=== PATIENT | male | born 1970 | race African-American/Black ===

== ENCOUNTER 2022-10-14 23:34 | Emergency (ER) | payer OTHER, SELFPAY ==
--- NOTE | 2022-10-14 23:40 | ECG_ITS ---
Test Reason : palpations Blood Pressure : / mmHG Vent. Rate : 090 BPM Atrial Rate : 090 BPM P-R Int : 144 ms QRS Dur : 080 ms QT Int : 370 ms P-R-T Axes : 032 -06 057 degrees QTc Int : 452 ms Normal sinus rhythm Nonspecific T wave abnormality Inferior infarct , age undetermined Abnormal ECG No previous ECGs available Referred By: Generic ED Physician Electronically Signed By:SHANDRA PARKINSON
[2022-10-15 00:02] VITALS: BP 120/82; PULSE 88; RESP 18; TEMP 36.9; O2SAT 99
[2022-10-15 00:22] LABS: MANUAL DIFF FLAG NO
[2022-10-15 00:33] LABS: Basophils Absolute Auto 0.1 X10*3/uL (0.0-0.2); Basophils Percent Auto 0.8 % (0-2); Eosinophils Absolute Auto 0.2 X10*3/uL (0.0-0.4); Eosinophils Percent Auto 3.4 % (0-4); Hematocrit 39.8 % (42.0-52.0); Hemoglobin 13.5 g/dl (14.0-18.0); Imm Gran Abs Auto 0.01 X10*3/uL (0.00-0.03); Imm Gran Pct Auto 0.2 % (0.0-0.4); Lymphocytes Absolute Auto 2.3 X10*3/uL (1.2-4.9); Lymphocytes Percent Auto 36.6 % (20-40); Mean Corpuscular HGB Conc 33.9 g/dl (31.0-36.0); Mean Corpuscular Hemoglobin 29.3 pg (27.0-33.0); Mean Corpuscular Volume 86.3 fL (80.0-98.0); Mean Platelet Volume 9.4 fL (9.4-12.4); Monocytes Absolute Auto 0.5 X10*3/uL (0.1-1.2); Monocytes Percent Auto 7.4 % (2-11); Neutrophils Absolute Auto 3.2 x10*3/uL (2.0-8.3); Neutrophils Percent Auto 51.6 % (45-73); Platelet Count 202 X10*3/uL (160-400); Red Blood Count 4.61 X10*6/uL (4.60-5.80); Red Cell Distribution Width 12.8 % (11.0-16.0); White Blood Count 6.2 X10*3/uL (4.8-10.8)
[2022-10-15 00:37] VITALS: BP 133/81; PULSE 85; RESP 19; TEMP 36.9; O2SAT 98
--- NOTE | 2022-10-15 00:46 | ED_ITS ---
HPI - Arrhythmia/Palpitations General Chief Complaint: Arrhythmia/Palpitations Stated Complaint: Heart palpitations, headache Time Seen by Provider: 10/15/22 00:43 Source: patient Mode of arrival: ambulatory Limitations: no limitations Related Data Allergies Allergy/AdvReac Type Severity Reaction Status Date / Time Penicillins Allergy Unknown Verified 10/15/22 00:01 [facility] Social History Social History Advance Directives: No Advance Directives Information Provided: No Physical Exam 2 Vital Signs: Vital Signs: Last Vital Signs Temp 97.8 F 10/15/22 01:56 Pulse 64 10/15/22 01:56 Resp 18 10/15/22 01:56 BP 123/72 10/15/22 01:56 Pulse Ox 96 10/15/22 01:56 O2 Del Method Room Air 10/15/22 01:56 BMI result Body Mass Index 30.0 Medical Decision Making Lab Data 10/15/22 00:18 10/15/22 00:18 Labs: Lab Results 10/15/22 Range/Units 00:18 WBC 6.2 (4.8-10.8) X10*3/uL RBC 4.61 (4.60-5.80) X10*6/uL Hgb 13.5 L (14.0-18.0) g/dl Hct 39.8 L (42.0-52.0) % MCV 86.3 (80.0-98.0) fL MCH 29.3 (27.0-33.0) pg MCHC 33.9 (31.0-36.0) g/dl RDW 12.8 (11.0-16.0) % Plt Count 202 (160-400) X10*3/uL MPV 9.4 (9.4-12.4) fL Immature Gran % (Auto) 0.2 (0.0-0.4) % Neut % (Auto) 51.6 (45-73) % Lymph % (Auto) 36.6 (20-40) % Rosebud % (Auto) 7.4 (2-11) % Eos % (Auto) 3.4 (0-4) % Baso % (Auto) 0.8 (0-2) % Lymph # (Auto) 2.3 (1.2-4.9) X10*3/uL [place] # (Auto) 0.5 (0.1-1.2) X10*3/uL Eos # (Auto) 0.2 (0.0-0.4) X10*3/uL Baso # (Auto) 0.1 (0.0-0.2) X10*3/uL Abs Immat Gran (auto) 0.01 (0.00-0.03) X10*3/uL Absolute Neuts (auto) 3.2 (2.0-8.3) x10*3/uL Absolute Nucleated RBC 0.000 (0.0-0.012) X10*3/uL Nucleated RBC % (auto) 0.0 (0.0-0.2) /100WBC Sodium 139 (135-145) mmol/L Potassium 3.6 (3.3-5.1) mmol/L Chloride 104 (96-108) mmol/L Carbon Dioxide 25 (22-29) mmol/L Anion Gap 14 (12-20) BUN 10 (9-16) mg/dL Creatinine 0.99 (0.5-1.4) mg/dL Estim Creat Clear Calc 103.1 Estimated GFR > 60 Random Glucose 196 H (60-115) mg/dL Calcium 9.8 (8.4-10.2) mg/dL Total Bilirubin 0.3 (0.0-1.0) mg/dL AST 18 (5-37) U/L ALT 15 (0-40) U/L Alkaline Phosphatase 77 (39-117) U/L Troponin I High Sens < 2.7 (<3.5-35.0) ng/L Total Protein 7.1 (6.5-8.0) g/dL Albumin 4.0 (3.5-5.0) g/dL Discharge Plan Discharge Clinical Impression: Palpitations Patient Disposition: Home, Self-Care Instructions: Heart Palpitations (ED) Additional Instructions: Continue medications and blood thinner and follow with Cardiology for further management including Holter monitoring Report to the ER if recurrence of the episodes of palpitations/passing out episode
--- OUTSIDE RECORDS SUMMARY | 2022-10-15 00:48 | XMS_ITS | Continuity of Care Document ---
Author Name Unknown Organization [facility] Address [address] [place] [address]- Care Team Providers Care Head Wood Grinder Name Role Phone Raza BALDERAS, Harlan Primary Care Physician [phone] Encounter [facility] Date(s): 12/23/21 - 01/22/[address] [address]- Allergies, Adverse Reactions, Alerts Substance Reaction Severity Status penicillin Hives Active Immunizations Given and Recorded Vaccine Date Status Refusal Reason FluLaval (oldterm) 1 12/23/10 Given pneumococcal 23-valent vaccine 2 03/24/10 Given influenza virus vaccine, inactivated 3 01/27/10 Gi caroline tetanus-diphtheria toxoids (Td) 4 01/27/10 Given Not Given Vaccine Date Status Refusal Reason SARS-CoV-2 mRNA ([id number]) vax 09/28/21 Not Given Patient Refuses tetanus/diphtheria/pertussis, acel(Tdap) 09/28/21 Not Given Patient Refuses 1Admin Note: vis given 2Admin Note: vis 05/23/2008 3Admin Note: vis 09/16/09 4Admin Note: vis Medications acetaminophen-oxyCODONE 325 mg-5 mg oral tablet 1, tablet, By Mouth, Every 6 hours, # 112 tablet, Refills 0, Tot. Refills 0, Maintenance, 12/29/21 10:47:00 EST, Route to Pharmacy Electronically, [facility] - [place], [place] - [phone], please fill on 01/02, 176, cm, 12/11/21 9:33:00 EDT, Height Start Date: 12/29/21 Stop Date: 01/26/22 Status: Ordered Aspirin Low Dose 81 mg oral delayed release tablet 1 tablet, By Mouth, Daily, # 30 tablet, 3 Refills, Maintenance, 01/19/22 14:38:00 EST, [facility], 176, cm, 01/11/22 9:46:00 EST, Height Start Date: 01/19/22 Status: Ordered atorvastatin 80 mg oral tablet See Instructions, TAKE 1 TABLET BY MOUTH ONCE DAILY, # 30 tablet, 5 Refills, Maintenance, 11/11/21 11:38:00 EDT, [facility], 176, cm, 10/27/21 11:36:00 EDT, Height Start Date: 11/11/21 Status: Ordered Blood Pressure Monitor See Instructions, # 1 each, Refills 0, Tot. Refills 0, Maintenance, patient persistent elevated BP ICD: I10 please send to [facility] thank you, Harlan Person DNP, [facility]-, 10/09/21 9:52:00 EDT, Supply Start Date: 10/09/21 Status: Ordered Cane See Instructions, # 1 each, Maintenance, patient with chronic left hip pain, and Left knee OA needscane please ICD10 M17. 9, M25. 552 Thank you, Harlan Person DNP, [facility], 01/11/22 10:01:00 EST, Supply Start Date: 01/11/22 Status: Ordered clonazePAM 1 mg oral tablet 1 tablet = 1 mg, By Mouth, 3 times a day, Please bubble pack and deliver, # 90 tablet, 0 Refills, Maintenance, 12/29/21 10:43:00 EST, Tablet, [facility] [phone], Partial fill upon patient request if the prescription is for... Start Date: 12/29/21 Stop Date: 01/28/22 Status: Ordered Eliquis 5 mg oral tablet 1 tablet = 5 mg, By Mouth, 2 times a day, Please bubble pack and deliver, # 60 tablet, 5 Refills, Maintenance, 08/27/21 13:36:00 EDT, Tablet, [facility] [phone], Partial fill upon patient request if the prescription is for... Start Date: 08/27/21 Status: Ordered FreeStyle Merlin 2 Monitor See Instructions, # 1 each, Refills 0, Tot. Refills 0, Maintenance, use to test blood sugar at least q8h as directed, 10/07/21 12:29:00 EDT, Supply, 176, cm, 09/28/21 14:00:00 EDT, Height Start Date: 10/07/21 Status: Ordered FreeStyle Merlin 2 Sensors See Instructions, # 2 each, Refills 11, Tot. Refills 11, Maintenance, use to test blood sugar at least q8h. change sensor every 14 days., 10/07/21 12:29:00 EDT, Supply, 176, cm, 09/28/21 14:00:00 EDT, Height Start Date: 10/07/21 Status: Ordered Freestyle Lite Lancets See Instructions, # 100 each, Refills 11, Tot. Refills 11, Maintenance, Use to check blood sugar three times a day before meals for Type 2 DM on insulin, 08/27/21 13:43:00 EDT, Supply, 176, cm, 08/27/21 13:15:00 EDT, Height Start Date: 08/27/21 Status: Ordered Freestyle Lite Monitor See Instructions, # 1 each, Refills 0, Tot. Refills 0, Maintenance, Use to check blood sugar three times a day before meals for Type 2 DM on insulin, 08/27/21 13:42:00 EDT, Supply, 176, cm, 08/27/21 13:15:00 EDT, Height Start Date: 08/27/21 Status: Ordered Freestyle Lite Test Strips See Instructions, # 100 each, Refills 11, Tot. Refills 11, Maintenance, Use to check blood sugar three times a day before meals for Type 2 DM on insulin, 08/27/21 13:43:00 EDT, Supply, 176, cm, 08/27/21 13:15:00 EDT, Height Start Date: 08/27/21 Status: Ordered gabapentin 300 mg oral capsule 300 mg, 1, capsule, By Mouth, 2 times a day, Refills 0, Maintenance, 10/09/21 9:49:00 EDT, Partial fill upon patient request if the prescription is for a schedule II opioid drug. Start Date: 10/09/21 Status: Ordered Gold Bonilla Ultimate Softening topical lotion 1 application, Topically, 2 times a day, PRN for dry skin, to affected area, # 420 mL, 3 Refills, Maintenance, 10/27/21 12:11:00 EDT, Lotion, [facility], [facility] [phone], 1 application Topically 2 times a day,PRN:for dry skin,Instr:... Start Date: 10/27/21 Status: Ordered hydrochlorothiazide-losartan 12.5 mg-50 mg oral tablet See Instructions, TAKE 1 TABLET BY MOUTH ONCE DAILY, # 90 tablet, 1 Refills, Maintenance, 11/11/21 11:38:00 EDT, [facility], 90, TAKE 1 TABLET BY MOUTH ONCE DAILY, 176, cm, 10/27/21 11:36:00 EDT, Height Start Date: 11/11/21 Status: Ordered Lantus Solostar Pen 100 units/mL subcutaneous solution = 40 units, Subcutaneous Infusion, Daily, Please dispense 6 pens, # 15 mL, 2 Refills, Maintenance, 12/30/21 11:12:00 EST, [facility] [phone], Partial fill upon patient request if the prescription is for a schedule II opioid... Start Date: 12/30/21 Stop Date: 03/30/22 Status: Ordered Metoprolol Tartrate 25 mg oral tablet See Instructions, TAKE 1 TABLET BY MOUTH two (2) times a day, # 60 tablet, 2 Refills, Maintenance, 12/18/21 12:59:00 EST, [facility], [place] - [phone], 176, cm, 12/11/21 9:33:00 EDT, Height Start Date: 12/18/21 Status: Ordered nalOXONE 4 mg/0.1 mL nasal spray = 4 mg, Nares, Both, Once, # 2 each, 0 Refills, Soft Stop, 11/17/21 12:37:00 EDT, [facility] [phone], Partial fill upon patient request if the prescription is for a schedule II opioid drug., 102.5, cm, 11/16/21 16:08:00 EDT... Start Date: 11/17/21 Status: Ordered Pen [place], 31 G x 5 mm BD Ultra Fine III See Instructions, # 120 each, Refills 11, Tot. Refills 11, Maintenance, Use to inject insulin 4 times a day for type 2 diabetes., 08/27/21 16:07:00 EDT, Supply, 176, cm, 08/27/21 13:15:00 EDT, Height Start Date: 08/27/21 Status: Ordered sertraline 100 mg oral tablet 1 tablet, By Mouth, Daily, # 30 tablet, 2 Refills, Maintenance, 11/17/21 16:07:00 EDT, [facility], 102.5, cm, 11/16/21 16:08:00 EDT, Height Start Date: 11/17/21 Status: Ordered Problem List Condition Confirmation Course Effective Dates Status H ealth Status Informant CVA (cerebrovascular accident) 1 Confirmed Active Coronary artery disease Confirmed Active Deep venous thrombosis Confirmed Active Diabetes Mellitus 2 Confirmed 1989 Active Controlled substance agreement signed 09/28/2021 Confirmed Active Essential Hypertension Confirmed 1989 Active Goal-lose weight Confirmed Active Hx of deep venous thrombosis Confirmed Active Hyperlipidemia Confirmed Active Myocardial infarct 3 Confirmed Active Neuropathy Confirmed Active Obese class I Confirmed Active Osteoarthritis of left knee Confirmed Active DVT prophylaxis Confirmed Active Tobacco use Confirmed Active 10883 2type unknown 3X3, last in 2016 Social History Social History Type Response Smoking Status 10 or more cigarette s (1/2 pack or more)/day in last 30 days entered on: 09/28/21 Sex Patient Care team information Care Team Personnel Name: Harlan Person NP Position: S Associate Professional Member Role: PCP Address: Address: [address] [place] [address]- Care Team Related Persons Name: ELADIA CORRIGAN Address: home [address] [place] [address]
--- OUTSIDE RECORDS SUMMARY | 2022-10-15 00:48 | XMS_ITS | Continuity of Care Document ---
Author Name Unknown Organization [facility] Address [address] [place] [id number]- Care Team Providers Care Director Of Sustainable Design Name Role Phone Harlan Person NP Primary Care Physician [place] [facility] [place] 06/17/22 [facility] [address] [place] [id number] Encounter Diagnosis CVA (cerebrovascular accident)(Discharge Diagnosis) - 06/10/22 Carotid artery dissection(Discharge Diagnosis) - 06/10/22 Coronary artery disease(Discharge Diagnosis) - 06/10/22 Attending Physician: Felice Cardona MD Referring Physician: Harlan Person NP Allergies, Adverse Reactions, Alerts Substance Reaction Severity Status penicillin Hives Active Immunizations Given and Recorded Vaccine Date Status Refusal Reason FluLaval (oldterm) 1 12/23/10 Given pneumococcal 23-valent vaccine 2 03/24/10 Given influenza virus vaccine, inactivated 3 01/27/10 Gi caroline tetanus-diphtheria toxoids (Td) 4 01/27/10 Given Not Given Vaccine Date Status Refusal Reason SARS-CoV-2 mRNA ([id number]) vax 09/28/21 Not Given Patient Refuses tetanus/diphtheria/pertussis, acel(Tdap) 09/28/21 Not Given Patient Refuses 1Admin Note: vis given 2Admin Note: vis 05/23/2008 3Admin Note: vis 09/16/09 4Admin Note: vis Medications acetaminophen-oxyCODONE 325 mg-5 mg oral tablet 1, tablet, By Mouth, Every 6 hours, # 112 tablet, Refills 0, Tot. Refills 0, Maintenance, 05/31/22 9:58:00 EDT, Route to Pharmacy Electronically, [facility] - [place], [place] - [phone], please fill on 06/01; [employer] checked; on contract, 178,... Start Date: 05/31/22 Stop Date: 06/28/22 Status: Ordered amLODIPine 5 mg oral tablet 2 tablet = 10 mg, By Mouth, Daily, # 180 tablet, 1 Refills, Maintenance, 05/31/22 10:01:00 EDT, [place], [place] - [phone], 178, cm, 05/04/22 11:41:00 EDT, Height, 104.6, kg, 02/15/22 14:37:00 EST, Dry Weight Start Date: 05/31/22 Stop Date: 11/27/22 Status: Ordered Aspirin Low Dose 81 mg oral delayed release tablet 1 tablet, By Mouth, Daily, # 30 tablet, 3 Refills, Maintenance, 05/21/22 15:29:00 EDT, [facility], 178, cm, 05/04/22 11:41:00 EDT, Height, 104.6, kg, 02/15/22 14:37:00 EST, Dry Weight Start Date: 05/21/22 Status: Ordered atorvastatin 80 mg oral tablet 1 tablet, By Mouth, Daily, # 30 tablet, 5 Refills, Maintenance, 05/21/22 14:00:00 EDT, [facility], 178, cm, 05/04/22 11:41:00 EDT, Height, 104.6, kg, 02/15/22 14:37:00 EST, Dry Weight Start Date: 05/21/22 Status: Ordered Blood Pressure Monitor See Instructions, # 1 each, Refills 0, Tot. Refills 0, Maintenance, patient persistent elevated BP ICD: I10 please send to [facility] thank you, JANE Rousseau DNP, 10/09/21 9:52:00 EDT, Supply Start Date: 10/09/21 Status: Ordered Cane See Instructions, # 1 each, Maintenance, patient with chronic left hip pain, and Left knee OA needscane please ICD10 M17. 9, M25. 552 Thank you, JANE Rousseau DNP, 01/11/22 10:01:00 EST, Supply Start Date: 01/11/22 Status: Ordered clonazePAM 1 mg oral tablet 1 tablet = 1 mg, By Mouth, 3 times a day, Please bubble pack and deliver, # 90 tablet, 0 Refills, Maintenance, 06/16/22 9:33:00 EDT, Tablet, [place], [place] - [phone], Partial fill upon patient request if the prescription is for a... Start Date: 06/16/22 Stop Date: 07/16/22 Status: Ordered clopidogrel 75 mg oral tablet TAKE 1 TABLET BY MOUTH ONCE DAILY Start Date: 04/16/22 Status: Ordered docusate sodium 100 mg oral capsule 1 capsule, By Mouth, 2 times a day, PRN NEEDED FOR CONSTIPATION, # 30 each, 2 Refills, Maintenance, 05/21/22 11:07:00 EDT, [facility], 178, cm, 05/04/22 11:41:00 EDT, Height, 104.6, kg, 02/15/22 14:37:00 EST, Dry Weight Start Date: 05/21/22 Status: Ordered Eliquis 5 mg oral tablet 1 tablet = 5 mg, By Mouth, 2 times a day, Please bubble pack and deliver, # 60 tablet, 5 Refills, Maintenance, 02/02/22 12:28:00 EST, Tablet, [place], [place] - [phone], Partial fill upon patient request if the prescription is for... Start Date: 02/02/22 Status: Ordered FreeStyle Merlin 2 Monitor See [...] least q8h. change sensor every 14 days., 03/04/22 10:56:00 EST, Supply, 178, cm, 02/15/22 14:37:00 EST, Height, 104.6, kg, 02/15/22 14:37:00 EST, Dry Weight Start Date: 03/04/22 Status: Ordered Freestyle Merlin Sensor See Instructions, # 1 each, Maintenance, use as directed for Type 2 Diabetes Mellitus, 02/24/22 18:34:00 EST, Supply, 178, cm, 02/15/22 14:37:00 EST, Height, 104.6, kg, 02/15/22 14:37:00 EST, Dry Weight Start Date: 02/24/22 Stop Date: 03/26/22 Status: Ordered Freestyle Lite Lancets See Instructions, [...] Strips See Instructions, # 100 each, Refills 0, Tot. Refills 0, Maintenance, Use to check blood sugar three times a day before meals for Type 2 DM on insulin, 03/31/22 13:06:00 EST, Supply, 178, cm, 03/30/22 9:50:00 EST, Height, 104.6, kg, 02/15/22 14:37:00... Start Date: 03/31/22 Status: Ordered gabapentin 300 mg oral capsule 1, capsule, By Mouth, 2 times a day, # 28 capsule, Refills 0, Maintenance, 06/10/22 10:53:00 EDT, Route to Pharmacy Electronically, [facility], 178, cm, 06/10/22 9:30:00 EDT, Height, 104.6, kg, 02/15/22 14:37:00 EST, Dry Weight Start Date: 06/10/22 Stop Date: 06/24/22 Status: Ordered Gold Bonilla Ultimate Softening topical lotion 1 application, Topically, 2 times a day, PRN for dry skin, to affected area, # 420 mL, 3 Refills, Maintenance, 10/27/21 12:11:00 EDT, Lotion, [facility] [phone], 1 application Topically 2 times a day,PRN:for dry skin,Instr:... Start Date: 10/27/21 Status: Ordered hydrochlorothiazide-losartan 12.5 mg-50 mg oral tablet See Instructions, TAKE 1 TABLET BY MOUTH ONCE DAILY, # 90 tablet, 1 Refills, Maintenance, 02/02/22 12:29:00 EST, [facility] [id number], 90, TAKE 1 TABLET BY MOUTH ONCE DAILY,176, cm, 02/02/22 11:51:00 EST, Height Start Date: 02/02/22 Status: Ordered Jardiance 10 mg oral tablet 1 tablet = 10 mg, By Mouth, Daily in AM, # 90 tablet, 0 Refills, Maintenance, 05/31/22 9:51:00 EDT,Tablet, [facility] [phone], Partial fill upon patient request if the prescription is for a schedule II opioid drug., 178, c... Start Date: 05/31/22 Stop Date: 08/29/22 Status: Ordered Lantus Solostar Pen 100 units/mL subcutaneous solution See Instructions, INJECT 38 UNITS SUBCUTANEOUSLY ONCE DAILY, # 15 mL, 2 Refills, Maintenance, 05/14/22 13:20:00 EDT, [facility], 178, cm, 05/04/22 11:41:00 EDT, Height, 104.6, kg, 02/15/22 14:37:00 EST, Dry Weight Start Date: 05/14/22 Status: Ordered MetFORMIN (Eqv-Glucophage XR) 500 mg oral tablet, extended release 2 tablet, By Mouth, 2 times a day, # 120 tablet, 1 Refills, Maintenance, 05/15/22 10:21:00 EDT, [facility], 178, cm, 05/04/22 11:41:00 EDT, Height, 104.6, kg, 02/15/22 14:37:00 EST, Dry Weight Start Date: 05/15/22 Status: Ordered Metoprolol Tartrate 25 mg oral tablet See Instructions, TAKE 1 TABLET BY MOUTH two (2) times a day, # 60 tablet, 2 Refills, Maintenance, 03/30/22 10:13:00 EST, [facility] [id number], 178, cm, 03/30/22 9:50:00 EST, Height, 104.6, kg, 02/15/22 14:37:00 EST, Dry Weight Start Date: 03/30/22 Status: Ordered nalOXONE 4 mg/0.1 mL nasal spray = 4 mg, Nares, Both, Once, # 2 each, 0 Refills, Soft Stop, 11/17/21 12:37:00 EDT, [facility] [phone], Partial fill upon patient request if the prescription is for a schedule II opioid drug., 102.5, cm, 11/16/21 16:08:00 EDT... Start Date: 11/17/21 Status: Ordered NuLYTELY with Flavor Packs oral powder for reconstitution See Instructions, Drink 240mL every 15-20 minutes until first half is gone. Repeat 6 hours prior toprocedure., # 4,000 mL, 0 Refills, Maintenance, 04/27/22 11:40:00 EDT, [facility] [phone], Partial fill upon patient reque... Start Date: 04/27/22 Status: Ordered Pen [place], 31 G x 5 mm BD Ultra Fine III See Instructions, # 120 each, Refills 11, Tot. Refills 11, Maintenance, Use to inject insulin 4 times a day for type 2 diabetes., 08/27/21 16:07:00 EDT, Supply, 176, cm, 08/27/21 13:15:00 EDT, Height Start Date: 08/27/21 Status: Ordered sertraline 100 mg oral tablet 1 tablet, By Mouth, Daily, # 30 tablet, 2 Refills, Maintenance, 02/25/22 21:52:00 EST, [facility], 178, cm, 02/15/22 14:37:00 EST, Height, 104.6, kg, 02/15/22 14:37:00 EST, Dry Weight Start Date: 02/25/22 Status: Ordered Problem List Condition Confirmation Course Effective Dates Status H ealth Status Informant CVA (cerebrovascular accident) 1 Confirmed Active Coronary artery disease Confirmed Active Deep venous thrombosis Confirmed Active Diabetes Mellitus 2 Confirmed 1990 Active Carotid artery dissection Confirmed Active Controlled substance agreement signed 09/28/2021 Confirmed Active Essential Hypertension Confirmed 1989 Active Goal-lose weight Confirmed Active Hx of pulmonary embolus Confirmed Active Vitreous hemorrhage of left eye Confirmed Active Hx of deep venous thrombosis Confirmed Active Hyperlipidemia Confirmed Active Moderate major depression Confirmed Active Myocardial infarct 3 Confirmed Active Neuropathy Confirmed Active Obese class I Confirmed Active Osteoarthritis of left knee Confirmed Active DVT prophylaxis Confirmed Active Tobacco use Confirmed Active Vitreous hemorrhage Confirmed Active 53336 2type unknown 3X3, last in 2016 Diagnosis Diagnosis Type Effective Dates Health Status Clinical Service Informant CVA (cerebrovascular accident) Discharge Diagnosis 06/10/22 Carotid artery dissection Discharge Diagnosis 06/10/22 Coronary artery disease Discharge Diagnosis 06/10/22 Vital Signs Most recent to oldest [Reference Range]: 1 Height 178 cm (06/10/22 9:30 AM) Weight 99.8 kg (06/10/22 9:30 AM) Oxygen Saturation [94-100 %] 100 % (06/10/22 9:30 AM) Pulse Rate [55-90 bpm] 102 bpm *H* (06/10/22 9:30 AM) Body Mass Index [18.5-24.99 kg/m2] 31.5 kg/m2 *>HHI* (06/10/22 9:30 AM) Blood Pressure [90-138/55-84 mm Hg] 132/ 87mm Hg (06/10/22 9:30 AM) Blood pressure sites Arm, left (06/10/22 9:30 AM) Social History Social History Type Response Tobacco Use: 4 or less cigar ettes(less than 1/4 pack)/day in last 30 days. Other: smoking for 40 yrs.. Sex Cardiology Outpatient Note * Dulce MCGARRY, Felice Winters: PERFORM Event Display: Cardiology Note Office Authored Date: [id number] Patient: ??SHANDRA MCKEON ? Age:??52 Years?Sex:??Male?:??1970?? Patient Hx Cardiology Shared Clinical Summary INTERPRETATION Predominant rhythm is normal sinus rhythm. The average heart rate is 94 beats per minute with normal heart rate variability. The minimum heart rate is 61bpm. The maximum heart rate is 139bpm. There were rare PACs and no sustained supraventricular arrhythmias. THere were frequent PVCs (4%) and no sustained ventricular arrhythmias. There were no significnat pauses or high degree AVB. Numerous patient symptom markers correlated with SR with PVCs.Confirmed by CESIA ESCOBAR ([id number]) on12/22/2021 10:28:29 AM Indication for Consult Ret- CAD, HTN, HLD- 6 month follow up History of Present Illness/Interval History It was a pleasure seeing??Shandra??in follow-up. ??He states that he was seen in the emergency department??at [facility] with visual changes,??left eye?? seeing veins and floaters. ??He underwent bilateral??eye surgery in April at [facility].?? He states that??he does not have much vision in the left eye, but the right??worked. ?? Also noted that he had a tear in the carotid artery on CT scan done there.?? He denies any chest pain or shortness of breath. ??He smokes 4 cigarettes/day, down from prior. Review of Systems 10+ system ROS performed, pertinent positives and negatives in HPI and below. ??See scanned patientquestionnaire. Physical Exam Vitals & Measurements HI:??102?? BP:??132/87?? SpO2:??100%?? HT:??178??cm?? WT:??99.8??kg?? BMI:??31.5?? Weight lb/oz: 220 lb 0 oz Gen: pleasant, in no distress on room air Resp: lungs clear to auscultation bilaterally CV: normal rate, regular rhythm, no murmurs rubs or gallops. Ext: ??No JVD. ??No lower extremity edema. No carotid bruits.?? Assessment/Plan 52-year-old man with history of poorly controlled diabetes, stroke,??carotid artery dissection, coronary disease with PCI in the past??presents for follow- up.?Appears to be doing better than his comorbidities would suggest.?? He is currently on??triple therapy with aspirin??(longstanding since PCI), Plavix (since??carotid dissection),??and Eliquis (since DVT following left-sided orthopedic surgery).?? This puts him at increased bleeding risk.?? We will stop the aspirin component, continue clopidogrel and??Eliquis??for the foreseeable future. ??She should be referred to??vascular??for his carotid disease. ??Mildly reduced LVEF without evidence of congestive heart failure. 1.??CVA (cerebrovascular accident) Blood pressure control, antiplatelet as above 2.??Carotid artery dissection See above 3.??Coronary artery disease Blood pressure control is acceptable.?? Last 2 checks at [facility] have been lower than today's. ??No changes in his antihypertensive regimen. 6-month follow-up (AP) Allergies penicillin??(Hives) Home Medications acetaminophen-oxyCODONE 325 mg-5 mg oral tablet, 1 tablet, By Mouth, Every 6 hours amLODIPine 5 mg oral tablet, 10 mg= 2 tablet, By Mouth, Daily, 1 refills Aspirin Low Dose 81 mg oral delayed release tablet, 1 tablet, By Mouth, Daily atorvastatin 80 mg oral tablet, 1 tablet, By Mouth, Daily Blood Pressure Monitor, See Instructions, patient persistent elevated BP ICD: I10 please send to [facility] thank you, Harlan Person DNP, CERTIFIED RESPIRATORY THERAPIST-C Cane, See Instructions, patient with chronic left hip pain, and Left knee OA needs cane please ICD10 M17. 9, M25. 552 Thank you, Harlan Person DNP, CERTIFIED RESPIRATORY THERAPIST-C clonazePAM 1 mg oral tablet, 1 mg= 1 tablet, By Mouth, 3 times a day, Please bubble pack and deliver clopidogrel 75 mg oral tablet, TAKE 1 TABLET BY MOUTH ONCE DAILY docusate sodium 100 mg oral capsule, 1 capsule, By Mouth, 2 times a day, PRN Eliquis 5 mg oral tablet, 5 mg= 1 tablet, By Mouth, 2 times a day, 5 refills, Please bubble pack and deliver FreeStyle Merlin 2 Monitor, See Instructions, use to test blood sugar at least q8h as directed FreeStyle Merlin 2 Sensors, See Instructions, 11 refills, use to test blood sugar at least q8h. change sensor every 14 days. Freestyle Merlin Sensor, See Instructions, use as directed for Type 2 Diabetes Mellitus Freestyle Lite Lancets, See Instructions, 11 refills, Use to check blood sugar three times a day before meals for Type 2 DM on insulin Freestyle Lite Monitor, See Instructions, Use to check blood sugar three times a day before meals for Type 2 DM on insulin Freestyle Lite Test Strips, See Instructions, Use to check blood sugar three times a day before meals for Type 2 DM on insulin gabapentin 300 mg oral capsule, 1 capsule, By Mouth, 2 times a day Gold Bonilla Ultimate Softening topical lotion, 1 application, Topically, 2 times a day, PRN, 3 refills, to affected area hydrochlorothiazide-losartan 12.5 mg-50 mg oral tablet, See Instructions, 1 refills, TAKE 1 TABLET BY MOUTH ONCE DAILY Jardiance 10 mg oral tablet, 10 mg= 1 tablet, By Mouth, Daily in AM Lantus Solostar Pen 100 units/mL subcutaneous solution, See Instructions, INJECT 38 UNITS SUBCUTANEOUSLY ONCE DAILY MetFORMIN (Eqv-Glucophage XR) 500 mg oral tablet, extended release, 2 tablet, By Mouth, 2 times a day Metoprolol Tartrate 25 mg oral tablet, See Instructions, 2 refills, TAKE 1 TABLET BY MOUTH two (2) times a day nalOXONE 4 mg/0.1 mL nasal spray, 4 mg, Nares, Both, Once NuLYTELY with Flavor Packs oral powder for reconstitution, See Instructions, Drink 240mL every 15-20 minutes until first half is gone. Repeat 6 hours prior to procedure. Pen [place], 31 G x 5 mm BD Ultra Fine III, See Instructions, 11 refills, Use to inject insulin 4 times a day for type 2 diabetes. sertraline 100 mg oral tablet, 1 tablet, By Mouth, Daily Lab Results Cardiology Labs WBC: 6.3 k/mm3 (10/06/21) RBC: 4.87 m/mm3 (10/06/21) Hgb: 13.9 Gm/dL (10/06/21) Hct: 42.4 % (10/06/21) MCV: 87.1 femtoliters (10/06/21) MCH: 28.5 pg (10/06/21) MCHC:??32.8 g/dL??Low (10/06/21) Platelet Count: 225 k/mm3 (10/06/21) RDW-SD: 41.1 femtoliters (10/06/21) Nucleated RBC (Automated): 0 #/100 WBC'S (10/06/21) Abs. Neut: 3.2 k/mm3 (10/06/21) Abs. Lymph: 2.2 k/mm3 (10/06/21) Abs. Whitley: 0.5 k/mm3 (10/06/21) Abs. Eo: 0.3 k/mm3 (10/06/21) Abs. Baso: 0.1 k/mm3 (10/06/21) Neut %: 51.5 % (10/06/21) Whitley %: 7.5 % (10/06/21) Eos %: 4.2 % (10/06/21) Baso %: 0.8 % (10/06/21) Imm Gran: 0.2 % (10/06/21) Abs. Imm Gran: 0 k/mm3 (10/06/21) INR: 1 (02/15/22) Protime (PT): 10.3 seconds (02/15/22) APTT: 26.8 seconds (02/15/22) Sodium: 140 mmol/L (10/06/21) Potassium: 4.1 mmol/L (10/06/21) Chloride: 102 mmol/L (10/06/21) Bicarbonate Level: 27 mmol/L (10/06/21) Glucose Level:??131 mg/dL??High (10/06/21) Hemoglobin A1C (Monitoring):??9 %??High (02/15/22) BUN: 14 mg/dL (10/06/21) Creatinine-Blood: 0.9 mg/dL (10/06/21) Calcium: 9.8 mg/dL (10/06/21) Protein, Total: 7 Gm/dL (10/06/21) Albumin: 4.4 Gm/dL (10/06/21) Alkaline Phosphatase:??137 units/L??High (10/06/21) AST (SGOT): 21 units/L (10/06/21) ALT (SGPT): 13 units/L (10/06/21) Bilirubin, Total: 0.4 mg/dL (10/06/21) Troponin T Quant: <0.01 (08/26/21) Nt-Probnp: 71 pg/mL (08/25/21) Cholesterol:??238 mg/dL??High (10/06/21) Triglycerides:??158 mg/dL??High (10/06/21) HDL Cholesterol:??33 mg/dL??Low (10/06/21) LDL Cholesterol:??173 mg/dL??High (10/06/21) Non HDL Cholesterol:??205 mg/dL??High (10/06/21) Diagnostic Impression ECG ECG 12-Lead ?? 07:22:09 Please click on pdf link to open report ?? Signed By: Wai Carmona MD ?? ECG 12-Lead ?? 07:22:09 Ventricular Rate: 89 BPM Atrial Rate: 89 BPM P-R Interval: 126 ms QRS Duration: 78 ms Q-T Interval: 388 ms QTC Calculation(Bazett): 472 ms P Monte[place]: 34 degrees R [place]: -5 degrees T Monterey: 65 degrees Sinus rhythm with occasional Premature ventricular complexes Cannot rule out Inferior infarct , age undetermined Abnormal ECG When compared with ECG of 16-SEP-2010 11:30, Premature ventricular complexes are now Present Vent. rate has increased BY 30 BPM Confirmed by WAI CARMONA ([id number]) on 12/15/2021 4:24:36 PM ?? Lenora: WAI CARMONA ?? Signed By: Wai Carmona MD Echo Echocardiogram - Complete ?? 15:33:22 Summary The left ventricle is normal in size. Systolic function is mildly reduced. The ejection fraction is 45-50% overall. The basal inferior wall appears hypokinetic. Grade I diastolic dysfunction. ?? The left atrium is normal in size. ?? The right ventricle is normal in size. Function is preserved. ?? The right atrium is normal in size. ?? Comparison No prior study available for comparison. ?? Signature ?? Signed By: Paul MCGARRY, Gregoria Light Problem List/Past Medical History Ongoing Carotid artery dissection Controlled substance agreement signed 09/28/2021 Coronary artery disease CVA (cerebrovascular accident) Deep venous thrombosis Diabetes Mellitus DVT prophylaxis Essential Hypertension Goal-lose weight Hx of deep venous thrombosis Hx of pulmonary embolus Hyperlipidemia Myocardial infarct Neuropathy Obese class I Obese class I Osteoarthritis of left knee Tobacco use Vitreous hemorrhage Vitreous hemorrhage of left eye Historical Severe obesity Procedure/Surgical History PCI-2016; Lumbar spine surgery 2018' Left hip replacement ??; Arthropathy of left hip joint Social History Alcohol Use: Past. Other: Used to drink gallon + a day. Last time he had alcohol was a year ago.., 02/15/2022 Electronic Cigarette/Vaping Electronic Cigarette Use: Never., 09/28/2021 Employment/School Status: Unemployed., 09/28/2021 Exercise Self assessment: Good condition., 09/28/2021 Home/Environment Living situation: Home/Independent. Lives with: Children, Significant other, Nephew., 09/28/2021 Nutrition/Health Diet: Regular., 09/28/2021 Sexual Sexually involved in last 6 months: No., 09/28/2021 Substance Abuse Use: Never., 09/28/2021 Tobacco Use: 4 or less cigarettes(less than 1/4 pack)/day in last 30 days. Other: smoking for 40 yrs.., 02/15/2022 Use: 10 or more cigarettes (1/2 pack or more)/day in last 30 days., 09/28/2021 1 drink on??New Year's Radha??2022, otherwise none??since??May??2021 Family History Mother: Diabetes mellitus Father: Alcohol user; Dementia Mat. Grandmother: Diabetes mellitus; Diabetes mellitus type II Patient Care team information Care Team Personnel Name: Harlan Person NP Position: S Associate Professional Member Role: PCP Address: Address: [address] [place] [address]- Care Team Related Persons Name: ELADIA CORRIGAN Address: home [address] [place] [id number]
--- OUTSIDE RECORDS SUMMARY | 2022-10-15 00:48 | XMS_ITS | Continuity of Care Document ---
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 Role Phone Raza BALDERAS, Harlan Primary Care Physician [phone] [facility]counter [facility] Date(s): 05/04/22 - 06/03/[address] [address] Allergies, Adverse Reactions, Alerts Substance Reaction Severity Status penicillin Hives Active Immunizations Given and Recorded Vaccine Date Status Refusal Reason FluLaval (oldterm) 1 12/23/10 Given pneumococcal 23-valent vaccine 2 03/24/10 Given influenza virus vaccine, inactivated 3 01/27/10 Gi caroline tetanus-diphtheria toxoids (Td) 4 01/27/10 Given Not Given Vaccine Date Status Refusal Reason SARS-CoV-2 mRNA (bpxyjho-[id number]) vax 09/28/21 Not Given Patient Refuses tetanus/diphtheria/pertussis, acel(Tdap) 09/28/21 Not Given Patient Refuses 1Admin Note: vis given 2Admin Note: vis 05/23/2008 3Admin Note: vis 09/16/09 4Admin Note: vis Medications acetaminophen-oxyCODONE 325 mg-5 mg oral tablet 1, tablet, By Mouth, Every 6 hours, # 112 tablet, Refills 0, Tot. Refills 0, Maintenance, 05/31/22 9:58:00 EDT, Route to Pharmacy Electronically, [facility] [place], [place] - [id number], please fill on 06/01; [employer] checked; on contract, 178,... Start Date: 05/31/22 Stop Date: 06/28/22 Status: Ordered amLODIPine 5 mg oral tablet 2 tablet = 10 mg, By Mouth, Daily, # 180 tablet, 1 Refills, Maintenance, 05/31/22 10:01:00 EDT, [place], [place] - [id number], 178, cm, 05/04/22 11:41:00 EDT, Height, 104.6, kg, 02/15/22 14:37:00 EST, Dry Weight Start Date: 05/31/22 Stop Date: 11/27/22 Status: Ordered Aspirin Low Dose 81 mg oral delayed release tablet 1 tablet, By Mouth, Daily, # 30 tablet, 3 Refills, Maintenance, 05/21/22 15:29:00 EDT, [facility], 178, cm, 05/04/22 11:41:00 EDT, Height, 104.6, kg, 02/15/22 14:37:00 EST, Dry Weight Start Date: 05/21/22 Status: Ordered atorvastatin 80 mg oral tablet 1 tablet, By Mouth, Daily, # 30 tablet, 5 Refills, Maintenance, 05/21/22 14:00:00 EDT, [facility], 178, cm, 05/04/22 11:41:00 EDT, Height, [...] deliver, # 90 tablet, 0 Refills, Maintenance, 03/22/22 13:07:00 EST, Tablet, [place], [place] - [id number], Partial fill upon patient request if the prescription is for... Start Date: 03/22/22 Stop Date: 04/21/22 Status: Ordered clopidogrel 75 mg oral tablet TAKE 1 TABLET BY MOUTH ONCE DAILY Start Date: 04/16/22 Status: Ordered docusate sodium 100 mg oral capsule 1 capsule, By Mouth, 2 times a day, PRN NEEDED FOR CONSTIPATION, # 30 each, 2 Refills, Maintenance, 05/21/22 11:07:00 EDT, [facility], 178, cm, 05/04/22 11:41:00 EDT, Height, 104.6, kg, 02/15/22 14:37:00 EST, Dry Weight Start Date: 05/21/22 Status: Ordered Eliquis 5 mg oral tablet 1 tablet = 5 mg, By Mouth, 2 times a day, Please bubble pack and deliver, # 60 tablet, 5 Refills, Maintenance, 02/02/22 12:28:00 EST, Tablet, [place], [place] - [id number], Partial fill upon patient request if the [...] day, # 28 capsule, Refills 0, Maintenance, 05/26/22 12:17:00 EDT, Route to Pharmacy Electronically, [facility], 178, cm, 05/04/22 11:41:00 EDT, Height, 104.6, kg,02/15/22 14:37:00 EST, Dry Weight Start Date: 05/26/22 Stop Date: 06/09/22 Status: Ordered Gold Bonilla Ultimate Softening topical lotion 1 application, Topically, 2 times a day, PRN for dry skin, to affected area, # 420 mL, 3 Refills, Maintenance, 10/27/21 12:11:00 EDT, Lotion, [facility], [place] - [id number], 1 application Topically 2 times a day,PRN:for dry skin,Instr:... Start Date: 10/27/21 Status: Ordered hydrochlorothiazide-losartan 12.5 mg-50 mg oral tablet See Instructions, TAKE 1 TABLET BY MOUTH ONCE DAILY, # 90 tablet, 1 Refills, Maintenance, 02/02/22 12:29:00 EST, [facility], [facility] [id number], 90, TAKE 1 TABLET BY MOUTH ONCE DAILY,176, cm, 02/02/22 11:51:00 EST, Height Start Date: 02/02/22 Status: Ordered Jardiance 10 mg oral tablet 1 tablet = 10 mg, By Mouth, Daily in AM, # 90 tablet, 0 Refills, Maintenance, 05/31/22 9:51:00 EDT,Tablet, [facility], [facility] [id number], Partial fill upon patient request if the prescription is for a schedule II opioid drug., 178, c... Start Date: 05/31/22 Stop Date: 08/29/22 Status: Ordered Lantus Solostar Pen 100 units/mL subcutaneous solution See Instructions, INJECT 38 UNITS SUBCUTANEOUSLY ONCE DAILY, # 15 mL, 2 Refills, Maintenance, 05/14/22 13:20:00 EDT, [facility], 178, cm, 05/04/22 11:41:00 EDT, Height, 104.6, kg, 02/15/22 14:37:00 EST, Dry Weight Start Date: 05/14/22 Status: Ordered MetFORMIN (Eqv-Glucophage XR) 500 mg oral tablet, extended release 2 tablet, By Mouth, 2 times a day, # 120 tablet, 1 Refills, Maintenance, 05/15/22 10:21:00 EDT, [facility], 178, cm, 05/04/22 11:41:00 EDT, Height, 104.6, kg, 02/15/22 14:37:00 EST, Dry Weight Start Date: 05/15/22 Status: Ordered Metoprolol Tartrate 25 mg oral tablet See Instructions, TAKE 1 TABLET BY MOUTH two (2) times a day, # 60 tablet, 2 Refills, Maintenance, 03/30/22 10:13:00 EST, [facility] [phone], 178, cm, 03/30/22 9:50:00 EST, Height, 104.6, kg, 02/15/22 14:37:00 EST, Dry Weight Start Date: 03/30/22 Status: Ordered nalOXONE 4 mg/0.1 mL nasal spray = 4 mg, Nares, Both, Once, # 2 each, 0 Refills, Soft Stop, 11/17/21 12:37:00 EDT, [facility] [id number], Partial fill upon patient request if the prescription is for a schedule II opioid drug., 102.5, cm, 11/16/21 16:08:00 EDT... Start Date: 11/17/21 Status: Ordered NuLYTELY with Flavor Packs oral powder for reconstitution See Instructions, Drink 240mL every 15-20 minutes until first half is gone. Repeat 6 hours prior toprocedure., # 4,000 mL, 0 Refills, Maintenance, 04/27/22 11:40:00 EDT, [facility] [id number], Partial fill upon patient reque... Start Date: 04/27/22 Status: Ordered Pen [place], 31 G x 5 mm BD Ultra [...] tablet, 2 Refills, Maintenance, 02/25/22 21:52:00 EST, [facility], 178, cm, 02/15/22 14:37:00 EST, Height, 104.6, kg, 02/15/22 14:37:00 EST, Dry Weight Start Date: 02/25/22 Status: Ordered Problem List Condition Confirmation Course Effective Dates Status H ealth Status Informant CVA (cerebrovascular accident) 1 Confirmed Active Coronary artery disease Confirmed Active Deep venous thrombosis Confirmed Active Diabetes Mellitus 2 Confirmed 1989 Active Carotid artery dissection Confirmed Active Controlled [...] use Confirmed Active Vitreous hemorrhage Confirmed Active 55006 2type unknown 3X3, last in 2016 Social History Social History Type Response Tobacco Use: 4 or less cigar ettes(less than 1/4 pack)/day in last 30 days. Other: smoking for 40 yrs.. Sex Patient Care team information Care Team Personnel Name: Harlan Person NP Position: [facility] Associate Professional Member Role: PCP Address: Address: [address] [place] [address]- Care Team Related Persons Name: ELADIA CORRIGAN Address: [address] [place] [address]
--- OUTSIDE RECORDS SUMMARY | 2022-10-15 00:48 | XMS_ITS | Continuity of Care Document ---
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 Role Phone Raza BALDERAS, Harlan Primary Care Physician [phone] [facility]counter [facility] Date[facility]s): 08/31/21 - 09/30/[address] [address]- Allergies, Adverse Reactions, Alerts Substance Reaction Severity Status penicillin Hives Active Immunizations Given and Recorded Vaccine Date Status Refusal Reason FluLaval (oldterm) 1 12/23/10 Given pneumococcal 23-valent vaccine 2 03/24/10 Given influenza virus vaccine, inactivated 3 01/27/10 Gi caroline tetanus-diphtheria toxoids (Td) 4 01/27/10 Given Not Given Vaccine Date Status Refusal Reason SARS-CoV-2 mRNA ([id number]) vax 09/28/21 Not Given Patient Refuses tetanus/diphtheria/pertussis, acel(Tdap) 09/28/21 Not Given Patient Refuses 1Admin Note: vis given 2Admin Note: vis 05/23/2008 3Admin Note: vis 09/16/09 4Admin Note: vis Medications acetaminophen-oxyCODONE 325 mg-5 mg oral tablet 1, tablet, By Mouth, Every 6 hours, for 7 days, # 28 tablet, Refills 0, Tot. Refills 0, Acute, 10/07/21 19:14:00 EDT, 09/30/21 19:14:00 EDT, Route to Pharmacy Electronically, [facility] - [place], [place] - [id number] Tablet, Partial fill upon pat... Start Date: 09/30/21 Stop Date: 10/07/21 Status: Ordered atorvastatin 80 mg oral tablet 1 tablet = 80 mg, By Mouth, Daily, # 30 tablet, 1 Refills, Maintenance, 09/28/21 15:06:00 EDT, Tablet, [facility] [id number], Partial fill upon patient request if the prescription is for a schedule II opioid drug., 176, cm, 08... Start Date: 09/28/21 Status: Ordered clonazePAM 1 mg oral tablet 1 tablet = 1 mg, By Mouth, 3 times a day, Please bubble pack and deliver, # 90 tablet, 0 Refills, Maintenance, 09/29/21 17:54:00 EDT, Tablet, [facility] [id number], Partial fill upon patient request if the prescription is for... Start Date: 09/29/21 Status: Ordered Eliquis 5 mg oral tablet 1 tablet = 5 mg, By Mouth, 2 times a day, Please bubble pack and deliver, # 60 tablet, 5 Refills, Maintenance, 08/27/21 13:36:00 EDT, Tablet, [facility] [id number], Partial fill upon patient request if the prescription is for... Start Date: 08/27/21 Status: Ordered Freestyle Lite Lancets See Instructions, [...] EDT, Height Start Date: 08/27/21 Status: Ordered Humalog Kwik Pen 100 units/mL subcutaneous injection = 10 units, Subcutaneous Infusion, 3 times a day before meals, Please dispense 3 pens, # 15 mL, 2 Refills, Maintenance, 08/27/21 13:37:00 EDT, [facility] [id number], Partial fill upon patient request if the prescription is for... Start Date: 08/27/21 Status: Ordered hydrochlorothiazide-losartan 12.5 mg-50 mg oral tablet 1 tablet, By Mouth, Daily, # 90 tablet, 0 Refills, Maintenance, 09/28/21 15:10:00 EDT, Tablet, [facility] [id number], Partial fill upon patient request if the prescription isfor a schedule II opioid drug., 1 tablet By Mouth D... Start Date: 09/28/21 Stop Date: 12/27/21 Status: Ordered Lantus Solostar Pen 100 units/mL subcutaneous solution = 55 units, Subcutaneous Infusion, Daily, Please dispense 6 pens, # 15 mL, 2 Refills, Maintenance, 08/27/21 13:36:00 EDT, [facility] [id number], Partial fill upon patient request if the prescription is for a schedule II opioid... Start Date: 08/27/21 Stop Date: 11/25/21 Status: Ordered Nicorette 4 mg oral transmucosal gum 1 each = 4 mg, Chew, Every 2 hours, PRN as needed for smoking cessation, for 8 week(s), # 160 each,0 Refills, Acute 11/23/21 15:06:00 EDT, 09/28/21 15:06:00 EDT, Gum, [facility] [id number], Cinnamon flavor please, 176, cm, 08... Start Date: 09/28/21 Stop Date: 11/23/21 Status: Ordered Pen [place], 31 G x 5 mm BD Ultra Fine III See Instructions, # 120 each, Refills 11, Tot. Refills 11, Maintenance, Use to inject insulin 4 times a day for type 2 diabetes., 08/27/21 16:07:00 EDT, Supply, 176, cm, 08/27/21 13:15:00 EDT, Height Start Date: 08/27/21 Status: Ordered sertraline 100 mg oral tablet 1 tablet = 100 mg, By Mouth, Daily, Please bubble pack and deliver, # 30 tablet, 2 Refills, Maintenance, 08/27/21 15:37:00 EDT, Tablet, [facility] - [place], [place] - [id number], Partial fill upon patient request if the prescription is for a sche... Start Date: 08/27/21 Status: Ordered Problem List Condition Effective Dates Status Health Status Inform ant CVA (cerebrovascular accident)(Confirmed) 1 Active Diabetes Mellitus(Confirmed) 2 1989 Active Controlled substance agreeme nt signed 09/28/2021(Confirmed) Active Essential Hypertension(Confirmed) 1989 Active Goal-lose weight(Confirmed) Active Hyperlipidemia(Confirmed) Active Myocardial infarct(Confirmed) 3 Active Neuropathy(Confirmed) Active Obese class I(Confirmed) Active Tobacco use(Confirmed) Active 44048 2type unknown 3X3, last in 2015 Social History Social History Type Response Smoking Status 10 or more cigarette s (1/2 pack or more)/day in last 30 days entered on: 09/28/21 Sex
--- OUTSIDE RECORDS SUMMARY | 2022-10-15 00:48 | XMS_ITS | Continuity of Care Document ---
Author Name Unknown Organization 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 Name Role Phone Raza BALDERAS, Harlan Primary Care Physician [phone] [facility]counter [facility] Date[facility]s): 09/30/21 - 10/30/[address] [address]- Allergies, Adverse Reactions, Alerts Substance Reaction Severity Status penicillin Hives Active Immunizations Given and Recorded Vaccine Date Status Refusal Reason FluLaval (oldterm) 1 12/23/10 Given pneumococcal 23-valent vaccine 2 03/24/10 Given influenza virus vaccine, inactivated 3 01/27/10 Gi caroline tetanus-diphtheria toxoids (Td) 4 01/27/10 Given Not Given Vaccine Date Status Refusal Reason SARS-CoV-2 mRNA ([id number]) vax 09/28/21 Not Given Patient Refuses tetanus/diphtheria/pertussis, acel(Tdap) 09/28/21 Not Given Patient Refuses 1Admin Note: vis given 2Admin Note: vis 05/23/2008 3Admin Note: vis 09/16/09 4Admin Note: vis Medications acetaminophen-oxyCODONE 325 mg-5 mg oral tablet 1, tablet, By Mouth, Every 6 hours, # 28 tablet, Refills 0, Tot. Refills 0, Maintenance, 10/22/21 19:47:00 EDT, Route to Pharmacy Electronically, [place], [place] - [id number], Partial fill upon patient request if the prescription is... Start Date: 10/22/21 Stop Date: 10/29/21 Status: Ordered aspirin 81 mg oral delayed release tablet 81 mg, 1, tablet, By Mouth, Daily, # 30 tablet, Refills 3, Tot. Refills 3, Maintenance, 10/09/21 9:23:00 EDT, Route to Pharmacy Electronically, [facility] [id number], Partialfill upon patient request if the prescription is fo... Start Date: 10/09/21 Stop Date: 02/06/22 Status: Ordered atorvastatin 80 mg oral tablet 1 tablet = 80 mg, By Mouth, Daily, # 30 tablet, 1 Refills, Maintenance, 09/28/21 15:06:00 EDT, Tablet, [facility] [id number], Partial fill upon patient request if the prescription is for a schedule II opioid drug., 176, cm, 08... Start Date: 09/28/21 Status: Ordered Blood Pressure Monitor See Instructions, # 1 each, Refills 0, Tot. Refills 0, Maintenance, patient persistent elevated BP ICD: I10 please send to [facility] thank you, Harlan Person [facility], MANAGER OF [facility]POR[facility], 10/09/21 9:52:00 EDT, Supply Start Date: 10/09/21 Status: Ordered clonazePAM 1 mg oral tablet 1 tablet = 1 mg, By Mouth, 3 times a day, Please bubble pack and deliver, # 90 tablet, 0 Refills, Maintenance, 09/29/21 17:54:00 EDT, Tablet, [facility] [id number], Partial fill upon patient request if the prescription is for... Start Date: 09/29/21 Status: Ordered Eliquis 5 mg oral tablet 1 tablet = 5 mg, By Mouth, 2 times a day, Please bubble pack and deliver, # 60 tablet, 5 Refills, Maintenance, 08/27/21 13:36:00 EDT, Tablet, [facility] [id number], Partial fill upon patient request if the [...] 3 Refills, Maintenance, 10/27/21 12:11:00 EDT, Lotion, [place], [place] - [id number], 1 application Topically 2 times a day,PRN:for dry skin,Instr:... Start Date: 10/27/21 Status: Ordered hydrochlorothiazide-losartan 12.5 mg-50 mg oral tablet 1 tablet, By Mouth, Daily, # 90 tablet, 0 Refills, Maintenance, 09/28/21 15:10:00 EDT, Tablet, [facility] [id number], Partial fill upon patient request if the prescription isfor a schedule II opioid drug., 1 tablet By Mouth D... Start Date: 09/28/21 Stop Date: 12/27/21 Status: Ordered Lantus Solostar Pen 100 units/mL subcutaneous solution = 40 units, Subcutaneous Infusion, Daily, Please dispense 6 pens, # 15 mL, 2 Refills, Maintenance, 08/27/21 13:36:00 EDT, [facility] [id number], Partial fill upon patient request if the prescription is for a schedule II opioid... Start Date: 08/27/21 Stop Date: 11/25/21 Status: Ordered metoprolol 25 mg oral tablet 25 mg, 1, tablet, By Mouth, 2 times a day, # 60 tablet, Refills 2, Tot. Refills 2, Maintenance, 10/07/21 8:55:00 EDT, Route to Pharmacy Electronically, [facility] [id number],Partial fill upon patient request if the prescripti... Start Date: 10/07/21 Stop Date: 01/05/22 Status: Ordered Nicorette 4 mg oral transmucosal gum 1 each = 4 mg, Chew, Every 2 hours, PRN as needed for smoking cessation, for 8 week(s), # 160 each,0 Refills, Acute 11/23/21 15:06:00 EDT, 09/28/21 15:06:00 EDT, Gum, [facility] [id number], Cinnamon flavor please, 176, cm, 08... Start Date: 09/28/21 Stop Date: 11/23/21 Status: Ordered Pen [place], 31 G x 5 mm BD Ultra [...] 2 Refills, Maintenance, 08/27/21 15:37:00 EDT, Tablet, [facility] - [place], [place] - [id number], Partial fill upon patient request if the prescription is for a sche... Start Date: 08/27/21 Status: Ordered Problem List Condition Effective Dates Status Health Status Inform ant CVA (cerebrovascular accident)(Confirmed) 1 Active Diabetes Mellitus(Confirmed) 2 1989 Active Controlled substance agreeme nt signed 09/28/2021(Confirmed) Active Essential Hypertension(Confirmed) 1989 Active Goal-lose weight(Confirmed) Active Hx of deep venous thrombosis(Confirmed) Active Hyperlipidemia(Confirmed) Active Myocardial infarct(Confirmed) 3 Active Neuropathy(Confirmed) Active Obese class I(Confirmed) Active Tobacco use(Confirmed) Active 53135 2type unknown 3X3, last in 2015 Social History Social History Type Response Smoking Status 10 or more cigarette s (1/2 pack or more)/day in last 30 days entered on: 09/28/21 Sex Care Team Personnel Name: Harlan Person NP Address: [address] [place] [address]
--- OUTSIDE RECORDS SUMMARY | 2022-10-15 00:48 | XMS_ITS | Continuity of Care Document ---
Author Name Unknown Organization [facility] Address [address] [place] [address]- Care Team Providers Care Rubber Thread Spooler Name Role Phone Raza BALDERAS, Harlan Primary Care Physician [place] [facility] [place] - 10/09/[address] [address]- Allergies, Adverse Reactions, Alerts Substance Reaction Severity Status penicillin Hives Active Immunizations Given and Recorded Vaccine Date Status Refusal Reason FluLaval (oldterm) 1 12/23/10 Given pneumococcal 23-valent vaccine 2 03/24/10 Given influenza virus vaccine, inactivated 3 01/27/10 Gi caroline tetanus-diphtheria toxoids (Td) 4 01/27/10 Given 1Admin Note: vis given 2Admin Note: vis 05/23/2008 3Admin Note: vis 09/16/09 4Admin Note: vis Medications acetaminophen-oxyCODONE 325 mg-5 mg oral tablet 1, tablet, By Mouth, Every 6 hours, # 112 tablet, Refills 0, Tot. Refills 0, Maintenance, 10/07/22 16:55:00 EDT, Route to Pharmacy Electronically, [facility]/pharmacy #[id number], please fill on 06/01; MassPAT checked; on contractTyra cm, 09/30/22 9:04:00 EDT, H... Start Date: 10/07/22 Stop Date: 11/04/22 Status: Ordered amLODIPine 5 mg oral tablet 2 tablet = 10 mg, By Mouth, Daily, # 180 tablet, 1 Refills, Maintenance, 05/31/22 10:01:00 EDT, [facility] - [place], [place] - [id number], 178, cm, 05/04/22 11:41:00 EDT, Height, 104.6, kg, 02/15/22 14:37:00 EST, Dry Weight Start Date: 05/31/22 Stop Date: 11/27/22 Status: Ordered atorvastatin 80 mg oral tablet 1 tablet, By Mouth, Daily, # 30 tablet, 5 Refills, Maintenance, 10/05/22 9:12:00 EDT, [facility], [place] - [id number], 178, cm, 09/30/22 9:04:00 EDT, Height, 104.6, kg, 02/15/22 14:37:00 EST, Dry Weight Start Date: 10/05/22 Status: Ordered Blood Pressure Monitor See Instructions, # 1 each, Refills 0, Tot. Refills 0, Maintenance, patient persistent elevated BP ICD: I10 please send to L&C thank you, Harlan Person DNP, [facility], 10/09/21 9:52:00 EDT, Supply Start Date: 10/09/21 Status: Ordered Cane See Instructions, # 1 each, Maintenance, patient with chronic left hip pain, and Left knee OA needscane please ICD10 M17. 9, M25. 552 Thank you, Harlan Person DNP, MEDICAL INSTRUMENT TECHNICIAN-C, 01/11/22 10:01:00 EST, Supply Start Date: 01/11/22 Status: Ordered clonazePAM 1 mg oral tablet 1 tablet = 1 mg, By Mouth, 3 times a day, Please bubble pack and deliver, # 90 tablet, 0 Refills, Maintenance, 10/07/22 17:05:00 EDT, Tablet, [facility], [place] - [id number], Partial fill upon patient request if the prescription is for... Start Date: 10/07/22 Stop Date: 11/06/22 Status: Ordered clopidogrel 75 mg oral tablet 1, tablet, By Mouth, Daily, # 90 tablet, Refills 1, Tot. Refills 1, Maintenance, 09/03/22 12:49:00 EDT, Route to Pharmacy Electronically, [facility], [place] - [id number], 178, cm, 09/03/22 10:25:00 EDT, Height, 104.6, kg, 02/15/22 14:37... Start Date: 09/03/22 Stop Date: 03/02/23 Status: Ordered docusate sodium 100 mg oral capsule 1 capsule, By Mouth, 2 times a day, PRN NEEDED FOR CONSTIPATION, # 30 each, 2 Refills, Maintenance, 07/29/22 11:46:00 EDT, [facility], 178, cm, 07/15/22 13:22:00 EDT, Height, 104.6, kg, 02/15/22 14:37:00 EST, Dry Weight Start Date: 07/29/22 Status: Ordered doxycycline hyclate 100 mg oral capsule 1 capsule = 100 mg, By Mouth, 2 times a day, for 10 days, # 20 capsule, 0 Refills, Acute 10/10/22 9:39:00 EDT, 09/30/22 9:39:00 EDT, Capsule, [place], [place] - [id number], Partial fill upon patient request if the prescription is for... Start Date: 09/30/22 Stop Date: 10/10/22 Status: Ordered Eliquis 5 mg oral tablet 1 tablet = 5 mg, By Mouth, 2 times a day, Please bubble pack and deliver, # 60 tablet, 5 Refills, Maintenance, 09/03/22 12:46:00 EDT, Tablet, [place], [place] - [id number], Partial fill upon patient request if the prescription is for... Start Date: 09/03/22 Stop Date: 03/02/23 Status: Ordered FreeStyle Merlin 2 Monitor See Instructions, # 1 each, Refills 0, Tot. Refills 0, Maintenance, use to test blood sugar at least q8h as directed, 08/16/22 9:55:00 EDT, Supply, 178, cm, 07/15/22 13:22:00 EDT, Height, 104.6, kg, 02/15/22 14:37:00 EST, Dry Weight Start Date: 08/16/22 Status: Ordered FreeStyle Merlin 2 Sensors See [...] EDT, Height Start Date: 08/27/21 Status: Ordered FreeStyle Lite Strips FreeStyle Lite Strips, See Instructions, # 100 Unknown, 11 Refills, Maintenance, USE TO TEST FINGERSTICK BLOOD SUGAR 3 (THREE) TIMES A DAY BEFORE MEALS, 09/15/22 14:51:00 EDT, 178, cm, 09/03/22 10:25:00 EDT, Height, 104.6, kg, 02/15/22 14:37:00 EST,... Start Date: 09/15/22 Status: Ordered FreeStyle Lite Strips FreeStyle Lite Strips, See Instructions, # 100 Unknown, 2 Refills, Maintenance, USE TO TEST FINGER STICK BLOOD SUGAR 3 (THREE) TIMES A DAY BEFORE MEALS, 06/21/22 10:35:00 EDT, 178, cm, 06/10/22 9:30:00 EDT, Height, 104.6, kg, 02/15/22 14:37:00 EST, DrAlcira.. Start Date: 06/21/22 Status: Ordered Freestyle Lite Test Strips See [...] Mouth, 2 times a day, # 60 capsule, Refills 0, Maintenance, 09/01/22 10:44:00 EDT, Route to Pharmacy Electronically, [facility], 178, cm, 07/15/22 13:22:00 EDT, Height, 104.6, kg,02/15/22 14:37:00 EST, Dry Weight Start Date: 09/01/22 Status: Ordered Gold Bonilla Ultimate Softening topical lotion 1 application, Topically, 2 times a day, PRN for dry skin, to affected area, # 420 mL, 3 Refills, Maintenance, 10/27/21 12:11:00 EDT, Lotion, [place], [place] - [id number], 1 application Topically 2 times a day,PRN:for dry skin,Instr:... Start Date: 10/27/21 Status: Ordered hydrochlorothiazide-losartan 12.5 mg-50 mg oral tablet See Instructions, TAKE 1 TABLET BY MOUTH ONCE DAILY, # 90 tablet, 1 Refills, Maintenance, 07/16/22 10:37:00 EDT, [place], [place] - [id number], 90, TAKE 1 TABLET BY MOUTH ONCE DAILY,178, cm, 07/15/22 13:22:00 EDT, Height, 104.6, kg,... Start Date: 07/16/22 Status: Ordered Inject Ease Lancets 28 gauge Inject Ease Lancets 28 gauge, See Instructions, # 100 Unknown, 11 Refills, Maintenance, Use to check blood sugar three times a day before meals for Type 2 DM on insulin, 09/15/22 14:51:00 EDT, 178, cm, 09/03/22 10:25:00 EDT, Height, 104.6, kg, ... Start Date: 09/15/22 Status: Ordered Jardiance 10 mg oral tablet 1 tablet, By Mouth, Daily in AM, # 90 tablet, 1 Refills, Maintenance, 09/11/22 8:58:00 EDT, [facility], 178, cm, 09/03/22 10:25:00 EDT, Height, 104.6, kg, 02/15/22 14:37:00 EST, Dry Weight Start Date: 09/11/22 Status: Ordered Lantus Solostar Pen 100 units/mL subcutaneous solution See Instructions, INJECT 40 UNITS SUBCUTANEOUSLY ONCE DAILY, # 15 mL, 2 Refills, Maintenance, 10/07/22 18:17:00 EDT, [facility], 178, cm, 09/30/22 9:04:00 EDT, Height, 104.6, kg, 02/15/22 14:37:00 EST, Dry Weight Start Date: 10/07/22 Status: Ordered Metoprolol Tartrate 25 mg oral tablet See Instructions, TAKE 1 TABLET BY MOUTH two (2) times a day, # 60 tablet, 5 Refills, Maintenance, 10/05/22 9:12:00 EDT, [facility] [id number], 178, cm, 09/30/22 9:04:00 EDT,Height, 104.6, kg, 02/15/22 14:37:00 EST, Dry Weight Start Date: 10/05/22 Status: Ordered mirtazapine 7.5 mg oral tablet 1 tablet, By Mouth, Daily at bedtime, # 30 tablet, 2 Refills, Maintenance, 09/11/22 8:58:00 EDT, [facility], 178, cm, 09/03/22 10:25:00 EDT, Height, 104.6, kg, 02/15/22 14:37:00 EST, Dry Weight Start Date: 09/11/22 Status: Ordered nalOXONE 4 mg/0.1 mL nasal spray = 4 mg, Nares, Both, Once, # 2 each, 0 Refills, Soft Stop, 11/17/21 12:37:00 EDT, [facility] [id number], Partial fill upon patient request if the prescription is for a schedule II opioid drug., 102.5, cm, 11/16/21 16:08:00 EDT... Start Date: 11/17/21 Status: Ordered nitroglycerin 0.4 mg sublingual tablet 1 tablet = 0.4 mg, Sublingual, Every 5 minutes, PRN as needed for chest pain, Take 1 dose at first sign of chest pain. If chest pain continues after 5 minutes, take a second dose and call 911., # 25 tablet, 0 Refills, Maintenance, 09/03/22 10:13:00 ED... Start Date: 09/03/22 Status: Ordered NuLYTELY with Flavor Packs oral powder for reconstitution See Instructions, Drink 240mL every 15-20 minutes until first half is gone. Repeat 6 hours prior toprocedure., # 4,000 mL, 0 Refills, Maintenance, 04/27/22 11:40:00 EDT, [facility] [id number], Partial fill upon patient reque... Start Date: 04/27/22 Status: Ordered omeprazole 20 mg oral enteric coated capsule 1 capsule = 20 mg, By Mouth, Daily, 30 min before a meal, # 30 capsule, 0 Refills, Maintenance, 09/01/22 8:49:00 EDT, [facility] [id number], Needs to be QD, 178, cm, 07/15/2312:22:00 EDT, Height, 104.6, kg, 02/15/22 14:37:00... Start Date: 09/01/22 Stop Date: 10/01/22 Status: Ordered Pen [place], 31 G x 5 mm BD Ultra Fine III See Instructions, # 120 each, Refills 11, Tot. Refills 11, Maintenance, Use to inject insulin 4 times a day for type 2 diabetes., 08/27/21 16:07:00 EDT, Supply, 176, cm, 08/27/21 13:15:00 EDT, Height Start Date: 08/27/21 Status: Ordered sertraline 100 mg oral tablet 1 tablet, By Mouth, Daily, # 30 tablet, 2 Refills, Maintenance, 09/01/22 10:44:00 EDT, [facility], 178, cm, 07/15/22 13:22:00 EDT, Height, 104.6, kg, 02/15/22 14:37:00 EST, Dry Weight Start Date: 09/01/22 Status: Ordered Problem List Condition Confirmation Course Effective Dates Status H ealth Status Informant CVA (cerebrovascular accident) 1 Confirmed Active Coronary artery disease Confirmed Active Deep venous thrombosis Confirmed Active Diabetes Mellitus 2 Confirmed 1989 Active Carotid artery dissection Confirmed Active Controlled substance agreement signed 10/07/2022 Confirmed Active Essential Hypertension Confirmed 1989 Active Goal-lose weight Confirmed Active Hx of pulmonary embolus Confirmed Active Vitreous hemorrhage of left eye Confirmed Active Hidradenitis Confirmed Active Hx of deep venous thrombosis Confirmed Active Hyperlipidemia Confirmed Active Moderate major depression Confirmed Active Myocardial infarct 3 Confirmed Active Neuropathy Confirmed Active Osteoarthritis of left knee Confirmed Active DVT prophylaxis Confirmed Active Tobacco use Confirmed Active Vitreous hemorrhage Confirmed Active Weight loss Confirmed Active 33349 2type unknown 3X3, last in 2016 Social History Social History Type Response Tobacco Use: 4 or less cigar ettes(less than 1/4 pack)/day in last 30 days. Other: smoking for 40 yrs.. Sex Patient Care team information Care Team Personnel Name: Harlan Person NP Position: [facility] Associate Professional Member Role: PCP Address: Address: [address] [place] [address]- Care Team Related Persons Name: ELADIA CORRIGAN Address: [address] [place] [address]
--- OUTSIDE RECORDS SUMMARY | 2022-10-15 00:48 | XMS_ITS | Continuity of Care Document ---
Author Name Unknown Organization [facility] Address [address] [place] [address]- Care Team Providers Care Health It Specialist Name Role Phone Raza BALDERAS, Harlan Primary Care Physician [phone] Encounter [facility] [place] Date(s): 08/17/22 - 09/16/[address] [id number] Allergies, Adverse Reactions, Alerts Substance Reaction Severity Status penicillin Hives Active Immunizations Given and Recorded Vaccine Date Status Refusal Reason FluLaval (oldterm) 1 12/23/10 Given pneumococcal 23-valent vaccine 2 03/24/10 Given influenza virus vaccine, inactivated 3 01/27/10 Gi caroline tetanus-diphtheria toxoids (Td) 4 01/27/10 Given Not Given Vaccine Date Status Refusal Reason SARS-CoV-2 mRNA (borykly-voae-yydlu) vax 09/28/21 Not Given Patient Refuses tetanus/diphtheria/pertussis, acel(Tdap) 09/28/21 Not Given Patient Refuses 1Admin Note: vis given 2Admin Note: vis 05/23/2008 3Admin Note: vis 09/16/09 4Admin Note: vis Medications acetaminophen-oxyCODONE 325 mg-5 mg oral tablet 1, tablet, By Mouth, Every 6 hours, # 112 tablet, Refills 0, Tot. Refills 0, Maintenance, 09/01/22 11:16:00 EDT, Route to Pharmacy Electronically, [facility]/pharmacy #[id number], please fill on 06/01; MassPAT checked; on contractTyra , 07/15/22 13:22:00 EDT,... Start Date: 09/01/22 Stop Date: 09/29/22 Status: Ordered amLODIPine 5 mg oral tablet 2 tablet = 10 mg, By Mouth, Daily, # 180 tablet, 1 Refills, Maintenance, 05/31/22 10:01:00 EDT, [place] - [id number], 178, cm, 05/04/22 11:41:00 EDT, Height, 104.6, kg, 02/15/22 14:37:00 EST, Dry Weight Start Date: 05/31/22 Stop Date: 11/27/22 Status: Ordered atorvastatin 80 mg oral tablet 1 tablet, By Mouth, Daily, # 30 tablet, 5 Refills, Maintenance, 05/21/22 14:00:00 EDT, [facility], 178, cm, 05/04/22 11:41:00 EDT, Height, 104.6, kg, 02/15/22 14:37:00 EST, Dry Weight Start Date: 05/21/22 Status: Ordered Blood Pressure Monitor See Instructions, # 1 each, Refills 0, Tot. Refills 0, Maintenance, patient persistent elevated BP ICD: I10 please send to L&C thank you, Harlan Person DNP, FOOD PRODUCTION SUPERVISOR-C, 10/09/21 9:52:00 EDT, Supply Start Date: 10/09/21 Status: Ordered Cane See Instructions, # 1 each, Maintenance, patient with chronic left hip pain, and Left knee OA needscane please ICD10 M17. 9, M25. 552 Thank you, Harlan Person DNP, FOOD PRODUCTION SUPERVISOR-C, 01/11/22 10:01:00 EST, Supply Start Date: 01/11/22 Status: Ordered clonazePAM 1 mg oral tablet 1 tablet = 1 mg, By Mouth, 3 times a day, Please bubble pack and deliver, # 90 tablet, 0 Refills, Maintenance, 09/01/22 9:27:00 EDT, Tablet, [facility]/pharmacy #[id number], Partial fill upon patient request if the prescription is for a schedule II opioid drug., 1... Start Date: 09/01/22 Stop Date: 10/01/22 Status: Ordered clopidogrel 75 mg oral tablet 1, tablet, By Mouth, Daily, # 90 tablet, Refills 1, Tot. Refills 1, Maintenance, 09/03/22 12:49:00 EDT, Route to Pharmacy Electronically, [place], [place] - [id number], 178, cm, 09/03/22 10:25:00 EDT, Height, 104.6, kg, 02/15/22 14:37... Start Date: 09/03/22 Stop Date: 03/02/23 Status: Ordered docusate sodium 100 mg oral capsule 1 capsule, By Mouth, 2 times a day, PRN NEEDED FOR CONSTIPATION, # 30 each, 2 Refills, Maintenance, 07/29/22 11:46:00 EDT, [facility], 178, cm, 07/15/22 13:22:00 EDT, Height, 104.6, kg, 02/15/22 14:37:00 EST, Dry Weight Start Date: 07/29/22 Status: Ordered Eliquis 5 mg oral tablet 1 tablet = 5 mg, By Mouth, 2 times a day, Please bubble pack and deliver, # 60 tablet, 5 Refills, Maintenance, 09/03/22 12:46:00 EDT, Tablet, [place], [place] - [id number], Partial fill upon patient request if the [...] 09/01/22 10:44:00 EDT, Route to Pharmacy Electronically, [facility], 178, cm, 07/15/22 13:22:00 EDT, Height, 104.6, kg,02/15/22 14:37:00 EST, Dry Weight Start Date: 09/01/22 Status: Ordered Gold Bonilla Ultimate Softening topical lotion 1 application, Topically, 2 times a day, PRN for dry skin, to affected area, # 420 mL, 3 Refills, Maintenance, 10/27/21 12:11:00 EDT, Lotion, [place], [place] - [id number], 1 application Topically 2 times a day,PRN:for dry skin,Instr:... Start Date: 10/27/21 Status: Ordered hydrochlorothiazide-losartan 12.5 mg-50 mg oral tablet See Instructions, TAKE 1 TABLET BY MOUTH ONCE DAILY, # 90 tablet, 1 Refills, Maintenance, 07/16/22 10:37:00 EDT, [place], [place] - [id number], 90, TAKE 1 TABLET BY MOUTH ONCE [...] tablet, 1 Refills, Maintenance, 09/11/22 8:58:00 EDT, [facility], 178, cm, 09/03/22 10:25:00 EDT, Height, 104.6, kg, 02/15/22 14:37:00 EST, Dry Weight Start Date: 09/11/22 Status: Ordered Lantus Solostar Pen 100 units/mL subcutaneous solution See Instructions, INJECT 42 UNITS SUBCUTANEOUSLY ONCE DAILY, # 15 mL, 2 Refills, Maintenance, 05/14/22 13:20:00 EDT, [facility], 178, cm, 05/04/22 11:41:00 EDT, Height, 104.6, kg, 02/15/22 14:37:00 EST, Dry Weight Start Date: 05/14/22 Status: Ordered Metoprolol Tartrate 25 mg oral tablet See Instructions, TAKE 1 TABLET BY MOUTH two (2) times a day, # 60 tablet, 2 Refills, Maintenance, 06/19/22 14:55:00 EDT, [facility] [id number], 178, cm, 06/10/22 9:30:00 EDT, Height, 104.6, kg, 02/15/22 14:37:00 EST, Dry Weight Start Date: 06/19/22 Status: Ordered mirtazapine 7.5 mg oral tablet 1 tablet, By Mouth, Daily at bedtime, # 30 tablet, 2 Refills, Maintenance, 09/11/22 8:58:00 EDT, [facility], 178, cm, 09/03/22 10:25:00 EDT, Height, 104.6, kg, 02/15/22 14:37:00 EST, Dry Weight Start Date: 09/11/22 Status: Ordered nalOXONE 4 mg/0.1 mL nasal spray = 4 mg, Nares, Both, Once, # 2 each, 0 Refills, Soft Stop, 11/17/21 12:37:00 EDT, [facility] [id number], Partial fill upon patient request if the [...] mL, 0 Refills, Maintenance, 04/27/22 11:40:00 EDT, [facility] [id number], Partial fill upon patient reque... Start Date: 04/27/22 Status: Ordered omeprazole 20 mg oral enteric coated capsule 1 capsule = 20 mg, By Mouth, Daily, 30 min before a meal, # 30 capsule, 0 Refills, Maintenance, 09/01/22 8:49:00 EDT, [facility] [id number], Needs to be QD, 178, cm, 07/15/2312:22:00 EDT, Height, 104.6, kg, 02/15/22 14:37:00... Start Date: 09/01/22 Stop Date: 10/01/22 Status: Ordered Pen [place], 31 G x 5 mm BD Ultra [...] tablet, 2 Refills, Maintenance, 09/01/22 10:44:00 EDT, [facility], 178, cm, 07/15/22 13:22:00 EDT, Height, [...] use Confirmed Active Vitreous hemorrhage Confirmed Active 26654 2type unknown 3X3, last in 2016 Social History Social History Type Response Tobacco Use: 4 or less cigar ettes(less than 1/4 pack)/day in last 30 days. Other: smoking for 40 yrs.. Sex Patient Care team information Care Team Personnel Name: Harlan Person NP Position: S Associate Professional Member Role: PCP Address: Address: [address] [place] [address]- Care Team Related Persons Name: ELADIA CORRIGAN Address: home [address] [place] [address]
--- OUTSIDE RECORDS SUMMARY | 2022-10-15 00:48 | XMS_ITS | Continuity of Care Document ---
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 Name Role Phone Harlan Person NP Primary Care Physician [phone] [place] [facility] [place] - 08/11/[address] [address]- Attending Physician: Not on Staff, Attending MD Referring Physician: Harlan Person NP Allergies, Adverse Reactions, Alerts Substance Reaction Severity Status penicillin Hives Active Immunizations Given and Recorded Vaccine Date Status Refusal Reason FluLaval (oldterm) 1 12/23/10 Given pneumococcal 23-valent vaccine 2 03/24/10 Given influenza virus vaccine, inactivated 3 01/27/10 Gi caroline tetanus-diphtheria toxoids (Td) 4 01/27/10 Given Not Given Vaccine Date Status Refusal Reason SARS-CoV-2 mRNA ([id number]) vax 09/28/21 Not Given Patient Refuses tetanus/diphtheria/pertussis, acel(Tdap) 09/28/21 Not Given Patient Refuses 1Admin Note: vis given 2Admin Note: vis 05/23/2008 3Admin Note: vis 09/16/09 4Admin Note: vis Medications acetaminophen-oxyCODONE 325 mg-5 mg oral tablet 1, tablet, By Mouth, Every 6 hours, # 112 tablet, Refills 0, Tot. Refills 0, Maintenance, 08/02/22 16:43:00 EDT, Route to Pharmacy Electronically, [facility] - [place], [place] - [id number], please fill on 06/01; MassPAT checked; on contract, 178,... Start Date: 08/02/22 Stop Date: 08/30/22 Status: Ordered amLODIPine 5 mg oral tablet 2 tablet = 10 mg, By Mouth, Daily, # 180 tablet, 1 Refills, Maintenance, 05/31/22 10:01:00 EDT, [place], [place] - [id number], 178, cm, 05/04/22 11:41:00 EDT, Height, 104.6, kg, 02/15/22 14:37:00 EST, Dry Weight Start Date: 05/31/22 Stop Date: 11/27/22 Status: Ordered Aspirin Low Dose 81 mg oral delayed release tablet 1 tablet, By Mouth, Daily, # 30 tablet, 3 Refills, Maintenance, 05/21/22 15:29:00 EDT, [facility], 178, cm, 05/04/22 11:41:00 EDT, Height, 104.6, kg, 02/15/22 14:37:00 EST, Dry Weight Start Date: 05/21/22 Status: Ordered atorvastatin 80 mg oral tablet 1 tablet, By Mouth, Daily, # 30 tablet, 5 Refills, Maintenance, 05/21/22 14:00:00 EDT, [facility], 178, cm, 05/04/22 11:41:00 EDT, [...] deliver, # 90 tablet, 0 Refills, Maintenance, 07/21/22 16:02:00 EDT, Tablet, [place], [place] - [id number], Partial fill upon patient request if the prescription is for... Start Date: 07/21/22 Stop Date: 08/20/22 Status: Ordered clopidogrel 75 mg oral tablet 1, tablet, By Mouth, Daily, # 30 tablet, Refills 0, Maintenance, 07/21/22 16:02:00 EDT, Route to Pharmacy Electronically, [facility], 178, cm, 07/15/22 13:22:00 EDT, Height, 104.6, kg, 02/15/22 14:37:00 EST, Dry Weight Start Date: 07/21/22 Status: Ordered docusate sodium 100 mg oral capsule 1 capsule, By Mouth, 2 times a day, PRN NEEDED FOR CONSTIPATION, # 30 each, 2 Refills, Maintenance, 07/29/22 11:46:00 EDT, [facility], 178, cm, 07/15/22 13:22:00 EDT, Height, 104.6, kg, 02/15/22 14:37:00 EST, Dry Weight Start Date: 07/29/22 Status: Ordered Eliquis 5 mg oral tablet 1 tablet = 5 mg, By Mouth, 2 times a day, Please bubble pack and deliver, # 60 tablet, 5 Refills, Maintenance, 02/02/22 12:28:00 EST, Tablet, [place], [place] - [id number], Partial fill upon patient request if the [...] EDT, Height, 104.6, kg, 02/15/22 14:37:00 EST, Dr... Start Date: 06/21/22 Status: Ordered Freestyle Lite [...] a day, # 60 capsule, Refills 0, Tot. Refills 0, Maintenance, 07/22/2315:01:00 EDT, Route to Pharmacy Electronically, [facility], [place] - [id number], 178, cm, 07/15/22 13:22:00 EDT, Height, 104.6, kg, 01/0... Start Date: 07/21/22 Stop Date: 08/20/22 Status: Ordered Gold Bonilla Ultimate Softening topical lotion 1 application, Topically, 2 times a day, PRN for dry skin, to affected area, # 420 mL, 3 Refills, Maintenance, 10/27/21 12:11:00 EDT, Lotion, [facility], [place] - [id number], 1 application Topically 2 times a day,PRN:for dry skin,Instr:... Start Date: 10/27/21 Status: Ordered hydrochlorothiazide-losartan 12.5 mg-50 mg oral tablet See Instructions, TAKE 1 TABLET BY MOUTH ONCE DAILY, # 90 tablet, 1 Refills, Maintenance, 07/16/22 10:37:00 EDT, [facility], [place] - [id number], 90, TAKE 1 TABLET BY MOUTH ONCE DAILY,178, cm, 07/15/22 13:22:00 EDT, Height, 104.6, kg,... Start Date: 07/16/22 Status: Ordered Jardiance 10 mg oral tablet 1 tablet = 10 mg, By Mouth, Daily in AM, # 90 tablet, 0 Refills, Maintenance, 05/31/22 9:51:00 EDT,Tablet, [facility], [place] - [id number], Partial fill upon patient request if the prescription is for a schedule II opioid drug., 178, c... Start Date: 05/31/22 Stop Date: 08/29/22 Status: Ordered Lantus Solostar Pen 100 units/mL subcutaneous solution See Instructions, INJECT 42 UNITS SUBCUTANEOUSLY ONCE DAILY, # 15 mL, 2 Refills, Maintenance, 05/14/22 13:20:00 EDT, [facility], 178, cm, 05/04/22 11:41:00 EDT, Height, 104.6, kg, 02/15/22 14:37:00 EST, Dry Weight Start Date: 05/14/22 Status: Ordered Metoprolol Tartrate 25 mg oral tablet See Instructions, TAKE 1 TABLET BY MOUTH two (2) times a day, # 60 tablet, 2 Refills, Maintenance, 06/19/22 14:55:00 EDT, [facility] [id number], 178, cm, 06/10/22 9:30:00 EDT, Height, 104.6, kg, 02/15/22 14:37:00 EST, Dry Weight Start Date: 06/19/22 Status: Ordered mirtazapine 7.5 mg oral tablet 1 tablet = 7.5 mg, By Mouth, Daily at bedtime, # 30 tablet, 0 Refills, Maintenance, 08/03/22 11:55:00 EDT, [facility] [id number], Partial fill upon patient request if the prescription is for a schedule II opioid drug., 178, cm... Start Date: 08/03/22 Stop Date: 09/02/22 Status: Ordered nalOXONE 4 mg/0.1 mL nasal spray = 4 mg, Nares, Both, Once, # 2 each, 0 Refills, Soft Stop, 11/17/21 12:37:00 EDT, [facility] [id number], Partial fill upon patient request if the prescription is for a schedule II opioid drug., 102.5, cm, 11/16/21 16:08:00 EDT... Start Date: 11/17/21 Status: Ordered NuLYTELY with Flavor Packs oral powder for reconstitution See Instructions, Drink 240mL every 15-20 minutes until first half is gone. Repeat 6 hours prior toprocedure., # 4,000 mL, 0 Refills, Maintenance, 04/27/22 11:40:00 EDT, [facility] [id number], Partial fill upon patient reque... Start Date: 04/27/22 Status: Ordered Pen Colrain, 31 G x 5 mm BD Ultra Fine III See Instructions, # 120 each, Refills 11, Tot. Refills 11, Maintenance, Use to inject insulin 4 times a day for type 2 diabetes., 08/27/21 16:07:00 EDT, Supply, 176, cm, 08/27/21 13:15:00 EDT, Height Start Date: 08/27/21 Status: Ordered sertraline 100 mg oral tablet 1 capsule, By Mouth, Daily, # 30 tablet, 2 Refills, Maintenance, 06/21/22 10:35:00 EDT, [facility], 178, cm, 06/10/22 9:30:00 EDT, Height, 104.6, kg, 02/15/22 14:37:00 EST, Dry Weight Start Date: 06/21/22 Status: Ordered Problem List Condition Confirmation Course [...] use Confirmed Active Vitreous hemorrhage Confirmed Active 73302 2type unknown 3X3, last in 2016 Social History Social History Type Response Tobacco Use: 4 or less cigar ettes(less than 1/4 pack)/day in last 30 days. Other: smoking for 40 yrs.. Sex Patient Care team information Care Team Personnel Name: Harlan Person NP Position: S Associate Professional Member Role: PCP Address: Address: [address] [place] [address]- Care Team Related Persons Name: ELADIA CORRIGAN Address: home [address] [place] [address]
--- OUTSIDE RECORDS SUMMARY | 2022-10-15 00:48 | XMS_ITS | Continuity of Care Document ---
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 Olive Pitter Name Role Phone Raza BALDERAS, Harlan Primary Care Physician [place] [facility] [place](s): 07/16/22 - 08/26/[address] [address]- Attending Physician: Not on Staff, Attending MD Allergies, Adverse Reactions, Alerts Substance Reaction Severity Status penicillin Hives Active Immunizations Given and Recorded Vaccine Date Status Refusal Reason FluLaval (oldterm) 1 12/23/10 Given pneumococcal 23-valent vaccine 2 03/24/10 Given influenza virus vaccine, inactivated 3 01/27/10 Gi caroline tetanus-diphtheria toxoids (Td) 4 01/27/10 Given Not Given Vaccine Date Status Refusal Reason SARS-CoV-2 mRNA ([id number]-tvjyf) vax 09/28/21 Not Given Patient Refuses tetanus/diphtheria/pertussis, acel(Tdap) 09/28/21 Not Given Patient Refuses 1Admin Note: vis given 2Admin Note: vis 05/23/2008 3Admin Note: vis 09/16/09 4Admin Note: vis Medications acetaminophen-oxyCODONE 325 mg-5 mg oral tablet 1, tablet, By Mouth, Every 6 hours, # 112 tablet, Refills 0, Tot. Refills 0, Maintenance, 08/02/22 16:43:00 EDT, Route to Pharmacy Electronically, [facility] - [place], [place] - [id number], please fill on 06/01; MassPAT checked; on contract, 178,... Start Date: 08/02/22 Stop Date: 08/30/22 Status: Ordered amLODIPine 5 mg oral tablet 2 tablet = 10 mg, By Mouth, Daily, # 180 tablet, 1 Refills, Maintenance, 05/31/22 10:01:00 EDT, [place], [place] - [id number], 178, cm, 05/04/22 11:41:00 EDT, Height, 104.6, kg, 02/15/22 14:37:00 EST, Dry Weight Start Date: 05/31/22 Stop Date: 11/27/22 Status: Ordered Aspirin Low Dose 81 mg oral delayed release tablet 1 tablet, By Mouth, Daily, # 30 tablet, 3 Refills, Maintenance, 05/21/22 15:29:00 EDT, [facility], 178, cm, 05/04/22 11:41:00 EDT, Height, 104.6, kg, 02/15/22 14:37:00 EST, Dry Weight Start Date: 05/21/22 Status: Ordered atorvastatin 80 mg oral tablet 1 tablet, By Mouth, Daily, # 30 tablet, 5 Refills, Maintenance, 05/21/22 14:00:00 EDT, [facility], 178, cm, 05/04/22 11:41:00 EDT, Height, 104.6, [...] 0 Refills, Maintenance, 07/21/22 16:02:00 EDT, Tablet, [place], [place] - [id number], Partial fill upon patient request if the prescription is for... Start Date: 07/21/22 Stop Date: 08/20/22 Status: Ordered clopidogrel 75 mg oral tablet 1, tablet, By Mouth, Daily, # 30 tablet, Refills 0, Maintenance, 07/21/22 16:02:00 EDT, Route to Pharmacy Electronically, [facility], 178, cm, 07/15/22 13:22:00 EDT, Height, 104.6, kg, 02/15/22 14:37:00 EST, Dry Weight Start Date: 07/21/22 Status: Ordered docusate sodium 100 mg oral capsule 1 capsule, By Mouth, 2 times a day, PRN NEEDED FOR CONSTIPATION, # 30 each, 2 Refills, Maintenance, 07/29/22 11:46:00 EDT, [facility], 178, cm, 07/15/22 13:22:00 EDT, Height, 104.6, kg, 02/15/22 14:37:00 EST, Dry Weight Start Date: 07/29/22 Status: Ordered Eliquis 5 mg oral tablet 1 tablet = 5 mg, By Mouth, 2 times a day, Please bubble pack and deliver, # 60 tablet, 5 Refills, Maintenance, 02/02/22 12:28:00 EST, Tablet, [place], [place] - [id number], Partial fill upon patient request if the [...] 9:30:00 EDT, Height, 104.6, kg, 02/15/22 14:37:00 ESTDr... Start Date: 06/21/22 Status: Ordered Freestyle Lite [...] Maintenance, 07/22/2315:01:00 EDT, Route to Pharmacy Electronically, [facility] [id number], 178, cm, 07/15/22 13:22:00 EDT, Height, 104.6, kg, 010... Start Date: 07/21/22 Stop Date: 08/20/22 Status: Ordered Gold Bonilla Ultimate Softening topical lotion 1 application, Topically, 2 times a day, PRN for dry skin, to affected area, # 420 mL, 3 Refills, Maintenance, 10/27/21 12:11:00 EDT, Lotion, [place], [place] - [id number], 1 application Topically 2 times a day,PRN:for dry skin,Instr:... Start Date: 10/27/21 Status: Ordered hydrochlorothiazide-losartan 12.5 mg-50 mg oral tablet See Instructions, TAKE 1 TABLET BY MOUTH ONCE DAILY, # 90 tablet, 1 Refills, Maintenance, 07/16/22 10:37:00 EDT, [facility], [place] - [id number], 90, TAKE 1 TABLET BY MOUTH ONCE DAILY,178, cm, 07/15/22 13:22:00 EDT, Height, 104.6, kg,... Start Date: 07/16/22 Status: Ordered ibuprofen 600 mg oral tablet 600 mg, 1, tablet, By Mouth, 4 times a day, for 14 days, # 56 tablet, Refills 0, Tot. Refills 0, Acute 08/31/22 12:31:00 EDT, 08/17/22 12:31:00 EDT, Route to Pharmacy Electronically, [facility]/pharmacy #[id number], Partial fill upon patient request if the prescri... Start Date: 08/17/22 Stop Date: 08/31/22 Status: Ordered Jardiance 10 mg oral tablet 1 tablet = 10 mg, By Mouth, Daily in AM, # 90 tablet, 0 Refills, Maintenance, 05/31/22 9:51:00 EDT,Tablet, [facility] [id number], Partial fill upon patient request if the prescription is for a schedule II opioid drug., 178, c... Start Date: 05/31/22 Stop Date: 08/29/22 Status: Ordered Lantus Solostar Pen 100 units/mL subcutaneous solution See Instructions, INJECT 42 UNITS SUBCUTANEOUSLY ONCE DAILY, # 15 mL, 2 Refills, Maintenance, 05/14/22 13:20:00 EDT, [facility], 178, cm, 05/04/22 11:41:00 EDT, Height, 104.6, kg, 02/15/22 14:37:00 EST, Dry Weight Start Date: 05/14/22 Status: Ordered Metoprolol Tartrate 25 mg oral tablet See Instructions, TAKE 1 TABLET BY MOUTH two (2) times a day, # 60 tablet, 2 Refills, Maintenance, 06/19/22 14:55:00 EDT, [facility] [id number], 178, cm, 06/10/22 9:30:00 EDT, Height, 104.6, kg, 02/15/22 14:37:00 EST, Dry Weight Start Date: 06/19/22 Status: Ordered mirtazapine 7.5 mg oral tablet 1 tablet = 7.5 mg, By Mouth, Daily at bedtime, # 30 tablet, 0 Refills, Maintenance, 08/03/22 11:55:00 EDT, [facility] [id number], Partial fill upon patient request if the prescription is for a schedule II opioid drug., 178, cm... Start Date: 08/03/22 Stop Date: 09/02/22 Status: Ordered nalOXONE 4 mg/0.1 mL nasal spray = 4 mg, Nares, Both, Once, # 2 each, 0 Refills, Soft Stop, 11/17/21 12:37:00 EDT, [facility] [id number], Partial fill upon patient request if the prescription is for a schedule II opioid drug., 102.5, cm, 11/16/21 16:08:00 EDT... Start Date: 11/17/21 Status: Ordered NuLYTELY with Flavor Packs oral powder for reconstitution See Instructions, Drink 240mL every 15-20 minutes until first half is gone. Repeat 6 hours prior toprocedure., # 4,000 mL, 0 Refills, Maintenance, 04/27/22 11:40:00 EDT, [facility] [place], [place] - [id number], Partial fill upon patient reque... Start Date: 04/27/22 Status: Ordered omeprazole 20 mg oral enteric coated capsule 1 capsule = 20 mg, By Mouth, Daily, 30 min before a meal, # 30 capsule, 0 Refills, Maintenance, 08/20/22 11:30:00 EDT, [facility]/pharmacy #[id number], Needs to be QD, 178, cm, 07/15/22 13:22:00 EDT, Height, 104.6, kg, 02/15/22 14:37:00 EST, Dry Weight Start Date: 08/20/22 Stop Date: 09/19/22 Status: Ordered Pen Kenna, 31 G x 5 mm BD Ultra [...] tablet, 2 Refills, Maintenance, 06/21/22 10:35:00 EDT, [facility], 178, cm, 06/10/22 9:30:00 EDT, Height, 104.6, kg, 02/15/22 14:37:00 EST, Dry Weight Start Date: 06/21/22 Status: Ordered simethicone 180 mg oral capsule 1 capsule = 180 mg, By Mouth, 4 times a day, PRN Gas, for 7 days, # 20 capsule, 0 Refills, Acute 08/27/22 11:19:00 EDT, 08/20/22 11:19:00 EDT, Capsule, [facility]/pharmacy #[id number], Partial fill upon patient request if the prescription is for a schedule II opio... Start Date: 08/20/22 Stop Date: 08/27/22 Status: Ordered Problem List Condition Confirmation Course [...] use Confirmed Active Vitreous hemorrhage Confirmed Active 06560 2type unknown 3X3, last in 2016 Social History Social History Type Response Tobacco Use: 4 or less cigar ettes(less than 1/4 pack)/day in last 30 days. Other: smoking for 40 yrs.. Sex Patient Care team information Care Team Personnel Name: Harlan Person NP Position: S Associate Professional Member Role: PCP Address: Address: [address] [place] [address]- Care Team Related Persons Name: ELADIA CORRIGAN Address: home [address] [place] [address]
--- OUTSIDE RECORDS SUMMARY | 2022-10-15 00:48 | XMS_ITS | Continuity of Care Document ---
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 Digital Media Designer Name Role Phone Raza BALDERAS, Harlan Primary Care Physician [phone] Encounter [facility] Date(s): 03/15/22 - 04/14/[address] [address]- Allergies, Adverse Reactions, Alerts Substance Reaction Severity Status penicillin Hives Active Immunizations Given and Recorded Vaccine Date Status Refusal Reason FluLaval (oldterm) 1 12/23/10 Given pneumococcal 23-valent vaccine 2 03/24/10 Given influenza virus vaccine, inactivated 3 01/27/10 Gi caroline tetanus-diphtheria toxoids (Td) 4 01/27/10 Given Not Given Vaccine Date Status Refusal Reason SARS-CoV-2 mRNA ([id number]-sxygt) vax 09/28/21 Not Given Patient Refuses tetanus/diphtheria/pertussis, acel(Tdap) 09/28/21 Not Given Patient Refuses 1Admin Note: vis given 2Admin Note: vis 05/23/2008 3Admin Note: vis 09/16/09 4Admin Note: vis Medications acetaminophen-oxyCODONE 325 mg-5 mg oral tablet 1, tablet, By Mouth, Every 6 hours, # 112 tablet, Refills 0, Tot. Refills 0, Maintenance, 04/03/22 7:57:00 EST, Route to Pharmacy Electronically, [facility] - [place], [place] - [id number], please fill on 04/04; MassPAT checked; on contract, 178,... Start Date: 04/03/22 Stop Date: 05/01/22 Status: Ordered Aspirin Low Dose 81 mg oral delayed release tablet 1 tablet, By Mouth, Daily, # 30 tablet, 3 Refills, Maintenance, 01/19/22 14:38:00 EST, [facility], 176, cm, 01/11/22 9:46:00 EST, Height Start Date: 01/19/22 Status: Ordered atorvastatin 80 mg oral tablet See Instructions, TAKE 1 TABLET BY MOUTH ONCE DAILY, # 30 tablet, 5 Refills, Maintenance, 11/11/21 11:38:00 EDT, [facility], 176, cm, 10/27/21 11:36:00 EDT, Height Start Date: 11/11/21 Status: Ordered Blood Pressure Monitor See Instructions, # 1 each, Refills 0, Tot. Refills 0, Maintenance, patient persistent elevated BP ICD: I10 please send to [facility] thank you, Harlan Person DNP, [facility]-, 10/09/21 9:52:00 EDT, Supply Start Date: 10/09/21 Status: Ordered Cane See Instructions, # 1 each, Maintenance, patient with chronic left hip pain, and Left knee OA needscane please ICD10 M17. 9, M25. 552 Thank you, Harlan Person DNP, [facility], 01/11/22 10:01:00 EST, Supply Start Date: 01/11/22 Status: Ordered clonazePAM 1 mg oral tablet 1 tablet = 1 mg, By Mouth, 3 times a day, Please bubble pack and deliver, # 90 tablet, 0 Refills, Maintenance, 03/22/22 13:07:00 EST, Tablet, [place], [place] - [id number], Partial fill upon patient request if the prescription is for... Start Date: 03/22/22 Stop Date: 04/21/22 Status: Ordered Doculase 100 mg oral capsule 1 capsule = 100 mg, By Mouth, 2 times a day, PRN for constipation, # 30 capsule, 2 Refills, Maintenance, 03/17/22 13:53:00 EST, Capsule, [place], [place] - [id number], Partial fill upon patient request if the prescription is for a dejah... Start Date: 03/17/22 Stop Date: 06/15/22 Status: Ordered Eliquis 5 mg oral tablet 1 tablet = 5 mg, By Mouth, 2 times a day, Please bubble pack and deliver, # 60 tablet, 5 Refills, Maintenance, 02/02/22 12:28:00 EST, Tablet, [facility] [place], [place] - [id number], Partial fill upon patient request if the [...] a day, # 28 capsule, Refills 0, Tot. Refills 0, Maintenance, 03/31/22 13:13:00 EST, Route to Pharmacy Electronically, [facility] [id number], 178, cm, 03/30/22 9:50:00 EST, Height, 104.6, k... Start Date: 03/31/22 Stop Date: 04/14/22 Status: Ordered Gold Bonilla Ultimate Softening topical lotion 1 application, Topically, 2 times a day, PRN for dry skin, to affected area, # 420 mL, 3 Refills, Maintenance, 10/27/21 12:11:00 EDT, Lotion, [place], [place] - [id number], 1 application Topically 2 times a day,PRN:for dry skin,Instr:... Start Date: 10/27/21 Status: Ordered hydrochlorothiazide-losartan 12.5 mg-50 mg oral tablet See Instructions, TAKE 1 TABLET BY MOUTH ONCE DAILY, # 90 tablet, 1 Refills, Maintenance, 02/02/22 12:29:00 EST, [facility] [id number], 90, TAKE 1 TABLET BY MOUTH ONCE DAILY,176, cm, 02/02/22 11:51:00 EST, Height Start Date: 02/02/22 Status: Ordered Insulin Lispro KwikPen 100 units/mL injectable solution See Instructions, INJECT 10 UNITS UNDER THE SKIN 3 (THREE) TIMES A DAY BEFORE MEALS, # 15 mL, 0 Refills, Maintenance, 04/13/22 9:28:00 EST, Injection, [facility] [id number], Partial fill upon patient request if the prescriptio... Start Date: 04/13/22 Status: Ordered Lantus Solostar Pen 100 units/mL subcutaneous solution See Instructions, INJECT 40 UNITS SUBCUTANEOUSLY ONCE DAILY, # 15 mL, 2 Refills, Maintenance, 03/17/22 13:54:00 EST, [facility], 178, cm, 03/15/22 15:13:00 EST, Height, 104.6, kg, 02/15/22 14:37:00 EST, Dry Weight Start Date: 03/17/22 Status: Ordered Metoprolol Tartrate 25 mg oral tablet See Instructions, TAKE 1 TABLET BY MOUTH two (2) times a day, # 60 tablet, 2 Refills, Maintenance, 03/30/22 10:13:00 EST, [facility] [id number], 178, cm, 03/30/22 9:50:00 EST, Height, 104.6, kg, 02/15/22 14:37:00 EST, Dry Weight Start Date: 03/30/22 Status: Ordered nalOXONE 4 mg/0.1 mL nasal spray = 4 mg, Nares, Both, Once, # 2 each, 0 Refills, Soft Stop, 11/17/21 12:37:00 EDT, [facility] [id number], Partial fill upon patient request if the prescription is for a schedule II opioid drug., 102.5, cm, 11/16/21 16:08:00 EDT... Start Date: 11/17/21 Status: Ordered Nicotine 2 mg gum 1 each = 2 mg, Chew, Every 2 hours, PRN as needed for smoking cessation, for 8 week(s), # 100 each,1 Refills, Acute 05/25/22 12:28:00 EDT, 02/02/22 12:28:00 EST, Gum, [facility] [id number], Partial fill upon patient request i... Start Date: 02/02/22 Stop Date: 05/25/22 Status: Ordered Pen Morris, 31 G x 5 mm BD Ultra [...] tablet, 2 Refills, Maintenance, 02/25/22 21:52:00 EST, [facility], 178, cm, 02/15/22 14:37:00 EST, Height, 104.6, [...] prophylaxis Confirmed Active Tobacco use Confirmed Active 70653 2type unknown 3X3, last in 2016 Social History Social History Type Response Tobacco Use: 4 or less cigar ettes(less than 1/4 pack)/day in last 30 days. Other: smoking for 40 yrs.. Sex Patient Care team information Care Team Personnel Name: Harlan Person NP Position: S Associate Professional Member Role: PCP Address: Address: [address] [place] [address]- Care Team Related Persons Name: ELADIA CORRIGAN Address: [address] [place] [address]
--- OUTSIDE RECORDS SUMMARY | 2022-10-15 00:48 | XMS_ITS | Continuity of Care Document ---
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 Name Role Phone Raza BALDERAS, Harlan Primary Care Physician Encounter [facility] Date(s): 02/24/22 - 03/26/[address] [address]- Allergies, Adverse Reactions, Alerts Substance Reaction Severity Status penicillin Hives Active Immunizations Given and Recorded Vaccine Date Status Refusal Reason FluLaval (oldterm) 1 12/23/10 Given pneumococcal 23-valent vaccine 2 03/24/10 Given influenza virus vaccine, inactivated 3 01/27/10 Gi caroline tetanus-diphtheria toxoids (Td) 4 01/27/10 Given Not Given Vaccine Date Status Refusal Reason SARS-CoV-2 mRNA ([id number]-kvjx-sgmic) vax 09/28/21 Not Given Patient Refuses tetanus/diphtheria/pertussis, acel(Tdap) 09/28/21 Not Given Patient Refuses 1Admin Note: vis given 2Admin Note: vis 05/23/2008 3Admin Note: vis 09/16/09 4Admin Note: vis Medications acetaminophen-oxyCODONE 325 mg-5 mg oral tablet 1, tablet, By Mouth, Every 6 hours, # 112 tablet, Refills 0, Tot. Refills 0, Maintenance, 03/06/22 9:53:00 EST, Route to Pharmacy Electronically, [facility] - [place], [place] - [id number], please fill on 01/02, 178, cm, 02/15/22 14:37:00 EST, Hei... Start Date: 03/06/22 Stop Date: 04/03/22 Status: Ordered Aspirin Low Dose 81 mg oral delayed release tablet 1 tablet, By Mouth, Daily, # 30 tablet, 3 Refills, Maintenance, 01/19/22 14:38:00 EST, [facility], 176, cm, 01/11/22 9:46:00 EST, Height Start Date: 01/19/22 Status: Ordered atorvastatin 80 mg oral tablet See Instructions, TAKE 1 TABLET BY MOUTH ONCE DAILY, # 30 tablet, 5 Refills, Maintenance, 11/11/21 11:38:00 EDT, [facility], 176, cm, 10/27/21 11:36:00 EDT, Height Start Date: 11/11/21 Status: Ordered Blood Pressure Monitor See Instructions, # 1 each, Refills 0, Tot. Refills 0, Maintenance, patient persistent elevated BP ICD: I10 please send to L&C thank you, Harlan Person DNP, [facility]-, 10/09/21 9:52:00 EDT, Supply Start Date: 10/09/21 Status: Ordered Cane See Instructions, # 1 each, Maintenance, patient with chronic left hip pain, and Left knee OA needscane please ICD10 M17. 9, M25. 552 Thank you, Harlan Person DNP, [facility], 01/11/22 10:01:00 EST, Supply Start Date: 01/11/22 Status: Ordered clonazePAM 1 mg oral tablet 1 tablet = 1 mg, By Mouth, 3 times a day, Please bubble pack and deliver, # 90 tablet, 0 Refills, Maintenance, 03/22/22 13:07:00 EST, Tablet, [place], [place] - [id number], Partial fill upon patient request if the prescription is for... Start Date: 03/22/22 Stop Date: 04/21/22 Status: Ordered Doculase 100 mg oral capsule 1 capsule = 100 mg, By Mouth, 2 times a day, PRN for constipation, # 30 capsule, 2 Refills, Maintenance, 03/17/22 13:53:00 EST, Capsule, [place], [place] - [id number], Partial fill upon patient request if the prescription is for a dejah... Start Date: 03/17/22 Stop Date: 06/15/22 Status: Ordered Eliquis 5 mg oral tablet 1 tablet = 5 mg, By Mouth, 2 times a day, Please bubble pack and deliver, # 60 tablet, 5 Refills, Maintenance, 02/02/22 12:28:00 EST, Tablet, [facility] - [place], [place] - [id number], Partial fill upon patient request if the [...] 3 Refills, Maintenance, 10/27/21 12:11:00 EDT, Lotion, [place], [place] - [id number], 1 application Topically 2 times a day,PRN:for dry skin,Instr:... Start Date: 10/27/21 Status: Ordered hydrochlorothiazide-losartan 12.5 mg-50 mg oral tablet See Instructions, TAKE 1 TABLET BY MOUTH ONCE DAILY, # 90 tablet, 1 Refills, Maintenance, 02/02/22 12:29:00 EST, [place], [place] - [id number], 90, TAKE 1 TABLET BY MOUTH ONCE DAILY,176, cm, 02/02/22 11:51:00 EST, Height Start Date: 02/02/22 Status: Ordered Insulin Lispro KwikPen 100 units/mL injectable solution INJECT 10 UNITS UNDER THE SKIN 3 (THREE) TIMES A DAY BEFORE MEALS Start Date: 02/15/22 Status: Ordered Lantus Solostar Pen 100 units/mL subcutaneous solution See Instructions, INJECT 40 UNITS SUBCUTANEOUSLY ONCE DAILY, # 15 mL, 2 Refills, Maintenance, 03/17/22 13:54:00 EST, [facility], 178, cm, 03/15/22 15:13:00 EST, Height, 104.6, kg, 02/15/22 14:37:00 EST, Dry Weight Start Date: 03/17/22 Status: Ordered Metoprolol Tartrate 25 mg oral tablet See Instructions, TAKE 1 TABLET BY MOUTH two (2) times a day, # 60 tablet, 2 Refills, Maintenance, 12/18/21 12:59:00 EST, [facility] [id number], 176, cm, 12/11/21 9:33:00 EDT, Height Start Date: 12/18/21 Status: Ordered nalOXONE 4 mg/0.1 mL nasal spray = 4 mg, Nares, Both, Once, # 2 each, 0 Refills, Soft Stop, 11/17/21 12:37:00 EDT, [facility] [id number], Partial fill upon patient request if the prescription is for a schedule II opioid drug., 102.5, cm, 11/16/21 16:08:00 EDT... Start Date: 11/17/21 Status: Ordered Nicotine 2 mg gum 1 each = 2 mg, Chew, Every 2 hours, PRN as needed for smoking cessation, for 8 week(s), # 100 each,1 Refills, Acute 05/25/22 12:28:00 EDT, 02/02/22 12:28:00 EST, Gum, [facility] [id number], Partial fill upon patient request i... Start Date: 02/02/22 Stop Date: 05/25/22 Status: Ordered Pen [place], 31 G x 5 mm BD Ultra [...] tablet, 2 Refills, Maintenance, 02/25/22 21:52:00 EST, [facility], 178, cm, 02/15/22 14:37:00 EST, Height, [...] prophylaxis Confirmed Active Tobacco use Confirmed Active 98234 2type unknown 3X3, last in 2016 Social History Social History Type Response Tobacco Use: 4 or less cigar ettes(less than 1/4 pack)/day in last 30 days. Other: smoking for 40 yrs.. Sex Patient Care team information Care Team Personnel Name: Harlan Person NP Position: S Associate Professional Member Role: PCP Address: Address: [address] [place] [address]- Care Team Related Persons Name: ELADIA CORRIGAN Address: home [address] [place] [address]
--- OUTSIDE RECORDS SUMMARY | 2022-10-15 00:48 | XMS_ITS | Continuity of Care Document ---
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 Role Phone Raza BALDERAS, Harlan Primary Care Physician Encounter [facility] Date(s): 12/07/21 - 01/06/[address] [address]- Allergies, Adverse Reactions, Alerts Substance Reaction Severity Status penicillin Hives Active Immunizations Given and Recorded Vaccine Date Status Refusal Reason FluLaval (oldterm) 1 12/23/10 Given pneumococcal 23-valent vaccine 2 03/24/10 Given influenza virus vaccine, inactivated 3 01/27/10 Gi caroline tetanus-diphtheria toxoids (Td) 4 01/27/10 Given Not Given Vaccine Date Status Refusal Reason SARS-CoV-2 mRNA ([id number]-cpnf-xjgtd) vax 09/28/21 Not Given Patient Refuses tetanus/diphtheria/pertussis, acel(Tdap) 09/28/21 Not Given Patient Refuses 1Admin Note: vis given 2Admin Note: vis 05/23/2008 3Admin Note: vis 09/16/09 4Admin Note: vis Medications acetaminophen-oxyCODONE 325 mg-5 mg oral tablet 1, tablet, By Mouth, Every 6 hours, # 112 tablet, Refills 0, Tot. Refills 0, Maintenance, 12/29/21 10:47:00 EST, Route to Pharmacy Electronically, [facility] - [place], [place] - [id number], please fill on 01/02, 176, cm, 12/11/21 9:33:00 EDT, Height Start Date: 12/29/21 Stop Date: 01/26/22 Status: Ordered aspirin 81 mg oral delayed release tablet 81 mg, 1, tablet, By Mouth, Daily, # 30 tablet, Refills 3, Tot. Refills 3, Maintenance, 10/09/21 9:23:00 EDT, Route to Pharmacy Electronically, [facility] [id number], Partialfill upon patient request if the prescription is fo... Start Date: 10/09/21 Stop Date: 02/06/22 Status: Ordered atorvastatin 80 mg oral tablet See Instructions, TAKE 1 TABLET BY MOUTH ONCE DAILY, # 30 tablet, 5 Refills, Maintenance, 11/11/21 11:38:00 EDT, [facility], 176, cm, 10/27/21 11:36:00 EDT, Height Start Date: 11/11/21 Status: Ordered Blood Pressure Monitor See Instructions, # 1 each, Refills 0, Tot. Refills 0, Maintenance, patient persistent elevated BP ICD: I10 please send to L&C thank you, Harlan Person DNP, [facility], 10/09/21 9:52:00 EDT, Supply Start Date: 10/09/21 Status: Ordered clonazePAM 1 mg oral tablet 1 tablet = 1 mg, By Mouth, 3 times a day, Please bubble pack and deliver, # 90 tablet, 0 Refills, Maintenance, 12/29/21 10:43:00 EST, Tablet, [facility] [id number], Partial fill upon patient request if the prescription is for... Start Date: 12/29/21 Stop Date: 01/28/22 Status: Ordered Eliquis 5 mg oral tablet 1 tablet = 5 mg, By Mouth, 2 times a day, Please bubble pack and deliver, # 60 tablet, 5 Refills, Maintenance, 08/27/21 13:36:00 EDT, Tablet, [facility] [id number], Partial fill upon patient request if the [...] 3 Refills, Maintenance, 10/27/21 12:11:00 EDT, Lotion, [place], [place] - [id number], 1 application Topically 2 times a day,PRN:for dry skin,Instr:... Start Date: 10/27/21 Status: Ordered hydrochlorothiazide-losartan 12.5 mg-50 mg oral tablet See Instructions, TAKE 1 TABLET BY MOUTH ONCE DAILY, # 90 tablet, 1 Refills, Maintenance, 11/11/21 11:38:00 EDT, [facility], 90, TAKE 1 TABLET BY MOUTH ONCE DAILY, 176, cm, 10/27/21 11:36:00 EDT, Height Start Date: 11/11/21 Status: Ordered Lantus Solostar Pen 100 units/mL subcutaneous solution = 40 units, Subcutaneous Infusion, Daily, Please dispense 6 pens, # 15 mL, 2 Refills, Maintenance, 12/30/21 11:12:00 EST, [facility] [id number], Partial fill upon patient request if the prescription is for a schedule II opioid... Start Date: 12/30/21 Stop Date: 03/30/22 Status: Ordered Metoprolol Tartrate 25 mg oral tablet See Instructions, TAKE 1 TABLET BY MOUTH two (2) times a day, # 60 tablet, 2 Refills, Maintenance, 12/18/21 12:59:00 EST, [facility] [id number], 176, cm, 12/11/21 9:33:00 EDT, Height Start Date: 12/18/21 Status: Ordered nalOXONE 4 mg/0.1 mL nasal spray = 4 mg, Nares, Both, Once, # 2 each, 0 Refills, Soft Stop, 11/17/21 12:37:00 EDT, [facility] [id number], Partial fill upon patient request if the prescription is for a schedule II opioid drug., 102.5, cm, 11/16/21 16:08:00 EDT... Start Date: 11/17/21 Status: Ordered Pen [place], 31 G x 5 mm BD Ultra [...] Confirmed Active Obese class I Confirmed Active DVT prophylaxis Confirmed Active Tobacco use Confirmed Active 33823 2type unknown 3X3, last in 2016 Social History Social History Type Response Smoking Status 10 or more cigarette s (1/2 pack or more)/day in last 30 days entered on: 09/28/21 Sex Patient Care team information Care Team Personnel Name: Harlan Person NP Position: [facility] Associate Professional Member Role: PCP Address: Address: [address] [place] [address]- Care Team Related Persons Name: ELADIA CORRIGAN Address: home [address] [place] [address]
--- OUTSIDE RECORDS SUMMARY | 2022-10-15 00:49 | XMS_ITS | Continuity of Care Document ---
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 Phone Raza BALDERAS, Harlan Primary Care Physician Encounter [facility] Date(s): 06/10/22 - 07/10/22 [facility] [address] [place] [address]- Attending Physician: Navya Penaloza Admitting Physician: Navya Penaloza Referring Physician: AdmNavya lee Allergies, Adverse Reactions, Alerts Substance Reaction Severity Status penicillin Hives Active Immunizations Given and Recorded Vaccine Date Status Refusal Reason FluLaval (oldterm) 1 12/23/10 Given pneumococcal 23-valent vaccine 2 03/24/10 Given influenza virus vaccine, inactivated 3 01/27/10 Gi caroline tetanus-diphtheria toxoids (Td) 4 01/27/10 Given Not Given Vaccine Date Status Refusal Reason SARS-CoV-2 mRNA ([id number]) vax 09/28/21 Not Given Patient Refuses tetanus/diphtheria/pertussis, acel(Tdap) 09/28/21 Not Given Patient Refuses 1Admin Note: vis given 2Admin Note: vis 05/23/2008 3Admin Note: vis 09/16/09 4Admin Note: vis Medications acetaminophen-oxyCODONE 325 mg-5 mg oral tablet 1, tablet, By Mouth, Every 6 hours, # 112 tablet, Refills 0, Tot. Refills 0, Maintenance, 06/30/22 9:33:00 EDT, Route to Pharmacy Electronically, [facility] - [place], [place] - [id number], please fill on 06/01; [facility] checked; on contract, 178,... Start Date: 06/30/22 Stop Date: 07/28/22 Status: Ordered amLODIPine 5 mg oral tablet 2 tablet = 10 mg, By Mouth, Daily, # 180 tablet, 1 Refills, Maintenance, 05/31/22 10:01:00 EDT, [place], [place] - [id number], 178, cm, 05/04/22 11:41:00 EDT, Height, 104.6, kg, 02/15/22 14:37:00 EST, Dry Weight Start Date: 05/31/22 Stop Date: 11/27/22 Status: Ordered Aspirin Low Dose 81 mg oral delayed release tablet 1 tablet, By Mouth, Daily, # 30 tablet, 3 Refills, Maintenance, 05/21/22 15:29:00 EDT, [facility], 178, cm, 05/04/22 11:41:00 EDT, Height, 104.6, kg, 02/15/22 14:37:00 EST, Dry Weight Start Date: 05/21/22 Status: Ordered atorvastatin 80 mg oral tablet 1 tablet, By Mouth, Daily, # 30 tablet, 5 Refills, Maintenance, 05/21/22 14:00:00 EDT, [facility], 178, cm, 05/04/22 11:41:00 EDT, Height, [...] 0 Refills, Maintenance, 06/16/22 9:33:00 EDT, Tablet, [place], [place] - [id number], Partial fill upon patient request if the prescription is for a... Start Date: 06/16/22 Stop Date: 07/16/22 Status: Ordered clopidogrel 75 mg oral tablet 1, tablet, By Mouth, Daily, # 30 tablet, Refills 0, Maintenance, 06/18/22 16:41:00 EDT, Route to Pharmacy Electronically, [facility], 178, cm, 06/10/22 9:30:00 EDT, Height, 104.6, kg, 02/15/22 14:37:00 EST, Dry Weight Start Date: 06/18/22 Status: Ordered docusate sodium 100 mg oral capsule 1 capsule, By Mouth, 2 times a day, PRN NEEDED FOR CONSTIPATION, # 30 each, 2 Refills, Maintenance, 05/21/22 11:07:00 EDT, [facility], 178, cm, 05/04/22 11:41:00 EDT, Height, 104.6, kg, 02/15/22 14:37:00 EST, Dry Weight Start Date: 05/21/22 Status: Ordered Eliquis 5 mg oral tablet 1 tablet = 5 mg, By Mouth, 2 times a day, Please bubble pack and deliver, # 60 tablet, 5 Refills, Maintenance, 02/02/22 12:28:00 EST, Tablet, [facility] - [place], [place] - [id number], Partial fill upon patient request if the [...] day, # 28 capsule, Refills 0, Maintenance, 06/29/22 16:42:00 EDT, Route to Pharmacy Electronically, [facility], 178, cm, 06/10/22 9:30:00 EDT, Height, 104.6, kg, 02/15/22 14:37:00 EST, Dry Weight Start Date: 06/29/22 Stop Date: 07/13/22 Status: Ordered Gold [place]illa Ultimate Softening topical lotion 1 application, Topically, 2 times a day, PRN for dry skin, to affected area, # 420 mL, 3 Refills, Maintenance, 10/27/21 12:11:00 EDT, Lotion, [facility] [id number], 1 application Topically 2 times a day,PRN:for dry skin,Instr:... Start Date: 10/27/21 Status: Ordered hydrochlorothiazide-losartan 12.5 mg-50 mg oral tablet See Instructions, TAKE 1 TABLET BY MOUTH ONCE DAILY, # 90 tablet, 1 Refills, Maintenance, 02/02/22 12:29:00 EST, [facility] [id number], 90, TAKE 1 TABLET BY MOUTH ONCE DAILY,176, cm, 02/02/22 11:51:00 EST, Height Start Date: 02/02/22 Status: Ordered Jardiance 10 mg oral tablet 1 tablet = 10 mg, By Mouth, Daily in AM, # 90 tablet, 0 Refills, Maintenance, 05/31/22 9:51:00 EDT,Tablet, [facility] [id number], Partial fill upon patient request if the prescription is for a schedule II opioid drug., 178, c... Start Date: 05/31/22 Stop Date: 08/29/22 Status: Ordered Lantus Solostar Pen 100 units/mL subcutaneous solution See Instructions, INJECT 38 UNITS SUBCUTANEOUSLY ONCE DAILY, # 15 mL, 2 Refills, Maintenance, 05/14/22 13:20:00 EDT, [facility], 178, cm, 05/04/22 11:41:00 EDT, Height, 104.6, kg, 02/15/22 14:37:00 EST, Dry Weight Start Date: 05/14/22 Status: Ordered MetFORMIN (Eqv-Glucophage XR) 500 mg oral tablet, extended release 2 tablet, By Mouth, 2 times a day, # 120 tablet, 1 Refills, Maintenance, 05/15/22 10:21:00 EDT, [facility], 178, cm, 05/04/22 11:41:00 EDT, Height, 104.6, kg, 02/15/22 14:37:00 EST, Dry Weight Start Date: 05/15/22 Status: Ordered Metoprolol Tartrate 25 mg oral tablet See Instructions, TAKE 1 TABLET BY MOUTH two (2) times a day, # 60 tablet, 2 Refills, Maintenance, 06/19/22 14:55:00 EDT, [facility] [id number], 178, cm, 06/10/22 9:30:00 EDT, Height, 104.6, kg, 02/15/22 14:37:00 EST, Dry Weight Start Date: 06/19/22 Status: Ordered nalOXONE 4 mg/0.1 mL nasal spray = 4 mg, Nares, Both, Once, # 2 each, 0 Refills, Soft Stop, 11/17/21 12:37:00 EDT, [facility] [id number], Partial fill upon patient request if the prescription is for a schedule II opioid drug., 102.5, cm, 11/16/21 16:08:00 EDT... Start Date: 11/17/21 Status: Ordered NuLYTELY with Flavor Packs oral powder for reconstitution See Instructions, Drink 240mL every 15-20 minutes until first half is gone. Repeat 6 hours prior toprocedure., # 4,000 mL, 0 Refills, Maintenance, 04/27/22 11:40:00 EDT, [facility] [id number], Partial fill upon patient reque... Start Date: 04/27/22 Status: Ordered [place], 31 G x 5 mm BD Ultra [...] use Confirmed Active Vitreous hemorrhage Confirmed Active 82500 2type unknown 3X3, last in 2016 Social History Social History Type Response Tobacco Use: 4 or less cigar ettes(less than 1/4 pack)/day in last 30 days. Other: smoking for 40 yrs.. Sex Patient Care team information Care Team Personnel Name: Harlan Person NP Position: S Associate Professional Member Role: PCP Address: Address: [address] [place] [address]- Care Team Related Persons Name: ELADIA CORRIGAN Address: home [address] [place] [address]
--- OUTSIDE RECORDS SUMMARY | 2022-10-15 00:49 | XMS_ITS | Continuity of Care Document ---
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 Role Phone Harlan Person NP Primary Care Physician Encounter [facility] Date(s): 02/16/22 - 03/19/[address] [address] Attending Physician: Harlan Person NP Admitting Physician: Harlan Person NP Allergies, Adverse Reactions, Alerts Substance Reaction Severity Status penicillin Hives Active Immunizations Given and Recorded Vaccine Date Status Refusal Reason FluLaval (oldterm) 1 12/23/10 Given pneumococcal 23-valent vaccine 2 03/24/10 Given influenza virus vaccine, inactivated 3 01/27/10 Gi caroline tetanus-diphtheria toxoids (Td) 4 01/27/10 Given Not Given Vaccine Date Status Refusal Reason SARS-CoV-2 mRNA ([id number]-ujfcg) vax 09/28/21 Not Given Patient Refuses tetanus/diphtheria/pertussis, acel(Tdap) 09/28/21 Not Given Patient Refuses 1Admin Note: vis given 2Admin Note: vis 05/23/2008 3Admin Note: vis 09/16/09 4Admin Note: vis Medications acetaminophen-oxyCODONE 325 mg-5 mg oral tablet 1, tablet, By Mouth, Every 6 hours, # 112 tablet, Refills 0, Tot. Refills 0, Maintenance, 03/06/22 9:53:00 EST, Route to Pharmacy Electronically, [facility] - [place], [place] - [id number], please fill on 01/02, Tyra cm, 02/15/22 14:37:00 EST, Hei... Start Date: 03/06/22 Stop Date: 04/03/22 Status: Ordered Aspirin Low Dose 81 mg oral delayed release tablet 1 tablet, By Mouth, Daily, # 30 tablet, 3 Refills, Maintenance, 01/19/22 14:38:00 EST, [facility], 176, cm, 01/11/22 9:46:00 EST, Height Start Date: 01/19/22 Status: Ordered atorvastatin 80 mg oral tablet See Instructions, TAKE 1 TABLET BY MOUTH ONCE DAILY, # 30 tablet, 5 Refills, Maintenance, 11/11/21 11:38:00 EDT, [facility], 176, cm, 10/27/21 11:36:00 EDT, Height Start Date: 11/11/21 Status: Ordered Blood Pressure Monitor See Instructions, # 1 each, Refills 0, Tot. Refills 0, Maintenance, patient persistent elevated BP ICD: I10 please send to L&C thank you, Harlan Person DNP, [facility]-, 10/09/21 9:52:00 EDT, Supply Start Date: 10/09/21 Status: Ordered Cane See Instructions, # 1 each, Maintenance, patient with chronic left hip pain, and Left knee OA needscane please ICD10 M17. 9, M25. 552 Thank you, Harlan Person DNP, [employer], 01/11/22 10:01:00 EST, Supply Start Date: 01/11/22 Status: Ordered clonazePAM 1 mg oral tablet 1 tablet = 1 mg, By Mouth, 3 times a day, Please bubble pack and deliver, # 90 tablet, 0 Refills, Maintenance, 12/29/21 10:43:00 EST, Tablet, [place], [place] - [id number], Partial fill upon patient request if the prescription is for... Start Date: 12/29/21 Stop Date: 01/28/22 Status: Ordered Doculase 100 mg oral capsule 1 capsule = 100 mg, By Mouth, 2 times a day, PRN for constipation, # 30 capsule, 2 Refills, Maintenance, 03/17/22 13:53:00 EST, Capsule, [place], [place] - [id number], Partial fill upon patient request if the prescription is for a dejah... Start Date: 03/17/22 Stop Date: 06/15/22 Status: Ordered doxycycline hyclate 100 mg oral tablet 1 tablet = 100 mg, By Mouth, 2 times a day, for 7 days, # 14 tablet, 0 Refills, Acute 03/22/22 15:42:00 EST, 03/15/22 15:42:00 EST, Tablet, [facility] [id number], Partial fill upon patient request if the prescription is for a... Start Date: 03/15/22 Stop Date: 03/22/22 Status: Ordered Eliquis 5 mg oral tablet 1 tablet = 5 mg, By Mouth, 2 times a day, Please bubble pack and deliver, # 60 tablet, 5 Refills, Maintenance, 02/02/22 12:28:00 EST, Tablet, [facility] [id number], Partial fill upon patient request if the [...] 3 Refills, Maintenance, 10/27/21 12:11:00 EDT, Lotion, [place], [place] - [id number], 1 application Topically 2 times a day,PRN:for dry skin,Instr:... Start Date: 10/27/21 Status: Ordered hydrochlorothiazide-losartan 12.5 mg-50 mg oral tablet See Instructions, TAKE 1 TABLET BY MOUTH ONCE DAILY, # 90 tablet, 1 Refills, Maintenance, 02/02/22 12:29:00 EST, [place], [place] - [id number], 90, TAKE 1 TABLET BY MOUTH ONCE [...] mL, 2 Refills, Maintenance, 03/17/22 13:54:00 EST, [facility], 178, cm, 03/15/22 15:13:00 EST, Height, 104.6, kg, 02/15/22 14:37:00 EST, Dry Weight Start Date: 03/17/22 Status: Ordered Metoprolol Tartrate 25 mg oral tablet See Instructions, TAKE 1 TABLET BY MOUTH two (2) times a day, # 60 tablet, 2 Refills, Maintenance, 12/18/21 12:59:00 EST, [facility] [id number], 176, cm, 12/11/21 9:33:00 EDT, Height Start Date: 12/18/21 Status: Ordered nalOXONE 4 mg/0.1 mL nasal spray = 4 mg, Nares, Both, Once, # 2 each, 0 Refills, Soft Stop, 11/17/21 12:37:00 EDT, [facility], [facility] [id number], Partial fill upon patient request if the prescription is for a schedule II opioid drug., 102.5, cm, 11/16/21 16:08:00 EDT... Start Date: 11/17/21 Status: Ordered Nicotine 2 mg gum 1 each = 2 mg, Chew, Every 2 hours, PRN as needed for smoking cessation, for 8 week(s), # 100 each,1 Refills, Acute 05/25/22 12:28:00 EDT, 02/02/22 12:28:00 EST, Gum, [facility] [id number], Partial fill upon patient request i... Start Date: 02/02/22 Stop Date: 05/25/22 Status: Ordered Pen [place], 31 G x 5 mm BD Ultra [...] prophylaxis Confirmed Active Tobacco use Confirmed Active 98708 2type unknown 3X3, last in 2016 Social History Social History Type Response Tobacco Use: 4 or less cigar ettes(less than 1/4 pack)/day in last 30 days. Other: smoking for 40 yrs.. Sex Patient Care team information Care Team Personnel Name: Harlan Person NP Position: S Associate Professional Member Role: PCP Address: Address: [address] [place] [address]- Care Team Related Persons Name: ELADIA CORRIGAN Address: home [address] [place] [address]
--- OUTSIDE RECORDS SUMMARY | 2022-10-15 00:49 | XMS_ITS | Continuity of Care Document ---
Author Name Unknown Organization [facility] Address [address] [place] [address]- Care Team Providers Care Barrel Rifler Name Role Phone Raza BALDERAS, Harlan Primary Care Physician [facility]counter [facility] Date(s): 04/02/22 - 05/02/22 [facility] [address], [place] [address] Attending Physician: Navya Penaloza Admitting Physician: AdmNavya lee Referring Physician: AdmtrNavya Allergies, Adverse Reactions, Alerts Substance Reaction Severity Status penicillin Hives Active Immunizations Given and Recorded Vaccine Date Status Refusal Reason FluLaval (oldterm) 1 12/23/10 Given pneumococcal 23-valent vaccine 2 03/24/10 Given influenza virus vaccine, inactivated 3 01/27/10 Gi caroline tetanus-diphtheria toxoids (Td) 4 01/27/10 Given Not Given Vaccine Date Status Refusal Reason SARS-CoV-2 mRNA (uqsgroi-[id number]-opojt) vax 09/28/21 Not Given Patient Refuses tetanus/diphtheria/pertussis, acel(Tdap) 09/28/21 Not Given Patient Refuses 1Admin Note: vis given 2Admin Note: vis 05/23/2008 3Admin Note: vis 09/16/09 4Admin Note: vis Medications acetaminophen-oxyCODONE 325 mg-5 mg oral tablet 1, tablet, By Mouth, Every 6 hours, # 112 tablet, Refills 0, Tot. Refills 0, Maintenance, 04/28/22 14:42:00 EDT, Route to Pharmacy Electronically, [facility] - [place], [place] - [phone], please fill on 05/03; MassPAT checked; on contract, 178,... Start Date: 04/28/22 Stop Date: 05/26/22 Status: Ordered amLODIPine 5 mg oral tablet 5 mg, 1, tablet, By Mouth, Daily, # 30 tablet, Refills 1, Tot. Refills 1, Maintenance, 04/16/22 11:16:00 EST, Route to Pharmacy Electronically, [place], [place] - [id number], Partialfill upon patient request if the prescription is fo... Start Date: 04/16/22 Stop Date: 06/15/22 Status: Ordered Aspirin Low Dose 81 mg oral delayed release tablet 1 tablet, By Mouth, Daily, # 30 tablet, 3 Refills, Maintenance, 01/19/22 14:38:00 EST, [facility], 176, cm, 01/11/22 9:46:00 EST, Height Start Date: 01/19/22 Status: Ordered atorvastatin 80 mg oral tablet See Instructions, TAKE 1 TABLET BY MOUTH ONCE DAILY, # 30 tablet, 5 Refills, Maintenance, 11/11/21 11:38:00 EDT, [facility], 176, cm, 10/27/21 11:36:00 EDT, [...] 0 Refills, Maintenance, 03/22/22 13:07:00 EST, Tablet, [place], [place] - [id number], Partial fill upon patient request if the prescription is for... Start Date: 03/22/22 Stop Date: 04/21/22 Status: Ordered clopidogrel 75 mg oral tablet TAKE 1 TABLET BY MOUTH ONCE DAILY Start Date: 04/16/22 Status: Ordered Doculase 100 mg oral capsule 1 capsule = 100 mg, By Mouth, 2 times a day, PRN for constipation, # 30 capsule, 2 Refills, Maintenance, 03/17/22 13:53:00 EST, Capsule, [place], [place] - [phone], Partial fill upon patient request if the prescription is for a dejah... Start Date: 03/17/22 Stop Date: 06/15/22 Status: Ordered Eliquis 5 mg oral tablet 1 tablet = 5 mg, By Mouth, 2 times a day, Please bubble pack and deliver, # 60 tablet, 5 Refills, Maintenance, 02/02/22 12:28:00 EST, Tablet, [place], [place] - [phone], Partial fill upon patient request if the [...] 03/31/22 13:13:00 EST, Route to Pharmacy Electronically, [place], [place] - [phone], 178, cm, 03/30/22 9:50:00 EST, Height, 104.6, k... Start Date: 03/31/22 Stop Date: 04/14/22 Status: Ordered Gold Bonilla Ultimate Softening topical lotion 1 application, Topically, 2 times a day, PRN for dry skin, to affected area, # 420 mL, 3 Refills, Maintenance, 10/27/21 12:11:00 EDT, Lotion, [place], [place] - [phone], 1 application Topically 2 times a day,PRN:for dry skin,Instr:... Start Date: 10/27/21 Status: Ordered hydrochlorothiazide-losartan 12.5 mg-50 mg oral tablet See Instructions, TAKE 1 TABLET BY MOUTH ONCE DAILY, # 90 tablet, 1 Refills, Maintenance, 02/02/22 12:29:00 EST, [facility], [place] - [id number], 90, TAKE 1 TABLET BY MOUTH ONCE DAILY,176, cm, 02/02/22 11:51:00 EST, Height Start Date: 02/02/22 Status: Ordered Lantus Solostar Pen 100 units/mL subcutaneous solution See Instructions, INJECT 40 UNITS SUBCUTANEOUSLY ONCE DAILY, # 15 mL, 2 Refills, Maintenance, 03/17/22 13:54:00 EST, [facility], 178, cm, 03/15/22 15:13:00 EST, Height, 104.6, kg, 02/15/22 14:37:00 EST, Dry Weight Start Date: 03/17/22 Status: Ordered metFORMIN 1000 mg oral tablet, extended release 1 tablet = 1,000 mg, By Mouth, 2 times a day, # 60 tablet, 1 Refills, Maintenance, 04/16/22 11:08:00 EST, ER Tablet, [facility], [place] - [id number], Partial fill upon patient request if the prescription is for a schedule II opioid drug... Start Date: 04/16/22 Stop Date: 06/15/22 Status: Ordered Metoprolol Tartrate 25 mg oral tablet See Instructions, TAKE 1 TABLET BY MOUTH two (2) times a day, # 60 tablet, 2 Refills, Maintenance, 03/30/22 10:13:00 EST, [facility], [place] - [id number], 178, cm, 03/30/22 9:50:00 EST, Height, 104.6, kg, 02/15/22 14:37:00 EST, Dry Weight Start Date: 03/30/22 Status: Ordered nalOXONE 4 mg/0.1 mL nasal spray = 4 mg, Nares, Both, Once, # 2 each, 0 Refills, Soft Stop, 11/17/21 12:37:00 EDT, [facility], [place] - [phone], Partial fill upon patient request if the prescription is for a schedule II opioid drug., 102.5, cm, 11/16/21 16:08:00 EDT... Start Date: 11/17/21 Status: Ordered Nicotine 2 mg gum 1 each = 2 mg, Chew, Every 2 hours, PRN as needed for smoking cessation, for 8 week(s), # 100 each,1 Refills, Acute 05/25/22 12:28:00 EDT, 02/02/22 12:28:00 EST, Gum, [place], [place] - [phone], Partial fill upon patient request i... Start Date: 02/02/22 Stop Date: 05/25/22 Status: Ordered NuLYTELY with Flavor Packs oral powder for reconstitution See Instructions, Drink 240mL every 15-20 minutes until first half is gone. Repeat 6 hours prior toprocedure., # 4,000 mL, 0 Refills, Maintenance, 04/27/22 11:40:00 EDT, [place], [place] - [phone], Partial fill upon patient reque... Start Date: 04/27/22 Status: Ordered Pen [place], 31 G x 5 mm BD Ultra [...] tablet, 2 Refills, Maintenance, 02/25/22 21:52:00 EST, [facility], 178, cm, 02/15/22 14:37:00 EST, Height, 104.6, [...] use Confirmed Active Vitreous hemorrhage Confirmed Active 28635 2type unknown 3X3, last in 2016 Social History Social History Type Response Tobacco Use: 4 or less cigar ettes(less than 1/4 pack)/day in last 30 days. Other: smoking for 40 yrs.. Sex Patient Care team information Care Team Personnel Name: Harlan Person NP Position: S Associate Professional Member Role: PCP Address: Address: [address] [place] [address]- Care Team Related Persons Name: ELADIA CORRIGAN Address: home [address] [place] [address]
--- OUTSIDE RECORDS SUMMARY | 2022-10-15 00:49 | XMS_ITS | Continuity of Care Document ---
Author Name Unknown Organization [facility] Address [address] [place] [address]- Care Team Providers Care J2Ee Programmer Name Role Phone Magdy MCGARRY, Sera Cormier Primary Care Physician Encounter [facility] Date(s): 08/25/21 - 09/24/[address] [address]- Allergies, Adverse Reactions, Alerts Substance Reaction Severity Status penicillin Hives Active Immunizations Given and Recorded Vaccine Date Status Refusal Reason FluLaval (oldterm) 1 12/23/10 Given pneumococcal 23-valent vaccine 2 03/24/10 Given influenza virus vaccine, inactivated 3 01/27/10 Gi caroline tetanus-diphtheria toxoids (Td) 4 01/27/10 Given 1Admin Note: vis given 2Admin Note: vis 05/23/2008 3Admin Note: vis 09/16/09 4Admin Note: vis Medications clonazePAM 1 mg oral tablet 1 tablet = 1 mg, By Mouth, 3 times a day, Please bubble pack and deliver, # 90 tablet, 0 Refills, Maintenance, 08/27/21 13:36:00 EDT, Tablet, [place], [place] - [id number], Partial fill upon patient request if the prescription is for... Start Date: 08/27/21 Status: Ordered Eliquis 5 mg oral tablet 1 tablet = 5 mg, By Mouth, 2 times a day, Please bubble pack and deliver, # 60 tablet, 5 Refills, Maintenance, 08/27/21 13:36:00 EDT, Tablet, [place], [place] - [id number], Partial fill upon patient request if the [...] mL, 2 Refills, Maintenance, 08/27/21 13:37:00 EDT, [facility] [id number], Partial fill upon patient request if the prescription is for... Start Date: 08/27/21 Status: Ordered Lantus Solostar Pen 100 units/mL subcutaneous solution = 55 units, Subcutaneous Infusion, Daily, Please dispense 6 pens, # 15 mL, 2 Refills, Maintenance, 08/27/21 13:36:00 EDT, [facility] [id number], Partial fill upon patient request if the prescription is for a schedule II opioid... Start Date: 08/27/21 Stop Date: 11/25/21 Status: Ordered Pen [place], 31 G x 5 mm BD Ultra [...] 2 Refills, Maintenance, 08/27/21 15:37:00 EDT, Tablet, [facility] [place], [place] - [id number], Partial fill upon patient request if the prescription is for a sche... Start Date: 08/27/21 Status: Ordered Problem List Condition Effective Dates Status Health Status Inform ant Diabetes Mellitus(Confirmed) 1989 Active Essential Hypertension(Confirmed) 1989 Active Goal-lose weight(Confirmed) Active Neuropathy(Confirmed) Active Obese class I(Confirmed) Active 1type unknown Social History Social History Type Response Smoking Status 5-9 cigarettes (betw een 1/4 to 1/2 pack)/day in last 30 days;10 or more cigarettes (1/2 pack or more)/day in last 30 days entered on: 08/25/21 Sex
--- OUTSIDE RECORDS SUMMARY | 2022-10-15 00:49 | XMS_ITS | Continuity of Care Document ---
Author Name Unknown Organization [facility] Address [address] [place] [address]- Care Team Providers Care Precision Millwright Name Role Phone Raza BALDERAS, Harlan Primary Care Physician Encounter [facility] Date(s): 04/13/22 - 05/13/[address] [address] Allergies, Adverse Reactions, Alerts Substance Reaction Severity Status penicillin Hives Active Immunizations Given and Recorded Vaccine Date Status Refusal Reason FluLaval (oldterm) 1 12/23/10 Given pneumococcal 23-valent vaccine 2 03/24/10 Given influenza virus vaccine, inactivated 3 01/27/10 Gi caroline tetanus-diphtheria toxoids (Td) 4 01/27/10 Given Not Given Vaccine Date Status Refusal Reason SARS-CoV-2 mRNA (ohslijy-mqlg-pkhlo) vax 09/28/21 Not Given Patient Refuses tetanus/diphtheria/pertussis, acel(Tdap) 09/28/21 Not Given Patient Refuses 1Admin Note: vis given 2Admin Note: vis 05/23/2008 3Admin Note: vis 09/16/09 4Admin Note: vis Medications acetaminophen-oxyCODONE 325 mg-5 mg oral tablet 1, tablet, By Mouth, Every 6 hours, # 112 tablet, Refills 0, Tot. Refills 0, Maintenance, 04/28/22 14:42:00 EDT, Route to Pharmacy Electronically, [facility] - [place], [place] - [id number], please fill on 05/03; MassPAT checked; on contract, 178,... Start Date: 04/28/22 Stop Date: 05/26/22 Status: Ordered amLODIPine 5 mg oral tablet 5 mg, 1, tablet, By Mouth, Daily, # 30 tablet, Refills 1, Tot. Refills 1, Maintenance, 04/16/22 11:16:00 EST, Route to Pharmacy Electronically, [place], [place] - [id number], Partialfill upon patient request if the prescription is fo... Start Date: 04/16/22 Stop Date: 06/15/22 Status: Ordered Aspirin Low Dose 81 mg oral delayed release tablet 1 tablet, By Mouth, Daily, # 30 tablet, 3 Refills, Maintenance, 01/19/22 14:38:00 EST, [facility], 176, cm, 01/11/22 9:46:00 EST, Height Start Date: 01/19/22 Status: Ordered atorvastatin 80 mg oral tablet See Instructions, TAKE 1 TABLET BY MOUTH ONCE DAILY, # 30 tablet, 5 Refills, Maintenance, 11/11/21 11:38:00 EDT, [facility], 176, cm, 10/27/21 11:36:00 EDT, Height Start Date: 11/11/21 Status: Ordered Blood Pressure Monitor See Instructions, # 1 each, Refills 0, Tot. Refills 0, Maintenance, patient persistent elevated BP ICD: I10 please send to [facility] thank you, HILDA Rousseau DNP-Latanya, 10/09/21 9:52:00 EDT, Supply Start Date: 10/09/21 [...] 0 Refills, Maintenance, 03/22/22 13:07:00 EST, Tablet, [place], [place] - [id number], Partial fill upon patient request if the [...] 2 Refills, Maintenance, 03/17/22 13:53:00 EST, Capsule, [place], [place] - [id number], Partial fill upon patient request if the prescription is for a dejah... Start Date: 03/17/22 Stop Date: 06/15/22 Status: Ordered Eliquis 5 mg oral tablet 1 tablet = 5 mg, By Mouth, 2 times a day, Please bubble pack and deliver, # 60 tablet, 5 Refills, Maintenance, 02/02/22 12:28:00 EST, Tablet, [place], [place] - [phone], Partial fill upon patient request if the [...] 03/31/22 13:13:00 EST, Route to Pharmacy Electronically, [place], [place] - [id number], 178, cm, 03/30/22 9:50:00 EST, Height, 104.6, k... Start Date: 03/31/22 Stop Date: 04/14/22 Status: Ordered Gold Bonilla Ultimate Softening topical lotion 1 application, Topically, 2 times a day, PRN for dry skin, to affected area, # 420 mL, 3 Refills, Maintenance, 10/27/21 12:11:00 EDT, Lotion, [place], [place] - [phone], 1 application Topically 2 times a day,PRN:for dry skin,Instr:... Start Date: 10/27/21 Status: Ordered hydrochlorothiazide-losartan 12.5 mg-50 mg oral tablet See Instructions, TAKE 1 TABLET BY MOUTH ONCE DAILY, # 90 tablet, 1 Refills, Maintenance, 02/02/22 12:29:00 EST, [facility] [id number], 90, TAKE 1 TABLET BY MOUTH ONCE DAILY,176, cm, 02/02/22 11:51:00 EST, Height Start Date: 02/02/22 Status: Ordered Lantus Solostar Pen 100 units/mL subcutaneous solution See Instructions, INJECT 40 UNITS SUBCUTANEOUSLY ONCE DAILY, # 15 mL, 2 Refills, Maintenance, 03/17/22 13:54:00 EST, [facility], 178, cm, 03/15/22 15:13:00 EST, Height, 104.6, kg, 02/15/22 14:37:00 EST, Dry Weight Start Date: 03/17/22 Status: Ordered metFORMIN 1000 mg oral tablet, extended release 1 tablet = 1,000 mg, By Mouth, 2 times a day, # 60 tablet, 1 Refills, Maintenance, 04/16/22 11:08:00 EST, ER Tablet, [facility] [id number], Partial fill upon patient request if the prescription is for a schedule II opioid drug... Start Date: 04/16/22 Stop Date: 06/15/22 Status: Ordered Metoprolol Tartrate 25 mg oral tablet See Instructions, TAKE 1 TABLET BY MOUTH two (2) times a day, # 60 tablet, 2 Refills, Maintenance, 03/30/22 10:13:00 EST, [facility] [id number], 178, cm, 03/30/22 9:50:00 EST, Height, 104.6, kg, 02/15/22 14:37:00 EST, Dry Weight Start Date: 03/30/22 Status: Ordered nalOXONE 4 mg/0.1 mL nasal spray = 4 mg, Nares, Both, Once, # 2 each, 0 Refills, Soft Stop, 11/17/21 12:37:00 EDT, [facility] [phone], Partial fill upon patient request if the prescription is for a schedule II opioid drug., 102.5, cm, 11/16/21 16:08:00 EDT... Start Date: 11/17/21 Status: Ordered Nicotine 2 mg gum 1 each = 2 mg, Chew, Every 2 hours, PRN as needed for smoking cessation, for 8 week(s), # 100 each,1 Refills, Acute 05/25/22 12:28:00 EDT, 02/02/22 12:28:00 EST, Gum, [place], [place] - [id number], Partial fill upon patient request i... Start Date: 02/02/22 Stop Date: 05/25/22 Status: Ordered NuLYTELY with Flavor Packs oral powder for reconstitution See Instructions, Drink 240mL every 15-20 minutes until first half is gone. Repeat 6 hours prior toprocedure., # 4,000 mL, 0 Refills, Maintenance, 04/27/22 11:40:00 EDT, [place], [place] - [id number], Partial fill upon patient reque... Start Date: 04/27/22 Status: Ordered Pen [place], 31 G x 5 mm BD Ultra [...] tablet, 2 Refills, Maintenance, 02/25/22 21:52:00 EST, [facility], 178, cm, 02/15/22 14:37:00 EST, Height, [...] use Confirmed Active Vitreous hemorrhage Confirmed Active 74530 2type unknown 3X3, last in 2016 Social History Social History Type Response Tobacco Use: 4 or less cigar ettes(less than 1/4 pack)/day in last 30 days. Other: smoking for 40 yrs.. Sex Patient Care team information Care Team Personnel Name: Harlan Person NP Position: [facility] Associate Professional Member Role: PCP Address: Address: [address] [place] [address]- Care Team Related Persons Name: SAMANMIASHARONBRADLEY ELADIA Address: home [address] [place] [address]
--- OUTSIDE RECORDS SUMMARY | 2022-10-15 00:49 | XMS_ITS | Continuity of Care Document ---
Author Name Unknown Organization [facility] Address [address] [place] [address]- Care Team Providers Care Glass Handler Name Role Phone Raza BALDERAS, Harlan Primary Care Physician [facility]counter [facility] Date(s): 05/25/22 - 06/24/[address] [address]- Allergies, Adverse Reactions, Alerts Substance Reaction Severity Status penicillin Hives Active Immunizations Given and Recorded Vaccine Date Status Refusal Reason FluLaval (oldterm) 1 12/23/10 Given pneumococcal 23-valent vaccine 2 03/24/10 Given influenza virus vaccine, inactivated 3 01/27/10 Gi caroline tetanus-diphtheria toxoids (Td) 4 01/27/10 Given Not Given Vaccine Date Status Refusal Reason SARS-CoV-2 mRNA (efhgxqe-vwwt-hqusy) vax 09/28/21 Not Given Patient Refuses tetanus/diphtheria/pertussis, acel(Tdap) 09/28/21 Not Given Patient Refuses 1Admin Note: vis given 2Admin Note: vis 05/23/2008 3Admin Note: vis 09/16/09 4Admin Note: vis Medications acetaminophen-oxyCODONE 325 mg-5 mg oral tablet 1, tablet, By Mouth, Every 6 hours, # 112 tablet, Refills 0, Tot. Refills 0, Maintenance, 05/31/22 9:58:00 EDT, Route to Pharmacy Electronically, [facility] - [place], [place] - [id number], please fill on 06/01; MassPAT checked; on contract, 178,... Start Date: 05/31/22 Stop Date: 06/28/22 Status: Ordered amLODIPine 5 mg oral tablet 2 tablet = 10 mg, By Mouth, Daily, # 180 tablet, 1 Refills, Maintenance, 05/31/22 10:01:00 EDT, [place], [place] - [id number], 178, cm, 05/04/22 11:41:00 EDT, Height, 104.6, kg, 02/15/22 14:37:00 EST, Dry Weight Start Date: 05/31/22 Stop Date: 11/27/22 Status: Ordered Aspirin Low Dose 81 mg oral delayed release tablet 1 tablet, By Mouth, Daily, # 30 tablet, 3 Refills, Maintenance, 05/21/22 15:29:00 EDT, [facility], 178, cm, 05/04/22 11:41:00 EDT, Height, 104.6, kg, 02/15/22 14:37:00 EST, Dry Weight Start Date: 05/21/22 Status: Ordered atorvastatin 80 mg oral tablet 1 tablet, By Mouth, Daily, # 30 tablet, 5 Refills, Maintenance, 05/21/22 14:00:00 EDT, [facility], 178, cm, 05/04/22 11:41:00 EDT, Height, [...] 0 Refills, Maintenance, 06/16/22 9:33:00 EDT, Tablet, [place], [place] - [id number], Partial fill upon patient request if the prescription is for a... Start Date: 06/16/22 Stop Date: 07/16/22 Status: Ordered clopidogrel 75 mg oral tablet 1, tablet, By Mouth, Daily, # 30 tablet, Refills 0, Maintenance, 06/18/22 16:41:00 EDT, Route to Pharmacy Electronically, [facility], 178, cm, 06/10/22 9:30:00 EDT, Height, 104.6, kg, 02/15/22 14:37:00 EST, Dry Weight Start Date: 06/18/22 Status: Ordered docusate sodium 100 mg oral capsule 1 capsule, By Mouth, 2 times a day, PRN NEEDED FOR CONSTIPATION, # 30 each, 2 Refills, Maintenance, 05/21/22 11:07:00 EDT, [facility], 178, cm, 05/04/22 11:41:00 EDT, Height, 104.6, kg, 02/15/22 14:37:00 EST, Dry Weight Start Date: 05/21/22 Status: Ordered Eliquis 5 mg oral tablet 1 tablet = 5 mg, By Mouth, 2 times a day, Please bubble pack and deliver, # 60 tablet, 5 Refills, Maintenance, 02/02/22 12:28:00 EST, Tablet, [facility] - [place], [place] - [phone], Partial fill upon patient request if the [...] 06/10/22 10:53:00 EDT, Route to Pharmacy Electronically, [facility], 178, cm, 06/10/22 9:30:00 EDT, Height, 104.6, kg, 02/15/22 14:37:00 EST, Dry Weight Start Date: 06/10/22 Stop Date: 06/24/22 Status: Ordered Gold Bonilla Ultimate Softening topical lotion 1 application, Topically, 2 times a day, PRN for dry skin, to affected area, # 420 mL, 3 Refills, Maintenance, 10/27/21 12:11:00 EDT, Lotion, [facility] [id number], 1 application Topically 2 times a day,PRN:for dry skin,Instr:... Start Date: 10/27/21 Status: Ordered hydrochlorothiazide-losartan 12.5 mg-50 mg oral tablet See Instructions, TAKE 1 TABLET BY MOUTH ONCE DAILY, # 90 tablet, 1 Refills, Maintenance, 02/02/22 12:29:00 EST, [place], [place] - [id number], 90, TAKE 1 TABLET BY MOUTH ONCE DAILY,176, cm, 02/02/22 11:51:00 EST, Height Start Date: 02/02/22 Status: Ordered Jardiance 10 mg oral tablet 1 tablet = 10 mg, By Mouth, Daily in AM, # 90 tablet, 0 Refills, Maintenance, 05/31/22 9:51:00 EDT,Tablet, [facility] [id number], Partial fill upon patient request if the prescription is for a schedule II opioid drug., 178, c... Start Date: 05/31/22 Stop Date: 08/29/22 Status: Ordered Lantus Solostar Pen 100 units/mL subcutaneous solution See Instructions, INJECT 38 UNITS SUBCUTANEOUSLY ONCE DAILY, # 15 mL, 2 Refills, Maintenance, 05/14/22 13:20:00 EDT, [facility], 178, cm, 05/04/22 11:41:00 EDT, Height, 104.6, kg, 02/15/22 14:37:00 EST, Dry Weight Start Date: 05/14/22 Status: Ordered MetFORMIN (Eqv-Glucophage XR) 500 mg oral tablet, extended release 2 tablet, By Mouth, 2 times a day, # 120 tablet, 1 Refills, Maintenance, 05/15/22 10:21:00 EDT, [facility], 178, cm, 05/04/22 11:41:00 EDT, Height, 104.6, kg, 02/15/22 14:37:00 EST, Dry Weight Start Date: 05/15/22 Status: Ordered Metoprolol Tartrate 25 mg oral tablet See Instructions, TAKE 1 TABLET BY MOUTH two (2) times a day, # 60 tablet, 2 Refills, Maintenance, 06/19/22 14:55:00 EDT, [facility] [id number], 178, cm, 06/10/22 9:30:00 EDT, Height, 104.6, kg, 02/15/22 14:37:00 EST, Dry Weight Start Date: 06/19/22 Status: Ordered nalOXONE 4 mg/0.1 mL nasal spray = 4 mg, Nares, Both, Once, # 2 each, 0 Refills, Soft Stop, 11/17/21 12:37:00 EDT, [facility] [id number], Partial fill upon patient request if the prescription is for a schedule II opioid drug., 102.5, cm, 11/16/21 16:08:00 EDT... Start Date: 11/17/21 Status: Ordered NuLYTELY with Flavor Packs oral powder for reconstitution See Instructions, Drink 240mL every 15-20 minutes until first half is gone. Repeat 6 hours prior toprocedure., # 4,000 mL, 0 Refills, Maintenance, 04/27/22 11:40:00 EDT, [facility] [id number], Partial fill upon patient reque... Start Date: 04/27/22 Status: Ordered Pen [place], 31 G x 5 mm BD Ultra [...] use Confirmed Active Vitreous hemorrhage Confirmed Active 39326 2type unknown 3X3, last in 2016 Social History Social History Type Response Tobacco Use: 4 or less cigar ettes(less than 1/4 pack)/day in last 30 days. Other: smoking for 40 yrs.. Sex Patient Care team information Care Team Personnel Name: Harlan Person NP Position: S Associate Professional Member Role: PCP Address: Address: [address] [place] [address]- Care Team Related Persons Name: ELADIA CORRIGAN Address: home [address] [place] [address]
--- OUTSIDE RECORDS SUMMARY | 2022-10-15 00:49 | XMS_ITS | Continuity of Care Document ---
Author Name Unknown Organization [facility] Address [address] [place] [address]- Care Team Providers Care Water Pumper Name Role Phone Raza MANAGEMENT ASSISTANT, Harlan Primary Care Physician Encounter [facility] Date(s): 02/15/22 - 03/17/[address] [address] Allergies, Adverse Reactions, Alerts Substance Reaction Severity Status penicillin Hives Active Immunizations Given and Recorded Vaccine Date Status Refusal Reason FluLaval (oldterm) 1 12/23/10 Given pneumococcal 23-valent vaccine 2 03/24/10 Given influenza virus vaccine, inactivated 3 01/27/10 Gi caroline tetanus-diphtheria toxoids (Td) 4 01/27/10 Given Not Given Vaccine Date Status Refusal Reason SARS-CoV-2 mRNA ([id number]) vax 09/28/21 Not Given Patient Refuses tetanus/diphtheria/pertussis, acel(Tdap) 09/28/21 Not Given Patient Refuses 1Admin Note: vis given 2Admin Note: vis 05/23/2008 3Admin Note: vis 09/16/09 4Admin Note: vis Medications acetaminophen-oxyCODONE 325 mg-5 mg oral tablet 1, tablet, By Mouth, Every 6 hours, # 112 tablet, Refills 0, Tot. Refills 0, Maintenance, 03/06/22 9:53:00 EST, Route to Pharmacy Electronically, [facility] - [place], [place] - [id number], please fill on 01/02, 178, cm, 02/15/22 14:37:00 EST, Hei... Start Date: 03/06/22 Stop Date: 04/03/22 Status: Ordered Aspirin Low Dose 81 mg oral delayed release tablet 1 tablet, By Mouth, Daily, # 30 tablet, 3 Refills, Maintenance, 01/19/22 14:38:00 EST, [facility], 176, cm, 01/11/22 9:46:00 EST, Height Start Date: 01/19/22 Status: Ordered atorvastatin 80 mg oral tablet See Instructions, TAKE 1 TABLET BY MOUTH ONCE DAILY, # 30 tablet, 5 Refills, Maintenance, 11/11/21 11:38:00 EDT, [facility], 176, cm, 10/27/21 11:36:00 EDT, Height Start Date: 11/11/21 Status: Ordered Blood Pressure Monitor See Instructions, # 1 each, Refills 0, Tot. Refills 0, Maintenance, patient persistent elevated BP ICD: I10 please send to L&C thank you, Harlan Person DNP [facility]-, 10/09/21 9:52:00 EDT, Supply Start Date: 10/09/21 Status: Ordered Cane See Instructions, # 1 each, Maintenance, patient with chronic left hip pain, and Left knee OA needscane please ICD10 M17. 9, M25. 552 Thank you, Harlan Person DNP, [employer]VERTISING [employer]-C, 01/11/22 10:01:00 EST, Supply Start Date: 01/11/22 Status: Ordered clonazePAM 1 mg oral tablet 1 tablet = 1 mg, By Mouth, 3 times a day, Please bubble pack and deliver, # 90 tablet, 0 Refills, Maintenance, 12/29/21 10:43:00 EST, Tablet, [facility] [id number], Partial fill upon patient request if the prescription is for... Start Date: 12/29/21 Stop Date: 01/28/22 Status: Ordered Doculase 100 mg oral capsule 1 capsule = 100 mg, By Mouth, 2 times a day, PRN for constipation, # 30 capsule, 2 Refills, Maintenance, 03/17/22 13:53:00 EST, Capsule, [place], [place] - [id number], Partial fill upon patient request if the prescription is for a dejah... Start Date: 03/17/22 Stop Date: 06/15/22 Status: Ordered doxycycline hyclate 100 mg oral tablet 1 tablet = 100 mg, By Mouth, 2 times a day, for 7 days, # 14 tablet, 0 Refills, Acute 03/22/22 15:42:00 EST, 03/15/22 15:42:00 EST, Tablet, [place], [place] - [id number], Partial fill upon patient request if the prescription is for a... Start Date: 03/15/22 Stop Date: 03/22/22 Status: Ordered Eliquis 5 mg oral tablet 1 tablet = 5 mg, By Mouth, 2 times a day, Please bubble pack and deliver, # 60 tablet, 5 Refills, Maintenance, 02/02/22 12:28:00 EST, Tablet, [place], [place] - [id number], Partial fill upon patient request if the [...] 3 Refills, Maintenance, 10/27/21 12:11:00 EDT, Lotion, [place], [place] - [id number], 1 application Topically 2 times a day,PRN:for dry skin,Instr:... Start Date: 10/27/21 Status: Ordered hydrochlorothiazide-losartan 12.5 mg-50 mg oral tablet See Instructions, TAKE 1 TABLET BY MOUTH ONCE DAILY, # 90 tablet, 1 Refills, Maintenance, 02/02/22 12:29:00 EST, [place], [place] - [id number], 90, TAKE 1 TABLET BY MOUTH ONCE [...] mL, 2 Refills, Maintenance, 03/17/22 13:54:00 EST, [facility], 178, cm, 03/15/22 15:13:00 EST, Height, 104.6, kg, 02/15/22 14:37:00 EST, Dry Weight Start Date: 03/17/22 Status: Ordered Metoprolol Tartrate 25 mg oral tablet See Instructions, TAKE 1 TABLET BY MOUTH two (2) times a day, # 60 tablet, 2 Refills, Maintenance, 12/18/21 12:59:00 EST, [facility] [id number], 176, cm, 12/11/21 9:33:00 EDT, Height Start Date: 12/18/21 Status: Ordered nalOXONE 4 mg/0.1 mL nasal spray = 4 mg, Nares, Both, Once, # 2 each, 0 Refills, Soft Stop, 11/17/21 12:37:00 EDT, [facility] [id number], Partial fill upon patient request if the prescription is for a schedule II opioid drug., 102.5, cm, 11/16/21 16:08:00 EDT... Start Date: 11/17/21 Status: Ordered Nicotine 2 mg gum 1 each = 2 mg, Chew, Every 2 hours, PRN as needed for smoking cessation, for 8 week(s), # 100 each,1 Refills, Acute 05/25/22 12:28:00 EDT, 02/02/22 12:28:00 EST, Gum, [facility] [id number], Partial fill upon patient request i... Start Date: 02/02/22 Stop Date: 05/25/22 Status: Ordered Pen [place], 31 G x 5 mm BD Ultra [...] prophylaxis Confirmed Active Tobacco use Confirmed Active 23216 2type unknown 3X3, last in 2016 Social History Social History Type Response Tobacco Use: 4 or less cigar ettes(less than 1/4 pack)/day in last 30 days. Other: smoking for 40 yrs.. Sex Patient Care team information Care Team Personnel Name: Harlan Person NP Position: S Associate Professional Member Role: PCP Address: Address: [address] [place] [address]- Care Team Related Persons Name: ELADIA CORRIGAN Address: [address] [place] [address]
--- OUTSIDE RECORDS SUMMARY | 2022-10-15 00:49 | XMS_ITS | Continuity of Care Document ---
Author Name Unknown Organization [facility] Address [address] [place] [address]- Care Team Providers Care Radar Engineer Name Role Phone Raza BALDERAS, Harlan Primary Care Physician Encounter [facility] Date(s): 09/01/22 - 10/01/[address] [address]- Allergies, Adverse Reactions, Alerts Substance Reaction Severity [...] 09/01/22 11:16:00 EDT, Route to Pharmacy Electronically, [facility]/pharmacy #[id number], please fill on 06/01; [facility] checked; on contractTyra cm, 07/15/22 13:22:00 EDT,... Start Date: 09/01/22 Stop Date: 09/29/22 Status: Ordered amLODIPine 5 mg oral tablet 2 tablet = 10 mg, By Mouth, Daily, # 180 tablet, 1 Refills, Maintenance, 05/31/22 10:01:00 EDT, [facility] - [place], [place] - [id number], 178, cm, 05/04/22 11:41:00 EDT, Height, 104.6, kg, 02/15/22 14:37:00 EST, Dry Weight Start Date: 05/31/22 Stop Date: 11/27/22 Status: Ordered atorvastatin 80 mg oral tablet 1 tablet, By Mouth, Daily, # 30 tablet, 5 Refills, Maintenance, 05/21/22 14:00:00 EDT, [facility], 178, cm, 05/04/22 11:41:00 EDT, Height, 104.6, kg, 02/15/22 14:37:00 EST, Dry Weight Start Date: 05/21/22 Status: Ordered Blood Pressure Monitor See Instructions, # 1 each, Refills 0, Tot. Refills 0, Maintenance, patient persistent elevated BP ICD: I10 please send to L&C thank you, Harlan Person DNP, VICE PRESIDENT AND PORTFOLIO MANAGER-C, 10/09/21 9:52:00 EDT, Supply Start Date: 10/09/21 Status: Ordered Cane See Instructions, # 1 each, Maintenance, patient with chronic left hip pain, and Left knee OA needscane please ICD10 M17. 9, M25. 552 Thank you, Harlan Person DNP, VICE PRESIDENT AND PORTFOLIO MANAGER-C, 01/11/22 10:01:00 EST, Supply Start Date: 01/11/22 Status: Ordered clonazePAM 1 mg oral tablet 1 tablet = 1 mg, By Mouth, 3 times a day, Please bubble pack and deliver, # 90 tablet, 0 Refills, Maintenance, 09/01/22 9:27:00 EDT, Tablet, [facility]/pharmacy #[id number], Partial fill upon patient request if the prescription is for a schedule II opioid drug., 1... Start Date: 09/01/22 Stop Date: 10/01/22 Status: Ordered clonazePAM 1 mg oral tablet 1 tablet = 1 mg, By Mouth, Once, 30-60 minutes prior to stress, # 1 tablet, 0 Refills, Soft Stop, 09/21/22 16:10:00 EDT, Tablet, [place], [place] - [id number], Partial fill upon patient request if the prescription is for a schedule II... Start Date: 09/21/22 Status: Ordered clopidogrel 75 mg oral tablet 1, tablet, By Mouth, Daily, # 90 tablet, Refills 1, Tot. Refills 1, Maintenance, 09/03/22 12:49:00 EDT, Route to Pharmacy Electronically, [facility], [place] - [id number], 178, cm, 09/03/22 10:25:00 EDT, Height, 104.6, kg, 02/15/22 14:37... Start Date: 09/03/22 Stop Date: 03/02/23 Status: Ordered docusate sodium 100 mg oral capsule 1 capsule, By Mouth, 2 times a day, PRN NEEDED FOR CONSTIPATION, # 30 each, 2 Refills, Maintenance, 07/29/22 11:46:00 EDT, [facility], 178, cm, 07/15/22 13:22:00 EDT, Height, 104.6, kg, 02/15/22 14:37:00 EST, Dry Weight Start Date: 07/29/22 Status: Ordered doxycycline hyclate 100 mg oral capsule 1 capsule = 100 mg, By Mouth, 2 times a day, for 10 days, # 20 capsule, 0 Refills, Acute 10/10/22 9:39:00 EDT, 09/30/22 9:39:00 EDT, Capsule, [facility], [place] - [id number], Partial fill upon patient request if the prescription is for... Start Date: 09/30/22 Stop Date: 10/10/22 Status: Ordered Eliquis 5 mg oral tablet 1 tablet = 5 mg, By Mouth, 2 times a day, Please bubble pack and deliver, # 60 tablet, 5 Refills, Maintenance, 09/03/22 12:46:00 EDT, Tablet, [facility], [place] - [id number], Partial fill upon patient request if the [...] 09/01/22 10:44:00 EDT, Route to Pharmacy Electronically, [facility], 178, cm, 07/15/22 13:22:00 EDT, Height, 104.6, kg,02/15/22 14:37:00 EST, Dry Weight Start Date: 09/01/22 Status: Ordered Gold [place]illa Ultimate Softening topical lotion 1 application, Topically, 2 times a day, PRN for dry skin, to affected area, # 420 mL, 3 Refills, Maintenance, 10/27/21 12:11:00 EDT, Lotion, [place], [place] - [id number], 1 application Topically 2 times a day,PRN:for dry skin,Instr:... Start Date: 10/27/21 Status: Ordered hydrochlorothiazide-losartan 12.5 mg-50 mg oral tablet See Instructions, TAKE 1 TABLET BY MOUTH ONCE DAILY, # 90 tablet, 1 Refills, Maintenance, 07/16/22 10:37:00 EDT, [place], [place] - [id number], 90, TAKE 1 TABLET BY MOUTH ONCE [...] tablet, 1 Refills, Maintenance, 09/11/22 8:58:00 EDT, [facility], 178, cm, 09/03/22 10:25:00 EDT, Height, 104.6, kg, 02/15/22 14:37:00 EST, Dry Weight Start Date: 09/11/22 Status: Ordered Lantus Solostar Pen 100 units/mL subcutaneous solution See Instructions, INJECT 42 UNITS SUBCUTANEOUSLY ONCE DAILY, # 15 mL, 2 Refills, Maintenance, 05/14/22 13:20:00 EDT, [facility], 178, cm, 05/04/22 11:41:00 EDT, Height, 104.6, kg, 02/15/22 14:37:00 EST, Dry Weight Start Date: 05/14/22 Status: Ordered Metoprolol Tartrate 25 mg oral tablet See Instructions, TAKE 1 TABLET BY MOUTH two (2) times a day, # 60 tablet, 2 Refills, Maintenance, 06/19/22 14:55:00 EDT, [facility] [place], [place] - [id number], 178, cm, 06/10/22 9:30:00 EDT, Height, 104.6, kg, 02/15/22 14:37:00 EST, Dry Weight Start Date: 06/19/22 Status: Ordered mirtazapine 7.5 mg oral tablet 1 tablet, By Mouth, Daily at bedtime, # 30 tablet, 2 Refills, Maintenance, 09/11/22 8:58:00 EDT, [facility], 178, cm, 09/03/22 10:25:00 EDT, Height, 104.6, kg, 02/15/22 14:37:00 EST, Dry Weight Start Date: 09/11/22 Status: Ordered nalOXONE 4 mg/0.1 mL nasal spray = 4 mg, Nares, Both, Once, # 2 each, 0 Refills, Soft Stop, 11/17/21 12:37:00 EDT, [facility] [id number], Partial fill upon patient request if the [...] mL, 0 Refills, Maintenance, 04/27/22 11:40:00 EDT, [facility] [id number], Partial fill upon patient reque... Start Date: 04/27/22 Status: Ordered omeprazole 20 mg oral enteric coated capsule 1 capsule = 20 mg, By Mouth, Daily, 30 min before a meal, # 30 capsule, 0 Refills, Maintenance, 09/01/22 8:49:00 EDT, [facility] [id number], Needs to be QD, 178, cm, 07/15/2312:22:00 EDT, Height, 104.6, kg, 02/15/22 14:37:00... Start Date: 09/01/22 Stop Date: 10/01/22 Status: Ordered Pen [place], 31 G x 5 mm BD Ultra [...] hemorrhage Confirmed Active Weight loss Confirmed Active 99870 2type unknown 3X3, last in 2016 Social History Social History Type Response Tobacco Use: 4 or less cigar ettes(less than 1/4 pack)/day in last 30 days. Other: smoking for 40 yrs.. Sex Patient Care team information Care Team Personnel Name: Harlan Person NP Position: S Associate Professional Member Role: PCP Address: Address: [address] [place] [address]- Care Team Related Persons Name: ELADIA CORRIGAN Address: home [address] [place] [address]
--- OUTSIDE RECORDS SUMMARY | 2022-10-15 00:49 | XMS_ITS | Continuity of Care Document ---
Author Name Unknown Organization [facility] Address [address] [place] [address]- Care Team Providers Care Sausage Maker Name Role Phone Raza BALDERAS, Harlan Primary Care Physician [phone] Encounter [facility] Date(s): 08/25/21 - 11/04/[address] [address]- Attending Physician: Virgilio Pruitt MD Allergies, Adverse Reactions, Alerts Substance Reaction Severity Status penicillin Hives Active Immunizations Given and Recorded Vaccine Date Status Refusal Reason FluLaval (oldterm) 1 12/23/10 Given pneumococcal 23-valent vaccine 2 03/24/10 Given influenza virus vaccine, inactivated 3 01/27/10 Gi caroline tetanus-diphtheria toxoids (Td) 4 01/27/10 Given Not Given Vaccine Date Status Refusal Reason SARS-CoV-2 mRNA ([id number]) vax 09/28/21 Not Given Patient Refuses tetanus/diphtheria/pertussis, acel(Tdap) 09/28/21 Not Given Patient Refuses 1Admin Note: vis given 2Admin Note: vis 05/23/2008 3Admin Note: vis 09/16/09 4Admin Note: vis Medications acetaminophen-oxyCODONE 325 mg-5 mg oral tablet 1, tablet, By Mouth, Every 6 hours, # 28 tablet, Refills 0, Tot. Refills 0, Maintenance, 10/22/21 19:47:00 EDT, Route to Pharmacy Electronically, [facility] - [place], [place] - [id number], Partial fill upon patient request if the prescription is... Start Date: 10/22/21 Stop Date: 10/29/21 Status: Ordered aspirin 81 mg oral delayed release tablet 81 mg, 1, tablet, By Mouth, Daily, # 30 tablet, Refills 3, Tot. Refills 3, Maintenance, 10/09/21 9:23:00 EDT, Route to Pharmacy Electronically, [facility] [id number], Partialfill upon patient request if the prescription is fo... Start Date: 10/09/21 Stop Date: 02/06/22 Status: Ordered atorvastatin 80 mg oral tablet 1 tablet = 80 mg, By Mouth, Daily, # 30 tablet, 1 Refills, Maintenance, 09/28/21 15:06:00 EDT, Tablet, [facility] [id number], Partial fill upon patient request if the prescription is for a schedule II opioid drug., 176, cm, 08... Start Date: 09/28/21 Status: Ordered Blood Pressure Monitor See Instructions, # 1 each, Refills 0, Tot. Refills 0, Maintenance, patient persistent elevated BP ICD: I10 please send to L&C thank you, Harlan Person DNP, INSTITUTIONAL RESEARCH DIRECTOR-C, 10/09/21 9:52:00 EDT, Supply Start Date: 10/09/21 Status: Ordered clonazePAM 1 mg oral tablet 1 tablet = 1 mg, By Mouth, 3 times a day, Please bubble pack and deliver, # 90 tablet, 0 Refills, Maintenance, 09/29/21 17:54:00 EDT, Tablet, [facility] [id number], Partial fill upon patient request if the prescription is for... Start Date: 09/29/21 Status: Ordered Eliquis 5 mg oral tablet 1 tablet = 5 mg, By Mouth, 2 times a day, Please bubble pack and deliver, # 60 tablet, 5 Refills, Maintenance, 08/27/21 13:36:00 EDT, Tablet, [facility] [id number], Partial fill upon patient request if the [...] 3 Refills, Maintenance, 10/27/21 12:11:00 EDT, Lotion, [place], [place] - [id number], 1 application Topically 2 times a day,PRN:for dry skin,Instr:... Start Date: 10/27/21 Status: Ordered hydrochlorothiazide-losartan 12.5 mg-50 mg oral tablet 1 tablet, By Mouth, Daily, # 90 tablet, 0 Refills, Maintenance, 09/28/21 15:10:00 EDT, Tablet, [facility] [id number], Partial fill upon patient request if the prescription isfor a schedule II opioid drug., 1 tablet By Mouth D... Start Date: 09/28/21 Stop Date: 12/27/21 Status: Ordered Lantus Solostar Pen 100 units/mL subcutaneous solution = 40 units, Subcutaneous Infusion, Daily, Please dispense 6 pens, # 15 mL, 2 Refills, Maintenance, 08/27/21 13:36:00 EDT, [facility] [id number], Partial fill upon patient request if the prescription is for a schedule II opioid... Start Date: 08/27/21 Stop Date: 11/25/21 Status: Ordered metoprolol 25 mg oral tablet 25 mg, 1, tablet, By Mouth, 2 times a day, # 60 tablet, Refills 2, Tot. Refills 2, Maintenance, 10/07/21 8:55:00 EDT, Route to Pharmacy Electronically, [facility] [id number],Partial fill upon patient request if the prescripti... Start Date: 10/07/21 Stop Date: 01/05/22 Status: Ordered [place]te 4 mg oral transmucosal gum 1 each = 4 mg, Chew, Every 2 hours, PRN as needed for smoking cessation, for 8 week(s), # 160 each,0 Refills, Acute 11/23/21 15:06:00 EDT, 09/28/21 15:06:00 EDT, Gum, [facility] [id number], Cinnamon flavor please, 176, cm, 08... Start Date: 09/28/21 Stop Date: 11/23/21 Status: Ordered Pen [place], 31 G x 5 mm BD Ultra [...] 2 Refills, Maintenance, 08/27/21 15:37:00 EDT, Tablet, [facility] - [place], [place] - [id number], Partial fill upon patient request if the prescription is for a sche... Start Date: 08/27/21 Status: Ordered Problem List Condition Confirmation Course Effective Dates Status H ealth Status Informant CVA (cerebrovascular accident) 1 Confirmed Active Diabetes Mellitus 2 Confirmed 1989 Active Controlled substance agreement signed 09/28/2021 Confirmed Active Essential Hypertension Confirmed 1989 Active Goal-lose weight Confirmed Active Hx of deep venous thrombosis Confirmed Active Hyperlipidemia Confirmed Active Myocardial infarct 3 Confirmed Active Neuropathy Confirmed Active Obese class I Confirmed Active Tobacco use Confirmed Active 84337 2type unknown 3X3, last in 2015 Social History Social History Type Response Smoking Status 10 or more cigarette s (1/2 pack or more)/day in last 30 days entered on: 09/28/21 Sex Patient Care team information Personnel Name: Harlan Person NP Address: Address: [address] [place] [id number]
--- OUTSIDE RECORDS SUMMARY | 2022-10-15 00:49 | XMS_ITS | Continuity of Care Document ---
Author Name Unknown Organization [facility] Address [address] [place] [address]- Care Team Providers Care Sap Director Name Role Phone Raza BALDERAS, Harlan Primary Care Physician [place] [facility] [id number] Date(s): 02/02/22 - 03/04/[address] [address]- Encounter Diagnosis Osteoarthritis of left knee(Discharge Diagnosis) - 12/30/21 Attending Physician: Navya Penaloza Admitting Physician: Navya Penaloza Referring Physician: Navya Penaloza Allergies, Adverse Reactions, Alerts Substance Reaction Severity Status penicillin Hives Active Immunizations Given and Recorded Vaccine Date Status Refusal Reason FluLaval (oldterm) 1 12/23/10 Given pneumococcal 23-valent vaccine 2 03/24/10 Given influenza virus vaccine, inactivated 3 01/27/10 Gi caroline tetanus-diphtheria toxoids (Td) 4 01/27/10 Given Not Given Vaccine Date Status Refusal Reason SARS-CoV-2 mRNA (bhtunqz-dosx-eeivu) vax 09/28/21 Not Given Patient Refuses tetanus/diphtheria/pertussis, acel(Tdap) 09/28/21 Not Given Patient Refuses 1Admin Note: vis given 2Admin Note: vis 05/23/2008 3Admin Note: vis 09/16/09 4Admin Note: vis Medications acetaminophen-oxyCODONE 325 mg-5 mg oral tablet 1, tablet, By Mouth, Every 6 hours, # 112 tablet, Refills 0, Tot. Refills 0, Maintenance, 02/02/22 13:15:00 EST, Route to Pharmacy Electronically, [facility] - [place], [place] - [id number], please fill on 01/02, 176, cm, 02/02/22 11:51:00 EST, He... Start Date: 02/02/22 Stop Date: 03/02/22 Status: Ordered Aspirin Low Dose 81 mg oral delayed release tablet 1 tablet, By Mouth, Daily, # 30 tablet, 3 Refills, Maintenance, 01/19/22 14:38:00 EST, [facility], 176, cm, 01/11/22 9:46:00 EST, Height Start Date: 01/19/22 Status: Ordered atorvastatin 80 mg oral tablet See Instructions, TAKE 1 TABLET BY MOUTH ONCE DAILY, # 30 tablet, 5 Refills, Maintenance, 11/11/21 11:38:00 EDT, [facility], 176, cm, 10/27/21 11:36:00 EDT, Height Start Date: 11/11/21 Status: Ordered Blood Pressure Monitor See Instructions, # 1 each, Refills 0, Tot. Refills 0, Maintenance, patient persistent elevated BP ICD: I10 please send to L&C thank you, Harlan Person DNP, [facility], 10/09/21 9:52:00 EDT, Supply Start Date: 10/09/21 Status: Ordered Cane See Instructions, # 1 each, Maintenance, patient with chronic left hip pain, and Left knee OA needscane please ICD10 M17. 9, M25. 552 Thank you, Harlan Person DNP, [employer]-[facility], 01/11/22 10:01:00 EST, Supply Start Date: 01/11/22 Status: Ordered clonazePAM 1 mg oral tablet 1 tablet = 1 mg, By Mouth, 3 times a day, Please bubble pack and deliver, # 90 tablet, 0 Refills, Maintenance, 12/29/21 10:43:00 EST, Tablet, [place], [place] - [id number], Partial fill upon patient request if the prescription is for... Start Date: 12/29/21 Stop Date: 01/28/22 Status: Ordered Eliquis 5 mg oral tablet 1 tablet = 5 mg, By Mouth, 2 times a day, Please bubble pack and deliver, # 60 tablet, 5 Refills, Maintenance, 02/02/22 12:28:00 EST, Tablet, [facility] [id number], Partial fill upon patient request if the [...] 3 Refills, Maintenance, 10/27/21 12:11:00 EDT, Lotion, [facility] [id number], 1 application Topically 2 times a day,PRN:for dry skin,Instr:... Start Date: 10/27/21 Status: Ordered hydrochlorothiazide-losartan 12.5 mg-50 mg oral tablet See Instructions, TAKE 1 TABLET BY MOUTH ONCE DAILY, # 90 tablet, 1 Refills, Maintenance, 02/02/22 12:29:00 EST, [facility] [id number], 90, TAKE 1 TABLET BY MOUTH ONCE DAILY,176, cm, 02/02/22 11:51:00 EST, Height Start Date: 02/02/22 Status: Ordered Insulin Lispro KwikPen 100 units/mL injectable solution INJECT 10 UNITS UNDER THE SKIN 3 (THREE) TIMES A DAY BEFORE MEALS Start Date: 02/15/22 Status: Ordered Lantus Solostar Pen 100 units/mL subcutaneous solution = 44 units, Subcutaneous Infusion, Daily, Please dispense 6 pens, # 15 mL, 2 Refills, Maintenance, 12/30/21 11:12:00 EST, [facility] [id number], Partial fill upon patient request if the prescription is for a schedule II opioid... Start Date: 12/30/21 Stop Date: 03/30/22 Status: Ordered Metoprolol Tartrate 25 mg oral tablet See Instructions, TAKE 1 TABLET BY MOUTH two (2) times a day, # 60 tablet, 2 Refills, Maintenance, 12/18/21 12:59:00 EST, [facility] [id number], 176, cm, 12/11/21 9:33:00 EDT, Height Start Date: 12/18/21 Status: Ordered nalOXONE 4 mg/0.1 mL nasal spray = 4 mg, Nares, Both, Once, # 2 each, 0 Refills, Soft Stop, 11/17/21 12:37:00 EDT, [facility], [facility] [id number], Partial fill upon patient request if the prescription is for a schedule II opioid drug., 102.5, cm, 11/16/21 16:08:00 EDT... Start Date: 11/17/21 Status: Ordered Nicotine 2 mg gum 1 each = 2 mg, Chew, Every 2 hours, PRN as needed for smoking cessation, for 8 week(s), # 100 each,1 Refills, Acute 05/25/22 12:28:00 EDT, 02/02/22 12:28:00 EST, Gum, [facility], [facility] [id number], Partial fill upon patient request i... Start Date: 02/02/22 Stop Date: 05/25/22 Status: Ordered Pen [place], 31 G x 5 mm BD Ultra [...] 2 Refills, Maintenance, 02/25/22 21:52:00 EST, [facility], 178, cm, 02/15/22 14:37:00 EST, Height, 104.6, kg, 02/15/22 14:37:00 EST, Dry Weight Start Date: 02/25/22 Status: Ordered Problem List Condition Confirmation Course Effective Dates Status H ealth Status Informant CVA (cerebrovascular accident) 1 Confirmed Active Coronary artery disease Confirmed Active Deep venous thrombosis Confirmed Active Diabetes Mellitus 2 Confirmed 1990 Active Controlled substance agreement signed 09/28/2021 Confirmed Active Essential Hypertension Confirmed 1989 Active Goal-lose weight Confirmed Active Hx of deep venous thrombosis Confirmed Active Hyperlipidemia Confirmed Active Myocardial infarct 3 Confirmed Active Neuropathy Confirmed Active Obese class I Confirmed Active Osteoarthritis of left knee Confirmed Active DVT prophylaxis Confirmed Active Tobacco use Confirmed Active 06403 2type unknown 3X3, last in 2016 Diagnosis Diagnosis Type Effective Dates Health Status Clinical Service Informant Osteoarthritis of left knee 1 Discharge Diagnosis 12/30/21 01:27 pm - Harlan Person NP followed by TERRENCE, pending replacement according to notes 12/2021 Social History Social History Type Response Tobacco Use: 4 or less cigar ettes(less than 1/4 pack)/day in last 30 days. Other: smoking for 40 yrs.. Sex Note * Dalia Leigh: PERFORM Event Display: Radiology Results Scanned Authored Date: [id number] * Dalia Leigh: PERFORM Event Display: Radiology Results Scanned Authored Date: [id number] Patient Care team information Care Team Personnel Name: Harlan Person NP Position: [facility] Associate Professional Member Role: PCP Address: Address: [address] [place] [address]- Care Team Related Persons Name: SAMANMIAELADIA RODRIGUEZ Address: home [address] [place] [address]
--- OUTSIDE RECORDS SUMMARY | 2022-10-15 00:49 | XMS_ITS | Continuity of Care Document ---
Author Name Unknown Organization [facility] Address [address] [place] [address]- Care Team Providers Care Special Events Fundraiser Name Role Phone Raza BALDERAS, Harlan Primary Care Physician Encounter [facility] Date(s): 09/02/21 - 10/02/[address] [address]- Allergies, Adverse Reactions, Alerts Substance Reaction Severity Status penicillin Hives Active Immunizations Given and Recorded Vaccine Date Status Refusal Reason FluLaval (oldterm) 1 12/23/10 Given pneumococcal 23-valent vaccine 2 03/24/10 Given influenza virus vaccine, inactivated 3 01/27/10 Gi caroline tetanus-diphtheria toxoids (Td) 4 01/27/10 Given Not Given Vaccine Date Status Refusal Reason SARS-CoV-2 mRNA (hifoafr-ixoa-ygzmh) vax 09/28/21 Not Given Patient Refuses tetanus/diphtheria/pertussis, [...] 09/30/21 19:14:00 EDT, Route to Pharmacy Electronically, [facility] - [place], [place] - [id number] Tablet, Partial fill upon pat... Start Date: 09/30/21 Stop Date: 10/07/21 Status: Ordered atorvastatin 80 mg oral tablet 1 tablet = 80 mg, By Mouth, Daily, # 30 tablet, 1 Refills, Maintenance, 09/28/21 15:06:00 EDT, Tablet, [facility] [id number], Partial fill upon patient request if the prescription is for a schedule II opioid drug., 176, cm, 08... Start Date: 09/28/21 Status: Ordered clonazePAM 1 mg oral tablet 1 tablet = 1 mg, By Mouth, 3 times a day, Please bubble pack and deliver, # 90 tablet, 0 Refills, Maintenance, 09/29/21 17:54:00 EDT, Tablet, [facility] [id number], Partial fill upon patient request if the prescription is for... Start Date: 09/29/21 Status: Ordered Eliquis 5 mg oral tablet 1 tablet = 5 mg, By Mouth, 2 times a day, Please bubble pack and deliver, # 60 tablet, 5 Refills, Maintenance, 08/27/21 13:36:00 EDT, Tablet, [facility] [id number], Partial fill upon patient request if the [...] mL, 2 Refills, Maintenance, 08/27/21 13:37:00 EDT, [facility] [id number], Partial fill upon patient request if the prescription is for... Start Date: 08/27/21 Status: Ordered hydrochlorothiazide-losartan 12.5 mg-50 mg oral tablet 1 tablet, By Mouth, Daily, # 90 tablet, 0 Refills, Maintenance, 09/28/21 15:10:00 EDT, Tablet, [facility] [id number], Partial fill upon patient request if the prescription isfor a schedule II opioid drug., 1 tablet By Mouth D... Start Date: 09/28/21 Stop Date: 12/27/21 Status: Ordered Lantus Solostar Pen 100 units/mL subcutaneous solution = 55 units, Subcutaneous Infusion, Daily, Please dispense 6 pens, # 15 mL, 2 Refills, Maintenance, 08/27/21 13:36:00 EDT, [facility] [id number], Partial fill upon patient request if the prescription is for a schedule II opioid... Start Date: 08/27/21 Stop Date: 11/25/21 Status: Ordered Nicorette 4 mg oral transmucosal gum 1 each = 4 mg, Chew, Every 2 hours, PRN as needed for smoking cessation, for 8 week(s), # 160 each,0 Refills, Acute 11/23/21 15:06:00 EDT, 09/28/21 15:06:00 EDT, Gum, [facility] [id number], Cinnamon flavor please, 176, cm, 08... Start Date: 09/28/21 Stop Date: 11/23/21 Status: Ordered Pen [place], 31 G x 5 mm BD Ultra [...] 2 Refills, Maintenance, 08/27/21 15:37:00 EDT, Tablet, [facility] - [place], [place] - [id number], Partial fill upon patient request if the [...] Obese class I(Confirmed) Active Tobacco use(Confirmed) Active 12672 2type unknown 3X3, last in 2015 Social History Social History Type Response Smoking Status 10 or more cigarette s (1/2 pack or more)/day in last 30 days entered on: 09/28/21 Sex Care Team Personnel Name: Harlan Person NP Address: [address] [place] [address]
--- OUTSIDE RECORDS SUMMARY | 2022-10-15 00:49 | XMS_ITS | Continuity of Care Document ---
Author Name Unknown Organization [facility] Address [address] [place] [address]- Care Team Providers Care Office Machine Embossograph Operator Name Role Phone Raza BALDERAS, Harlan Primary Care Physician [phone] Encounter [facility] Date(s): 09/15/21 - 10/15/[address] [address]- Allergies, Adverse Reactions, Alerts Substance Reaction Severity Status penicillin Hives Active Immunizations Given and Recorded Vaccine Date Status Refusal Reason FluLaval (oldterm) 1 12/23/10 Given pneumococcal 23-valent vaccine 2 03/24/10 Given influenza virus vaccine, inactivated 3 01/27/10 Gi caroline tetanus-diphtheria toxoids (Td) 4 01/27/10 Given Not Given Vaccine Date Status Refusal Reason SARS-CoV-2 mRNA (gcdqirh-uced-wjsrz) vax 09/28/21 Not Given Patient Refuses tetanus/diphtheria/pertussis, acel(Tdap) 09/28/21 Not Given Patient Refuses 1Admin Note: vis given 2Admin Note: vis 05/23/2008 3Admin Note: vis 09/16/09 4Admin Note: vis Medications acetaminophen-oxyCODONE 325 mg-5 mg oral tablet 1, tablet, By Mouth, Every 6 hours, for 7 days, # 28 tablet, Refills 0, Tot. Refills 0, Acute, 10/16/21 14:32:00 EDT, 10/09/21 14:32:00 EDT, Route to Pharmacy Electronically, [facility] - [place], [place] - [id number] Tablet, Partial fill upon pat... Start Date: 10/09/21 Stop Date: 10/16/21 Status: Ordered aspirin 81 mg oral delayed release tablet 81 mg, 1, tablet, By Mouth, Daily, # 30 tablet, Refills 3, Tot. Refills 3, Maintenance, 10/09/21 9:23:00 EDT, Route to Pharmacy Electronically, [facility] [id number], Partialfill upon patient request if the prescription is fo... Start Date: 10/09/21 Stop Date: 02/06/22 Status: Ordered atorvastatin 80 mg oral tablet 1 tablet = 80 mg, By Mouth, Daily, # 30 tablet, 1 Refills, Maintenance, 09/28/21 15:06:00 EDT, Tablet, [facility] [id number], Partial fill upon patient request if the prescription is for a schedule II opioid drug., 176, cm, 08... Start Date: 09/28/21 Status: Ordered Blood Pressure Monitor See Instructions, # 1 each, Refills 0, Tot. Refills 0, Maintenance, patient persistent elevated BP ICD: I10 please send to L&C thank you, Harlan Person DNP, [employer] MANAGER-C, 10/09/21 9:52:00 EDT, Supply Start Date: 10/09/21 Status: Ordered clonazePAM 1 mg oral tablet 1 tablet = 1 mg, By Mouth, 3 times a day, Please bubble pack and deliver, # 90 tablet, 0 Refills, Maintenance, 09/29/21 17:54:00 EDT, Tablet, [facility] [id number], Partial fill upon patient request if the prescription is for... Start Date: 09/29/21 Status: Ordered Eliquis 5 mg oral tablet 1 tablet = 5 mg, By Mouth, 2 times a day, Please bubble pack and deliver, # 60 tablet, 5 Refills, Maintenance, 08/27/21 13:36:00 EDT, Tablet, [facility] [id number], Partial fill upon patient request if the [...] opioid drug. Start Date: 10/09/21 Status: Ordered Humalog Kwik Pen 100 units/mL subcutaneous injection = 10 units, Subcutaneous Infusion, 3 times a day before meals, Please dispense 3 pens, # 15 mL, 2 Refills, Maintenance, 08/27/21 13:37:00 EDT, [place], [place] - [id number], Partial fill upon patient request if the prescription is for... Start Date: 08/27/21 Status: Ordered hydrochlorothiazide-losartan 12.5 mg-50 mg oral tablet 1 tablet, By Mouth, Daily, # 90 tablet, 0 Refills, Maintenance, 09/28/21 15:10:00 EDT, Tablet, [facility] [id number], Partial fill upon patient request if the prescription isfor a schedule II opioid drug., 1 tablet By Mouth D... Start Date: 09/28/21 Stop Date: 12/27/21 Status: Ordered Lantus Solostar Pen 100 units/mL subcutaneous solution = 55 units, Subcutaneous Infusion, Daily, Please dispense 6 pens, # 15 mL, 2 Refills, Maintenance, 08/27/21 13:36:00 EDT, [facility] [id number], Partial fill upon patient request if the prescription is for a schedule II opioid... Start Date: 08/27/21 Stop Date: 11/25/21 Status: Ordered metoprolol 25 mg oral tablet 25 mg, 1, tablet, By Mouth, 2 times a day, # 60 tablet, Refills 2, Tot. Refills 2, Maintenance, 10/07/21 8:55:00 EDT, Route to Pharmacy Electronically, [facility] [id number],Partial fill upon patient request if the prescripti... Start Date: 10/07/21 Stop Date: 01/05/22 Status: Ordered Nicorette 4 mg oral transmucosal gum 1 each = 4 mg, Chew, Every 2 hours, PRN as needed for smoking cessation, for 8 week(s), # 160 each,0 Refills, Acute 11/23/21 15:06:00 EDT, 09/28/21 15:06:00 EDT, Gum, [facility] [id number], Cinnamon flavor please, 176, cm, 08... Start Date: 09/28/21 Stop Date: 11/23/21 Status: Ordered Pen [place], 31 G x 5 mm BD Ultra [...] 2 Refills, Maintenance, 08/27/21 15:37:00 EDT, Tablet, [facility] - [place], [place] - [id number], Partial fill upon patient request if the [...] Obese class I(Confirmed) Active Tobacco use(Confirmed) Active 24097 2type unknown 3X3, last in 2016 Social History Social History Type Response Smoking Status 10 or more cigarette s (1/2 pack or more)/day in last 30 days entered on: 09/28/21 Sex Care Team Personnel Name: Harlan Person NP Address: [address] [place] [address]
--- OUTSIDE RECORDS SUMMARY | 2022-10-15 00:49 | XMS_ITS | Continuity of Care Document ---
Author Name Unknown Organization [facility] Address [address] [place] [address]- Care Team Providers Care Cota Name Role Phone Raza BALDERAS, Harlan Primary Care Physician En[place] [facility] Date(s): 08/11/22 - 09/10/[address] [address] Allergies, Adverse Reactions, Alerts Substance Reaction Severity Status penicillin Hives Active Immunizations Given and Recorded Vaccine Date Status Refusal Reason FluLaval (oldterm) 1 12/23/10 Given pneumococcal 23-valent vaccine 2 03/24/10 Given influenza virus vaccine, inactivated 3 01/27/10 Gi caroline tetanus-diphtheria toxoids (Td) 4 01/27/10 Given Not Given Vaccine Date Status Refusal Reason SARS-CoV-2 mRNA (piqmuca-ruom-kvoqk) vax 09/28/21 Not Given Patient Refuses tetanus/diphtheria/pertussis, acel(Tdap) 09/28/21 Not Given Patient Refuses 1Admin Note: vis given 2Admin Note: vis 05/23/2008 3Admin Note: vis 09/16/09 4Admin Note: vis Medications acetaminophen-oxyCODONE 325 mg-5 mg oral tablet 1, tablet, By Mouth, Every 6 hours, # 112 tablet, Refills 0, Tot. Refills 0, Maintenance, 09/01/22 11:16:00 EDT, Route to Pharmacy Electronically, [facility]/pharmacy #[id number], please fill on 06/01; [facility] checked; on [employer]ra , 07/15/22 13:22:00 EDT,... Start Date: 09/01/22 Stop Date: 09/29/22 Status: Ordered amLODIPine 5 mg oral tablet 2 tablet = 10 mg, By Mouth, Daily, # 180 tablet, 1 Refills, Maintenance, 05/31/22 10:01:00 EDT, [place], [place] - [id number], 178, cm, 05/04/22 11:41:00 EDT, Height, 104.6, kg, 02/15/22 14:37:00 EST, Dry Weight Start Date: 05/31/22 Stop Date: 11/27/22 Status: Ordered atorvastatin 80 mg oral tablet 1 tablet, By Mouth, Daily, # 30 tablet, 5 Refills, Maintenance, 05/21/22 14:00:00 EDT, [facility], 178, cm, 05/04/22 11:41:00 EDT, Height, 104.6, kg, 02/15/22 14:37:00 EST, Dry Weight Start Date: 05/21/22 Status: Ordered Blood Pressure Monitor See Instructions, # 1 each, Refills 0, Tot. Refills 0, Maintenance, patient persistent elevated BP ICD: I10 please send to L&C thank you, Harlan Person DNP, WIRELESS DEVELOPMENT MANAGER-C, 10/09/21 9:52:00 EDT, Supply Start Date: 10/09/21 Status: Ordered Cane See Instructions, # 1 each, Maintenance, patient with chronic left hip pain, and Left knee OA needscane please ICD10 M17. 9, M25. 552 Thank you, Harlan Person DNP, WIRELESS DEVELOPMENT MANAGER-C, 01/11/22 10:01:00 EST, Supply Start Date: 01/11/22 Status: Ordered clonazePAM 1 mg oral tablet 1 tablet = 1 mg, By Mouth, 3 times a day, Please bubble pack and deliver, # 90 tablet, 0 Refills, Maintenance, 09/01/22 9:27:00 EDT, Tablet, [facility]/pharmacy #[id number], Partial fill upon patient request if the prescription is for a schedule II opioid drug., 1... Start Date: 09/01/22 Stop Date: 10/01/22 Status: Ordered clopidogrel 75 mg oral tablet 1, tablet, By Mouth, Daily, # 90 tablet, Refills 1, Tot. Refills 1, Maintenance, 09/03/22 12:49:00 EDT, Route to Pharmacy Electronically, [place], [place] - [id number], 178, cm, 09/03/22 10:25:00 EDT, Height, 104.6, kg, 02/15/22 14:37... Start Date: 09/03/22 Stop Date: 03/02/23 Status: Ordered docusate sodium 100 mg oral capsule 1 capsule, By Mouth, 2 times a day, PRN NEEDED FOR CONSTIPATION, # 30 each, 2 Refills, Maintenance, 07/29/22 11:46:00 EDT, [facility], 178, cm, 07/15/22 13:22:00 EDT, Height, 104.6, kg, 02/15/22 14:37:00 EST, Dry Weight Start Date: 07/29/22 Status: Ordered Eliquis 5 mg oral tablet 1 tablet = 5 mg, By Mouth, 2 times a day, Please bubble pack and deliver, # 60 tablet, 5 Refills, Maintenance, 09/03/22 12:46:00 EDT, Tablet, [place], [place] - [id number], Partial fill upon patient request if the [...] 9:30:00 EDT, Height, 104.6, kg, 02/15/22 14:37:[address]Alcira[address] Start Date: 06/21/22 Status: Ordered Freestyle [...] 09/01/22 10:44:00 EDT, Route to Pharmacy Electronically, [facility], 178, cm, 07/15/22 13:22:00 EDT, Height, 104.6, kg,02/15/22 14:37:00 EST, Dry Weight Start Date: 09/01/22 Status: Ordered Gold Bonilla Ultimate Softening topical lotion 1 application, Topically, 2 times a day, PRN for dry skin, to affected area, # 420 mL, 3 Refills, Maintenance, 10/27/21 12:11:00 EDT, Lotion, [facility], [place] - [id number], 1 application Topically 2 times a day,PRN:for dry skin,Instr:... Start Date: 10/27/21 Status: Ordered hydrochlorothiazide-losartan 12.5 mg-50 mg oral tablet See Instructions, TAKE 1 TABLET BY MOUTH ONCE DAILY, # 90 tablet, 1 Refills, Maintenance, 07/16/22 10:37:00 EDT, [facility], [facility] [id number], 90, TAKE 1 TABLET BY MOUTH ONCE DAILY,178, cm, 07/15/22 13:22:00 EDT, Height, 104.6, kg,... Start Date: 07/16/22 Status: Ordered Jardiance 10 mg oral tablet 1 tablet = 10 mg, By Mouth, Daily in AM, # 90 tablet, 0 Refills, Maintenance, 05/31/22 9:51:00 EDT,Tablet, [facility], [place] - [id number], Partial fill upon patient request if the prescription is for a schedule II opioid drug., 178, c... Start Date: 05/31/22 Stop Date: 08/29/22 Status: Ordered Lantus Solostar Pen 100 units/mL subcutaneous solution See Instructions, INJECT 42 UNITS SUBCUTANEOUSLY ONCE DAILY, # 15 mL, 2 Refills, Maintenance, 05/14/22 13:20:00 EDT, [facility], 178, cm, 05/04/22 11:41:00 EDT, Height, 104.6, kg, 02/15/22 14:37:00 EST, Dry Weight Start Date: 05/14/22 Status: Ordered Metoprolol Tartrate 25 mg oral tablet See Instructions, TAKE 1 TABLET BY MOUTH two (2) times a day, # 60 tablet, 2 Refills, Maintenance, 06/19/22 14:55:00 EDT, [facility], [place] - [id number], 178, cm, 06/10/22 9:30:00 EDT, Height, 104.6, kg, 02/15/22 14:37:00 EST, Dry Weight Start Date: 06/19/22 Status: Ordered mirtazapine 7.5 mg oral tablet 1 tablet = 7.5 mg, By Mouth, Daily at bedtime, # 30 tablet, 0 Refills, Maintenance, 08/03/22 11:55:00 EDT, [facility], [place] - [id number], Partial fill upon patient request if the prescription is for a schedule II opioid drug., 178, cm... Start Date: 08/03/22 Stop Date: 09/02/22 Status: Ordered nalOXONE 4 mg/0.1 mL nasal spray = 4 mg, Nares, Both, Once, # 2 each, 0 Refills, Soft Stop, 11/17/21 12:37:00 EDT, [facility] [id number], Partial fill upon patient request if the [...] mL, 0 Refills, Maintenance, 04/27/22 11:40:00 EDT, [facility], [facility] [id number], Partial fill upon patient reque... Start Date: 04/27/22 Status: Ordered omeprazole 20 mg oral enteric coated capsule 1 capsule = 20 mg, By Mouth, Daily, 30 min before a meal, # 30 capsule, 0 Refills, Maintenance, 09/01/22 8:49:00 EDT, [facility] - [place], [place] - [id number], Needs to be QD, 178, cm, 07/15/2312:22:00 EDT, Height, 104.6, kg, 02/15/22 14:37:00... Start Date: 09/01/22 Stop Date: 10/01/22 Status: Ordered Pen [place], 31 G x 5 mm BD Ultra [...] use Confirmed Active Vitreous hemorrhage Confirmed Active 77800 2type unknown 3X3, last in 2016 Social History Social History Type Response Tobacco Use: 4 or less cigar ettes(less than 1/4 pack)/day in last 30 days. Other: smoking for 40 yrs.. Sex Patient Care team information Care Team Personnel Name: Harlan Person NP Position: S Associate Professional Member Role: PCP Address: Address: [address] [place] [address]- Care Team Related Persons Name: ELADIA CORRIGAN Address: home [address] [place] [address]
--- OUTSIDE RECORDS SUMMARY | 2022-10-15 00:49 | XMS_ITS | Continuity of Care Document ---
Author Name Unknown Organization [facility] Address [address] [place] [address]- Care Team Providers Care Trapeze Artist Name Role Phone Raza BALDERAS, Harlan Primary Care Physician Encounter [facility] Date(s): 04/26/22 - 05/26/[address] [address] Allergies, Adverse Reactions, Alerts Substance Reaction Severity Status penicillin Hives Active Immunizations Given and Recorded Vaccine Date Status Refusal Reason FluLaval (oldterm) 1 12/23/10 Given pneumococcal 23-valent vaccine 2 03/24/10 Given influenza virus vaccine, inactivated 3 01/27/10 Gi caroline tetanus-diphtheria toxoids (Td) 4 01/27/10 Given Not Given Vaccine Date Status Refusal Reason SARS-CoV-2 mRNA ([id number]) vax 09/28/21 Not Given Patient Refuses tetanus/diphtheria/pertussis, acel(Tdap) 09/28/21 Not Given Patient Refuses 1Admin Note: vis given 2Admin Note: vis 05/23/2008 3Admin Note: vis 09/16/09 4Admin Note: vis Medications acetaminophen-oxyCODONE 325 mg-5 mg oral tablet 1, tablet, By Mouth, Every 6 hours, # 112 tablet, Refills 0, Tot. Refills 0, Maintenance, 04/28/22 14:42:00 EDT, Route to Pharmacy Electronically, [facility] - [place], [place] - [id number], please fill on 05/03; MassPAT checked; on contract, 178,... Start Date: 04/28/22 Stop Date: 05/26/22 Status: Ordered amLODIPine 5 mg oral tablet 1 tablet, By Mouth, Daily, # 90 tablet, 1 Refills, Maintenance, 05/15/22 10:20:00 EDT, [place], [place] - [id number], 178, cm, 05/04/22 11:41:00 EDT, Height, 104.6, kg, 02/15/22 14:37:00 EST, Dry Weight Start Date: 05/15/22 Stop Date: 11/11/22 Status: Ordered Aspirin Low Dose 81 mg oral delayed release tablet 1 tablet, By Mouth, Daily, # 30 tablet, 3 Refills, Maintenance, 05/21/22 15:29:00 EDT, [facility], 178, cm, 05/04/22 11:41:00 EDT, Height, 104.6, kg, 02/15/22 14:37:00 EST, Dry Weight Start Date: 05/21/22 Status: Ordered atorvastatin 80 mg oral tablet 1 tablet, By Mouth, Daily, # 30 tablet, 5 Refills, Maintenance, 05/21/22 14:00:00 EDT, [facility], 178, cm, 05/04/22 11:41:00 EDT, [...] 0 Refills, Maintenance, 03/22/22 13:07:00 EST, Tablet, [place], [place] - [id number], Partial fill upon patient request if the prescription is for... Start Date: 03/22/22 Stop Date: 04/21/22 Status: Ordered clopidogrel 75 mg oral tablet TAKE 1 TABLET BY MOUTH ONCE DAILY Start Date: 04/16/22 Status: Ordered docusate sodium 100 mg oral capsule 1 capsule, By Mouth, 2 times a day, PRN NEEDED FOR CONSTIPATION, # 30 each, 2 Refills, Maintenance, 05/21/22 11:07:00 EDT, [facility], 178, cm, 05/04/22 11:41:00 EDT, Height, 104.6, kg, 02/15/22 14:37:00 EST, Dry Weight Start Date: 05/21/22 Status: Ordered Eliquis 5 mg oral tablet 1 tablet = 5 mg, By Mouth, 2 times a day, Please bubble pack and deliver, # 60 tablet, 5 Refills, Maintenance, 02/02/22 12:28:00 EST, Tablet, [place], [place] - [id number], Partial fill upon patient request if the [...] 05/26/22 12:17:00 EDT, Route to Pharmacy Electronically, [facility], 178, cm, 05/04/22 11:41:00 EDT, Height, 104.6, kg,02/15/22 14:37:00 EST, Dry Weight Start Date: 05/26/22 Stop Date: 06/09/22 Status: Ordered Gold Bonilla Ultimate Softening topical lotion 1 application, Topically, 2 times a day, PRN for dry skin, to affected area, # 420 mL, 3 Refills, Maintenance, 10/27/21 12:11:00 EDT, Lotion, [facility] [id number], 1 application Topically 2 times a day,PRN:for dry skin,Instr:... Start Date: 10/27/21 Status: Ordered hydrochlorothiazide-losartan 12.5 mg-50 mg oral tablet See Instructions, TAKE 1 TABLET BY MOUTH ONCE DAILY, # 90 tablet, 1 Refills, Maintenance, 02/02/22 12:29:00 EST, [facility] [id number], 90, TAKE 1 TABLET BY MOUTH ONCE DAILY,176, cm, 02/02/22 11:51:00 EST, Height Start Date: 02/02/22 Status: Ordered Lantus Solostar Pen 100 units/mL subcutaneous solution See Instructions, INJECT 40 UNITS SUBCUTANEOUSLY ONCE DAILY, # 15 mL, 2 Refills, Maintenance, 05/14/22 13:20:00 EDT, [facility], 178, cm, 05/04/22 11:41:00 EDT, Height, 104.6, kg, 02/15/22 14:37:00 EST, Dry Weight Start Date: 05/14/22 Status: Ordered MetFORMIN (Eqv-Glucophage XR) 500 mg oral tablet, extended release 2 tablet, By Mouth, 2 times a day, # 120 tablet, 1 Refills, Maintenance, 05/15/22 10:21:00 EDT, [facility], 178, cm, 05/04/22 11:41:00 EDT, Height, 104.6, kg, 02/15/22 14:37:00 EST, Dry Weight Start Date: 05/15/22 Status: Ordered Metoprolol Tartrate 25 mg oral tablet See Instructions, TAKE 1 TABLET BY MOUTH two (2) times a day, # 60 tablet, 2 Refills, Maintenance, 03/30/22 10:13:00 EST, [facility] [id number], 178, cm, 03/30/22 9:50:00 EST, Height, 104.6, kg, 02/15/22 14:37:00 EST, Dry Weight Start Date: 03/30/22 Status: Ordered nalOXONE 4 mg/0.1 mL nasal spray = 4 mg, Nares, Both, Once, # 2 each, 0 Refills, Soft Stop, 11/17/21 12:37:00 EDT, [place], [place] - [id number], Partial fill upon patient request if the prescription is for a schedule II opioid drug., 102.5, cm, 11/16/21 16:08:00 EDT... Start Date: 11/17/21 Status: Ordered NuLYTELY with Flavor Packs oral powder for reconstitution See Instructions, Drink 240mL every 15-20 minutes until first half is gone. Repeat 6 hours prior toprocedure., # 4,000 mL, 0 Refills, Maintenance, 04/27/22 11:40:00 EDT, [place], [place] - [id number], Partial fill upon patient reque... Start Date: 04/27/22 Status: Ordered Pen [place], 31 G x 5 mm BD Ultra [...] tablet, 2 Refills, Maintenance, 02/25/22 21:52:00 EST, [facility], 178, cm, 02/15/22 14:37:00 EST, Height, [...] use Confirmed Active Vitreous hemorrhage Confirmed Active 44319 2type unknown 3X3, last in 2016 Social History Social History Type Response Tobacco Use: 4 or less cigar ettes(less than 1/4 pack)/day in last 30 days. Other: smoking for 40 yrs.. Sex Patient Care team information Care Team Personnel Name: Harlan Person NP Position: S Associate Professional Member Role: PCP Address: Address: [address] [place] [address]- Care Team Related Persons Name: SAMANMIARAVI RODRIGUEZSSICA Address: home [address] [place] [address]
--- OUTSIDE RECORDS SUMMARY | 2022-10-15 00:49 | XMS_ITS | Continuity of Care Document ---
Author Name Unknown Organization [facility] Address [address] [place] [id number]- Care Team Providers Care Property Damage Claims Adjustor Name Role Phone Raza BALDERAS, Harlan Primary Care Physician [phone] [place] [facility] [place] 11/16/21 - 12/19/[address] [address]- Attending Physician: Radha Ferrera MD, I Admitting Physician: Radha Ferrera MD, I Allergies, Adverse Reactions, Alerts Substance Reaction Severity Status penicillin Hives Active Immunizations Given and Recorded Vaccine Date Status Refusal Reason FluLaval (oldterm) 1 12/23/10 Given pneumococcal 23-valent vaccine 2 03/24/10 Given influenza virus vaccine, inactivated 3 01/27/10 Gi caroline tetanus-diphtheria toxoids (Td) 4 01/27/10 Given Not Given Vaccine Date Status Refusal Reason SARS-CoV-2 mRNA ([id number]) vax 09/28/21 Not Given Patient Refuses tetanus/diphtheria/pertussis, acel(Tdap) 09/28/21 Not Given Patient Refuses 1Admin Note: vis given 2Admin Note: vis 05/23/2008 3Admin Note: vis 09/16/09 4Admin Note: vis Medications acetaminophen-oxyCODONE 325 mg-5 mg oral tablet 1, tablet, By Mouth, Every 6 hours, # 112 tablet, Refills 0, Tot. Refills 0, Maintenance, 12/04/21 7:33:00 EDT, Route to Pharmacy Electronically, [facility] - [place], [place] - [id number], Partial fill upon patient request if the prescription is... Start Date: 12/04/21 Stop Date: 01/01/22 Status: Ordered aspirin 81 mg oral delayed release tablet 81 mg, 1, tablet, By Mouth, Daily, # 30 tablet, Refills 3, Tot. Refills 3, Maintenance, 10/09/21 9:23:00 EDT, Route to Pharmacy Electronically, [facility] [id number], Partialfill upon patient request if the prescription is fo... Start Date: 10/09/21 Stop Date: 02/06/22 Status: Ordered atorvastatin 80 mg oral tablet See Instructions, TAKE 1 TABLET BY MOUTH ONCE DAILY, # 30 tablet, 5 Refills, Maintenance, 11/11/21 11:38:00 EDT, [facility], 176, cm, 10/27/21 11:36:00 EDT, Height Start Date: 11/11/21 Status: Ordered Blood Pressure Monitor See Instructions, # 1 each, Refills 0, Tot. Refills 0, Maintenance, patient persistent elevated BP ICD: I10 please send to [facility] thank you, Harlan Person DNP, [facility], 10/09/21 9:52:00 EDT, Supply Start Date: 10/09/21 Status: Ordered clonazePAM 1 mg oral tablet 1 tablet = 1 mg, By Mouth, 3 times a day, Please bubble pack and deliver, # 90 tablet, 0 Refills, Maintenance, 11/16/21 15:46:00 EDT, Tablet, [facility] [id number], Partial fill upon patient request if the prescription is for... Start Date: 11/16/21 Stop Date: 12/16/21 Status: Ordered Eliquis 5 mg oral tablet 1 tablet = 5 mg, By Mouth, 2 times a day, Please bubble pack and deliver, # 60 tablet, 5 Refills, Maintenance, 08/27/21 13:36:00 EDT, Tablet, [facility] [id number], Partial fill upon patient request if the [...] Maintenance, 10/27/21 12:11:00 EDT, Lotion, [facility] [id number], 1 application Topically 2 times a day,PRN:for dry skin,Instr:... Start Date: 10/27/21 Status: Ordered hydrochlorothiazide-losartan 12.5 mg-50 mg oral tablet See Instructions, TAKE 1 TABLET BY MOUTH ONCE DAILY, # 90 tablet, 1 Refills, Maintenance, 11/11/21 11:38:00 EDT, [facility], 90, TAKE 1 TABLET BY MOUTH ONCE DAILY, 176, cm, 10/27/21 11:36:00 EDT, Height Start Date: 11/11/21 Status: Ordered Lantus Solostar Pen 100 units/mL subcutaneous solution = 40 units, Subcutaneous Infusion, Daily, Please dispense 6 pens, # 15 mL, 2 Refills, Maintenance, 08/27/21 13:36:00 EDT, [facility] [id number], Partial fill upon patient request if the prescription is for a schedule II opioid... Start Date: 08/27/21 Stop Date: 11/25/21 Status: Ordered Metoprolol Tartrate 25 mg oral tablet See Instructions, TAKE 1 TABLET BY MOUTH two (2) times a day, # 60 tablet, 2 Refills, Maintenance, 12/18/21 12:59:00 EST, [facility] [id number], 176, cm, 12/11/21 9:33:00 EDT, Height Start Date: 12/18/21 Status: Ordered nalOXONE 4 mg/0.1 mL nasal spray = 4 mg, Nares, Both, Once, # 2 each, 0 Refills, Soft Stop, 11/17/21 12:37:00 EDT, [facility] [id number], Partial fill upon patient request if the prescription is for a schedule II opioid drug., 102.5, cm, 11/16/21 16:08:00 EDT... Start Date: 11/17/21 Status: Ordered Pen [place], 31 G x 5 mm BD Ultra [...] prophylaxis Confirmed Active Tobacco use Confirmed Active 35166 2type unknown 3X3, last in 2015 Social History Social History Type Response Smoking Status 10 or more cigarette s (1/2 pack or more)/day in last 30 days entered on: 09/28/21 Sex Patient Care team information Care Team Personnel Name: Harlan Person NP Position: [facility] Associate Professional Member Role: PCP Address: Address: [address] [place] [address]- Care Team Related Persons Name: ELADIA CORRIGAN Address: home [address] [place] [address]
--- OUTSIDE RECORDS SUMMARY | 2022-10-15 00:49 | XMS_ITS | Continuity of Care Document ---
Author Name Unknown Organization [facility] Address [address] [place] [address]- Care Team Providers Care University Extension Specialist Name Role Phone Raza BALDERAS, Harlan Primary Care Physician Encounter [facility] Date(s): 07/14/22 - 08/13/[address] [address] Allergies, Adverse Reactions, Alerts Substance Reaction Severity Status penicillin Hives Active Immunizations Given and Recorded Vaccine Date Status Refusal Reason FluLaval (oldterm) 1 12/23/10 Given pneumococcal 23-valent vaccine 2 03/24/10 Given influenza virus vaccine, inactivated 3 01/27/10 Gi caroline tetanus-diphtheria toxoids (Td) 4 01/27/10 Given Not Given Vaccine Date Status Refusal Reason SARS-CoV-2 mRNA (hygvwgj-felx-kjafn) vax 09/28/21 Not Given Patient Refuses tetanus/diphtheria/pertussis, acel(Tdap) 09/28/21 Not Given Patient Refuses 1Admin Note: vis given 2Admin Note: vis 05/23/2008 3Admin Note: vis 09/16/09 4Admin Note: vis Medications acetaminophen-oxyCODONE 325 mg-5 mg oral tablet 1, tablet, By Mouth, Every 6 hours, # 112 tablet, Refills 0, Tot. Refills 0, Maintenance, 08/02/22 16:43:00 EDT, Route to Pharmacy Electronically, [facility] - [place], [place] - [id number], please fill on 06/01; MassPAT checked; on contract, 178,... Start Date: 08/02/22 Stop Date: 08/30/22 Status: Ordered amLODIPine 5 mg oral tablet 2 tablet = 10 mg, By Mouth, Daily, # 180 tablet, 1 Refills, Maintenance, 05/31/22 10:01:00 EDT, [place], [place] - [id number], 178, cm, 05/04/22 11:41:00 EDT, Height, 104.6, kg, 02/15/22 14:37:00 EST, Dry Weight Start Date: 05/31/22 Stop Date: 11/27/22 Status: Ordered Aspirin Low Dose 81 mg oral delayed release tablet 1 tablet, By Mouth, Daily, # 30 tablet, 3 Refills, Maintenance, 05/21/22 15:29:00 EDT, [facility], 178, cm, 05/04/22 11:41:00 EDT, Height, 104.6, kg, 02/15/22 14:37:00 EST, Dry Weight Start Date: 05/21/22 Status: Ordered atorvastatin 80 mg oral tablet 1 tablet, By Mouth, Daily, # 30 tablet, 5 Refills, Maintenance, 05/21/22 14:00:00 EDT, [facility], 178, cm, 05/04/22 11:41:00 EDT, Height, [...] 0 Refills, Maintenance, 07/21/22 16:02:00 EDT, Tablet, [place], [place] - [id number], Partial fill upon patient request if the prescription is for... Start Date: 07/21/22 Stop Date: 08/20/22 Status: Ordered clopidogrel 75 mg oral tablet 1, tablet, By Mouth, Daily, # 30 tablet, Refills 0, Maintenance, 07/21/22 16:02:00 EDT, Route to Pharmacy Electronically, [facility], 178, cm, 07/15/22 13:22:00 EDT, Height, 104.6, kg, 02/15/22 14:37:00 EST, Dry Weight Start Date: 07/21/22 Status: Ordered docusate sodium 100 mg oral capsule 1 capsule, By Mouth, 2 times a day, PRN NEEDED FOR CONSTIPATION, # 30 each, 2 Refills, Maintenance, 07/29/22 11:46:00 EDT, [facility], 178, cm, 07/15/22 13:22:00 EDT, Height, 104.6, kg, 02/15/22 14:37:00 EST, Dry Weight Start Date: 07/29/22 Status: Ordered Eliquis 5 mg oral tablet 1 tablet = 5 mg, By Mouth, 2 times a day, Please bubble pack and deliver, # 60 tablet, 5 Refills, Maintenance, 02/02/22 12:28:00 EST, Tablet, [facility] - [place], [place] - [id number], Partial fill upon patient request if the [...] Maintenance, 07/22/2315:01:00 EDT, Route to Pharmacy Electronically, [facility] [id number], 178, cm, 07/15/22 13:22:00 EDT, Height, 104.6, kg, 01/0... Start Date: 07/21/22 Stop Date: 08/20/22 Status: Ordered Gold Bonilla Ultimate Softening topical lotion 1 application, Topically, 2 times a day, PRN for dry skin, to affected area, # 420 mL, 3 Refills, Maintenance, 10/27/21 12:11:00 EDT, Lotion, [facility] [id number], 1 application Topically 2 times a day,PRN:for dry skin,Instr:... Start Date: 10/27/21 Status: Ordered hydrochlorothiazide-losartan 12.5 mg-50 mg oral tablet See Instructions, TAKE 1 TABLET BY MOUTH ONCE DAILY, # 90 tablet, 1 Refills, Maintenance, 07/16/22 10:37:00 EDT, [facility] [id number], 90, TAKE 1 TABLET BY MOUTH ONCE DAILY,178, cm, 07/15/22 13:22:00 EDT, Height, 104.6, kg,... Start Date: 07/16/22 Status: Ordered Jardiance 10 mg oral tablet 1 tablet = 10 mg, By Mouth, Daily in AM, # 90 tablet, 0 Refills, Maintenance, 05/31/22 9:51:00 EDT,Tablet, [facility] [id number], Partial fill upon patient request if the prescription is for a schedule II opioid drug., 178, c... Start Date: 05/31/22 Stop Date: 08/29/22 Status: Ordered Lantus Solostar Pen 100 units/mL subcutaneous solution See Instructions, INJECT 42 UNITS SUBCUTANEOUSLY ONCE DAILY, # 15 mL, 2 Refills, Maintenance, 05/14/22 13:20:00 EDT, [facility], 178, cm, 05/04/22 11:41:00 EDT, Height, 104.6, kg, 02/15/22 14:37:00 EST, Dry Weight Start Date: 05/14/22 Status: Ordered Metoprolol Tartrate 25 mg oral tablet See Instructions, TAKE 1 TABLET BY MOUTH two (2) times a day, # 60 tablet, 2 Refills, Maintenance, 06/19/22 14:55:00 EDT, [facility] [id number], 178, cm, 06/10/22 9:30:00 EDT, Height, 104.6, kg, 02/15/22 14:37:00 EST, Dry Weight Start Date: 06/19/22 Status: Ordered mirtazapine 7.5 mg oral tablet 1 tablet = 7.5 mg, By Mouth, Daily at bedtime, # 30 tablet, 0 Refills, Maintenance, 08/03/22 11:55:00 EDT, [facility] [id number], Partial fill upon patient request if the prescription is for a schedule II opioid drug., 178, cm... Start Date: 08/03/22 Stop Date: 09/02/22 Status: Ordered nalOXONE 4 mg/0.1 mL nasal spray = 4 mg, Nares, Both, Once, # 2 each, 0 Refills, Soft Stop, 11/17/21 12:37:00 EDT, [facility] [id number], Partial fill upon patient request if the prescription is for a schedule II opioid drug., 102.5, cm, 11/16/21 16:08:00 EDT... Start Date: 11/17/21 Status: Ordered NuLYTELY with Flavor Packs oral powder for reconstitution See Instructions, Drink 240mL every 15-20 minutes until first half is gone. Repeat 6 hours prior toprocedure., # 4,000 mL, 0 Refills, Maintenance, 04/27/22 11:40:00 EDT, [facility] [id number], Partial fill upon patient reque... Start Date: 04/27/22 Status: Ordered Pen [place], 31 G x 5 mm BD Ultra [...] use Confirmed Active Vitreous hemorrhage Confirmed Active 47959 2type unknown 3X3, last in 2016 Social History Social History Type Response Tobacco Use: 4 or less cigar ettes(less than 1/4 pack)/day in last 30 days. Other: smoking for 40 yrs.. Sex Patient Care team information Care Team Personnel Name: Harlan Person NP Position: S Associate Professional Member Role: PCP Address: Address: [address] [place] [address]- Care Team Related Persons Name: ELADIA CORRIGAN Address: home [address] [place] [address]
--- OUTSIDE RECORDS SUMMARY | 2022-10-15 00:49 | XMS_ITS | Continuity of Care Document ---
Author Name Unknown Organization [facility] ter Address [address] [place] [id number]- Care Team Providers Care Desktop Publishing Specialist Name Role Phone Raza BALDERAS, Harlan Primary Care Physician Encounter [facility] Date(s): 01/20/22 - 03/21/[address] [address]- Attending Physician: Kal Roberson MD Admitting Physician: aKl Roberson MD Referring Physician: Kal Roberson MD Allergies, Adverse Reactions, Alerts Substance Reaction Severity Status penicillin Hives Active Immunizations Given and Recorded Vaccine Date Status Refusal Reason FluLaval (oldterm) 1 12/23/10 Given pneumococcal 23-valent vaccine 2 03/24/10 Given influenza virus vaccine, inactivated 3 01/27/10 Gi caroline tetanus-diphtheria toxoids (Td) 4 01/27/10 Given Not Given Vaccine Date Status Refusal Reason SARS-CoV-2 mRNA (jqtlauo-psjj-mjypv) vax 09/28/21 Not Given Patient Refuses tetanus/diphtheria/pertussis, acel(Tdap) 09/28/21 Not Given Patient Refuses 1Admin Note: vis given 2Admin Note: vis 05/23/2008 3Admin Note: vis 09/16/09 4Admin Note: vis Medications acetaminophen-oxyCODONE 325 mg-5 mg oral tablet 1, tablet, By Mouth, Every 6 hours, # 112 tablet, Refills 0, Tot. Refills 0, Maintenance, 03/06/22 9:53:00 EST, Route to Pharmacy Electronically, [facility] - [place], [place] - [id number], please fill on 01/02, 178, cm, 02/15/22 14:37:00 EST, Hei... Start Date: 03/06/22 Stop Date: 04/03/22 Status: Ordered Aspirin Low Dose 81 mg oral delayed release tablet 1 tablet, By Mouth, Daily, # 30 tablet, 3 Refills, Maintenance, 01/19/22 14:38:00 EST, [facility], 176, cm, 01/11/22 9:46:00 EST, Height Start Date: 01/19/22 Status: Ordered atorvastatin 80 mg oral tablet See Instructions, TAKE 1 TABLET BY MOUTH ONCE DAILY, # 30 tablet, 5 Refills, Maintenance, 11/11/21 11:38:00 EDT, [facility], 176, cm, 10/27/21 11:36:00 EDT, Height Start Date: 11/11/21 Status: Ordered Blood Pressure Monitor See Instructions, # 1 each, Refills 0, Tot. Refills 0, Maintenance, patient persistent elevated BP ICD: I10 please send to L&C thank you, Harlan Person DNP, [facility]-, 10/09/21 9:52:00 EDT, Supply Start Date: 10/09/21 Status: Ordered Cane See Instructions, # 1 each, Maintenance, patient with chronic left hip pain, and Left knee OA needscane please ICD10 M17. 9, M25. 552 Thank you, Harlan Person DNP, [facility], 01/11/22 10:01:00 EST, Supply Start Date: 01/11/22 Status: Ordered clonazePAM 1 mg oral tablet 1 tablet = 1 mg, By Mouth, 3 times a day, Please bubble pack and deliver, # 90 tablet, 0 Refills, Maintenance, 12/29/21 10:43:00 EST, Tablet, [place], [place] - [id number], Partial fill upon patient request if the prescription is for... Start Date: 12/29/21 Stop Date: 01/28/22 Status: Ordered Doculase 100 mg oral capsule 1 capsule = 100 mg, By Mouth, 2 times a day, PRN for constipation, # 30 capsule, 2 Refills, Maintenance, 03/17/22 13:53:00 EST, Capsule, [place], [place] - [id number], Partial fill upon patient request if the prescription is for a dejah... Start Date: 03/17/22 Stop Date: 06/15/22 Status: Ordered doxycycline hyclate 100 mg oral tablet 1 tablet = 100 mg, By Mouth, 2 times a day, for 7 days, # 14 tablet, 0 Refills, Acute 03/22/22 15:42:00 EST, 03/15/22 15:42:00 EST, Tablet, [place], [place] - [id number], Partial fill upon patient request if the prescription is for a... Start Date: 03/15/22 Stop Date: 03/22/22 Status: Ordered Eliquis 5 mg oral tablet 1 tablet = 5 mg, By Mouth, 2 times a day, Please bubble pack and deliver, # 60 tablet, 5 Refills, Maintenance, 02/02/22 12:28:00 EST, Tablet, [place], [place] - [id number], Partial fill upon patient request if the [...] 3 Refills, Maintenance, 10/27/21 12:11:00 EDT, Lotion, [facility] [id number], 1 application Topically 2 times a day,PRN:for dry skin,Instr:... Start Date: 10/27/21 Status: Ordered hydrochlorothiazide-losartan 12.5 mg-50 mg oral tablet See Instructions, TAKE 1 TABLET BY MOUTH ONCE DAILY, # 90 tablet, 1 Refills, Maintenance, 02/02/22 12:29:00 EST, [place], [place] - [id number], 90, TAKE 1 TABLET BY MOUTH ONCE [...] mL, 2 Refills, Maintenance, 03/17/22 13:54:00 EST, [facility], 178, cm, 03/15/22 15:13:00 EST, Height, 104.6, kg, 02/15/22 14:37:00 EST, Dry Weight Start Date: 03/17/22 Status: Ordered Metoprolol Tartrate 25 mg oral tablet See Instructions, TAKE 1 TABLET BY MOUTH two (2) times a day, # 60 tablet, 2 Refills, Maintenance, 12/18/21 12:59:00 EST, [facility] [id number], 176, cm, 12/11/21 9:33:00 EDT, Height Start Date: 12/18/21 Status: Ordered nalOXONE 4 mg/0.1 mL nasal spray = 4 mg, Nares, Both, Once, # 2 each, 0 Refills, Soft Stop, 11/17/21 12:37:00 EDT, [facility] [id number], Partial fill upon patient request if the prescription is for a schedule II opioid drug., 102.5, cm, 11/16/21 16:08:00 EDT... Start Date: 11/17/21 Status: Ordered Nicotine 2 mg gum 1 each = 2 mg, Chew, Every 2 hours, PRN as needed for smoking cessation, for 8 week(s), # 100 each,1 Refills, Acute 05/25/22 12:28:00 EDT, 02/02/22 12:28:00 EST, Gum, [facility] [id number], Partial fill upon patient request i... Start Date: 02/02/22 Stop Date: 05/25/22 Status: Ordered Pen [place], 31 G x 5 mm BD Ultra [...] prophylaxis Confirmed Active Tobacco use Confirmed Active 90244 2type unknown 3X3, last in 2015 Social History Social History Type Response Tobacco Use: 4 or less cigar ettes(less than 1/4 pack)/day in last 30 days. Other: smoking for 40 yrs.. Sex Patient Care team information Care Team Personnel Name: Harlan Person NP Position: [facility] Associate Professional Member Role: PCP Address: Address: [address] [place] [address]- Care Team Related Persons Name: SAMANMIAELADIA RODRIGUEZ Address: home [address] [place] [address]
--- OUTSIDE RECORDS SUMMARY | 2022-10-15 00:49 | XMS_ITS | Continuity of Care Document ---
Author Name Unknown Organization [facility] Address [address] [place] [address]- Care Team Providers Care Track Watchman Name Role Phone Raza BALDERAS, Harlan Primary Care Physician Encounter [facility] Date(s): 12/15/21 - 01/14/[address] [address] Attending Physician: Navya Penaloza Admitting Physician: Navya Penaloza Referring Physician: AdmtrNavya Allergies, Adverse Reactions, Alerts Substance Reaction Severity Status penicillin Hives Active Immunizations Given and Recorded Vaccine Date Status Refusal Reason FluLaval (oldterm) 1 12/23/10 Given pneumococcal 23-valent vaccine 2 03/24/10 Given influenza virus vaccine, inactivated 3 01/27/10 Gi caroline tetanus-diphtheria toxoids (Td) 4 01/27/10 Given Not Given Vaccine Date Status Refusal Reason SARS-CoV-2 mRNA (sosdgfr-crzh-xvvxn) vax 09/28/21 Not Given Patient Refuses tetanus/diphtheria/pertussis, acel(Tdap) 09/28/21 Not Given Patient Refuses 1Admin Note: vis given 2Admin Note: vis 05/23/2008 3Admin Note: vis 09/16/09 4Admin Note: vis Medications acetaminophen-oxyCODONE 325 mg-5 mg oral tablet 1, tablet, By Mouth, Every 6 hours, # 112 tablet, Refills 0, Tot. Refills 0, Maintenance, 12/29/21 10:47:00 EST, Route to Pharmacy Electronically, [facility] - [place], [place] - [id number], please fill on 01/02, 176, cm, 12/11/21 9:33:00 EDT, Height Start Date: 12/29/21 Stop Date: 01/26/22 Status: Ordered aspirin 81 mg oral delayed release tablet 81 mg, 1, tablet, By Mouth, Daily, # 30 tablet, Refills 3, Tot. Refills 3, Maintenance, 10/09/21 9:23:00 EDT, Route to Pharmacy Electronically, [place], [place] - [id number], Partialfill upon patient request if the prescription is fo... Start Date: 10/09/21 Stop Date: 02/06/22 Status: Ordered atorvastatin 80 mg oral tablet See Instructions, TAKE 1 TABLET BY MOUTH ONCE DAILY, # 30 tablet, 5 Refills, Maintenance, 11/11/21 11:38:00 EDT, [facility], 176, cm, 10/27/21 11:36:00 EDT, Height Start Date: 11/11/21 Status: Ordered Blood Pressure Monitor See Instructions, # 1 each, Refills 0, Tot. Refills 0, Maintenance, patient persistent elevated BP ICD: I10 please send to L&C thank you, Harlan Person DNP, [facility], 10/09/21 9:52:00 EDT, Supply Start Date: 10/09/21 Status: Ordered Cane See Instructions, # 1 each, Maintenance, patient with chronic left hip pain, and Left knee OA needscane please ICD10 M17. 9, M25. 552 Thank you, Harlan Person DNP, [facility], 01/11/22 10:01:00 EST, Supply Start Date: 01/11/22 Status: Ordered clonazePAM 1 mg oral tablet 1 tablet = 1 mg, By Mouth, 3 times a day, Please bubble pack and deliver, # 90 tablet, 0 Refills, Maintenance, 12/29/21 10:43:00 EST, Tablet, [place], [place] - [id number], Partial fill upon patient request if the prescription is for... Start Date: 12/29/21 Stop Date: 01/28/22 Status: Ordered doxycycline monohydrate 100 mg oral capsule 1 capsule = 100 mg, By Mouth, 2 times a day, for 10 days, # 20 capsule, 0 Refills, Acute 01/17/22 11:11:00 EST, 01/07/22 11:11:00 EST, Capsule, [place], [place] - [id number], Partialfill upon patient request if the prescription is fo... Start Date: 01/07/22 Stop Date: 01/17/22 Status: Ordered Eliquis 5 mg oral tablet 1 tablet = 5 mg, By Mouth, 2 times a day, Please bubble pack and deliver, # 60 tablet, 5 Refills, Maintenance, 08/27/21 13:36:00 EDT, Tablet, [place], [place] - [id number], Partial fill upon patient request if the [...] 3 Refills, Maintenance, 10/27/21 12:11:00 EDT, Lotion, [facility] [id number], 1 application Topically 2 times a day,PRN:for dry skin,Instr:... Start Date: 10/27/21 Status: Ordered hydrochlorothiazide-losartan 12.5 mg-50 mg oral tablet See Instructions, TAKE 1 TABLET BY MOUTH ONCE DAILY, # 90 tablet, 1 Refills, Maintenance, 11/11/21 11:38:00 EDT, [facility], , TAKE 1 TABLET BY MOUTH ONCE DAILY, 176, cm, 10/27/21 11:36:00 EDT, Height Start Date: 11/11/21 Status: Ordered Lantus Solostar Pen 100 units/mL subcutaneous solution = 40 units, Subcutaneous Infusion, Daily, Please dispense 6 pens, # 15 mL, 2 Refills, Maintenance, 12/30/21 11:12:00 EST, [facility] [id number], Partial fill upon patient request if the prescription is for a schedule II opioid... Start Date: 12/30/21 Stop Date: 03/30/22 Status: Ordered Metoprolol Tartrate 25 mg oral tablet See Instructions, TAKE 1 TABLET BY MOUTH two (2) times a day, # 60 tablet, 2 Refills, Maintenance, 12/18/21 12:59:00 EST, [facility] [id number], 176, cm, 12/11/21 9:33:00 EDT, Height Start Date: 12/18/21 Status: Ordered nalOXONE 4 mg/0.1 mL nasal spray = 4 mg, Nares, Both, Once, # 2 each, 0 Refills, Soft Stop, 11/17/21 12:37:00 EDT, [facility] [place], [place] - [id number], Partial fill upon patient request if the prescription is for a schedule II opioid drug., 102.5, cm, 11/16/21 16:08:00 EDT... Start Date: 11/17/21 Status: Ordered Pen [place], 31 G x 5 mm BD Ultra [...] tablet, 2 Refills, Maintenance, 11/17/21 16:07:00 EDT, [facility], 102.5, cm, 11/16/21 16:08:00 EDT, Height [...] prophylaxis Confirmed Active Tobacco use Confirmed Active 11117 2type unknown 3X3, last in 2016 Social History Social History Type Response Smoking Status 10 or more cigarette s (1/2 pack or more)/day in last 30 days entered on: 09/28/21 Sex Patient Care team information Care Team Personnel Name: Harlan Person NP Position: S Associate Professional Member Role: PCP Address: Address: [address] [place] [address]- Care Team Related Persons Name: ELADIA CORRIGAN Address: home [address] [place] [id number]
[2022-10-15 00:50] LABS: Alanine Aminotransferase 15 U/L (0-40); Alkaline Phosphatase 77 U/L (39-117); Aspartate Amino Transferase 18 U/L (5-37); Bilirubin Total 0.3 mg/dL (0.0-1.0); Blood Urea Nitrogen 10 mg/dL (9-16); Calcium 9.8 mg/dL (8.4-10.2); Glucose Random 196 mg/dL (60-115); Total Protein 7.1 g/dL (6.5-8.0)
--- OUTSIDE RECORDS SUMMARY | 2022-10-15 00:50 | XMS_ITS | Continuity of Care Document ---
Author Name Unknown Organization [facility] Address [address] [place] [address]- Care Team Providers Care Drupal Php Developer Name Role Phone Harlan Person NP Primary Care Physician Encounter [facility] Date(s): 06/02/22 - 07/02/22 [facility] [address] [place] [address]- Attending Physician: Navya Penaloza Admitting Physician: AdmNavya [...] Vaccine Date Status Refusal Reason SARS-CoV-2 mRNA ([id number]-ibqt-tcedi) vax 09/28/21 Not Given Patient Refuses tetanus/diphtheria/pertussis, acel(Tdap) 09/28/21 Not Given Patient Refuses 1Admin Note: vis given 2Admin Note: vis 05/23/2008 3Admin Note: vis 09/16/09 4Admin Note: vis Medications acetaminophen-oxyCODONE 325 mg-5 mg oral tablet 1, tablet, By Mouth, Every 6 hours, # 112 tablet, Refills 0, Tot. Refills 0, Maintenance, 06/30/22 9:33:00 EDT, Route to Pharmacy Electronically, [facility] - [place], [place] - [id number], please fill on 06/01; [facility] checked; on contract, 178,... Start Date: 06/30/22 Stop Date: 07/28/22 Status: Ordered amLODIPine 5 mg oral tablet 2 tablet = 10 mg, By Mouth, Daily, # 180 tablet, 1 Refills, Maintenance, 05/31/22 10:01:00 EDT, [place], [place] - [id number], 178, cm, 05/04/22 11:41:00 EDT, Height, 104.6, kg, 02/15/22 14:37:00 EST, Dry Weight Start Date: 05/31/22 Stop Date: 11/27/22 Status: Ordered Aspirin Low Dose 81 mg oral delayed release tablet 1 tablet, By Mouth, Daily, # 30 tablet, 3 Refills, Maintenance, 05/21/22 15:29:00 EDT, [facility], 178, cm, 05/04/22 11:41:00 EDT, Height, 104.6, kg, 02/15/22 14:37:00 EST, Dry Weight Start Date: 05/21/22 Status: Ordered atorvastatin 80 mg oral tablet 1 tablet, By Mouth, Daily, # 30 tablet, 5 Refills, Maintenance, 05/21/22 14:00:00 EDT, [facility], 178, cm, 05/04/22 11:41:00 EDT, [...] 0 Refills, Maintenance, 06/16/22 9:33:00 EDT, Tablet, [place], [place] - [id number], Partial fill upon patient request if the prescription is for a... Start Date: 06/16/22 Stop Date: 07/16/22 Status: Ordered clopidogrel 75 mg oral tablet 1, tablet, By Mouth, Daily, # 30 tablet, Refills 0, Maintenance, 06/18/22 16:41:00 EDT, Route to Pharmacy Electronically, [facility], 178, cm, 06/10/22 9:30:00 EDT, Height, 104.6, kg, 02/15/22 14:37:00 EST, Dry Weight Start Date: 06/18/22 Status: Ordered docusate sodium 100 mg oral capsule 1 capsule, By Mouth, 2 times a day, PRN NEEDED FOR CONSTIPATION, # 30 each, 2 Refills, Maintenance, 05/21/22 11:07:00 EDT, [facility], 178, cm, 05/04/22 11:41:00 EDT, Height, 104.6, kg, 02/15/22 14:37:00 EST, Dry Weight Start Date: 05/21/22 Status: Ordered Eliquis 5 mg oral tablet 1 tablet = 5 mg, By Mouth, 2 times a day, Please bubble pack and deliver, # 60 tablet, 5 Refills, Maintenance, 02/02/22 12:28:00 EST, Tablet, [place], [place] - [id number], Partial fill upon patient request if the [...] 06/29/22 16:42:00 EDT, Route to Pharmacy Electronically, [facility], 178, cm, 06/10/22 9:30:00 EDT, Height, 104.6, kg, 02/15/22 14:37:00 EST, Dry Weight Start Date: 06/29/22 Stop Date: 07/13/22 Status: Ordered Gold Bonilla Ultimate Softening topical lotion 1 application, Topically, 2 times a day, PRN for dry skin, to affected area, # 420 mL, 3 Refills, Maintenance, 10/27/21 12:11:00 EDT, Lotion, [facility], [place] - [id number], 1 application Topically 2 times a day,PRN:for dry skin,Instr:... Start Date: 10/27/21 Status: Ordered hydrochlorothiazide-losartan 12.5 mg-50 mg oral tablet See Instructions, TAKE 1 TABLET BY MOUTH ONCE DAILY, # 90 tablet, 1 Refills, Maintenance, 02/02/22 12:29:00 EST, [facility], [place] - [id number], 90, TAKE 1 TABLET BY MOUTH ONCE DAILY,176, cm, 02/02/22 11:51:00 EST, Height Start Date: 02/02/22 Status: Ordered Jardiance 10 mg oral tablet 1 tablet = 10 mg, By Mouth, Daily in AM, # 90 tablet, 0 Refills, Maintenance, 05/31/22 9:51:00 EDT,Tablet, [facility], [place] - [id number], Partial fill upon patient request if the prescription is for a schedule II opioid drug., 178, c... Start Date: 05/31/22 Stop Date: 08/29/22 Status: Ordered Lantus Solostar Pen 100 units/mL subcutaneous solution See Instructions, INJECT 38 UNITS SUBCUTANEOUSLY ONCE DAILY, # 15 mL, 2 Refills, Maintenance, 05/14/22 13:20:00 EDT, [facility], 178, cm, 05/04/22 11:41:00 EDT, Height, 104.6, kg, 02/15/22 14:37:00 EST, Dry Weight Start Date: 05/14/22 Status: Ordered MetFORMIN (Eqv-Glucophage XR) 500 mg oral tablet, extended release 2 tablet, By Mouth, 2 times a day, # 120 tablet, 1 Refills, Maintenance, 05/15/22 10:21:00 EDT, [facility], 178, cm, 05/04/22 11:41:00 EDT, Height, 104.6, kg, 02/15/22 14:37:00 EST, Dry Weight Start Date: 05/15/22 Status: Ordered Metoprolol Tartrate 25 mg oral tablet See Instructions, TAKE 1 TABLET BY MOUTH two (2) times a day, # 60 tablet, 2 Refills, Maintenance, 06/19/22 14:55:00 EDT, [facility] [id number], 178, cm, 06/10/22 9:30:00 EDT, Height, 104.6, kg, 02/15/22 14:37:00 EST, Dry Weight Start Date: 06/19/22 Status: Ordered nalOXONE 4 mg/0.1 mL nasal spray = 4 mg, Nares, Both, Once, # 2 each, 0 Refills, Soft Stop, 11/17/21 12:37:00 EDT, [facility] [id number], Partial fill upon patient request if the prescription is for a schedule II opioid drug., 102.5, cm, 11/16/21 16:08:00 EDT... Start Date: 11/17/21 Status: Ordered NuLYTELY with Flavor Packs oral powder for reconstitution See Instructions, Drink 240mL every 15-20 minutes until first half is gone. Repeat 6 hours prior toprocedure., # 4,000 mL, 0 Refills, Maintenance, 04/27/22 11:40:00 EDT, [facility] [id number], Partial fill upon patient reque... Start Date: 04/27/22 Status: Ordered Pen [place], 31 G x 5 mm BD Ultra [...] use Confirmed Active Vitreous hemorrhage Confirmed Active 59838 2type unknown 3X3, last in 2016 Social History Social History Type Response Tobacco Use: 4 or less cigar ettes(less than 1/4 pack)/day in last 30 days. Other: smoking for 40 yrs.. Sex Patient Care team information Care Team Personnel Name: Harlan Person NP Position: S Associate Professional Member Role: PCP Address: Address: [address] [place] [address]- Care Team Related Persons Name: ELADIA CORRIGAN Address: home [address] [place] [address]
--- OUTSIDE RECORDS SUMMARY | 2022-10-15 00:50 | XMS_ITS | Continuity of Care Document ---
Author Name Unknown Organization [facility] Address [address] [place] [address]- Care Team Providers Care Radiology Aide Name Role Phone Raza BALDERAS, Harlan Primary Care Physician Encounter [facility] Date(s): 10/22/21 - 11/21/[address] [address]- Allergies, Adverse Reactions, Alerts Substance Reaction Severity Status penicillin Hives Active Immunizations Given and Recorded Vaccine Date Status Refusal Reason FluLaval (oldterm) 1 12/23/10 Given pneumococcal 23-valent vaccine 2 03/24/10 Given influenza virus vaccine, inactivated 3 01/27/10 Gi caroline tetanus-diphtheria toxoids (Td) 4 01/27/10 Given Not Given Vaccine Date Status Refusal Reason SARS-CoV-2 mRNA (ankabrb-zswk-hjral) vax 09/28/21 Not Given Patient Refuses tetanus/diphtheria/pertussis, acel(Tdap) 09/28/21 Not Given Patient Refuses 1Admin Note: vis given 2Admin Note: vis 05/23/2008 3Admin Note: vis 09/16/09 4Admin Note: vis Medications acetaminophen-oxyCODONE 325 mg-5 mg oral tablet 1, tablet, By Mouth, Every 6 hours, # 56 tablet, Refills 0, Tot. Refills 0, Maintenance, 11/18/21 17:30:00 EDT, Route to Pharmacy Electronically, [place], [place] - [id number], Partial fill upon patient request if the prescription is... Start Date: 11/18/21 Stop Date: 12/02/21 Status: Ordered aspirin 81 mg oral delayed release tablet 81 mg, 1, tablet, By Mouth, Daily, # 30 tablet, Refills 3, Tot. Refills 3, Maintenance, 10/09/21 9:23:00 EDT, Route to Pharmacy Electronically, [facility] [id number], Partialfill upon patient request if the prescription is fo... Start Date: 10/09/21 Stop Date: 02/06/22 Status: Ordered atorvastatin 80 mg oral tablet See Instructions, TAKE 1 TABLET BY MOUTH ONCE DAILY, # 30 tablet, 5 Refills, Maintenance, 11/11/21 11:38:00 EDT, [facility], 176, cm, 10/27/21 11:36:00 EDT, Height Start Date: 11/11/21 Status: Ordered Blood Pressure Monitor See Instructions, # 1 each, Refills 0, Tot. 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 Start Date: 11/16/21 Stop Date: 12/16/21 Status: Ordered Eliquis 5 mg oral tablet 1 tablet = 5 mg, By Mouth, 2 times a day, Please bubble pack and deliver, # 60 tablet, 5 Refills, Maintenance, 08/27/21 13:36:00 EDT, Tablet, [place], [place] - [id number], Partial fill upon patient request if the [...] 3 Refills, Maintenance, 10/27/21 12:11:00 EDT, Lotion, [place], [place] - [id number], 1 application Topically 2 times a day,PRN:for dry skin,Instr:... Start Date: 10/27/21 Status: Ordered hydrochlorothiazide-losartan 12.5 mg-50 mg oral tablet See Instructions, TAKE 1 TABLET BY MOUTH ONCE DAILY, # 90 tablet, 1 Refills, Maintenance, 11/11/21 11:38:00 EDT, [facility], 90, TAKE 1 TABLET BY MOUTH ONCE DAILY, 176, cm, 10/27/21 11:36:00 EDT, Height Start Date: 11/11/21 Status: Ordered Lantus Solostar Pen 100 units/mL subcutaneous solution = 40 units, Subcutaneous Infusion, Daily, Please dispense 6 pens, # 15 mL, 2 Refills, Maintenance, 08/27/21 13:36:00 EDT, [facility] [id number], Partial fill upon patient request if the prescription is for a schedule II opioid... Start Date: 08/27/21 Stop Date: 11/25/21 Status: Ordered metoprolol 25 mg oral tablet 25 mg, 1, tablet, By Mouth, 2 times a day, # 60 tablet, Refills 2, Tot. Refills 2, Maintenance, 10/07/21 8:55:00 EDT, Route to Pharmacy Electronically, [facility] [id number],Partial fill upon patient request if the prescripti... Start Date: 10/07/21 Stop Date: 01/05/22 Status: Ordered nalOXONE 4 mg/0.1 mL nasal spray = 4 mg, Nares, Both, Once, # 2 each, 0 Refills, Soft Stop, 11/17/21 12:37:00 EDT, [facility] [id number], Partial fill upon patient request if the prescription is for a schedule II opioid drug., 102.5, cm, 11/16/21 16:08:00 EDT... Start Date: 11/17/21 Status: Ordered Nicorette 4 mg oral transmucosal gum 1 each = 4 mg, Chew, Every 2 hours, PRN as needed for smoking cessation, for 8 week(s), # 160 each,0 Refills, Acute 11/23/21 15:06:00 EDT, 09/28/21 15:06:00 EDT, Gum, [facility] [id number], Cinnamon flavor please, 176, cm, 08... Start Date: 09/28/21 Stop Date: 11/23/21 Status: Ordered Pen [place], 31 G x 5 mm BD Ultra [...] I Confirmed Active Tobacco use Confirmed Active 89966 2type unknown 3X3, last in 2016 Social History Social History Type Response Smoking Status 10 or more cigarette s (1/2 pack or more)/day in last 30 days entered on: 09/28/21 Sex Patient Care team information Personnel Name: Harlan Person NP Address: Address: [address] [place] [address]
--- OUTSIDE RECORDS SUMMARY | 2022-10-15 00:50 | XMS_ITS | Continuity of Care Document ---
Author Name Unknown Organization [facility] [place] Address [address] [place] [id number]- Care Team Providers Care Supervisor Opening And Picking Name Role Phone Raza BALDERAS, Harlan Primary Care Physician Encounter [facility] Date(s): 04/06/22 - 05/06/[address] [address]- Allergies, Adverse Reactions, Alerts Substance Reaction Severity Status penicillin Hives Active Immunizations Given and Recorded Vaccine Date Status Refusal Reason FluLaval (oldterm) 1 12/23/10 Given pneumococcal 23-valent vaccine 2 03/24/10 Given influenza virus vaccine, inactivated 3 01/27/10 Gi caroline tetanus-diphtheria toxoids (Td) 4 01/27/10 Given Not Given Vaccine Date Status Refusal Reason SARS-CoV-2 mRNA ([id number]) vax 09/28/21 Not Given Patient Refuses tetanus/diphtheria/pertussis, acel(Tdap) 09/28/21 Not Given Patient Refuses 1Admin Note: vis given 2Admin Note: vis 05/23/2008 3Admin Note: vis 09/16/09 4Admin Note: vis Medications acetaminophen-oxyCODONE 325 mg-5 mg oral tablet 1, tablet, By Mouth, Every 6 hours, # 112 tablet, Refills 0, Tot. Refills 0, Maintenance, 04/28/22 14:42:00 EDT, Route to Pharmacy Electronically, [facility] - [place], [place] - [id number], please fill on 05/03; MassPAT checked; on contract, 178,... Start Date: 04/28/22 Stop Date: 05/26/22 Status: Ordered amLODIPine 5 mg oral tablet 5 mg, 1, tablet, By Mouth, Daily, # 30 tablet, Refills 1, Tot. Refills 1, Maintenance, 04/16/22 11:16:00 EST, Route to Pharmacy Electronically, [place], [place] - [id number], Partialfill upon patient request if the prescription is fo... Start Date: 04/16/22 Stop Date: 06/15/22 Status: Ordered Aspirin Low Dose 81 mg oral delayed release tablet 1 tablet, By Mouth, Daily, # 30 tablet, 3 Refills, Maintenance, 01/19/22 14:38:00 EST, [facility], 176, cm, 01/11/22 9:46:00 EST, Height Start Date: 01/19/22 Status: Ordered atorvastatin 80 mg oral tablet See Instructions, TAKE 1 TABLET BY MOUTH ONCE DAILY, # 30 tablet, 5 Refills, Maintenance, 11/11/21 11:38:00 EDT, [facility], 176, cm, 10/27/21 11:36:00 EDT, Height [...] 0 Refills, Maintenance, 03/22/22 13:07:00 EST, Tablet, [facility], [place] - [id number], Partial fill upon patient request if the [...] 2 Refills, Maintenance, 03/17/22 13:53:00 EST, Capsule, [place], [place] - [id number], Partial fill upon patient request if the prescription is for a dejah... Start Date: 03/17/22 Stop Date: 06/15/22 Status: Ordered Eliquis 5 mg oral tablet 1 tablet = 5 mg, By Mouth, 2 times a day, Please bubble pack and deliver, # 60 tablet, 5 Refills, Maintenance, 02/02/22 12:28:00 EST, Tablet, [place], [place] - [id number], Partial fill upon patient request if the [...] 03/31/22 13:13:00 EST, Route to Pharmacy Electronically, [place], [place] - [id number], 178, cm, 03/30/22 9:50:00 EST, Height, 104.6, k... Start Date: 03/31/22 Stop Date: 04/14/22 Status: Ordered Gold Bonilla Ultimate Softening topical lotion 1 application, Topically, 2 times a day, PRN for dry skin, to affected area, # 420 mL, 3 Refills, Maintenance, 10/27/21 12:11:00 EDT, Lotion, [place], [place] - [id number], 1 application Topically 2 times a day,PRN:for dry skin,Instr:... Start Date: 10/27/21 Status: Ordered hydrochlorothiazide-losartan 12.5 mg-50 mg oral tablet See Instructions, TAKE 1 TABLET BY MOUTH ONCE DAILY, # 90 tablet, 1 Refills, Maintenance, 02/02/22 12:29:00 EST, [facility] [id number], 90, TAKE 1 TABLET BY MOUTH ONCE DAILY,176, cm, 02/02/22 11:51:00 EST, Height Start Date: 02/02/22 Status: Ordered Lantus Solostar Pen 100 units/mL subcutaneous solution See Instructions, INJECT 40 UNITS SUBCUTANEOUSLY ONCE DAILY, # 15 mL, 2 Refills, Maintenance, 03/17/22 13:54:00 EST, [facility], 178, cm, 03/15/22 15:13:00 EST, Height, 104.6, kg, 02/15/22 14:37:00 EST, Dry Weight Start Date: 03/17/22 Status: Ordered metFORMIN 1000 mg oral tablet, extended release 1 tablet = 1,000 mg, By Mouth, 2 times a day, # 60 tablet, 1 Refills, Maintenance, 04/16/22 11:08:00 EST, ER Tablet, [facility] [id number], Partial fill upon patient request if the prescription is for a schedule II opioid drug... Start Date: 04/16/22 Stop Date: 06/15/22 Status: Ordered Metoprolol Tartrate 25 mg oral tablet See Instructions, TAKE 1 TABLET BY MOUTH two (2) times a day, # 60 tablet, 2 Refills, Maintenance, 03/30/22 10:13:00 EST, [facility], [place] - [id number], 178, cm, 03/30/22 9:50:00 EST, Height, 104.6, kg, 02/15/22 14:37:00 EST, Dry Weight Start Date: 03/30/22 Status: Ordered nalOXONE 4 mg/0.1 mL nasal spray = 4 mg, Nares, Both, Once, # 2 each, 0 Refills, Soft Stop, 11/17/21 12:37:00 EDT, [facility] [id number], Partial fill upon patient request if the prescription is for a schedule II opioid drug., 102.5, cm, 11/16/21 16:08:00 EDT... Start Date: 11/17/21 Status: Ordered Nicotine 2 mg gum 1 each = 2 mg, Chew, Every 2 hours, PRN as needed for smoking cessation, for 8 week(s), # 100 each,1 Refills, Acute 05/25/22 12:28:00 EDT, 02/02/22 12:28:00 EST, Gum, [place], [place] - [id number], Partial fill upon patient request i... Start Date: 02/02/22 Stop Date: 05/25/22 Status: Ordered NuLYTELY with Flavor Packs oral powder for reconstitution See Instructions, Drink 240mL every 15-20 minutes until first half is gone. Repeat 6 hours prior toprocedure., # 4,000 mL, 0 Refills, Maintenance, 04/27/22 11:40:00 EDT, [place], [place] - [id number], Partial fill upon patient reque... Start Date: 04/27/22 Status: Ordered Pen [place], 31 G x 5 mm BD Ultra [...] tablet, 2 Refills, Maintenance, 02/25/22 21:52:00 EST, [facility], 178, cm, 02/15/22 14:37:00 EST, [...] use Confirmed Active Vitreous hemorrhage Confirmed Active 33655 2type unknown 3X3, last in 2016 Social History Social History Type Response Tobacco Use: 4 or less cigar ettes(less than 1/4 pack)/day in last 30 days. Other: smoking for 40 yrs.. Sex Patient Care team information Care Team Personnel Name: Harlan Person NP Position: [facility] Associate Professional Member Role: PCP Address: Address: [address] [place] [address]- Care Team Related Persons Name: ELADIA CORRIGAN Address: home [address] [place] [address]
--- OUTSIDE RECORDS SUMMARY | 2022-10-15 00:50 | XMS_ITS | Continuity of Care Document ---
Author Name Unknown Organization [facility] Address [address] [place] [address]- Care Team Providers Care Health Club Manager Name Role Phone Raza BALDERAS, Harlan Primary Care Physician [phone] Encounter [facility] Date(s): 10/23/21 - 11/22/[address] [address]- Allergies, Adverse Reactions, Alerts Substance Reaction Severity Status penicillin Hives Active Immunizations Given and Recorded Vaccine Date Status Refusal Reason FluLaval (oldterm) 1 12/23/10 Given pneumococcal 23-valent vaccine 2 03/24/10 Given influenza virus vaccine, inactivated 3 01/27/10 Gi caroline tetanus-diphtheria toxoids (Td) 4 01/27/10 Given Not Given Vaccine Date Status Refusal Reason SARS-CoV-2 mRNA ([id number]-mbowo) vax 09/28/21 Not Given Patient Refuses tetanus/diphtheria/pertussis, acel(Tdap) 09/28/21 Not Given Patient Refuses 1Admin Note: vis given 2Admin Note: vis 05/23/2008 3Admin Note: vis 09/16/09 4Admin Note: vis Medications acetaminophen-oxyCODONE 325 mg-5 mg oral tablet 1, tablet, By Mouth, Every 6 hours, # 56 tablet, Refills 0, Tot. Refills 0, Maintenance, 11/18/21 17:30:00 EDT, Route to Pharmacy Electronically, [place], [place] - [id number], Partial fill upon patient request if the prescription is... Start Date: 11/18/21 Stop Date: 12/02/21 Status: Ordered aspirin 81 mg oral delayed release tablet 81 mg, 1, tablet, By Mouth, Daily, # 30 tablet, Refills 3, Tot. 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 Start Date: 11/16/21 Stop Date: 12/16/21 Status: Ordered Eliquis 5 mg oral tablet 1 tablet = 5 mg, By Mouth, 2 times a day, Please bubble pack and deliver, # 60 tablet, 5 Refills, Maintenance, 08/27/21 13:36:00 EDT, Tablet, [place], [place] - [id number], Partial fill upon patient request if the [...] 3 Refills, Maintenance, 10/27/21 12:11:00 EDT, Lotion, [place], [place] - [id number], 1 application Topically 2 times a day,PRN:for dry skin,Instr:... Start Date: 10/27/21 Status: Ordered hydrochlorothiazide-losartan 12.5 mg-50 mg oral tablet See Instructions, TAKE 1 TABLET BY MOUTH ONCE DAILY, # 90 tablet, 1 Refills, Maintenance, 11/11/21 11:38:00 EDT, [facility], 90, TAKE 1 TABLET BY MOUTH ONCE DAILY, 176, cm, 10/27/21 11:36:00 EDT, Height Start Date: 11/11/21 Status: Ordered Lantus Solostar Pen 100 units/mL subcutaneous solution = 40 units, Subcutaneous Infusion, Daily, Please dispense 6 pens, # 15 mL, 2 Refills, Maintenance, 08/27/21 13:36:00 EDT, [facility] [id number], Partial fill upon patient request if the prescription is for a schedule II opioid... Start Date: 08/27/21 Stop Date: 11/25/21 Status: Ordered metoprolol 25 mg oral tablet 25 mg, 1, tablet, By Mouth, 2 times a day, # 60 tablet, Refills 2, Tot. Refills 2, Maintenance, 10/07/21 8:55:00 EDT, Route to Pharmacy Electronically, [facility] [id number],Partial fill upon patient request if the prescripti... Start Date: 10/07/21 Stop Date: 01/05/22 Status: Ordered nalOXONE 4 mg/0.1 mL nasal spray = 4 mg, Nares, Both, Once, # 2 each, 0 Refills, Soft Stop, 11/17/21 12:37:00 EDT, [facility] [id number], Partial fill upon patient request if the prescription is for a schedule II opioid drug., 102.5, cm, 11/16/21 16:08:00 EDT... Start Date: 11/17/21 Status: Ordered Nicorette 4 mg oral transmucosal gum 1 each = 4 mg, Chew, Every 2 hours, PRN as needed for smoking cessation, for 8 week(s), # 160 each,0 Refills, Acute 11/23/21 15:06:00 EDT, 09/28/21 15:06:00 EDT, Gum, [facility] [id number], Cinnamon flavor please, 176, cm, 08... Start Date: 09/28/21 Stop Date: 11/23/21 Status: Ordered Pen [place], 31 G x 5 mm BD Ultra [...] I Confirmed Active Tobacco use Confirmed Active 31929 2type unknown 3X3, last in 2016 Social History Social History Type Response Smoking Status 10 or more cigarette s (1/2 pack or more)/day in last 30 days entered on: 09/28/21 Sex Patient Care team information Personnel Name: Harlan Person NP Address: Address: [address] [place] [address]
--- OUTSIDE RECORDS SUMMARY | 2022-10-15 00:50 | XMS_ITS | Continuity of Care Document ---
Author Name Unknown Organization [facility] Address [address] [place] [address]- Care Team Providers Care Tax Advisor Name Role Phone Raza MANAGER INFRASTRUCTURE, Harlan Primary Care Physician Encounter [facility] Date(s): 12/25/21 - 01/24/[address] [address] Allergies, Adverse Reactions, Alerts Substance Reaction Severity Status penicillin Hives Active Immunizations Given and Recorded Vaccine Date Status Refusal Reason FluLaval (oldterm) 1 12/23/10 Given pneumococcal 23-valent vaccine 2 03/24/10 Given influenza virus vaccine, inactivated 3 01/27/10 Gi caroline tetanus-diphtheria toxoids (Td) 4 01/27/10 Given Not Given Vaccine Date Status Refusal Reason SARS-CoV-2 mRNA ([id number]) vax 09/28/21 Not Given Patient Refuses tetanus/diphtheria/pertussis, acel(Tdap) 09/28/21 Not Given Patient Refuses 1Admin Note: vis given 2Admin Note: vis 05/23/2008 3Admin Note: vis 09/16/09 4Admin Note: vis Medications acetaminophen-oxyCODONE 325 mg-5 mg oral tablet 1, tablet, By Mouth, Every 6 hours, # 112 tablet, Refills 0, Tot. Refills 0, Maintenance, 12/29/21 10:47:00 EST, Route to Pharmacy Electronically, [facility] - [place], [place] - [id number], please fill on 01/02, 176, cm, 12/11/21 9:33:00 EDT, Height Start Date: 12/29/21 Stop Date: 01/26/22 Status: Ordered Aspirin Low Dose 81 mg oral delayed release tablet 1 tablet, By Mouth, Daily, # 30 tablet, 3 Refills, Maintenance, 01/19/22 14:38:00 EST, [facility], 176, cm, 01/11/22 9:46:00 EST, Height Start Date: 01/19/22 Status: Ordered atorvastatin 80 mg oral tablet See Instructions, TAKE 1 TABLET BY MOUTH ONCE DAILY, # 30 tablet, 5 Refills, Maintenance, 11/11/21 11:38:00 EDT, [facility], 176, cm, 10/27/21 11:36:00 EDT, Height Start Date: 11/11/21 Status: Ordered Blood Pressure Monitor See Instructions, # 1 each, Refills 0, Tot. Refills 0, Maintenance, patient persistent elevated BP ICD: I10 please send to [facility]&C thank you, Harlan Person DNP, [facility]-, 10/09/21 9:52:00 EDT, Supply Start Date: 10/09/21 Status: Ordered Cane See Instructions, # 1 each, Maintenance, patient with chronic left hip pain, and Left knee OA needscane please ICD10 M17. 9, M25. 552 Thank you, Harlan Person DNP, [employer]ICING CLERK-C, 01/11/22 10:01:00 EST, Supply Start Date: 01/11/22 Status: Ordered clonazePAM 1 mg oral tablet 1 tablet = 1 mg, By Mouth, 3 times a day, Please bubble pack and deliver, # 90 tablet, 0 Refills, Maintenance, 12/29/21 10:43:00 EST, Tablet, [facility] [id number], Partial fill upon patient request if the prescription is for... Start Date: 12/29/21 Stop Date: 01/28/22 Status: Ordered Eliquis 5 mg oral tablet 1 tablet = 5 mg, By Mouth, 2 times a day, Please bubble pack and deliver, # 60 tablet, 5 Refills, Maintenance, 08/27/21 13:36:00 EDT, Tablet, [facility] [id number], Partial fill upon patient request if the [...] 3 Refills, Maintenance, 10/27/21 12:11:00 EDT, Lotion, [facility] [id number], 1 application Topically 2 times a day,PRN:for dry skin,Instr:... Start Date: 10/27/21 Status: Ordered hydrochlorothiazide-losartan 12.5 mg-50 mg oral tablet See Instructions, TAKE 1 TABLET BY MOUTH ONCE DAILY, # 90 tablet, 1 Refills, Maintenance, 11/11/21 11:38:00 EDT, [facility], 90, TAKE 1 TABLET BY MOUTH ONCE DAILY, 176, cm, 10/27/21 11:36:00 EDT, Height Start Date: 11/11/21 Status: Ordered Lantus Solostar Pen 100 units/mL subcutaneous solution = 40 units, Subcutaneous Infusion, Daily, Please dispense 6 pens, # 15 mL, 2 Refills, Maintenance, 12/30/21 11:12:00 EST, [facility] [id number], Partial fill upon patient request if the prescription is for a schedule II opioid... Start Date: 12/30/21 Stop Date: 03/30/22 Status: Ordered Metoprolol Tartrate 25 mg oral tablet See Instructions, TAKE 1 TABLET BY MOUTH two (2) times a day, # 60 tablet, 2 Refills, Maintenance, 12/18/21 12:59:00 EST, [facility] [id number], 176, cm, 12/11/21 9:33:00 EDT, Height Start Date: 12/18/21 Status: Ordered nalOXONE 4 mg/0.1 mL nasal spray = 4 mg, Nares, Both, Once, # 2 each, 0 Refills, Soft Stop, 11/17/21 12:37:00 EDT, [facility] [id number], Partial fill upon patient request if the prescription is for a schedule II opioid drug., 102.5, cm, 11/16/21 16:08:00 EDT... Start Date: 11/17/21 Status: Ordered Pen [place], 31 G x 5 mm BD Ultra [...] prophylaxis Confirmed Active Tobacco use Confirmed Active 46988 2type unknown 3X3, last in 2016 Social History Social History Type Response Smoking Status 10 or more cigarette s (1/2 pack or more)/day in last 30 days entered on: 09/28/21 Sex Patient Care team information Care Team Personnel Name: Harlan Person NP Position: S Associate Professional Member Role: PCP Address: Address: [address] [place] [address]- Care Team Related Persons Name: ELADIA CORRIGAN Address: home [address] [place] [address]
--- OUTSIDE RECORDS SUMMARY | 2022-10-15 00:50 | XMS_ITS | Continuity of Care Document ---
Author Name Unknown Organization [facility] Address [address] [place] [address]- Care Team Providers Care Horse And Wagon Driver Name Role Phone Raza BALDERAS, Harlan Primary Care Physician Encounter [facility] Date(s): 04/27/22 - 05/27/22 [facility] [address] [place] [id number]- Attending Physician: Navya Penaloza Admitting Physician: AdmNavya [...] Vaccine Date Status Refusal Reason SARS-CoV-2 mRNA ([id number]) vax 09/28/21 Not Given Patient Refuses tetanus/diphtheria/pertussis, acel(Tdap) 09/28/21 Not Given Patient Refuses 1Admin Note: vis given 2Admin Note: vis 05/23/2008 3Admin Note: vis 09/16/09 4Admin Note: vis Medications acetaminophen-oxyCODONE 325 mg-5 mg oral tablet 1, tablet, By Mouth, Every 6 hours, # 112 tablet, Refills 0, Tot. Refills 0, Maintenance, 04/28/22 14:42:00 EDT, Route to Pharmacy Electronically, [facility] - [place], [place] - [id number], please fill on 05/03; MassPAT checked; on contract, 178,... Start Date: 04/28/22 Stop Date: 05/26/22 Status: Ordered amLODIPine 5 mg oral tablet 1 tablet, By Mouth, Daily, # 90 tablet, 1 Refills, Maintenance, 05/15/22 10:20:00 EDT, [place], [place] - [id number], 178, cm, 05/04/22 11:41:00 EDT, Height, 104.6, kg, 02/15/22 14:37:00 EST, Dry Weight Start Date: 05/15/22 Stop Date: 11/11/22 Status: Ordered Aspirin Low Dose 81 mg oral delayed release tablet 1 tablet, By Mouth, Daily, # 30 tablet, 3 Refills, Maintenance, 05/21/22 15:29:00 EDT, [facility], 178, cm, 05/04/22 11:41:00 EDT, Height, 104.6, kg, 02/15/22 14:37:00 EST, Dry Weight Start Date: 05/21/22 Status: Ordered atorvastatin 80 mg oral tablet 1 tablet, By Mouth, Daily, # 30 tablet, 5 Refills, Maintenance, 05/21/22 14:00:00 EDT, [facility], 178, cm, 05/04/22 11:41:00 EDT, [...] 0 Refills, Maintenance, 03/22/22 13:07:00 EST, Tablet, [place], [place] - [id number], Partial fill upon patient request if the prescription is for... Start Date: 03/22/22 Stop Date: 04/21/22 Status: Ordered clopidogrel 75 mg oral tablet TAKE 1 TABLET BY MOUTH ONCE DAILY Start Date: 04/16/22 Status: Ordered docusate sodium 100 mg oral capsule 1 capsule, By Mouth, 2 times a day, PRN NEEDED FOR CONSTIPATION, # 30 each, 2 Refills, Maintenance, 05/21/22 11:07:00 EDT, [facility], 178, cm, 05/04/22 11:41:00 EDT, Height, 104.6, kg, 02/15/22 14:37:00 EST, Dry Weight Start Date: 05/21/22 Status: Ordered Eliquis 5 mg oral tablet 1 tablet = 5 mg, By Mouth, 2 times a day, Please bubble pack and deliver, # 60 tablet, 5 Refills, Maintenance, 02/02/22 12:28:00 EST, Tablet, [place], [place] - [id number], Partial fill upon patient request if the [...] 05/26/22 12:17:00 EDT, Route to Pharmacy Electronically, [facility], 178, cm, 05/04/22 11:41:00 EDT, Height, 104.6, kg,02/15/22 14:37:00 EST, Dry Weight Start Date: 05/26/22 Stop Date: 06/09/22 Status: Ordered Gold Bonilla Ultimate Softening topical lotion 1 application, Topically, 2 times a day, PRN for dry skin, to affected area, # 420 mL, 3 Refills, Maintenance, 10/27/21 12:11:00 EDT, Lotion, [facility] [id number], 1 application Topically 2 times a day,PRN:for dry skin,Instr:... Start Date: 10/27/21 Status: Ordered hydrochlorothiazide-losartan 12.5 mg-50 mg oral tablet See Instructions, TAKE 1 TABLET BY MOUTH ONCE DAILY, # 90 tablet, 1 Refills, Maintenance, 02/02/22 12:29:00 EST, [facility] [id number], 90, TAKE 1 TABLET BY MOUTH ONCE DAILY,176, cm, 02/02/22 11:51:00 EST, Height Start Date: 02/02/22 Status: Ordered Lantus Solostar Pen 100 units/mL subcutaneous solution See Instructions, INJECT 40 UNITS SUBCUTANEOUSLY ONCE DAILY, # 15 mL, 2 Refills, Maintenance, 05/14/22 13:20:00 EDT, [facility], 178, cm, 05/04/22 11:41:00 EDT, Height, 104.6, kg, 02/15/22 14:37:00 EST, Dry Weight Start Date: 05/14/22 Status: Ordered MetFORMIN (Eqv-Glucophage XR) 500 mg oral tablet, extended release 2 tablet, By Mouth, 2 times a day, # 120 tablet, 1 Refills, Maintenance, 05/15/22 10:21:00 EDT, [facility], 178, cm, 05/04/22 11:41:00 EDT, Height, 104.6, kg, 02/15/22 14:37:00 EST, Dry Weight Start Date: 05/15/22 Status: Ordered Metoprolol Tartrate 25 mg oral tablet See Instructions, TAKE 1 TABLET BY MOUTH two (2) times a day, # 60 tablet, 2 Refills, Maintenance, 03/30/22 10:13:00 EST, [facility] [id number], 178, cm, 03/30/22 9:50:00 EST, Height, 104.6, kg, 02/15/22 14:37:00 EST, Dry Weight Start Date: 03/30/22 Status: Ordered nalOXONE 4 mg/0.1 mL nasal spray = 4 mg, Nares, Both, Once, # 2 each, 0 Refills, Soft Stop, 11/17/21 12:37:00 EDT, [place], [place] - [id number], Partial fill upon patient request if the prescription is for a schedule II opioid drug., 102.5, cm, 11/16/21 16:08:00 EDT... Start Date: 11/17/21 Status: Ordered NuLYTELY with Flavor Packs oral powder for reconstitution See Instructions, Drink 240mL every 15-20 minutes until first half is gone. Repeat 6 hours prior toprocedure., # 4,000 mL, 0 Refills, Maintenance, 04/27/22 11:40:00 EDT, [place], [place] - [id number], Partial fill upon patient reque... Start Date: 04/27/22 Status: Ordered Pen [place], 31 G x 5 mm BD Ultra [...] tablet, 2 Refills, Maintenance, 02/25/22 21:52:00 EST, [facility], 178, cm, 02/15/22 14:37:00 EST, [...] use Confirmed Active Vitreous hemorrhage Confirmed Active 31587 2type unknown 3X3, last in 2016 Social History Social History Type Response Tobacco Use: 4 or less cigar ettes(less than 1/4 pack)/day in last 30 days. Other: smoking for 40 yrs.. Sex Patient Care team information Care Team Personnel Name: Harlan Person NP Position: S Associate Professional Member Role: PCP Address: Address: [address] [place] [address]- Care Team Related Persons Name: SAMANMIARAVI RODRIGUEZSSICA Address: home [address] [place] [address]
--- OUTSIDE RECORDS SUMMARY | 2022-10-15 00:50 | XMS_ITS | Continuity of Care Document ---
Author Name Unknown Organization [facility] Address [address] [place] [address]- Care Team Providers Care Liquor Commissioner Name Role Phone Raza BALDERAS, Harlan Primary Care Physician [place] [facility] [place] Date(s): 03/05/22 - 04/04/[address] [address]- Allergies, Adverse Reactions, Alerts Substance Reaction Severity Status penicillin Hives Active Immunizations Given and Recorded Vaccine Date Status Refusal Reason FluLaval (oldterm) 1 12/23/10 Given pneumococcal 23-valent vaccine 2 03/24/10 Given influenza virus vaccine, inactivated 3 01/27/10 Gi caroline tetanus-diphtheria toxoids (Td) 4 01/27/10 Given Not Given Vaccine Date Status Refusal Reason SARS-CoV-2 mRNA ([id number]-[id number]-joscu) vax 09/28/21 Not Given Patient Refuses tetanus/diphtheria/pertussis, acel(Tdap) 09/28/21 Not Given Patient Refuses 1Admin Note: vis given 2Admin Note: vis 05/23/2008 3Admin Note: vis 09/16/09 4Admin Note: vis Medications acetaminophen-oxyCODONE 325 mg-5 mg oral tablet 1, tablet, By Mouth, Every 6 hours, # 112 tablet, Refills 0, Tot. Refills 0, Maintenance, 04/03/22 7:57:00 EST, Route to Pharmacy Electronically, [facility] - [place], [place] - [id number], please fill on 04/04; MassPAT checked; on contract, 178,... Start Date: 04/03/22 Stop Date: 05/01/22 Status: Ordered Aspirin Low Dose 81 mg oral delayed release tablet 1 tablet, By Mouth, Daily, # 30 tablet, 3 Refills, Maintenance, 01/19/22 14:38:00 EST, [facility], 176, cm, 01/11/22 9:46:00 EST, Height Start Date: 01/19/22 Status: Ordered atorvastatin 80 mg oral tablet See Instructions, TAKE 1 TABLET BY MOUTH ONCE DAILY, # 30 tablet, 5 Refills, Maintenance, 11/11/21 11:38:00 EDT, [facility], 176, cm, 10/27/21 11:36:00 EDT, Height Start Date: 11/11/21 Status: Ordered Blood Pressure Monitor See Instructions, # 1 each, Refills 0, Tot. Refills 0, Maintenance, patient persistent elevated BP ICD: I10 please send to L&C thank you, Harlan Person DNP, [facility]-, 10/09/21 9:52:00 EDT, Supply Start Date: 10/09/21 Status: Ordered Cane See Instructions, # 1 each, Maintenance, patient with chronic left hip pain, and Left knee OA needscane please ICD10 M17. 9, M25. 552 Thank you, Harlan Person DNP, [facility], 01/11/22 10:01:00 EST, Supply Start Date: 01/11/22 Status: Ordered clonazePAM 1 mg oral tablet 1 tablet = 1 mg, By Mouth, 3 times a day, Please bubble pack and deliver, # 90 tablet, 0 Refills, Maintenance, 03/22/22 13:07:00 EST, Tablet, [place], [place] - [id number], Partial fill upon patient request if the prescription is for... Start Date: 03/22/22 Stop Date: 04/21/22 Status: Ordered Doculase 100 mg oral capsule 1 capsule = 100 mg, By Mouth, 2 times a day, PRN for constipation, # 30 capsule, 2 Refills, Maintenance, 03/17/22 13:53:00 EST, Capsule, [place], [place] - [id number], Partial fill upon patient request if the prescription is for a dejah... Start Date: 03/17/22 Stop Date: 06/15/22 Status: Ordered Eliquis 5 mg oral tablet 1 tablet = 5 mg, By Mouth, 2 times a day, Please bubble pack and deliver, # 60 tablet, 5 Refills, Maintenance, 02/02/22 12:28:00 EST, Tablet, [facility] - [place], [place] - [id number], Partial fill upon patient request if the [...] 03/31/22 13:13:00 EST, Route to Pharmacy Electronically, [place], [place] - [id number], 178, cm, 03/30/22 9:50:00 EST, Height, 104.6, k... Start Date: 03/31/22 Stop Date: 04/14/22 Status: Ordered Gold [place] Ultimate Softening topical lotion 1 application, Topically, 2 times a day, PRN for dry skin, to affected area, # 420 mL, 3 Refills, Maintenance, 10/27/21 12:11:00 EDT, Lotion, [place], [place] - [id number], 1 application Topically 2 times a day,PRN:for dry skin,Instr:... Start Date: 10/27/21 Status: Ordered hydrochlorothiazide-losartan 12.5 mg-50 mg oral tablet See Instructions, TAKE 1 TABLET BY MOUTH ONCE DAILY, # 90 tablet, 1 Refills, Maintenance, 02/02/22 12:29:00 EST, [place], [place] - [id number], 90, TAKE 1 TABLET BY MOUTH ONCE [...] mL, 2 Refills, Maintenance, 03/17/22 13:54:00 EST, [facility], 178, cm, 03/15/22 15:13:00 EST, Height, 104.6, kg, 02/15/22 14:37:00 EST, Dry Weight Start Date: 03/17/22 Status: Ordered Metoprolol Tartrate 25 mg oral tablet See Instructions, TAKE 1 TABLET BY MOUTH two (2) times a day, # 60 tablet, 2 Refills, Maintenance, 03/30/22 10:13:00 EST, [facility] [id number], 178, cm, 03/30/22 9:50:00 EST, Height, 104.6, kg, 02/15/22 14:37:00 EST, Dry Weight Start Date: 03/30/22 Status: Ordered nalOXONE 4 mg/0.1 mL nasal spray = 4 mg, Nares, Both, Once, # 2 each, 0 Refills, Soft Stop, 11/17/21 12:37:00 EDT, [facility] [id number], Partial fill upon patient request if the prescription is for a schedule II opioid drug., 102.5, cm, 11/16/21 16:08:00 EDT... Start Date: 11/17/21 Status: Ordered Nicotine 2 mg gum 1 each = 2 mg, Chew, Every 2 hours, PRN as needed for smoking cessation, for 8 week(s), # 100 each,1 Refills, Acute 05/25/22 12:28:00 EDT, 02/02/22 12:28:00 EST, Gum, [facility] [id number], Partial fill upon patient request i... Start Date: 02/02/22 Stop Date: 05/25/22 Status: Ordered Pen [place], 31 G x 5 mm BD Ultra [...] prophylaxis Confirmed Active Tobacco use Confirmed Active 49024 2type unknown 3X3, last in 2015 Social History Social History Type Response Tobacco Use: 4 or less cigar ettes(less than 1/4 pack)/day in last 30 days. Other: smoking for 40 yrs.. Sex Patient Care team information Care Team Personnel Name: Harlan Person NP Position: [facility] Associate Professional Member Role: PCP Address: Address: [address] [place] [address]- Care Team Related Persons Name: ELADIA CORRIGAN Address: home [address] [place] [address]
--- OUTSIDE RECORDS SUMMARY | 2022-10-15 00:50 | XMS_ITS | Continuity of Care Document ---
Author Name Unknown Organization [facility] Address [address] [place] [id number]- Care Team Providers Care Pump Runner Name Role Phone Raza BALDERAS, Harlan Primary Care Physician [place] [facility] [place] - 09/15/[address] [address] Allergies, Adverse Reactions, Alerts Substance Reaction Severity Status penicillin Hives Active Immunizations Given and Recorded Vaccine Date Status Refusal Reason FluLaval (oldterm) 1 12/23/10 Given pneumococcal 23-valent vaccine 2 03/24/10 Given influenza virus vaccine, inactivated 3 01/27/10 Gi caroline tetanus-diphtheria toxoids (Td) 4 01/27/10 Given Not Given Vaccine Date Status Refusal Reason SARS-CoV-2 mRNA ([id number]) vax 09/28/21 Not Given Patient Refuses tetanus/diphtheria/pertussis, acel(Tdap) 09/28/21 Not Given Patient Refuses 1Admin Note: vis given 2Admin Note: vis 05/23/2008 3Admin Note: vis 09/16/09 4Admin Note: vis Medications acetaminophen-oxyCODONE 325 mg-5 mg oral tablet 1, tablet, By Mouth, Every 6 hours, # 112 tablet, Refills 0, Tot. Refills 0, Maintenance, 09/01/22 11:16:00 EDT, Route to Pharmacy Electronically, [facility]/pharmacy #[id number], please fill on 06/01; MassPAT checked; on contractTyra , 07/15/22 13:22:00 EDT,... Start Date: 09/01/22 Stop Date: 09/29/22 Status: Ordered amLODIPine 5 mg oral tablet 2 tablet = 10 mg, By Mouth, Daily, # 180 tablet, 1 Refills, Maintenance, 05/31/22 10:01:00 EDT, [place], [place] - [id number], 178, cm, 05/04/22 11:41:00 EDT, Height, 104.6, [...] to L&C thank you, Harlan Person DNP, [employer], 10/09/21 9:52:00 EDT, Supply Start Date: 10/09/21 Status: Ordered Cane See Instructions, # 1 each, Maintenance, patient with chronic left hip pain, and Left knee OA needscane please ICD10 M17. 9, M25. 552 Thank you, Harlan Person DNP, COMMUN[employer] INTERN-C, 01/11/22 10:01:00 EST, Supply Start Date: 01/11/22 Status: Ordered clonazePAM 1 mg oral tablet 1 tablet = 1 mg, By Mouth, 3 times a day, Please bubble pack and deliver, # 90 tablet, 0 Refills, Maintenance, 09/01/22 9:27:00 EDT, Tablet, [facility]/pharmacy #[id number], Partial fill upon patient request if the prescription is for a schedule II opioid drug., 1... Start Date: 09/01/22 Stop Date: 10/01/22 Status: Ordered clopidogrel 75 mg oral tablet 1, tablet, By Mouth, Daily, # 90 tablet, Refills 1, Tot. Refills 1, Maintenance, 09/03/22 12:49:00 EDT, Route to Pharmacy Electronically, [place], [place] - [id number], 178, cm, 09/03/22 10:25:00 EDT, Height, 104.6, kg, 02/15/22 14:37... Start Date: 09/03/22 Stop Date: 03/02/23 Status: Ordered docusate sodium 100 mg oral capsule 1 capsule, By Mouth, 2 times a day, PRN NEEDED FOR CONSTIPATION, # 30 each, 2 Refills, Maintenance, 07/29/22 11:46:00 EDT, [facility], 178, cm, 07/15/22 13:22:00 EDT, Height, 104.6, kg, 02/15/22 14:37:00 EST, Dry Weight Start Date: 07/29/22 Status: Ordered Eliquis 5 mg oral tablet 1 tablet = 5 mg, By Mouth, 2 times a day, Please bubble pack and deliver, # 60 tablet, 5 Refills, Maintenance, 09/03/22 12:46:00 EDT, Tablet, [place], [place] - [id number], Partial fill upon patient request if the [...] 3 Refills, Maintenance, 10/27/21 12:11:00 EDT, Lotion, [place], [place] - [id number], 1 application Topically 2 times a day,PRN:for dry skin,Instr:... Start Date: 10/27/21 Status: Ordered hydrochlorothiazide-losartan 12.5 mg-50 mg oral tablet See Instructions, TAKE 1 TABLET BY MOUTH ONCE DAILY, # 90 tablet, 1 Refills, Maintenance, 07/16/22 10:37:00 EDT, [place], [place] - [id number], 90, TAKE 1 TABLET BY MOUTH ONCE [...] tablet, 1 Refills, Maintenance, 09/11/22 8:58:00 EDT, [facility], 178, cm, 09/03/22 10:25:00 EDT, Height, 104.6, kg, 02/15/22 14:37:00 EST, Dry Weight Start Date: 09/11/22 Status: Ordered Lantus Solostar Pen 100 units/mL subcutaneous solution See Instructions, INJECT 42 UNITS SUBCUTANEOUSLY ONCE DAILY, # 15 mL, 2 Refills, Maintenance, 05/14/22 13:20:00 EDT, [facility], 178, cm, 05/04/22 11:41:00 EDT, Height, 104.6, kg, 02/15/22 14:37:00 EST, Dry Weight Start Date: 05/14/22 Status: Ordered Metoprolol Tartrate 25 mg oral tablet See Instructions, TAKE 1 TABLET BY MOUTH two (2) times a day, # 60 tablet, 2 Refills, Maintenance, 06/19/22 14:55:00 EDT, [facility] [id number], 178, cm, 06/10/22 9:30:00 EDT, Height, 104.6, kg, 02/15/22 14:37:00 EST, Dry Weight Start Date: 06/19/22 Status: Ordered mirtazapine 7.5 mg oral tablet 1 tablet, By Mouth, Daily at bedtime, # 30 tablet, 2 Refills, Maintenance, 09/11/22 8:58:00 EDT, [facility], 178, cm, 09/03/22 10:25:00 EDT, Height, 104.6, kg, 02/15/22 14:37:00 EST, Dry Weight Start Date: 09/11/22 Status: Ordered nalOXONE 4 mg/0.1 mL nasal spray = 4 mg, Nares, Both, Once, # 2 each, 0 Refills, Soft Stop, 11/17/21 12:37:00 EDT, [facility] [id number], Partial fill upon patient request if the [...] mL, 0 Refills, Maintenance, 04/27/22 11:40:00 EDT, [facility] [id number], Partial fill upon patient reque... Start Date: 04/27/22 Status: Ordered omeprazole 20 mg oral enteric coated capsule 1 capsule = 20 mg, By Mouth, Daily, 30 min before a meal, # 30 capsule, 0 Refills, Maintenance, 09/01/22 8:49:00 EDT, [facility] [id number], Needs to be QD, 178, cm, 07/15/2312:22:00 EDT, Height, 104.6, kg, 02/15/22 14:37:00... Start Date: 09/01/22 Stop Date: 10/01/22 Status: Ordered Pen [place], 31 G x 5 mm BD Ultra [...] tablet, 2 Refills, Maintenance, 09/01/22 10:44:00 EDT, [facility], 178, cm, 07/15/22 [...] use Confirmed Active Vitreous hemorrhage Confirmed Active 77598 2type unknown 3X3, last in 2016 Social History Social History Type Response Tobacco Use: 4 or less cigar ettes(less than 1/4 pack)/day in last 30 days. Other: smoking for 40 yrs.. Sex Patient Care team information Care Team Personnel Name: Harlan Person NP Position: S Associate Professional Member Role: PCP Address: Address: [address] [place] [address]- Care Team Related Persons Name: ELADIA CORRIGAN Address: home [address] [place] [address]
--- OUTSIDE RECORDS SUMMARY | 2022-10-15 00:50 | XMS_ITS | Continuity of Care Document ---
Author Name Unknown Organization [facility] Address [address] [place] [address]- Care Team Providers Care Veterinary Nurse Name Role Phone Raza BALDERAS, Harlan Primary Care Physician [phone] Encounter [facility] Date(s): 06/19/22 - 07/19/[address] [address]- Allergies, Adverse Reactions, Alerts Substance Reaction Severity Status penicillin Hives Active Immunizations Given and Recorded Vaccine Date Status Refusal Reason FluLaval (oldterm) 1 12/23/10 Given pneumococcal 23-valent vaccine 2 03/24/10 Given influenza virus vaccine, inactivated 3 01/27/10 Gi caroline tetanus-diphtheria toxoids (Td) 4 01/27/10 Given Not Given Vaccine Date Status Refusal Reason SARS-CoV-2 mRNA ([id number]) vax 09/28/21 Not Given Patient Refuses tetanus/diphtheria/pertussis, acel(Tdap) 09/28/21 Not Given Patient Refuses 1Admin Note: vis given 2Admin Note: vis 05/23/2008 3Admin Note: vis 09/16/09 4Admin Note: vis Medications acetaminophen-oxyCODONE 325 mg-5 mg oral tablet 1, tablet, By Mouth, Every 6 hours, # 112 tablet, Refills 0, Tot. Refills 0, Maintenance, 06/30/22 9:33:00 EDT, Route to Pharmacy Electronically, [facility] - [place], [place] - [id number], please fill on 06/01; MassPAT checked; on contract, 178,... Start Date: 06/30/22 Stop Date: 07/28/22 Status: Ordered amLODIPine 5 mg oral tablet 2 tablet = 10 mg, By Mouth, Daily, # 180 tablet, 1 Refills, Maintenance, 05/31/22 10:01:00 EDT, [place], [place] - [id number], 178, cm, 05/04/22 11:41:00 EDT, Height, 104.6, kg, 02/15/22 14:37:00 EST, Dry Weight Start Date: 05/31/22 Stop Date: 11/27/22 Status: Ordered Aspirin Low Dose 81 mg oral delayed release tablet 1 tablet, By Mouth, Daily, # 30 tablet, 3 Refills, Maintenance, 05/21/22 15:29:00 EDT, [facility], 178, cm, 05/04/22 11:41:00 EDT, Height, 104.6, kg, 02/15/22 14:37:00 EST, Dry Weight Start Date: 05/21/22 Status: Ordered atorvastatin 80 mg oral tablet 1 tablet, By Mouth, Daily, # 30 tablet, 5 Refills, Maintenance, 05/21/22 14:00:00 EDT, [facility], 178, cm, 05/04/22 11:41:00 EDT, Height, [...] 0 Refills, Maintenance, 06/16/22 9:33:00 EDT, Tablet, [place], [place] - [id number], Partial fill upon patient request if the prescription is for a... Start Date: 06/16/22 Stop Date: 07/16/22 Status: Ordered clopidogrel 75 mg oral tablet 1, tablet, By Mouth, Daily, # 30 tablet, Refills 6, Tot. Refills 6, Maintenance, 07/16/22 10:36:00 EDT, Route to Pharmacy Electronically, [facility], [place] - [id number], 178, cm, 07/15/22 13:22:00 EDT, Height, 104.6, kg, 02/15/22 14:37... Start Date: 07/16/22 Status: Ordered docusate sodium 100 mg oral capsule 1 capsule, By Mouth, 2 times a day, PRN NEEDED FOR CONSTIPATION, # 30 each, 2 Refills, Maintenance, 05/21/22 11:07:00 EDT, [facility], 178, cm, 05/04/22 11:41:00 EDT, Height, 104.6, kg, 02/15/22 14:37:00 EST, Dry Weight Start Date: 05/21/22 Status: Ordered Eliquis 5 mg oral tablet 1 tablet = 5 mg, By Mouth, 2 times a day, Please bubble pack and deliver, # 60 tablet, 5 Refills, Maintenance, 02/02/22 12:28:00 EST, Tablet, [place], [place] - [id number], Partial fill upon patient request if the [...] capsule, Refills 0, Tot. Refills 0, Maintenance, 07/16/2309:37:00 EDT, Route to Pharmacy Electronically, [facility], [place] - [id number], 178, cm, 07/15/22 13:22:00 EDT, Height, 104.6, kg, 01/0... Start Date: 07/16/22 Stop Date: 07/30/22 Status: Ordered Gold Bonilla Ultimate Softening topical lotion 1 application, Topically, 2 times a day, PRN for dry skin, to affected area, # 420 mL, 3 Refills, Maintenance, 10/27/21 12:11:00 EDT, Lotion, [facility], [place] - [id number], 1 application Topically 2 times a day,PRN:for dry skin,Instr:... Start Date: 10/27/21 Status: Ordered hydrochlorothiazide-losartan 12.5 mg-50 mg oral tablet See Instructions, TAKE 1 TABLET BY MOUTH ONCE DAILY, # 90 tablet, 1 Refills, Maintenance, 07/16/22 10:37:00 EDT, [facility], [place] - [id number], 90, TAKE 1 TABLET BY MOUTH ONCE DAILY,178, cm, 07/15/22 13:22:00 EDT, Height, 104.6, kg,... Start Date: 07/16/22 Status: Ordered Jardiance 10 mg oral tablet 1 tablet = 10 mg, By Mouth, Daily in AM, # 90 tablet, 0 Refills, Maintenance, 05/31/22 9:51:00 EDT,Tablet, [facility], [place] - [id number], Partial fill upon patient request if the prescription is for a schedule II opioid drug., 178, c... Start Date: 05/31/22 Stop Date: 08/29/22 Status: Ordered Lantus Solostar Pen 100 units/mL subcutaneous solution See Instructions, INJECT 42 UNITS SUBCUTANEOUSLY ONCE DAILY, # 15 mL, 2 Refills, Maintenance, 05/14/22 13:20:00 EDT, [facility], 178, cm, 05/04/22 11:41:00 EDT, Height, 104.6, kg, 02/15/22 14:37:00 EST, Dry Weight Start Date: 05/14/22 Status: Ordered MetFORMIN (Eqv-Glucophage XR) 500 mg oral tablet, extended release 2 tablet, By Mouth, 2 times a day, # 120 tablet, 1 Refills, Maintenance, 05/15/22 10:21:00 EDT, [facility], 178, cm, 05/04/22 11:41:00 EDT, Height, 104.6, kg, 02/15/22 14:37:00 EST, Dry Weight Start Date: 05/15/22 Status: Ordered Metoprolol Tartrate 25 mg oral tablet See Instructions, TAKE 1 TABLET BY MOUTH two (2) times a day, # 60 tablet, 2 Refills, Maintenance, 06/19/22 14:55:00 EDT, [facility] [id number], 178, cm, 06/10/22 9:30:00 EDT, Height, 104.6, kg, 02/15/22 14:37:00 EST, Dry Weight Start Date: 06/19/22 Status: Ordered nalOXONE 4 mg/0.1 mL nasal spray = 4 mg, Nares, Both, Once, # 2 each, 0 Refills, Soft Stop, 11/17/21 12:37:00 EDT, [facility] [id number], Partial fill upon patient request if the prescription is for a schedule II opioid drug., 102.5, cm, 11/16/21 16:08:00 EDT... Start Date: 11/17/21 Status: Ordered NuLYTELY with Flavor Packs oral powder for reconstitution See Instructions, Drink 240mL every 15-20 minutes until first half is gone. Repeat 6 hours prior toprocedure., # 4,000 mL, 0 Refills, Maintenance, 04/27/22 11:40:00 EDT, [facility] [id number], Partial fill upon patient reque... Start Date: 04/27/22 Status: Ordered Pen [place], 31 G x 5 mm BD Ultra [...] use Confirmed Active Vitreous hemorrhage Confirmed Active 61874 2type unknown 3X3, last in 2016 Social History Social History Type Response Tobacco Use: 4 or less cigar ettes(less than 1/4 pack)/day in last 30 days. Other: smoking for 40 yrs.. Sex Patient Care team information Care Team Personnel Name: Harlan Person NP Position: S Associate Professional Member Role: PCP Address: Address: [address] [place] [address]- Care Team Related Persons Name: ELADIA CORRIGAN Address: home [address] [place] [address]
--- OUTSIDE RECORDS SUMMARY | 2022-10-15 00:50 | XMS_ITS | Continuity of Care Document ---
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/pharmacy #[id number], please fill on 06/01; MassPAT checked; on contractTyra cm, 07/15/22 13:22:00 EDT,... Start Date: 09/01/22 Stop Date: 09/29/22 Status: Ordered amLODIPine 5 mg oral tablet 2 tablet = 10 mg, By Mouth, Daily, # 180 tablet, 1 Refills, Maintenance, 05/31/22 10:01:00 EDT, [facility] - [place], [place] - [id number], 178, cm, 05/04/22 11:41:00 EDT, Height, 104.6, kg, 02/15/22 14:37:00 EST, Dry Weight Start Date: 05/31/22 Stop Date: 11/27/22 Status: Ordered atorvastatin 80 mg oral tablet 1 tablet, By Mouth, Daily, # 30 tablet, 5 Refills, Maintenance, 05/21/22 14:00:00 EDT, [facility], 178, cm, 05/04/22 11:41:00 EDT, Height, 104.6, kg, 02/15/22 14:37:00 EST, Dry Weight Start Date: 05/21/22 Status: Ordered Blood Pressure Monitor See Instructions, # 1 each, Refills 0, Tot. Refills 0, Maintenance, patient persistent elevated BP ICD: I10 please send to L&C thank you, Harlan Person DNP, DRAWER HARDWARE WORKER-C, 10/09/21 9:52:00 EDT, Supply Start Date: 10/09/21 Status: Ordered Cane See Instructions, # 1 each, Maintenance, patient with chronic left hip pain, and Left knee OA needscane please ICD10 M17. 9, M25. 552 Thank you, Harlan Person DNP, DRAWER HARDWARE WORKER-C, 01/11/22 10:01:00 EST, Supply Start Date: 01/11/22 Status: Ordered clonazePAM 1 mg oral tablet 1 tablet = 1 mg, By Mouth, 3 times a day, Please bubble pack and deliver, # 90 tablet, 0 Refills, Maintenance, 09/01/22 9:27:00 EDT, Tablet, [facility]/pharmacy #[id number], Partial fill upon patient request if the prescription is for a schedule II opioid drug., 1... Start Date: 09/01/22 Stop Date: 10/01/22 Status: Ordered clonazePAM 1 mg oral tablet 1 tablet = 1 mg, By Mouth, Once, 30-60 minutes prior to stress, # 1 tablet, 0 Refills, Soft Stop, 09/21/22 16:10:00 EDT, Tablet, [place], [place] - [id number], Partial fill upon patient request if the prescription is for a schedule II... Start Date: 09/21/22 Status: Ordered clopidogrel 75 mg oral tablet 1, tablet, By Mouth, Daily, # 90 tablet, Refills 1, Tot. Refills 1, Maintenance, 09/03/22 12:49:00 EDT, Route to Pharmacy Electronically, [facility], [place] - [id number], 178, cm, 09/03/22 10:25:00 EDT, Height, 104.6, kg, 02/15/22 14:37... Start Date: 09/03/22 Stop Date: 03/02/23 Status: Ordered docusate sodium 100 mg oral capsule 1 capsule, By Mouth, 2 times a day, PRN NEEDED FOR CONSTIPATION, # 30 each, 2 Refills, Maintenance, 07/29/22 11:46:00 EDT, [facility], 178, cm, 07/15/22 13:22:00 EDT, Height, 104.6, kg, 02/15/22 14:37:00 EST, Dry Weight Start Date: 07/29/22 Status: Ordered doxycycline hyclate 100 mg oral capsule 1 capsule = 100 mg, By Mouth, 2 times a day, for 10 days, # 20 capsule, 0 Refills, Acute 10/10/22 9:39:00 EDT, 09/30/22 9:39:00 EDT, Capsule, [facility], [place] - [id number], Partial fill upon patient request if the prescription is for... Start Date: 09/30/22 Stop Date: 10/10/22 Status: Ordered Eliquis 5 mg oral tablet 1 tablet = 5 mg, By Mouth, 2 times a day, Please bubble pack and deliver, # 60 tablet, 5 Refills, Maintenance, 09/03/22 12:46:00 EDT, Tablet, [facility], [place] - [id number], Partial fill upon patient request if the [...] 09/01/22 10:44:00 EDT, Route to Pharmacy Electronically, [facility], 178, cm, 07/15/22 13:22:00 EDT, Height, 104.6, kg,02/15/22 14:37:00 EST, Dry Weight Start Date: 09/01/22 Status: Ordered Gold Bonilla Ultimate Softening topical lotion 1 application, Topically, 2 times a day, PRN for dry skin, to affected area, # 420 mL, 3 Refills, Maintenance, 10/27/21 12:11:00 EDT, Lotion, [place], [place] - [id number], 1 application Topically 2 times a day,PRN:for dry skin,Instr:... Start Date: 10/27/21 Status: Ordered hydrochlorothiazide-losartan 12.5 mg-50 mg oral tablet See Instructions, TAKE 1 TABLET BY MOUTH ONCE DAILY, # 90 tablet, 1 Refills, Maintenance, 07/16/22 10:37:00 EDT, [place], [place] - [id number], 90, TAKE 1 TABLET BY MOUTH ONCE [...] tablet, 1 Refills, Maintenance, 09/11/22 8:58:00 EDT, [facility], 178, cm, 09/03/22 10:25:00 EDT, Height, 104.6, kg, 02/15/22 14:37:00 EST, Dry Weight Start Date: 09/11/22 Status: Ordered Lantus Solostar Pen 100 units/mL subcutaneous solution See Instructions, INJECT 42 UNITS SUBCUTANEOUSLY ONCE DAILY, # 15 mL, 2 Refills, Maintenance, 05/14/22 13:20:00 EDT, [facility], 178, cm, 05/04/22 11:41:00 EDT, Height, 104.6, kg, 02/15/22 14:37:00 EST, Dry Weight Start Date: 05/14/22 Status: Ordered Metoprolol Tartrate 25 mg oral tablet See Instructions, TAKE 1 TABLET BY MOUTH two (2) times a day, # 60 tablet, 2 Refills, Maintenance, 06/19/22 14:55:00 EDT, [facility] [place], [place] - [id number], 178, cm, 06/10/22 9:30:00 EDT, Height, 104.6, kg, 02/15/22 14:37:00 EST, Dry Weight Start Date: 06/19/22 Status: Ordered mirtazapine 7.5 mg oral tablet 1 tablet, By Mouth, Daily at bedtime, # 30 tablet, 2 Refills, Maintenance, 09/11/22 8:58:00 EDT, [facility], 178, cm, 09/03/22 10:25:00 EDT, Height, 104.6, kg, 02/15/22 14:37:00 EST, Dry Weight Start Date: 09/11/22 Status: Ordered nalOXONE 4 mg/0.1 mL nasal spray = 4 mg, Nares, Both, Once, # 2 each, 0 Refills, Soft Stop, 11/17/21 12:37:00 EDT, [facility] [id number], Partial fill upon patient request if the [...] mL, 0 Refills, Maintenance, 04/27/22 11:40:00 EDT, [facility] [id number], Partial fill upon patient reque... Start Date: 04/27/22 Status: Ordered omeprazole 20 mg oral enteric coated capsule 1 capsule = 20 mg, By Mouth, Daily, 30 min before a meal, # 30 capsule, 0 Refills, Maintenance, 09/01/22 8:49:00 EDT, [facility] [id number], Needs to be QD, 178, cm, 07/15/2312:22:00 EDT, Height, 104.6, kg, 02/15/22 14:37:00... Start Date: 09/01/22 Stop Date: 10/01/22 Status: Ordered Pen [place], 31 G x 5 mm BD Ultra [...] hemorrhage Confirmed Active Weight loss Confirmed Active 24448 2type unknown 3X3, last in 2016 Social History Social History Type Response Tobacco Use: 4 or less cigar ettes(less than 1/4 pack)/day in last 30 days. Other: smoking for 40 yrs.. Sex Patient Care team information Care Team Personnel Name: Harlan Person NP Position: S Associate Professional Member Role: PCP Address: Address: [address] [place] [address]- Care Team Related Persons Name: ELADIA CORRIGAN Address: home [address] [place] [address]
--- OUTSIDE RECORDS SUMMARY | 2022-10-15 00:50 | XMS_ITS | Continuity of Care Document ---
Author Name Unknown Organization [facility] ter Address [address] [place] [address]- Care Team Providers Care Devops Engineer Name Role Phone Sera Curran MD Primary Care Physician Encounter [facility] Date(s): 08/25/21 - 08/26/[address] [address]- Encounter Diagnosis Olecranon bursitis, left elbow(Final) - 08/26/21 Atypical chest pain(Final) - 08/26/21 Discharge Disposition: A-D/C Home Attending Physician: Jeb Walls MD Admitting Physician: Jeb Walls MD Referring Physician: Not on Staff, Referring MD Allergies, Adverse Reactions, Alerts Substance Reaction Severity Status penicillin Active Results Radiology Reports * Exam Date Time Procedure Performing Provider Status 08/25/21 11:03 PM Elbow Min 3 Views Left Jeremiah Gregg i; Ryder (Verified) Notes: (Elbow Min 3 Views Left) Reason For Exam: Effusion RESULT: Elbow Min 3 Views Left Elbow Min 3 Views Left, 3 views REASON: Effusion; Clinical Question(s): Fracture Hx of Present Illness: reports left hip surgery 2021 and was placed on Eliquis due to blood clots, presents today with upper chest tightness, left bicep deformity and left elbow swelling, denies numbness tingling, right ring finger pad of finger black on color denies injury; COMPARISON: None. FINDINGS: No fracture or dislocation. No arthritic changes. No joint effusion. Mild swelling of the olecranon bursa. IMPRESSION: No fracture or dislocation. Mild swelling of the olecranon bursa. I have personally reviewed the images and I agree with this report. WSN: [id number] Ordering Physician: Dashawn Thompson MD Dictated By: Reji Dolan DO Dictated Date/Time: 08/25/21 11:09 p Reviewed By: Terrance Oliver MD Signed By: Terrance Oliver MD Signed Date/Time: 08/25/21 11:14 pm Transcribed By: JERI Transcribed Date/Time: 08/25/21 11:07 pm * Exam Date Time Procedure Performing Provider Status 08/25/21 11:03 PM Chest 2 Views Frontal and Lat Jasmyne Gregg; Auth (Verified) Notes: (Chest 2 Views Frontal and Lat) Reason For Exam: Chest Pain;Other: RESULT: Chest 2 Views Frontal and Lat Chest 2 Views Frontal and Lat REASON: Chest PAIN Hx of Present Illness: reports left hip surgery 4 2021 and was placed on Eliquis due to blood clots, presents today with upper chest tightness, left bicep deformity and left elbow swelling, denies numbness tingling, right ring finger pad of finger black on color denies injury; COMPARISON: None. FINDINGS: LINES AND TUBES: None. LUNGS AND PLEURA: Clear lungs. Normal pulmonary vascularity. No pleural effusion. No pneumothorax. HEART, MEDIASTINUM AND FLOR: Heart is normal in size. Normal upper mediastinal and hilar contour. BONES AND SOFT TISSUES: No acute abnormality. IMPRESSION: No acute abnormality. I have personally reviewed the images and I agree with this report. WSN: [id number] Ordering Physician: Nathen Whitney Dictated By: Reji Dolan DO Dictated Date/Time: 08/25/21 11:09 p Reviewed By: Terrance Oliver MD Signed By: Terrance Oliver MD Signed Date/Time: 08/25/21 11:14 pm Transcribed By: JERI Transcribed Date/Time: 08/25/21 11:06 pm Vital Signs Most recent to oldest [Reference Range]: 1 2 3 Oxygen Saturation [94-100 %] 100 % (08/26/21 5:26 AM) 100 % (08/26/21 4:10 AM) 99 % (08/26/21 12:35 AM) Pulse Rate [55-90 bpm] 98 bpm *H* (08/26/21 5:26 AM) 87 bpm (08/26/21 4:10 AM) 95 bpm *H* (08/26/21 12:35 AM) Blood Pressure [90-138/55-84 mm Hg] 130/86mm Hg (08/26/21 5:26 AM) 183/92mm Hg *H* (08/26/21 4:10 AM) 144/99mm Hg *H* (08/26/21 12:35 AM) Respiratory Rate [16-30 br/min] 20 br/min (08/26/21 5:26 AM) 18 br/min (08/26/21 12:35 AM) 20 br/min (08/25/21 9:02 PM) Temperature [96.8-100.4 DegF] 98.8 DegF (08/26/21 5:26 AM) 98.3 DegF (08/26/21 4:10 AM) 98.2 DegF (08/26/21 12:35 AM) Mode of Delivery (Oxygen) Room air (08/26/21 5:26 AM) Room air (08/26/21 4:10 AM) Room air (08/26/21 12:35 AM) Blood pressure sites Arm, left (08/26/21 5:26 AM) Arm, right (08/26/21 4:10 AM) Temperature Route Oral (08/26/21 5:26 AM) Oral (08/26/21 4:10 AM) Oral (08/26/21 12:35 AM) Social History Social History Type Response Smoking Status 5-9 cigarettes (betw een 1/4 to 1/2 pack)/day in last 30 days;10 or more cigarettes (1/2 pack or more)/day in last 30 days entered on: 08/25/21 Sex
--- OUTSIDE RECORDS SUMMARY | 2022-10-15 00:50 | XMS_ITS | Continuity of Care Document ---
Author Name Unknown Organization [facility] Address [address] [place] [address]- Care Team Providers Care Compound Worker Name Role Phone Raza BALDERAS, Harlan Primary Care Physician Encounter [facility] Date(s): 06/28/22 - 07/28/[address] [id number] Allergies, Adverse Reactions, Alerts Substance Reaction Severity Status penicillin Hives Active Immunizations Given and Recorded Vaccine Date Status Refusal Reason FluLaval (oldterm) 1 12/23/10 Given pneumococcal 23-valent vaccine 2 03/24/10 Given influenza virus vaccine, inactivated 3 01/27/10 Gi caroline tetanus-diphtheria toxoids (Td) 4 01/27/10 Given Not Given Vaccine Date Status Refusal Reason SARS-CoV-2 mRNA (bzdcaqe-jvqb-xfewc) vax 09/28/21 Not Given Patient Refuses tetanus/diphtheria/pertussis, acel(Tdap) 09/28/21 Not Given Patient Refuses 1Admin Note: vis given 2Admin Note: vis 05/23/2008 3Admin Note: vis 09/16/09 4Admin Note: vis Medications acetaminophen-oxyCODONE 325 mg-5 mg oral tablet 1, tablet, By Mouth, Every 6 hours, # 112 tablet, Refills 0, Tot. Refills 0, Maintenance, 06/30/22 9:33:00 EDT, Route to Pharmacy Electronically, [facility] - [place], [place] - [id number], please fill on 06/01; MassPAT checked; on contract, 178,... Start Date: 06/30/22 Stop Date: 07/28/22 Status: Ordered amLODIPine 5 mg oral tablet 2 tablet = 10 mg, By Mouth, Daily, # 180 tablet, 1 Refills, Maintenance, 05/31/22 10:01:00 EDT, [place], [place] - [id number], 178, cm, 05/04/22 11:41:00 EDT, Height, 104.6, kg, 02/15/22 14:37:00 EST, Dry Weight Start Date: 05/31/22 Stop Date: 11/27/22 Status: Ordered Aspirin Low Dose 81 mg oral delayed release tablet 1 tablet, By Mouth, Daily, # 30 tablet, 3 Refills, Maintenance, 05/21/22 15:29:00 EDT, [facility], 178, cm, 05/04/22 11:41:00 EDT, Height, 104.6, kg, 02/15/22 14:37:00 EST, Dry Weight Start Date: 05/21/22 Status: Ordered atorvastatin 80 mg oral tablet 1 tablet, By Mouth, Daily, # 30 tablet, 5 Refills, Maintenance, 05/21/22 14:00:00 EDT, [facility], 178, cm, 05/04/22 11:41:00 EDT, [...] 0 Refills, Maintenance, 07/21/22 16:02:00 EDT, Tablet, [place], [place] - [id number], Partial fill upon patient request if the prescription is for... Start Date: 07/21/22 Stop Date: 08/20/22 Status: Ordered clopidogrel 75 mg oral tablet 1, tablet, By Mouth, Daily, # 30 tablet, Refills 0, Maintenance, 07/21/22 16:02:00 EDT, Route to Pharmacy Electronically, [facility], 178, cm, 07/15/22 13:22:00 EDT, Height, 104.6, kg, 02/15/22 14:37:00 EST, Dry Weight Start Date: 07/21/22 Status: Ordered docusate sodium 100 mg oral capsule 1 capsule, By Mouth, 2 times a day, PRN NEEDED FOR CONSTIPATION, # 30 each, 2 Refills, Maintenance, 05/21/22 11:07:00 EDT, [facility], 178, cm, 05/04/22 11:41:00 EDT, Height, 104.6, kg, 02/15/22 14:37:00 EST, Dry Weight Start Date: 05/21/22 Status: Ordered Eliquis 5 mg oral tablet 1 tablet = 5 mg, By Mouth, 2 times a day, Please bubble pack and deliver, # 60 tablet, 5 Refills, Maintenance, 02/02/22 12:28:00 EST, Tablet, [place], [place] - [id number], Partial fill upon patient request if the [...] Maintenance, 07/22/2315:01:00 EDT, Route to Pharmacy Electronically, [facility], [place] - [id number], 178, cm, 07/15/22 13:22:00 EDT, Height, 104.6, kg, 01/0... Start Date: 07/21/22 Stop Date: 08/20/22 Status: Ordered Gold Bonilla Ultimate Softening topical lotion 1 application, Topically, 2 times a day, PRN for dry skin, to affected area, # 420 mL, 3 Refills, Maintenance, 10/27/21 12:11:00 EDT, Lotion, [facility], [place] - [id number], 1 application Topically 2 times a day,PRN:for dry skin,Instr:... Start Date: 10/27/21 Status: Ordered hydrochlorothiazide-losartan 12.5 mg-50 mg oral tablet See Instructions, TAKE 1 TABLET BY MOUTH ONCE DAILY, # 90 tablet, 1 Refills, Maintenance, 07/16/22 10:37:00 EDT, [facility], [place] - [id number], 90, TAKE 1 TABLET BY MOUTH ONCE DAILY,178, cm, 07/15/22 13:22:00 EDT, Height, 104.6, kg,... Start Date: 07/16/22 Status: Ordered Jardiance 10 mg oral tablet 1 tablet = 10 mg, By Mouth, Daily in AM, # 90 tablet, 0 Refills, Maintenance, 05/31/22 9:51:00 EDT,Tablet, [facility], [place] - [id number], Partial fill upon patient request if the prescription is for a schedule II opioid drug., 178, c... Start Date: 05/31/22 Stop Date: 08/29/22 Status: Ordered Lantus Solostar Pen 100 units/mL subcutaneous solution See Instructions, INJECT 42 UNITS SUBCUTANEOUSLY ONCE DAILY, # 15 mL, 2 Refills, Maintenance, 05/14/22 13:20:00 EDT, [facility], 178, cm, 05/04/22 11:41:00 EDT, Height, 104.6, kg, 02/15/22 14:37:00 EST, Dry Weight Start Date: 05/14/22 Status: Ordered MetFORMIN (Eqv-Glucophage XR) 500 mg oral tablet, extended release 2 tablet, By Mouth, 2 times a day, # 120 tablet, 1 Refills, Maintenance, 07/26/22 17:29:00 EDT, [facility], 178, cm, 07/15/22 13:22:00 EDT, Height, 104.6, kg, 02/15/22 14:37:00 EST, Dry Weight Start Date: 07/26/22 Status: Ordered Metoprolol Tartrate 25 mg oral tablet See Instructions, TAKE 1 TABLET BY MOUTH two (2) times a day, # 60 tablet, 2 Refills, Maintenance, 06/19/22 14:55:00 EDT, [facility] [id number], 178, cm, 06/10/22 9:30:00 EDT, Height, 104.6, kg, 02/15/22 14:37:00 EST, Dry Weight Start Date: 06/19/22 Status: Ordered nalOXONE 4 mg/0.1 mL nasal spray = 4 mg, Nares, Both, Once, # 2 each, 0 Refills, Soft Stop, 11/17/21 12:37:00 EDT, [facility], [facility] [id number], Partial fill upon patient request if the prescription is for a schedule II opioid drug., 102.5, cm, 11/16/21 16:08:00 EDT... Start Date: 11/17/21 Status: Ordered NuLYTELY with Flavor Packs oral powder for reconstitution See Instructions, Drink 240mL every 15-20 minutes until first half is gone. Repeat 6 hours prior toprocedure., # 4,000 mL, 0 Refills, Maintenance, 04/27/22 11:40:00 EDT, [facility] [id number], Partial fill upon patient reque... Start Date: 04/27/22 Status: Ordered Pen [place], 31 G x 5 mm BD Ultra [...] use Confirmed Active Vitreous hemorrhage Confirmed Active 86926 2type unknown 3X3, last in 2015 Social History Social History Type Response Tobacco Use: 4 or less cigar ettes(less than 1/4 pack)/day in last 30 days. Other: smoking for 40 yrs.. Sex Patient Care team information Care Team Personnel Name: Harlan Person NP Position: [facility] Associate Professional Member Role: PCP Address: Address: [address] [place] [address]- Care Team Related Persons Name: ELADIA CORRIGAN Address: home [address] [place] [address]
--- OUTSIDE RECORDS SUMMARY | 2022-10-15 00:50 | XMS_ITS | Continuity of Care Document ---
Author Name Unknown Organization [facility] ter Address [address] [place] [address]- Care Team Providers Care Finished Carpet Inspector Name Role Phone Raza BALDERAS, Harlan Primary Care Physician [place] [facility] 02/23/22 - 03/25/[address] [id number] Allergies, Adverse Reactions, Alerts Substance Reaction Severity Status penicillin Hives Active Immunizations Given and Recorded Vaccine Date Status Refusal Reason FluLaval (oldterm) 1 12/23/10 Given pneumococcal 23-valent vaccine 2 03/24/10 Given influenza virus vaccine, inactivated 3 01/27/10 Gi caroline tetanus-diphtheria toxoids (Td) 4 01/27/10 Given Not Given Vaccine Date Status Refusal Reason SARS-CoV-2 mRNA (uytuzpo-ftta-yvoab) vax 09/28/21 Not Given Patient Refuses tetanus/diphtheria/pertussis, acel(Tdap) 09/28/21 Not Given Patient Refuses 1Admin Note: vis given 2Admin Note: vis 05/23/2008 3Admin Note: vis 09/16/09 4Admin Note: vis Medications acetaminophen-oxyCODONE 325 mg-5 mg oral tablet 1, tablet, By Mouth, Every 6 hours, # 112 tablet, Refills 0, Tot. Refills 0, Maintenance, 03/06/22 9:53:00 EST, Route to Pharmacy Electronically, [facility] - [place], [place] - [id number], please fill on 01/02, 178, cm, 02/15/22 14:37:00 EST, Hei... Start Date: 03/06/22 Stop Date: 04/03/22 Status: Ordered Aspirin Low Dose 81 mg oral delayed release tablet 1 tablet, By Mouth, Daily, # 30 tablet, 3 Refills, Maintenance, 01/19/22 14:38:00 EST, [facility], 176, cm, 01/11/22 9:46:00 EST, Height Start Date: 01/19/22 Status: Ordered atorvastatin 80 mg oral tablet See Instructions, TAKE 1 TABLET BY MOUTH ONCE DAILY, # 30 tablet, 5 Refills, Maintenance, 11/11/21 11:38:00 EDT, [facility], 176, cm, 10/27/21 11:36:00 EDT, Height Start Date: 11/11/21 Status: Ordered Blood Pressure Monitor See Instructions, # 1 each, Refills 0, Tot. Refills 0, Maintenance, patient persistent elevated BP ICD: I10 please send to L&C thank you, Harlan Person DNP, [facility], 10/09/21 9:52:00 EDT, Supply Start Date: 10/09/21 Status: Ordered Cane See Instructions, # 1 each, Maintenance, patient with chronic left hip pain, and Left knee OA needscane please ICD10 M17. 9, M25. 552 Thank you, Harlan Person DNP, STRAPPER OPERATOR-C, 01/11/22 10:01:00 EST, Supply Start Date: 01/11/22 Status: Ordered clonazePAM 1 mg oral tablet 1 tablet = 1 mg, By Mouth, 3 times a day, Please bubble pack and deliver, # 90 tablet, 0 Refills, Maintenance, 03/22/22 13:07:00 EST, Tablet, [place], [place] - [id number], Partial fill upon patient request if the prescription is for... Start Date: 03/22/22 Stop Date: 04/21/22 Status: Ordered Doculase 100 mg oral capsule 1 capsule = 100 mg, By Mouth, 2 times a day, PRN for constipation, # 30 capsule, 2 Refills, Maintenance, 03/17/22 13:53:00 EST, Capsule, [place], [place] - [id number], Partial fill upon patient request if the prescription is for a dejah... Start Date: 03/17/22 Stop Date: 06/15/22 Status: Ordered Eliquis 5 mg oral tablet 1 tablet = 5 mg, By Mouth, 2 times a day, Please bubble pack and deliver, # 60 tablet, 5 Refills, Maintenance, 02/02/22 12:28:00 EST, Tablet, [facility] - [place], [place] - [id number], Partial fill upon patient request if the [...] 3 Refills, Maintenance, 10/27/21 12:11:00 EDT, Lotion, [place], [place] - [id number], 1 application Topically 2 times a day,PRN:for dry skin,Instr:... Start Date: 10/27/21 Status: Ordered hydrochlorothiazide-losartan 12.5 mg-50 mg oral tablet See Instructions, TAKE 1 TABLET BY MOUTH ONCE DAILY, # 90 tablet, 1 Refills, Maintenance, 02/02/22 12:29:00 EST, [place], [place] - [id number], 90, TAKE 1 TABLET BY MOUTH ONCE [...] mL, 2 Refills, Maintenance, 03/17/22 13:54:00 EST, [facility], 178, cm, 03/15/22 15:13:00 EST, Height, 104.6, kg, 02/15/22 14:37:00 EST, Dry Weight Start Date: 03/17/22 Status: Ordered Metoprolol Tartrate 25 mg oral tablet See Instructions, TAKE 1 TABLET BY MOUTH two (2) times a day, # 60 tablet, 2 Refills, Maintenance, 12/18/21 12:59:00 EST, [facility], [facility] [id number], 176, cm, 12/11/21 9:33:00 EDT, Height Start Date: 12/18/21 Status: Ordered nalOXONE 4 mg/0.1 mL nasal spray = 4 mg, Nares, Both, Once, # 2 each, 0 Refills, Soft Stop, 11/17/21 12:37:00 EDT, [facility], [place] - [id number], Partial fill upon patient request if the prescription is for a schedule II opioid drug., 102.5, cm, 11/16/21 16:08:00 EDT... Start Date: 11/17/21 Status: Ordered Nicotine 2 mg gum 1 each = 2 mg, Chew, Every 2 hours, PRN as needed for smoking cessation, for 8 week(s), # 100 each,1 Refills, Acute 05/25/22 12:28:00 EDT, 02/02/22 12:28:00 EST, Gum, [facility], [facility] [id number], Partial fill upon patient request i... Start Date: 02/02/22 Stop Date: 05/25/22 Status: Ordered Pen [place], 31 G x 5 mm BD Ultra [...] tablet, 2 Refills, Maintenance, 02/25/22 21:52:00 EST, [facility], 178, cm, 02/15/22 14:37:00 EST, Height, [...] prophylaxis Confirmed Active Tobacco use Confirmed Active 82530 2type unknown 3X3, last in 2016 Social History Social History Type Response Tobacco Use: 4 or less cigar ettes(less than 1/4 pack)/day in last 30 days. Other: smoking for 40 yrs.. Sex Patient Care team information Care Team Personnel Name: Harlan Person NP Position: [facility] Associate Professional Member Role: PCP Address: Address: [address] [place] [address]- Care Team Related Persons Name: ELADIA CORRIGAN Address: [address] [place] [address]
--- OUTSIDE RECORDS SUMMARY | 2022-10-15 00:50 | XMS_ITS | Continuity of Care Document ---
Author Name Unknown Organization [facility] Address [address] [place] [address]- Care Team Providers Care Safety Compliance Specialist Name Role Phone Harlan Person NP Primary Care Physician [phone] Encounter [facility] Date(s): 12/05/21 - 01/14/[address] [address] Attending Physician: Harlan Person NP Admitting Physician: Harlan Person NP Referring Physician: Harlan Person NP Allergies, Adverse Reactions, Alerts Substance Reaction Severity Status penicillin Hives Active Immunizations Given and Recorded Vaccine Date Status Refusal Reason FluLaval (oldterm) 1 12/23/10 Given pneumococcal 23-valent vaccine 2 03/24/10 Given influenza virus vaccine, inactivated 3 01/27/10 Gi caroline tetanus-diphtheria toxoids (Td) 4 01/27/10 Given Not Given Vaccine Date Status Refusal Reason SARS-CoV-2 mRNA (tzqpvai-kwte-dxtxw) vax 09/28/21 Not Given Patient Refuses tetanus/diphtheria/pertussis, acel(Tdap) 09/28/21 Not Given Patient Refuses 1Admin Note: vis given 2Admin Note: vis 05/23/2008 3Admin Note: vis 09/16/09 4Admin Note: vis Medications acetaminophen-oxyCODONE 325 mg-5 mg oral tablet 1, tablet, By Mouth, Every 6 hours, # 112 tablet, Refills 0, Tot. Refills 0, Maintenance, 12/29/21 10:47:00 EST, Route to Pharmacy Electronically, [facility] - [place], [place] - [id number], please fill on 01/02, 176, cm, 11/04/22 9:33:00 EDT, Height Start Date: 12/29/21 Stop Date: 01/26/22 Status: Ordered aspirin 81 mg oral delayed release tablet 81 mg, 1, tablet, By Mouth, Daily, # 30 tablet, Refills 3, Tot. Refills 3, Maintenance, 10/09/21 9:23:00 EDT, Route to Pharmacy Electronically, [place], [place] - [id number], Partialfill upon patient request if the prescription is fo... Start Date: 10/09/21 Stop Date: 02/06/22 Status: Ordered atorvastatin 80 mg oral tablet See Instructions, TAKE 1 TABLET BY MOUTH ONCE DAILY, # 30 tablet, 5 Refills, Maintenance, 11/11/21 11:38:00 EDT, [facility], 176, cm, 10/27/21 11:36:00 [...] M25. 552 Thank you, Harlan Person DNP, HILDA-C, 01/11/22 10:01:00 EST, Supply Start Date: 01/11/22 Status: Ordered clonazePAM 1 mg oral tablet 1 tablet = 1 mg, By Mouth, 3 times a day, Please bubble pack and deliver, # 90 tablet, 0 Refills, Maintenance, 12/29/21 10:43:00 EST, Tablet, [place], [place] - [id number], Partial fill upon patient request if the prescription is for... Start Date: 12/29/21 Stop Date: 01/28/22 Status: Ordered doxycycline monohydrate 100 mg oral capsule 1 capsule = 100 mg, By Mouth, 2 times a day, for 10 days, # 20 capsule, 0 Refills, Acute 01/17/22 11:11:00 EST, 01/07/22 11:11:00 EST, Capsule, [place], [place] - [id number], Partialfill upon patient request if the prescription is fo... Start Date: 01/07/22 Stop Date: 01/17/22 Status: Ordered Eliquis 5 mg oral tablet 1 tablet = 5 mg, By Mouth, 2 times a day, Please bubble pack and deliver, # 60 tablet, 5 Refills, Maintenance, 08/27/21 13:36:00 EDT, Tablet, [place], [place] - [id number], Partial fill upon patient request if the [...] 3 Refills, Maintenance, 10/27/21 12:11:00 EDT, Lotion, [facility] [id number], 1 application Topically 2 times a day,PRN:for dry skin,Instr:... Start Date: 10/27/21 Status: Ordered hydrochlorothiazide-losartan 12.5 mg-50 mg oral tablet See Instructions, TAKE 1 TABLET BY MOUTH ONCE DAILY, # 90 tablet, 1 Refills, Maintenance, 11/11/21 11:38:00 EDT, [facility], , TAKE 1 TABLET BY MOUTH ONCE DAILY, 176, cm, 10/27/21 11:36:00 EDT, Height Start Date: 11/11/21 Status: Ordered Lantus Solostar Pen 100 units/mL subcutaneous solution = 40 units, Subcutaneous Infusion, Daily, Please dispense 6 pens, # 15 mL, 2 Refills, Maintenance, 12/30/21 11:12:00 EST, [facility] [id number], Partial fill upon patient request if the prescription is for a schedule II opioid... Start Date: 12/30/21 Stop Date: 03/30/22 Status: Ordered Metoprolol Tartrate 25 mg oral tablet See Instructions, TAKE 1 TABLET BY MOUTH two (2) times a day, # 60 tablet, 2 Refills, Maintenance, 12/18/21 12:59:00 EST, [facility] [id number], 176, cm, 12/11/21 9:33:00 EDT, Height Start Date: 12/18/21 Status: Ordered nalOXONE 4 mg/0.1 mL nasal spray = 4 mg, Nares, Both, Once, # 2 each, 0 Refills, Soft Stop, 11/17/21 12:37:00 EDT, [facility], [place] - [id number], Partial fill upon patient request if the prescription is for a schedule II opioid drug., 102.5, cm, 11/16/21 16:08:00 EDT... Start Date: 11/17/21 Status: Ordered Pen [place], 31 G x 5 mm BD Ultra [...] tablet, 2 Refills, Maintenance, 11/17/21 16:07:00 EDT, [facility], 102.5, cm, 11/16/21 16:08:00 [...] prophylaxis Confirmed Active Tobacco use Confirmed Active 13040 2type unknown 3X3, last in 2016 Social History Social History Type Response Smoking Status 10 or more cigarette s (1/2 pack or more)/day in last 30 days entered on: 09/28/21 Sex Patient Care team information Care Team Personnel Name: Harlan Person NP Position: S Associate Professional Member Role: PCP Address: Address: [address] [place] [address] Care Team Related Persons Name: ELADIA CORRIGAN Address: home [address] [place] [id number]
--- OUTSIDE RECORDS SUMMARY | 2022-10-15 00:50 | XMS_ITS | Continuity of Care Document ---
Author Name Unknown Organization [facility] Address [address] [place] [address]- Care Team Providers Care Waterproofer Helper Name Role Phone Harlan Person NP Primary Care Physician [phone] Encounter [facility] R [id number] Date(s): 03/15/22 - 03/22/22 [facility] [address] [place] [address]- Attending Physician: Diann Guallpa MD Referring Physician: Harlan Person NP Allergies, Adverse Reactions, Alerts Substance Reaction Severity Status penicillin Hives Active Immunizations Given and Recorded Vaccine Date Status Refusal Reason FluLaval (oldterm) 1 12/23/10 Given pneumococcal 23-valent vaccine 2 03/24/10 Given influenza virus vaccine, inactivated 3 01/27/10 Gi caroline tetanus-diphtheria toxoids (Td) 4 01/27/10 Given Not Given Vaccine Date Status Refusal Reason SARS-CoV-2 mRNA ([id number]-[id number]-rpgzu) vax 09/28/21 Not Given Patient Refuses tetanus/diphtheria/pertussis, acel(Tdap) 09/28/21 Not Given Patient Refuses 1Admin Note: vis given 2Admin Note: vis 05/23/2008 3Admin Note: vis 09/16/09 4Admin Note: vis Medications acetaminophen-oxyCODONE 325 mg-5 mg oral tablet 1, tablet, By Mouth, Every 6 hours, # 112 tablet, Refills 0, Tot. Refills 0, Maintenance, 03/06/22 9:53:00 EST, Route to Pharmacy Electronically, [facility] - [place], [place] - [id number], please fill on 01/02, 178, cm, 02/15/22 14:37:00 EST, Hei... Start Date: 03/06/22 Stop Date: 04/03/22 Status: Ordered Aspirin Low Dose 81 mg oral delayed release tablet 1 tablet, By Mouth, Daily, # 30 tablet, 3 Refills, Maintenance, 01/19/22 14:38:00 EST, [facility], 176, cm, 01/11/22 9:46:00 EST, Height Start Date: 01/19/22 Status: Ordered atorvastatin 80 mg oral tablet See Instructions, TAKE 1 TABLET BY MOUTH ONCE DAILY, # 30 tablet, 5 Refills, Maintenance, 11/11/21 11:38:00 EDT, [facility], 176, cm, 10/27/21 11:36:00 EDT, Height Start Date: 11/11/21 Status: Ordered Blood Pressure Monitor See Instructions, # 1 each, Refills 0, Tot. Refills 0, Maintenance, patient persistent elevated BP ICD: I10 please send to L&C thank you, Harlan Person DNP, SHOWER DOORS AND PANELS FABRICATOR-C, 10/09/21 9:52:00 EDT, Supply Start Date: 10/09/21 Status: Ordered Cane See Instructions, # 1 each, Maintenance, patient with chronic left hip pain, and Left knee OA needscane please ICD10 M17. 9, M25. 552 Thank you, Harlan Person DNP, SHOWER DOORS AND PANELS FABRICATOR-C, 01/11/22 10:01:00 EST, Supply Start Date: 01/11/22 Status: Ordered clonazePAM 1 mg oral tablet 1 tablet = 1 mg, By Mouth, 3 times a day, Please bubble pack and deliver, # 90 tablet, 0 Refills, Maintenance, 03/22/22 13:07:00 EST, Tablet, [place], [place] - [id number], Partial fill upon patient request if the prescription is for... Start Date: 03/22/22 Stop Date: 04/21/22 Status: Ordered Doculase 100 mg oral capsule 1 capsule = 100 mg, By Mouth, 2 times a day, PRN for constipation, # 30 capsule, 2 Refills, Maintenance, 03/17/22 13:53:00 EST, Capsule, [place], [place] - [id number], Partial fill upon patient request if the prescription is for a dejah... Start Date: 03/17/22 Stop Date: 06/15/22 Status: Ordered Eliquis 5 mg oral tablet 1 tablet = 5 mg, By Mouth, 2 times a day, Please bubble pack and deliver, # 60 tablet, 5 Refills, Maintenance, 02/02/22 12:28:00 EST, Tablet, [facility] - [place], [place] - [phone], Partial fill upon patient request if the [...] 3 Refills, Maintenance, 10/27/21 12:11:00 EDT, Lotion, [place], [place] - [id number], 1 application Topically 2 times a day,PRN:for dry skin,Instr:... Start Date: 10/27/21 Status: Ordered hydrochlorothiazide-losartan 12.5 mg-50 mg oral tablet See Instructions, TAKE 1 TABLET BY MOUTH ONCE DAILY, # 90 tablet, 1 Refills, Maintenance, 02/02/22 12:29:00 EST, [place], [place] - [id number], 90, TAKE 1 TABLET BY MOUTH ONCE [...] mL, 2 Refills, Maintenance, 03/17/22 13:54:00 EST, [facility], 178, cm, 03/15/22 15:13:00 EST, Height, 104.6, kg, 02/15/22 14:37:00 EST, Dry Weight Start Date: 03/17/22 Status: Ordered Metoprolol Tartrate 25 mg oral tablet See Instructions, TAKE 1 TABLET BY MOUTH two (2) times a day, # 60 tablet, 2 Refills, Maintenance, 12/18/21 12:59:00 EST, [facility] [id number], 176, cm, 12/11/21 9:33:00 EDT, Height Start Date: 12/18/21 Status: Ordered nalOXONE 4 mg/0.1 mL nasal spray = 4 mg, Nares, Both, Once, # 2 each, 0 Refills, Soft Stop, 11/17/21 12:37:00 EDT, [facility] [id number], Partial fill upon patient request if the prescription is for a schedule II opioid drug., 102.5, cm, 11/16/21 16:08:00 EDT... Start Date: 11/17/21 Status: Ordered Nicotine 2 mg gum 1 each = 2 mg, Chew, Every 2 hours, PRN as needed for smoking cessation, for 8 week(s), # 100 each,1 Refills, Acute 05/25/22 12:28:00 EDT, 02/02/22 12:28:00 EST, Gum, [facility], [facility] [id number], Partial fill upon patient request i... Start Date: 02/02/22 Stop Date: 05/25/22 Status: Ordered Pen [place], 31 G x 5 mm BD Ultra [...] tablet, 2 Refills, Maintenance, 02/25/22 21:52:00 EST, [facility], 178, cm, 02/15/22 14:37:00 EST, Height, [...] prophylaxis Confirmed Active Tobacco use Confirmed Active 63770 2type unknown 3X3, last in 2016 Vital Signs Most recent to oldest [Reference Range]: 1 Height 178 cm (03/15/22 3:13 PM) Oxygen Saturation [94-100 %] 100 % (03/15/22 3:13 PM) Pulse Rate [55-90 bpm] 81 bpm (03/15/22 3:13 PM) Blood Pressure [90-138/55-84 mm Hg] 154/ 97mm Hg *H* (03/15/22 3:13 PM) Temperature [96.8-100.4 DegF] 98.2 DegF (03/15/22 3:13 PM) Mode of Delivery (Oxygen) Room air (03/15/22 3:13 PM) Blood pressure sites Arm, right (03/15/22 3:13 PM) Temperature Route Temporal (03/15/22 3:13 PM) Social History Social History Type Response Tobacco Use: 4 or less cigar ettes(less than 1/4 pack)/day in last 30 days. Other: smoking for 40 yrs.. Sex Note * Teri Lewis: PERFORM, SIGN, VERIFY Event Display: Patient Education/Instruction Authored Date: [id number] [facility] *[facility] Care Clinical Summary Name SHANDRA MCKEON Age 52 Years 1970 PCP Raza MANAGER ENTRY, Harlan PCP Visit Date 03/15/2022 13:43:00 Additional Instructions: Scheduled Appointments?? Future Appointments ?*[facility]??[address] ?Phone:??--?Fax:??-- ?Appt. Date:??03/30/2022?9:20 AM ?Scheduled Provider:??[facility] ?*[facility] ?[address]??[place],??[place],??[address] ?Phone:??--?Fax:??-- ?Appt. Date:??04/02/2022?9:30 AM ?Scheduled Provider:??Lexie MANAGER ENTRY, Nick Dattatra ?*[facility] ?[address]??[place],??[place],??[address] ?Phone:??--?Fax:??-- ?Appt. Date:??04/27/2022?11:30 AM ?Scheduled Provider:??Francisco Javier LEI, Rowena Gerda ?*[place] ?[address] ?[address] ?[place],??[place],??[address] ?Phone:??--?Fax:??-- ?Appt. Date:??06/10/2022?9:20 AM ?Scheduled Provider:??Dulce MCGARRY, Felice Follow-Up Instructions ?? Diagnosis Medications: Please continue your medications until treatment is completed or stopped by your provider. Discuss any questions related to medications with your provider. New Medications [facility] - [place], [place] - [id number], [address] [place] [phone], [phone] Doxycycline (doxycycline hyclate 100 mg oral tablet) 1 tab(s) Oral twice a day for 7 Days. Refills:0. Next Dose: Medications to Continue with No Changes These medications were not printed or sent to your pharmacy apixaban (Eliquis 5 mg oral tablet) 1 tab(s) Oral twice a day. Please bubble pack and deliver. Refills: 5. Next Dose: Aspirin (Aspirin Low Dose 81 mg oral delayed release tablet) 1 tab(s) Oral Daily. Refills: 3. Next Dose: Atorvastatin (atorvastatin 80 mg oral tablet) TAKE 1 TABLET BY MOUTH ONCE DAILY. Refills: 5. Next Dose: Clonazepam (clonazePAM 1 mg oral tablet) 1 tab(s) Oral 3 times a day for 30 Days. Please bubble pack and deliver. Refills: 0. Next Dose: Durable Medical Equipment (Blood Pressure Monitor) patient persistent elevated BP ICD: I10 please send to L&C thank you, Harlan Person DNP, SHOWER DOORS AND PANELS FABRICATOR-C. Refills: 0. Next Dose: Durable Medical Equipment (Cane) patient with chronic left hip pain, and Left knee OA needs cane please ICD10 M17. 9, M25. 552 Thank you, Harlan Person DNP, SHOWER DOORS AND PANELS FABRICATOR-C. Refills: 0. Next Dose: Durable Medical Equipment (FreeStyle Merlin 2 Monitor) use to test blood sugar at least q8h as directed. Refills: 0. Next Dose: Durable Medical Equipment (FreeStyle Merlin 2 Sensors) use to test blood sugar at least q8h. change sensor every 14 days.. Refills: 11. Next Dose: Durable Medical Equipment (Freestyle Merlin Sensor) use as directed for Type 2 Diabetes Mellitus. Refills: 0. Next Dose: Durable Medical Equipment (Freestyle Lite Lancets) Use to check blood sugar three times a day before meals for Type 2 DM on insulin. Refills: 11. Next Dose: Durable Medical Equipment (Freestyle Lite Monitor) Use to check blood sugar three times a day before meals for Type 2 DM on insulin. Refills: 0. Next Dose: Durable Medical Equipment (Freestyle Lite Test Strips) Use to check blood sugar three times a day before meals for Type 2 DM on insulin. Refills: 11. Next Dose: Durable Medical Equipment (Pen [place], 31 G x 5 mm BD Ultra Fine III) Use to inject insulin 4 times a day for type 2 diabetes.. Refills: 11. Next Dose: Emollients, Topical (Gold Bonilla Ultimate Softening topical lotion) 1 nikki Topically twice a day as needed for dry skin. to affected area. Refills: 3. Next Dose: Gabapentin (gabapentin 300 mg oral capsule) 1 capsule Oral twice a day. Next Dose: Hydrochlorothiazide-Losartan (hydrochlorothiazide-losartan 12.5 mg-50 mg oral tablet) TAKE 1 TABLETBY MOUTH ONCE DAILY. Refills: 1. Next Dose: Insulin Glargine (Lantus Solostar Pen 100 units/mL subcutaneous solution) 44 unit(s) Subcutaneous Infusion Daily for 30 Days. Please dispense 6 pens. Refills: 2. Next Dose: Insulin Lispro (Insulin Lispro KwikPen 100 units/mL injectable solution) INJECT 10 UNITS UNDER THE SKIN 3 (THREE) TIMES A DAY BEFORE MEALS. Next Dose: Metoprolol (Metoprolol Tartrate 25 mg oral tablet) TAKE 1 TABLET BY MOUTH two (2) times a day. Refills: 2. Next Dose: nalOXONE (nalOXONE 4 mg/0.1 mL nasal spray) 4 Milligram Nares, Both once. Refills: 0. Next Dose: Nicotine (Nicotine 2 mg gum) 1 Each Chew every 2 hours as needed as needed for smoking cessation for 8 week(s). Refills: 1. Next Dose: Oxycodone / Acetaminophen (acetaminophen-oxyCODONE 325 mg-5 mg oral tablet) 1 tab(s) Oral every 6 hours for 28 Days. Refills: 0. Next Dose: Sertraline (sertraline 100 mg oral tablet) 1 tab(s) Oral Daily. Refills: 2. Next Dose: Allergy Info:?? penicillin Medications Given This Visit Future Orders ?No future orders Vital Signs Height 178 cm Weight BMI Blood Pressure 154 mm Hg/97 mm Hg Temperature 98.2 DegF Pulse Rate 81 bpm Respiratory Rate 02 Sat Mode of Delivery 100 %/Room air You can now view a summary of your hospital visit from the comfort of your home through a free online portal called [email or web address]. [email or web address] is a website that allows you to securely view your medical information including discharge summary, medications and follow-up visits. ??You can alsosend a secure electronic message to your doctor???s office to request appointments, renew medications or just ask a question. You can enroll at [email or web address] or register during your next office visit. Disclaimer:?? The information provided is of a general nature and is intended to be used in conjunction with the recommendations and advice of your health care practitioner. ??Every effort has been made to ensure that the information provided is accurate and complete at the time it is provided to you however, as your needs change, or, as new ??information becomes available, different or additional instructions may be required. If you have questions, please consult with your primary care provider or pharmacist, as appropriate. ??This information is not intended to serve as substitution for assessment and evaluation by a qualified health care provider. If you do not have a primary care provider, you may find a [facility] provider by calling [facility] [employer] at [phone]. For information about the plan of care including goals and instructions for your diagnosis, please see the patient education orders section of this document. Patient Education Materials?? The content of this educational material or handout may have been modified, supplemented, or adapted from its original content and format to support your individualized medical care. Patient Care team information Care Team Personnel Name: Harlan Person NP Position: S Associate Professional Member Role: PCP Address: Address: [address] [place] [address] Care Team Related Persons Name: ELADIA CORRIGAN Address: home [address] [place] [address]
--- OUTSIDE RECORDS SUMMARY | 2022-10-15 00:50 | XMS_ITS | Continuity of Care Document ---
Author Name Unknown Organization [facility] Address [address] [place] [address]- Care Team Providers Care Basket Maker Name Role Phone Raza BALDERAS, Harlan Primary Care Physician Encounter [facility] Date(s): 09/23/21 - 10/30/[address] [address]- Attending Physician: Not on Staff, Attending MD Allergies, Adverse Reactions, Alerts Substance Reaction Severity Status penicillin Hives Active Immunizations Given and Recorded Vaccine Date Status Refusal Reason FluLaval (oldterm) 1 12/23/10 Given pneumococcal 23-valent vaccine 2 03/24/10 Given influenza virus vaccine, inactivated 3 01/27/10 Gi caroline tetanus-diphtheria toxoids (Td) 4 01/27/10 Given Not Given Vaccine Date Status Refusal Reason SARS-CoV-2 mRNA ([id number]-gano-zvciw) vax 09/28/21 Not Given Patient Refuses tetanus/diphtheria/pertussis, acel(Tdap) 09/28/21 Not Given Patient Refuses 1Admin Note: vis given 2Admin Note: vis 05/23/2008 3Admin Note: vis 09/16/09 4Admin Note: vis Medications acetaminophen-oxyCODONE 325 mg-5 mg oral tablet 1, tablet, By Mouth, Every 6 hours, # 28 tablet, Refills 0, Tot. Refills 0, Maintenance, 10/22/21 19:47:00 EDT, Route to Pharmacy Electronically, [facility] - [place], [place] - [id number], Partial fill upon patient request if the prescription is... Start Date: 10/22/21 Stop Date: 10/29/21 Status: Ordered aspirin 81 mg oral delayed release tablet 81 mg, 1, tablet, By Mouth, Daily, # 30 tablet, Refills 3, Tot. Refills 3, Maintenance, 10/09/21 9:23:00 EDT, Route to Pharmacy Electronically, [facility] [id number], Partialfill upon patient request if the prescription is fo... Start Date: 10/09/21 Stop Date: 02/06/22 Status: Ordered atorvastatin 80 mg oral tablet 1 tablet = 80 mg, By Mouth, Daily, # 30 tablet, 1 Refills, Maintenance, 09/28/21 15:06:00 EDT, Tablet, [facility] [id number], Partial fill upon patient request if the prescription is for a schedule II opioid drug., 176, cm, 08... Start Date: 09/28/21 Status: Ordered Blood Pressure Monitor See Instructions, # 1 each, Refills 0, Tot. Refills 0, Maintenance, patient persistent elevated BP ICD: I10 please send to L&C thank you, Harlan Person DNP, HEAD LOFT WORKER-C, 10/09/21 9:52:00 EDT, Supply Start Date: 10/09/21 Status: Ordered clonazePAM 1 mg oral tablet 1 tablet = 1 mg, By Mouth, 3 times a day, Please bubble pack and deliver, # 90 tablet, 0 Refills, Maintenance, 09/29/21 17:54:00 EDT, Tablet, [facility] [id number], Partial fill upon patient request if the prescription is for... Start Date: 09/29/21 Status: Ordered Eliquis 5 mg oral tablet 1 tablet = 5 mg, By Mouth, 2 times a day, Please bubble pack and deliver, # 60 tablet, 5 Refills, Maintenance, 08/27/21 13:36:00 EDT, Tablet, [facility] [id number], Partial fill upon patient request if the [...] 3 Refills, Maintenance, 10/27/21 12:11:00 EDT, Lotion, [place], [place] - [id number], 1 application Topically 2 times a day,PRN:for dry skin,Instr:... Start Date: 10/27/21 Status: Ordered hydrochlorothiazide-losartan 12.5 mg-50 mg oral tablet 1 tablet, By Mouth, Daily, # 90 tablet, 0 Refills, Maintenance, 09/28/21 15:10:00 EDT, Tablet, [facility] [id number], Partial fill upon patient request if the prescription isfor a schedule II opioid drug., 1 tablet By Mouth D... Start Date: 09/28/21 Stop Date: 12/27/21 Status: Ordered Lantus Solostar Pen 100 units/mL subcutaneous solution = 40 units, Subcutaneous Infusion, Daily, Please dispense 6 pens, # 15 mL, 2 Refills, Maintenance, 08/27/21 13:36:00 EDT, [facility] [id number], Partial fill upon patient request if the prescription is for a schedule II opioid... Start Date: 08/27/21 Stop Date: 11/25/21 Status: Ordered metoprolol 25 mg oral tablet 25 mg, 1, tablet, By Mouth, 2 times a day, # 60 tablet, Refills 2, Tot. Refills 2, Maintenance, 10/07/21 8:55:00 EDT, Route to Pharmacy Electronically, [facility] [id number],Partial fill upon patient request if the prescripti... Start Date: 10/07/21 Stop Date: 01/05/22 Status: Ordered Nicorette 4 mg oral transmucosal gum 1 each = 4 mg, Chew, Every 2 hours, PRN as needed for smoking cessation, for 8 week(s), # 160 each,0 Refills, Acute 11/23/21 15:06:00 EDT, 09/28/21 15:06:00 EDT, Gum, [facility] [id number], Cinnamon flavor please, 176, cm, 08... Start Date: 09/28/21 Stop Date: 11/23/21 Status: Ordered Pen [place], 31 G x 5 mm BD Ultra [...] 2 Refills, Maintenance, 08/27/21 15:37:00 EDT, Tablet, [facility] - [place], [place] - [id number], Partial fill upon patient request if the [...] Obese class I(Confirmed) Active Tobacco use(Confirmed) Active 08351 2type unknown 3X3, last in 2016 Social History Social History Type Response Smoking Status 10 or more cigarette s (1/2 pack or more)/day in last 30 days entered on: 09/28/21 Sex Care Team Personnel Name: Harlan Person NP Address: [address] [place] [address]
--- OUTSIDE RECORDS SUMMARY | 2022-10-15 00:51 | XMS_ITS | Continuity of Care Document ---
Author Name Unknown Organization [facility] Address [address] [place] [address]- Care Team Providers Care Hand Sewer Shoes Name Role Phone Raza BALDERAS, Harlan Primary Care Physician [phone] Encounter [facility] Date(s): 12/21/21 - 01/20/[address] [address]- Allergies, Adverse Reactions, Alerts Substance Reaction Severity Status penicillin Hives Active Immunizations Given and Recorded Vaccine Date Status Refusal Reason FluLaval (oldterm) 1 12/23/10 Given pneumococcal 23-valent vaccine 2 03/24/10 Given influenza virus vaccine, inactivated 3 01/27/10 Gi caroline tetanus-diphtheria toxoids (Td) 4 01/27/10 Given Not Given Vaccine Date Status Refusal Reason SARS-CoV-2 mRNA (ecpmtte-lcvf-szudh) vax 09/28/21 Not Given Patient Refuses tetanus/diphtheria/pertussis, acel(Tdap) 09/28/21 Not Given Patient Refuses 1Admin Note: vis given 2Admin Note: vis 05/23/2008 3Admin Note: vis 09/16/09 4Admin Note: vis Medications acetaminophen-oxyCODONE 325 mg-5 mg oral tablet 1, tablet, By Mouth, Every 6 hours, # 112 tablet, Refills 0, Tot. Refills 0, Maintenance, 12/29/21 10:47:00 EST, Route to Pharmacy Electronically, [facility] - [place], [place] - [id number], please fill on 01/02, 176, cm, 12/11/21 9:33:00 EDT, Height Start Date: 12/29/21 Stop Date: 01/26/22 Status: Ordered Aspirin Low Dose 81 mg oral delayed release tablet 1 tablet, By Mouth, Daily, # 30 tablet, 3 Refills, Maintenance, 01/19/22 14:38:00 EST, [facility], 176, cm, 01/11/22 9:46:00 EST, Height Start Date: 01/19/22 Status: Ordered atorvastatin 80 mg oral tablet See Instructions, TAKE 1 TABLET BY MOUTH ONCE DAILY, # 30 tablet, 5 Refills, Maintenance, 11/11/21 11:38:00 EDT, [facility], 176, cm, 10/27/21 11:36:00 EDT, Height Start Date: 11/11/21 Status: Ordered Blood Pressure Monitor See Instructions, # 1 each, Refills 0, Tot. Refills 0, Maintenance, patient persistent elevated BP ICD: I10 please send to L&C thank you, Harlan Person DNP, [facility]-, 10/09/21 9:52:00 EDT, Supply Start Date: 10/09/21 Status: Ordered Cane See Instructions, # 1 each, Maintenance, patient with chronic left hip pain, and Left knee OA needscane please ICD10 M17. 9, M25. 552 Thank you, Harlan Person DNP, [facility], 01/11/22 10:01:00 EST, Supply Start Date: 01/11/22 Status: Ordered clonazePAM 1 mg oral tablet 1 tablet = 1 mg, By Mouth, 3 times a day, Please bubble pack and deliver, # 90 tablet, 0 Refills, Maintenance, 12/29/21 10:43:00 EST, Tablet, [facility] [id number], Partial fill upon patient request if the prescription is for... Start Date: 12/29/21 Stop Date: 01/28/22 Status: Ordered Eliquis 5 mg oral tablet 1 tablet = 5 mg, By Mouth, 2 times a day, Please bubble pack and deliver, # 60 tablet, 5 Refills, Maintenance, 08/27/21 13:36:00 EDT, Tablet, [facility] [id number], Partial fill upon patient request if the [...] drug. Start Date: 10/09/21 Status: Ordered Gold Bonilal Ultimate Softening topical lotion 1 application, Topically, 2 times a day, PRN for dry skin, to affected area, # 420 mL, 3 Refills, Maintenance, 10/27/21 12:11:00 EDT, Lotion, [facility], [facility] [id number], 1 application Topically 2 times a day,PRN:for dry skin,Instr:... Start Date: 10/27/21 Status: Ordered hydrochlorothiazide-losartan 12.5 mg-50 mg oral tablet See Instructions, TAKE 1 TABLET BY MOUTH ONCE DAILY, # 90 tablet, 1 Refills, Maintenance, 11/11/21 11:38:00 EDT, [facility], 90, TAKE 1 TABLET BY MOUTH ONCE DAILY, 176, cm, 10/27/21 11:36:00 EDT, Height Start Date: 11/11/21 Status: Ordered Lantus Solostar Pen 100 units/mL subcutaneous solution = 40 units, Subcutaneous Infusion, Daily, Please dispense 6 pens, # 15 mL, 2 Refills, Maintenance, 12/30/21 11:12:00 EST, [facility] [id number], Partial fill upon patient request if the prescription is for a schedule II opioid... Start Date: 12/30/21 Stop Date: 03/30/22 Status: Ordered Metoprolol Tartrate 25 mg oral tablet See Instructions, TAKE 1 TABLET BY MOUTH two (2) times a day, # 60 tablet, 2 Refills, Maintenance, 12/18/21 12:59:00 EST, [facility], [place] - [id number], 176, cm, 12/11/21 9:33:00 EDT, Height Start Date: 12/18/21 Status: Ordered nalOXONE 4 mg/0.1 mL nasal spray = 4 mg, Nares, Both, Once, # 2 each, 0 Refills, Soft Stop, 11/17/21 12:37:00 EDT, [facility] [id number], Partial fill upon patient request if the prescription is for a schedule II opioid drug., 102.5, cm, 11/16/21 16:08:00 EDT... Start Date: 11/17/21 Status: Ordered Pen [place], 31 G x 5 mm BD Ultra [...] prophylaxis Confirmed Active Tobacco use Confirmed Active 07883 2type unknown 3X3, last in 2016 Social History Social History Type Response Smoking Status 10 or more cigarette s (1/2 pack or more)/day in last 30 days entered on: 09/28/21 Sex Patient Care team information Care Team Personnel Name: Harlan Person NP Position: S Associate Professional Member Role: PCP Address: Address: [address] [place] [address]- Care Team Related Persons Name: ELADIA CORRIGAN Address: home [address] [place] [address]
--- OUTSIDE RECORDS SUMMARY | 2022-10-15 00:51 | XMS_ITS | Continuity of Care Document ---
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 Name Role Phone Raza BADLERAS, Harlan Primary Care Physician [phone] Encounter [facility] [place] Date(s): 07/16/22 - 08/15/[address] [address] Allergies, Adverse Reactions, Alerts Substance Reaction Severity Status penicillin Hives Active Immunizations Given and Recorded Vaccine Date Status Refusal Reason FluLaval (oldterm) 1 12/23/10 Given pneumococcal 23-valent vaccine 2 03/24/10 Given influenza virus vaccine, inactivated 3 01/27/10 Gi caroline tetanus-diphtheria toxoids (Td) 4 01/27/10 Given Not Given Vaccine Date Status Refusal Reason SARS-CoV-2 mRNA (taipkpt-advb-xorvc) vax 09/28/21 Not Given Patient Refuses tetanus/diphtheria/pertussis, acel(Tdap) 09/28/21 Not Given Patient Refuses 1Admin Note: vis given 2Admin Note: vis 05/23/2008 3Admin Note: vis 09/16/09 4Admin Note: vis Medications acetaminophen-oxyCODONE 325 mg-5 mg oral tablet 1, tablet, By Mouth, Every 6 hours, # 112 tablet, Refills 0, Tot. Refills 0, Maintenance, 08/02/22 16:43:00 EDT, Route to Pharmacy Electronically, [facility] - [place], [place] - [id number], please fill on 06/01; [facility]PAT checked; on contract, 178,... Start Date: 08/02/22 Stop Date: 08/30/22 Status: Ordered amLODIPine 5 mg oral tablet 2 tablet = 10 mg, By Mouth, Daily, # 180 tablet, 1 Refills, Maintenance, 05/31/22 10:01:00 EDT, [place], [place] - [id number], 178, cm, 05/04/22 11:41:00 EDT, Height, 104.6, kg, 02/15/22 14:37:00 EST, Dry Weight Start Date: 05/31/22 Stop Date: 11/27/22 Status: Ordered Aspirin Low Dose 81 mg oral delayed release tablet 1 tablet, By Mouth, Daily, # 30 tablet, 3 Refills, Maintenance, 05/21/22 15:29:00 EDT, [facility], 178, cm, 05/04/22 11:41:00 EDT, Height, 104.6, kg, 02/15/22 14:37:00 EST, Dry Weight Start Date: 05/21/22 Status: Ordered atorvastatin 80 mg oral tablet 1 tablet, By Mouth, Daily, # 30 tablet, 5 Refills, Maintenance, 05/21/22 14:00:00 EDT, [facility], 178, cm, 05/04/22 11:41:00 EDT, Height, [...] 0 Refills, Maintenance, 07/21/22 16:02:00 EDT, Tablet, [place], [place] - [id number], Partial fill upon patient request if the prescription is for... Start Date: 07/21/22 Stop Date: 08/20/22 Status: Ordered clopidogrel 75 mg oral tablet 1, tablet, By Mouth, Daily, # 30 tablet, Refills 0, Maintenance, 07/21/22 16:02:00 EDT, Route to Pharmacy Electronically, [facility], 178, cm, 07/15/22 13:22:00 EDT, Height, 104.6, kg, 02/15/22 14:37:00 EST, Dry Weight Start Date: 07/21/22 Status: Ordered docusate sodium 100 mg oral capsule 1 capsule, By Mouth, 2 times a day, PRN NEEDED FOR CONSTIPATION, # 30 each, 2 Refills, Maintenance, 07/29/22 11:46:00 EDT, [facility], 178, cm, 07/15/22 13:22:00 EDT, Height, 104.6, kg, 02/15/22 14:37:00 EST, Dry Weight Start Date: 07/29/22 Status: Ordered Eliquis 5 mg oral tablet 1 tablet = 5 mg, By Mouth, 2 times a day, Please bubble pack and deliver, # 60 tablet, 5 Refills, Maintenance, 02/02/22 12:28:00 EST, Tablet, [facility] - [place], [place] - [id number], Partial fill upon patient request if the [...] Maintenance, 07/22/2315:01:00 EDT, Route to Pharmacy Electronically, [facility] [id number], 178, cm, 07/15/22 13:22:00 EDT, Height, 104.6, kg, 01/0... Start Date: 07/21/22 Stop Date: 08/20/22 Status: Ordered Gold Bonilla Ultimate Softening topical lotion 1 application, Topically, 2 times a day, PRN for dry skin, to affected area, # 420 mL, 3 Refills, Maintenance, 10/27/21 12:11:00 EDT, Lotion, [facility] [id number], 1 application Topically 2 times a day,PRN:for dry skin,Instr:... Start Date: 10/27/21 Status: Ordered hydrochlorothiazide-losartan 12.5 mg-50 mg oral tablet See Instructions, TAKE 1 TABLET BY MOUTH ONCE DAILY, # 90 tablet, 1 Refills, Maintenance, 07/16/22 10:37:00 EDT, [facility] [id number], 90, TAKE 1 TABLET BY MOUTH ONCE DAILY,178, cm, 07/15/22 13:22:00 EDT, Height, 104.6, kg,... Start Date: 07/16/22 Status: Ordered Jardiance 10 mg oral tablet 1 tablet = 10 mg, By Mouth, Daily in AM, # 90 tablet, 0 Refills, Maintenance, 05/31/22 9:51:00 EDT,Tablet, [facility] [id number], Partial fill upon patient request if the prescription is for a schedule II opioid drug., 178, c... Start Date: 05/31/22 Stop Date: 08/29/22 Status: Ordered Lantus Solostar Pen 100 units/mL subcutaneous solution See Instructions, INJECT 42 UNITS SUBCUTANEOUSLY ONCE DAILY, # 15 mL, 2 Refills, Maintenance, 05/14/22 13:20:00 EDT, [facility], 178, cm, 05/04/22 11:41:00 EDT, Height, 104.6, kg, 02/15/22 14:37:00 EST, Dry Weight Start Date: 05/14/22 Status: Ordered Metoprolol Tartrate 25 mg oral tablet See Instructions, TAKE 1 TABLET BY MOUTH two (2) times a day, # 60 tablet, 2 Refills, Maintenance, 06/19/22 14:55:00 EDT, [facility] [id number], 178, cm, 06/10/22 9:30:00 EDT, Height, 104.6, kg, 02/15/22 14:37:00 EST, Dry Weight Start Date: 06/19/22 Status: Ordered mirtazapine 7.5 mg oral tablet 1 tablet = 7.5 mg, By Mouth, Daily at bedtime, # 30 tablet, 0 Refills, Maintenance, 08/03/22 11:55:00 EDT, [facility] [id number], Partial fill upon patient request if the prescription is for a schedule II opioid drug., 178, cm... Start Date: 08/03/22 Stop Date: 09/02/22 Status: Ordered nalOXONE 4 mg/0.1 mL nasal spray = 4 mg, Nares, Both, Once, # 2 each, 0 Refills, Soft Stop, 11/17/21 12:37:00 EDT, [facility] [id number], Partial fill upon patient request if the prescription is for a schedule II opioid drug., 102.5, cm, 11/16/21 16:08:00 EDT... Start Date: 11/17/21 Status: Ordered NuLYTELY with Flavor Packs oral powder for reconstitution See Instructions, Drink 240mL every 15-20 minutes until first half is gone. Repeat 6 hours prior toprocedure., # 4,000 mL, 0 Refills, Maintenance, 04/27/22 11:40:00 EDT, [facility] [id number], Partial fill upon patient reque... Start Date: 04/27/22 Status: Ordered Pen [place], 31 G x 5 mm BD [...] use Confirmed Active Vitreous hemorrhage Confirmed Active 45342 2type unknown 3X3, last in 2016 Social History Social History Type Response Tobacco Use: 4 or less cigar ettes(less than 1/4 pack)/day in last 30 days. Other: smoking for 40 yrs.. Sex Patient Care team information Care Team Personnel Name: Harlan Person NP Position: S Associate Professional Member Role: PCP Address: Address: [address] [place] [address]- Care Team Related Persons Name: ELADIA CORRIGAN Address: home [address] [place] [address]
--- OUTSIDE RECORDS SUMMARY | 2022-10-15 00:51 | XMS_ITS | Continuity of Care Document ---
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 Name Role Phone Raza BALDERAS, Harlan Primary Care Physician Encounter [facility] [place] Date(s): 06/16/22 - 07/16/[address] [address]- Allergies, Adverse Reactions, Alerts Substance Reaction Severity Status penicillin Hives Active Immunizations Given and Recorded Vaccine Date Status Refusal Reason FluLaval (oldterm) 1 12/23/10 Given pneumococcal 23-valent vaccine 2 03/24/10 Given influenza virus vaccine, inactivated 3 01/27/10 Gi caroline tetanus-diphtheria toxoids (Td) 4 01/27/10 Given Not Given Vaccine Date Status Refusal Reason SARS-CoV-2 mRNA (pecjorv-oada-ypcry) vax 09/28/21 Not Given Patient Refuses tetanus/diphtheria/pertussis, acel(Tdap) 09/28/21 Not Given Patient Refuses 1Admin Note: vis given 2Admin Note: vis 05/23/2008 3Admin Note: vis 09/16/09 4Admin Note: vis Medications acetaminophen-oxyCODONE 325 mg-5 mg oral tablet 1, tablet, By Mouth, Every 6 hours, # 112 tablet, Refills 0, Tot. Refills 0, Maintenance, 06/30/22 9:33:00 EDT, Route to Pharmacy Electronically, [facility] - [place], [place] - [id number], please fill on 06/01; [facility]PAT checked; on contract, 178,... Start Date: 06/30/22 Stop Date: 07/28/22 Status: Ordered amLODIPine 5 mg oral tablet 2 tablet = 10 mg, By Mouth, Daily, # 180 tablet, 1 Refills, Maintenance, 05/31/22 10:01:00 EDT, [place], [place] - [id number], 178, cm, 05/04/22 11:41:00 EDT, Height, 104.6, kg, 02/15/22 14:37:00 EST, Dry Weight Start Date: 05/31/22 Stop Date: 11/27/22 Status: Ordered Aspirin Low Dose 81 mg oral delayed release tablet 1 tablet, By Mouth, Daily, # 30 tablet, 3 Refills, Maintenance, 05/21/22 15:29:00 EDT, [facility], 178, cm, 05/04/22 11:41:00 EDT, Height, 104.6, kg, 02/15/22 14:37:00 EST, Dry Weight Start Date: 05/21/22 Status: Ordered atorvastatin 80 mg oral tablet 1 tablet, By Mouth, Daily, # 30 tablet, 5 Refills, Maintenance, 05/21/22 14:00:00 EDT, [facility], 178, cm, 05/04/22 11:41:00 EDT, Height, [...] 0 Refills, Maintenance, 06/16/22 9:33:00 EDT, Tablet, [place], [place] - [id number], Partial fill upon patient request if the prescription is for a... Start Date: 06/16/22 Stop Date: 07/16/22 Status: Ordered clopidogrel 75 mg oral tablet 1, tablet, By Mouth, Daily, # 30 tablet, Refills 6, Tot. Refills 6, Maintenance, 07/16/22 10:36:00 EDT, Route to Pharmacy Electronically, [facility], [place] - [id number], 178, cm, 07/15/22 13:22:00 EDT, Height, 104.6, kg, 02/15/22 14:37... Start Date: 07/16/22 Status: Ordered docusate sodium 100 mg oral capsule 1 capsule, By Mouth, 2 times a day, PRN NEEDED FOR CONSTIPATION, # 30 each, 2 Refills, Maintenance, 05/21/22 11:07:00 EDT, [facility], 178, cm, 05/04/22 11:41:00 EDT, Height, 104.6, kg, 02/15/22 14:37:00 EST, Dry Weight Start Date: 05/21/22 Status: Ordered Eliquis 5 mg oral tablet 1 tablet = 5 mg, By Mouth, 2 times a day, Please bubble pack and deliver, # 60 tablet, 5 Refills, Maintenance, 02/02/22 12:28:00 EST, Tablet, [place], [place] - [id number], Partial fill upon patient request if the [...] Maintenance, 07/16/2309:37:00 EDT, Route to Pharmacy Electronically, [facility], [place] - [id number], 178, cm, 07/15/22 13:22:00 EDT, Height, 104.6, kg, 01/0... Start Date: 07/16/22 Stop Date: 07/30/22 Status: Ordered Gold Bonilla Ultimate Softening topical lotion 1 application, Topically, 2 times a day, PRN for dry skin, to affected area, # 420 mL, 3 Refills, Maintenance, 10/27/21 12:11:00 EDT, Lotion, [facility], [place] - [id number], 1 application Topically 2 times a day,PRN:for dry skin,Instr:... Start Date: 10/27/21 Status: Ordered hydrochlorothiazide-losartan 12.5 mg-50 mg oral tablet See Instructions, TAKE 1 TABLET BY MOUTH ONCE DAILY, # 90 tablet, 1 Refills, Maintenance, 07/16/22 10:37:00 EDT, [facility], [place] - [id number], 90, TAKE 1 TABLET BY MOUTH ONCE DAILY,178, cm, 07/15/22 13:22:00 EDT, Height, 104.6, kg,... Start Date: 07/16/22 Status: Ordered Jardiance 10 mg oral tablet 1 tablet = 10 mg, By Mouth, Daily in AM, # 90 tablet, 0 Refills, Maintenance, 05/31/22 9:51:00 EDT,Tablet, [facility], [place] - [id number], Partial fill upon patient request if the prescription is for a schedule II opioid drug., 178, c... Start Date: 05/31/22 Stop Date: 08/29/22 Status: Ordered Lantus Solostar Pen 100 units/mL subcutaneous solution See Instructions, INJECT 42 UNITS SUBCUTANEOUSLY ONCE DAILY, # 15 mL, 2 Refills, Maintenance, 05/14/22 13:20:00 EDT, [facility], 178, cm, 05/04/22 11:41:00 EDT, Height, 104.6, kg, 02/15/22 14:37:00 EST, Dry Weight Start Date: 05/14/22 Status: Ordered MetFORMIN (Eqv-Glucophage XR) 500 mg oral tablet, extended release 2 tablet, By Mouth, 2 times a day, # 120 tablet, 1 Refills, Maintenance, 05/15/22 10:21:00 EDT, [facility], 178, cm, 05/04/22 11:41:00 EDT, Height, 104.6, kg, 02/15/22 14:37:00 EST, Dry Weight Start Date: 05/15/22 Status: Ordered Metoprolol Tartrate 25 mg oral tablet See Instructions, TAKE 1 TABLET BY MOUTH two (2) times a day, # 60 tablet, 2 Refills, Maintenance, 06/19/22 14:55:00 EDT, [facility] [id number], 178, cm, 06/10/22 9:30:00 EDT, Height, 104.6, kg, 02/15/22 14:37:00 EST, Dry Weight Start Date: 06/19/22 Status: Ordered nalOXONE 4 mg/0.1 mL nasal spray = 4 mg, Nares, Both, Once, # 2 each, 0 Refills, Soft Stop, 11/17/21 12:37:00 EDT, [facility] [id number], Partial fill upon patient request if the [...] EDT, [facility] [id number], Partial fill upon patient reque... Start Date: 04/27/22 Status: Ordered Pen [place], 31 G x 5 mm BD Ultra [...] use Confirmed Active Vitreous hemorrhage Confirmed Active 84334 2type unknown 3X3, last in 2016 Social History Social History Type Response Tobacco Use: 4 or less cigar ettes(less than 1/4 pack)/day in last 30 days. Other: smoking for 40 yrs.. Sex Patient Care team information Care Team Personnel Name: Harlan Person NP Position: S Associate Professional Member Role: PCP Address: Address: [address] [place] [address]- Care Team Related Persons Name: ELADIA CORRIGAN Address: home [address] [place] [address]
--- OUTSIDE RECORDS SUMMARY | 2022-10-15 00:51 | XMS_ITS | Continuity of Care Document ---
Author Name Unknown Organization [facility] Address [address] [place] [address]- Care Team Providers Care Antisubmarine Weapons Officer Name Role Phone Harlan Person NP Primary Care Physician [phone] Encounter [facility] Date(s): 12/10/21 - 12/17/[address] [facility] [address] [place] [address]- Encounter Diagnosis Deep venous thrombosis(Discharge Diagnosis) - 12/10/21 CVA (cerebrovascular accident)(Discharge Diagnosis) - 12/10/21 Coronary artery disease(Discharge Diagnosis) - 12/10/21 Diabetes Mellitus(Discharge Diagnosis) - 12/10/21 Essential Hypertension(Discharge Diagnosis) - 12/10/21 Hyperlipidemia(Discharge Diagnosis) - 12/10/21 Attending Physician: Felice Cardona MD Referring Physician: [...] Vaccine Date Status Refusal Reason SARS-CoV-2 mRNA ([id number]) vax 09/28/21 Not Given Patient Refuses tetanus/diphtheria/pertussis, acel(Tdap) 09/28/21 Not Given Patient Refuses 1Admin Note: vis given 2Admin Note: vis 05/23/2008 3Admin Note: vis 09/16/09 4Admin Note: vis Medications acetaminophen-oxyCODONE 325 mg-5 mg oral tablet 1, tablet, By Mouth, Every 6 hours, # 112 tablet, Refills 0, Tot. Refills 0, Maintenance, 12/04/21 7:33:00 EDT, Route to Pharmacy Electronically, [facility] [id number], Partial fill upon patient request if the prescription is... Start Date: 12/04/21 Stop Date: 01/01/22 Status: Ordered aspirin 81 mg oral delayed release tablet 81 mg, 1, tablet, By Mouth, Daily, # 30 tablet, Refills 3, Tot. Refills 3, Maintenance, 10/09/21 9:23:00 EDT, Route to Pharmacy Electronically, [facility] [id number], Partialfill upon patient request if the prescription [...] to L&C thank you, Harlan Person DNP, OVERHEAD WORKER-C, 10/09/21 9:52:00 EDT, Supply Start Date: 10/09/21 Status: Ordered clonazePAM 1 mg oral tablet 1 tablet = 1 mg, By Mouth, 3 times a day, Please bubble pack and deliver, # 90 tablet, 0 Refills, Maintenance, 11/16/21 15:46:00 EDT, Tablet, [facility] [id number], Partial fill upon patient request if the prescription is for... Start Date: 11/16/21 Stop Date: 12/16/21 Status: Ordered Eliquis 5 mg oral tablet 1 tablet = 5 mg, By Mouth, 2 times a day, Please bubble pack and deliver, # 60 tablet, 5 Refills, Maintenance, 08/27/21 13:36:00 EDT, Tablet, [facility] [id number], Partial fill upon patient request if the [...] 3 Refills, Maintenance, 10/27/21 12:11:00 EDT, Lotion, [facility] [id number], 1 application Topically 2 times a day,PRN:for dry skin,Instr:... Start Date: 10/27/21 Status: Ordered hydrochlorothiazide-losartan 12.5 mg-50 mg oral tablet See Instructions, TAKE 1 TABLET BY MOUTH ONCE DAILY, # 90 tablet, 1 Refills, Maintenance, 11/11/21 11:38:00 EDT, [facility], 90, TAKE 1 TABLET BY MOUTH ONCE DAILY, 176, cm, 10/27/21 11:36:00 EDT, Height Start Date: 11/11/21 Status: Ordered Lantus Solostar Pen 100 units/mL subcutaneous solution = 40 units, Subcutaneous Infusion, Daily, Please dispense 6 pens, # 15 mL, 2 Refills, Maintenance, 08/27/21 13:36:00 EDT, [facility] [id number], Partial fill upon patient request if the prescription is for a schedule II opioid... Start Date: 08/27/21 Stop Date: 11/25/21 Status: Ordered metoprolol 25 mg oral tablet 25 mg, 1, tablet, By Mouth, 2 times a day, # 60 tablet, Refills 2, Tot. Refills 2, Maintenance, 10/07/21 8:55:00 EDT, Route to Pharmacy Electronically, [facility] [id number],Partial fill upon patient request if the prescripti... Start Date: 10/07/21 Stop Date: 01/05/22 Status: Ordered nalOXONE 4 mg/0.1 mL nasal spray = 4 mg, Nares, Both, Once, # 2 each, 0 Refills, Soft Stop, 11/17/21 12:37:00 EDT, [facility] [id number], Partial fill upon patient request if the prescription is for a schedule II opioid drug., 102.5, cm, 11/16/21 16:08:00 EDT... Start Date: 11/17/21 Status: Ordered Pen [place], 31 G x 5 mm BD Ultra [...] prophylaxis Confirmed Active Tobacco use Confirmed Active 24760 2type unknown 3X3, last in 2016 Diagnosis Diagnosis Type Effective Dates Health Status Clinical Service Informant Diabetes Mellitus Discharge Diagnosis 12/10/21 Essential Hypertension Discharge Diagnosis 12/10/21 Hyperlipidemia Discharge Diagnosis 12/10/21 Coronary artery disease Discharge Diagnosis 12/10/21 Deep venous thrombosis Discharge Diagnosis 12/10/21 CVA (cerebrovascular accident) Discharge Diagnosis 12/10/21 Vital Signs Most recent to oldest [Reference Range]: 1 2 Height 176 cm (12/11/21 9:33 AM) 176 cm (12/10/21 8:16 AM) Weight 102.2 kg (12/11/21 9:33 AM) 102.2 kg (12/10/21 8:16 AM) Oxygen Saturation [94-100 %] 97 % (12/10/21 8:16 AM) Pulse Rate [55-90 bpm] 92 bpm *H* (12/10/21 8:16 AM) Body Mass Index [18.5-24.99 kg/m2] 32.99 kg/m2 *>HHI* (12/10/21 8:16 AM) Blood Pressure [90-138/55-84 mm Hg] 140/ 85mm Hg *H* (12/10/21 8:16 AM) Blood pressure sites Arm, left (12/10/21 8:16 AM) Social History Social History Type Response Smoking Status 10 or more cigarette s (1/2 pack or more)/day in last 30 days entered on: 09/28/21 Sex EKG study * Event Display: ECG 12-Lead Authored Date: Please click on pdf link to open report * Event Display: ECG 12-Lead Authored Date: Ventricular Rate: 89 BPM Atrial Rate: 89 BPM P-R Interval: 126 ms QRS Duration: 78 ms Q-T Interval: 388 ms QTC Calculation(Bazett): 472 ms P [place]: 34 degrees R [place]: -5 degrees T [place]: 65 degrees Sinus rhythm with occasional Premature ventricular complexes Cannot rule out Inferior infarct , age undetermined Abnormal ECG When compared with ECG of 16-SEP-2010 11:30, Premature ventricular complexes are now Present Vent. rate has increased BY 30 BPM Confirmed by ZABRINA CARMONA ([id number]) on 12/15/2021 4:24:36 PM [place]: ZABRINA CARMONA Cardiology Outpatient Note * Dulce MCGARRY, Felice Winters: PERFORM Event Display: Cardiology Note Office Authored Date: Patient: ??SHANDRA MCKEON ? Age:??51 Years?Sex:??Male?:??1970?? Indication for Consult NPV Transfer of care History of Present Illness/Interval History Shandra presents as a new patient consultation.?? He has recently moved back to the area after living in [facility]. ??Unfortunately his outside records are not available at the time of??our visit. ??History??listed below is??patient's account. ??He has a complicated past medical history inc luding??myocardial infarction with PCI??in 2016, stroke in 2003,??hip fracture??May 2021??with??subsequent DVT/PE, ongoing tobacco use,??alcohol abuse in remission, hypertension, diabetes with??severe neuropathy. ??His major symptom??right now??is palpitations. ??He describes the feeling of??his h eart?? jumping and skipping. ?? He states this started after he moved to this area??because he ran out of his metoprolol??and other medications.?? It is improved somewhat since restarting metoprolol.?? He states did not take his metoprolol this morning because he did not??have time.?? Also he has run out of his??hydrochlorothiazide???losartan. ??He??was not taking atorvastatin??when lipids were done because he did not have the medication. ??He has used a walker to ambulate for the last??6 months or so??since hip fracture??and??DVT/PE. ??He denies any angina. ??He has some shortness of breath but he relates this to??cigarette smoking and??states that dyspnea has been stable??in the recent past.?? Denies orthopnea or PND. ?? In 2003 Shandra had??a stroke. ??He stated that he was having argument with his cousin over??football, blood pressure??was elevated to??230??millimeters of mercury systolic, and she fell out. ?? He was in the hospital. ??He has some residual left-sided??mild weakness.?? 2016 he presented with??chest pain and severe anxiety. ??He was found to have myocardial infarction??and per his report had 1stent and another artery that was completely blocked but they could not fix. ??He has a history of alcohol abuse but has been mostly sober for the last year.?? He went out on his cousins??birthday in May 2021, drank alcohol until intoxication, fell and broke the left hip. ??He was hospitalized and had surgery.?? He states that??after he got home he just laid around because??I did not know what to do. ??He has??increased hip pain and was found to have??DVT and PE. ??He is on Eliquis since.?? He was hospitalized and discharged to a nursing facility.?? After this his family??recommended that he move??back to [facility].?? He is currently residing in [place]. ?? Review of Systems 10+ system ROS performed, pertinent positives and negatives in HPI and below. ??See scanned patientquestionnaire. Physical Exam Vitals & Measurements FL:??92?? BP:??140/85?? SpO2:??97%?? HT:??176??cm?? WT:??102.2??kg?? BMI:??32.99?? Weight lb/oz: 225 lb 5 oz Gen: pleasant, in no distress on room air, BMI in the obese range, walker??in the room Resp: lungs clear to auscultation bilaterally CV: normal rate, regular rhythm, no murmurs rubs or gallops. Ext: ??No JVD. ??No lower extremity edema. No carotid bruits.?? Assessment/Plan 51-year-old man with??complex past medical history including??stroke??in 2003, [place] with PCI in 2015,??fall with hip fracture??and subsequent DVT PE??in May 2021??who was recently moved to the area??from [facility]??presents to establish care. ??We are working on acquiring outside records,which were not sent prior to this appointment.?? He has been off of all of his medications??during the period of the move. ??He is currently out of his??losartan/hydrochlorothiazide and??did not takehis metoprolol this morning.?? Of note,??he is taking his medications in a staggered fashion; from [facility] I can tell he is taking??his medications as directed when he has them, but??he states that 6 different times during the day because??he??does not know if it is okay to take them together??(for example aspirin when he wakes up, Eliquis a couple hours later, metoprolol couple hours later, etc.) ?? 5 minutes spent on smoking cessation counseling. ??He is precontemplative. ?? Twelve-lead EKG done today: Sinus rhythm, rate??around 90 bpm.?? Occasional PVCs.?? Likely old inferior infarct.?? Nonspecific??T wave abnormality in the lateral leads. 1.??Coronary artery disease Continue aspirin indefinitely. ??Continue atorvastatin 80 mg p.o. daily. ??Echo ordered. Ordered: Echo Complete ?? 2.??Essential Hypertension Difficult to assess??antihypertensive regimen??as he is off his medications.?? He states he is out of??hydrochlorothiazide???losartan??however he has a 90-day prescription??filled about 30 days ago. ??He states that he may have lost??follow-up and will look for it. ??If he cannot find that he will call his primary care provider. Simplified his medication regimen to??1 dosing time??in the morning and 1??in the evening ?? 3.??Hyperlipidemia Continue high density statin.?? Note the last set of lipids was??severely uncontrolled but was off of his??statin ?? 4.??Diabetes Mellitus With??neuropathy. ??Glycemic control per other providers. ?? 5.??Deep venous thrombosis Unclear to me what??duration of??anticoagulation is indicated after is??DVT/PE. ??Recommend that??primary provider reach out to obtain records. ?? 6.??CVA (cerebrovascular accident) With mild residual deficit.?? Secondary??prevention medications??same as??for CAD ?? Orders: ECG 12 Lead 6-month follow-up with AP in our clinic Total Time Spent I personally spent a total of??66 minutes, including both [id number] and ihz-rhli-uu-face time onthe date of the encounter, addressing the above diagnoses. ?? Attending Attestation: I have seen and evaluated this patient on??the day that??the house staff/advanced practitioner note was prepared. I have discussed the case and its management with the housestaff/advanced practitioner and agree with the findings and plan as documented in the above note with the following modifications/additions (if any): ?? The above note was prepared with the help of voice recognition software. Please excuse any grammatical or spelling errors that may have occurred. ?? Thank you for involving me in the care of this patient. Please do not hesitate to contact me with questions or concerns. ?? Felice Cardona MD [facility] [phone] ?? [address] [place] [address] ? Allergies penicillin??(Hives) Home Medications acetaminophen-oxyCODONE 325 mg-5 mg oral tablet, 1 tablet, By Mouth, Every 6 hours aspirin 81 mg oral delayed release tablet, 81 mg= 1 tablet, By Mouth, Daily, 3 refills atorvastatin 80 mg oral tablet, See Instructions, TAKE 1 TABLET BY MOUTH ONCE DAILY Blood Pressure Monitor, See Instructions, patient persistent elevated BP ICD: I10 please send to L&C thank you, Harlan Person DNP, OVERHEAD WORKER-C clonazePAM 1 mg oral tablet, 1 mg= 1 tablet, By Mouth, 3 times a day, Please bubble pack and deliver Eliquis 5 mg oral tablet, 5 mg= 1 tablet, By Mouth, 2 times a day, 5 refills, Please bubble pack and deliver FreeStyle Merlin 2 Monitor, See Instructions, use to test blood sugar at least q8h as directed FreeStyle Merlin 2 Sensors, See Instructions, 11 refills, use to test blood sugar at least q8h. change sensor every 14 days. Freestyle Lite Lancets, See Instructions, 11 refills, Use to check blood sugar three times a day before meals for Type 2 DM on insulin Freestyle Lite Monitor, See Instructions, Use to check blood sugar three times a day before meals for Type 2 DM on insulin Freestyle Lite Test Strips, See Instructions, 11 refills, Use to check blood sugar three times a day before meals for Type 2 DM on insulin gabapentin 300 mg oral capsule, 300 mg= 1 capsule, By Mouth, 2 times a day hydrochlorothiazide-losartan 12.5 mg-50 mg oral tablet, See Instructions, TAKE 1 TABLET BY MOUTH ONCE DAILY Lantus Solostar Pen 100 units/mL subcutaneous solution, 40 units, Subcutaneous Infusion, Daily, 2 refills, Please dispense 6 pens metoprolol 25 mg oral tablet, 25 mg= 1 tablet, By Mouth, 2 times a day, 2 refills nalOXONE 4 mg/0.1 mL nasal spray, 4 mg, Nares, Both, Once,?Not taking Pen [place], 31 G x 5 mm BD Ultra [...] (10/06/21) Abs. Lymph: 2.2 k/mm3 (10/06/21) Abs. [place]: 0.5 k/mm3 (10/06/21) Abs. Eo: 0.3 k/mm3 (10/06/21) Abs. Baso: 0.1 k/mm3 (10/06/21) Neut %: 51.5 % (10/06/21) [place] %: 7.5 % (10/06/21) Eos %: 4.2 % (10/06/21) Baso %: 0.8 % (10/06/21) Imm Gran: 0.2 % (10/06/21) Abs. Imm Gran: 0 k/mm3 (10/06/21) Sodium: 140 mmol/L (10/06/21) Potassium: 4.1 mmol/L (10/06/21) Chloride: 102 mmol/L (10/06/21) Bicarbonate Level: 27 mmol/L (10/06/21) Glucose Level:??131 mg/dL??High (10/06/21) Hemoglobin A1C (Monitoring):??7.9 %??High (10/06/21) BUN: 14 mg/dL (10/06/21) Creatinine-Blood: 0.9 mg/dL [...] Non HDL Cholesterol:??205 mg/dL??High (10/06/21) Diagnostic Impression CT (08/26/2021 03:[address] Angio Chest) IMPRESSION:? Slightly limited study. No evidence of pulmonary embolism to the segmental level. No acute abnormality in the chest. 4 mm nodule in the middle lobe. If low risk for malignancy, no routine follow- up. If high risk, optional CT at 12 months. If unchanged, no further follow-up needed per Guidelines for Management of Incidental Pulmonary Nodules Detected on CT Images: From the Fleischner Society 2017. ?? [1] ECG ECG 12-Lead ?? 00:40:41 Ventricular Rate: 81 BPM Atrial Rate: 81 BPM P-R Interval: 150 ms QRS Duration: 86 ms Q-T Interval: 396 ms QTC Calculation(Bazett): 460 ms P [place]: 47 degrees R [place]: -6 degrees T [place]: 61 degrees Normal sinus rhythm Inferior infarct , age undetermined Abnormal ECG No previous ECGs available Confirmed by SAWYER MARTIN MD ([id number]) on 08/26/2021 8:18:10 AM ?? [place]: SAWYER MARTIN MD ?? Signed By: Sawyer Martin DO Problem List/Past Medical History Ongoing Controlled substance agreement signed 09/28/2021 Coronary artery disease CVA (cerebrovascular accident) Deep venous thrombosis Diabetes Mellitus DVT prophylaxis Essential Hypertension Goal-lose weight Hx of deep venous thrombosis Hyperlipidemia Myocardial infarct Neuropathy Obese class I Obese class I Severe obesity Tobacco use Historical No qualifying data Procedure/Surgical History Arthropathy of left hip joint Social History Alcohol Use: Past. Other: 6+ month sober., 09/28/2021 Electronic Cigarette/Vaping Electronic Cigarette Use: Never., 09/28/2021 Employment/School Status: Unemployed., 09/28/2021 Exercise Self assessment: Good condition., 09/28/2021 Home/Environment Living situation: Home/Independent. Lives with: Children, Significant other, Nephew., 09/28/2021 Nutrition/Health Diet: Regular., 09/28/2021 Sexual Sexually involved in last 6 months: No., 09/28/2021 Substance Abuse Use: Never., 09/28/2021 Tobacco Use: 10 or more cigarettes (1/2 pack or more)/day in last 30 days., 09/28/2021 Use: 5-9 cigarettes (between 1/4 to 1/2 pack)/day in last 30 days, 10 or more cigarettes (1/2 pack or more)/day in last 30 days., 08/25/2021 Family History Mother: Diabetes mellitus Father: Alcohol user; Dementia Mat. Grandmother: Diabetes mellitus; Diabetes mellitus type II [1]??CT Angio Chest; Sd Fajardo MD 08/26/2021 03:28 EDT Patient Care team information Care Team Personnel Name: Harlan Person NP Position: [facility] Associate Professional Member Role: PCP Address: Address: [address] [place] [address]- Care Team Related Persons Name: ELADIA CORIRGAN Address: home [address] [place] [address]
--- OUTSIDE RECORDS SUMMARY | 2022-10-15 00:51 | XMS_ITS | Continuity of Care Document ---
Author Name Unknown Organization [facility] ter Address [address] [place] [address]- Care Team Providers Care Petrology Teacher Name Role Phone Harlan Person NP Primary Care Physician [phone] Encounter [facility] Date(s): 01/11/22 - 03/18/[address] [address] Attending Physician: Kal Roberson MD Admitting Physician: Kal Roberson MD Allergies, Adverse Reactions, Alerts Substance Reaction Severity Status penicillin Hives Active Immunizations Given and Recorded Vaccine Date Status Refusal Reason FluLaval (oldterm) 1 12/23/10 Given pneumococcal 23-valent vaccine 2 03/24/10 Given influenza virus vaccine, inactivated 3 01/27/10 Gi caroline tetanus-diphtheria toxoids (Td) 4 01/27/10 Given Not Given Vaccine Date Status Refusal Reason SARS-CoV-2 mRNA ([id number]-fisaz) vax 09/28/21 Not Given Patient Refuses tetanus/diphtheria/pertussis, acel(Tdap) 09/28/21 Not Given Patient Refuses 1Admin Note: vis given 2Admin Note: vis 05/23/2008 3Admin Note: vis 09/16/09 4Admin Note: vis Medications acetaminophen-oxyCODONE 325 mg-5 mg oral tablet 1, tablet, By Mouth, Every 6 hours, # 112 tablet, Refills 0, Tot. Refills 0, Maintenance, 03/06/22 9:53:00 EST, Route to Pharmacy Electronically, [facility] - [place], [place] - [id number], please fill on 01/02, 178 cm, 02/15/22 14:37:00 EST, Hei... Start Date: 03/06/22 Stop Date: 04/03/22 Status: Ordered Aspirin Low Dose 81 mg oral delayed release tablet 1 tablet, By Mouth, Daily, # 30 tablet, 3 Refills, Maintenance, 01/19/22 14:38:00 EST, [facility], 176, cm, 01/11/22 9:46:00 EST, Height Start Date: 01/19/22 Status: Ordered atorvastatin 80 mg oral tablet See Instructions, TAKE 1 TABLET BY MOUTH ONCE DAILY, # 30 tablet, 5 Refills, Maintenance, 11/11/21 11:38:00 EDT, [facility], 176, cm, 10/27/21 11:36:00 EDT, Height Start Date: 11/11/21 Status: Ordered Blood Pressure Monitor See Instructions, # 1 each, Refills 0, Tot. Refills 0, Maintenance, patient persistent elevated BP ICD: I10 please send to L&C thank you, Harlan Person DNP, BRAND DEVELOPMENT MANAGER-C, 10/09/21 9:52:00 EDT, Supply Start [...] 0 Refills, Maintenance, 12/29/21 10:43:00 EST, Tablet, [place], [place] - [id number], Partial fill upon patient request if the prescription is for... Start Date: 12/29/21 Stop Date: 01/28/22 Status: Ordered Doculase 100 mg oral capsule 1 capsule = 100 mg, By Mouth, 2 times a day, PRN for constipation, # 30 capsule, 2 Refills, Maintenance, 03/17/22 13:53:00 EST, Capsule, [place], [place] - [id number], Partial fill upon patient request if the prescription is for a dejah... Start Date: 03/17/22 Stop Date: 06/15/22 Status: Ordered doxycycline hyclate 100 mg oral tablet 1 tablet = 100 mg, By Mouth, 2 times a day, for 7 days, # 14 tablet, 0 Refills, Acute 03/22/22 15:42:00 EST, 03/15/22 15:42:00 EST, Tablet, [facility] [id number], Partial fill upon patient request if the prescription is for a... Start Date: 03/15/22 Stop Date: 03/22/22 Status: Ordered Eliquis 5 mg oral tablet 1 tablet = 5 mg, By Mouth, 2 times a day, Please bubble pack and deliver, # 60 tablet, 5 Refills, Maintenance, 02/02/22 12:28:00 EST, Tablet, [place], [place] - [id number], Partial fill upon patient request if the [...] Dry Weight Start Date: 02/24/22 Stop Date: 2/17/23 Status: Ordered Freestyle Lite Lancets See Instructions, [...] 10/27/21 12:11:00 EDT, Lotion, [place], [place] - [id number], 1 application Topically 2 times a day,PRN:for dry skin,Instr:... Start Date: 10/27/21 Status: Ordered hydrochlorothiazide-losartan 12.5 mg-50 mg oral tablet See Instructions, TAKE 1 TABLET BY MOUTH ONCE DAILY, # 90 tablet, 1 Refills, Maintenance, 02/02/22 12:29:00 EST, [place], [place] - [id number], 90, TAKE 1 TABLET BY MOUTH ONCE [...] mL, 2 Refills, Maintenance, 03/17/22 13:54:00 EST, [facility], 178, cm, 03/15/22 15:13:00 EST, Height, 104.6, kg, 02/15/22 14:37:00 EST, Dry Weight Start Date: 03/17/22 Status: Ordered Metoprolol Tartrate 25 mg oral tablet See Instructions, TAKE 1 TABLET BY MOUTH two (2) times a day, # 60 tablet, 2 Refills, Maintenance, 12/18/21 12:59:00 EST, [facility] [id number], 176, cm, 12/11/21 9:33:00 EDT, Height Start Date: 12/18/21 Status: Ordered nalOXONE 4 mg/0.1 mL nasal spray = 4 mg, Nares, Both, Once, # 2 each, 0 Refills, Soft Stop, 11/17/21 12:37:00 EDT, [facility], [facility] [id number], Partial fill upon patient request if the prescription is for a schedule II opioid drug., 102.5, cm, 11/16/21 16:08:00 EDT... Start Date: 11/17/21 Status: Ordered Nicotine 2 mg gum 1 each = 2 mg, Chew, Every 2 hours, PRN as needed for smoking cessation, for 8 week(s), # 100 each,1 Refills, Acute 05/25/22 12:28:00 EDT, 02/02/22 12:28:00 EST, Gum, [facility] [id number], Partial fill upon patient request i... Start Date: 02/02/22 Stop Date: 05/25/22 Status: Ordered Pen [place], 31 G x 5 mm BD Ultra [...] prophylaxis Confirmed Active Tobacco use Confirmed Active 28540 2type unknown 3X3, last in 2016 Social History Social History Type Response Tobacco Use: 4 or less cigar ettes(less than 1/4 pack)/day in last 30 days. Other: smoking for 40 yrs.. Sex Patient Care team information Care Team Personnel Name: Harlan Person NP Position: S Associate Professional Member Role: PCP Address: Address: [address] [place] [address]- Care Team Related Persons Name: ELADIA CORRIGAN Address: home [address] [place] [address]
--- OUTSIDE RECORDS SUMMARY | 2022-10-15 00:51 | XMS_ITS | Continuity of Care Document ---
Author Name Unknown Organization [facility] Address [address] [place] [address]- Care Team Providers Care Line Director Name Role Phone Raza BALDERAS, Harlan Primary Care Physician [place] [facility] [place] [facility] [place] [id number] Date(s): 10/05/21 - 12/10/[address] [address]- Attending Physician: Virgilio Pruitt MD Admitting Physician: Virgilio Pruitt MD Allergies, Adverse Reactions, Alerts Substance Reaction Severity Status penicillin Hives Active Immunizations Given and Recorded Vaccine Date Status Refusal Reason FluLaval (oldterm) 1 12/23/10 Given pneumococcal 23-valent vaccine 2 03/24/10 Given influenza virus vaccine, inactivated 3 01/27/10 Gi caroline tetanus-diphtheria toxoids (Td) 4 01/27/10 Given Not Given Vaccine Date Status Refusal Reason SARS-CoV-2 mRNA ([id number]-ljlz-kxuom) vax 09/28/21 Not Given Patient Refuses tetanus/diphtheria/pertussis, acel(Tdap) 09/28/21 Not Given Patient Refuses 1Admin Note: vis given 2Admin Note: vis 05/23/2008 3Admin Note: vis 09/16/09 4Admin Note: vis Medications acetaminophen-oxyCODONE 325 mg-5 mg oral tablet 1, tablet, By Mouth, Every 6 hours, # 112 tablet, Refills 0, Tot. Refills 0, Maintenance, 12/04/21 7:33:00 EDT, Route to Pharmacy Electronically, [facility] - [place], [place] - [id number], Partial fill upon patient request if the prescription is... Start Date: 12/04/21 Stop Date: 01/01/22 Status: Ordered aspirin 81 mg oral delayed release tablet 81 mg, 1, tablet, By Mouth, Daily, # 30 tablet, Refills 3, Tot. Refills 3, Maintenance, 10/09/21 9:23:00 EDT, Route to Pharmacy Electronically, [facility] [id number], Partialfill upon patient request if the prescription is fo... Start Date: 10/09/21 Stop Date: 02/06/22 Status: Ordered atorvastatin 80 mg oral tablet See Instructions, TAKE 1 TABLET BY MOUTH ONCE DAILY, # 30 tablet, 5 Refills, Maintenance, 11/11/21 11:38:00 EDT, [facility], 176, cm, 10/27/21 11:36:00 EDT, Height Start Date: 11/11/21 Status: Ordered Blood Pressure Monitor See Instructions, # 1 each, Refills 0, Tot. Refills 0, Maintenance, patient persistent elevated BP ICD: I10 please send to L&C thank you, Harlan Person DNP, OUTSIDE SALES ACCOUNT EXECUTIVE-C, 10/09/21 9:52:00 EDT, Supply Start Date: 10/09/21 Status: Ordered clonazePAM 1 mg oral tablet 1 tablet = 1 mg, By Mouth, 3 times a day, Please bubble pack and deliver, # 90 tablet, 0 Refills, Maintenance, 11/16/21 15:46:00 EDT, Tablet, [facility] [id number], Partial fill upon patient request if the prescription is for... Start Date: 11/16/21 Stop Date: 12/16/21 Status: Ordered Eliquis 5 mg oral tablet 1 tablet = 5 mg, By Mouth, 2 times a day, Please bubble pack and deliver, # 60 tablet, 5 Refills, Maintenance, 08/27/21 13:36:00 EDT, Tablet, [facility] [id number], Partial fill upon patient request if the [...] Maintenance, 10/27/21 12:11:00 EDT, Lotion, [facility] [id number], 1 application Topically 2 times a day,PRN:for dry skin,Instr:... Start Date: 10/27/21 Status: Ordered hydrochlorothiazide-losartan 12.5 mg-50 mg oral tablet See Instructions, TAKE 1 TABLET BY MOUTH ONCE DAILY, # 90 tablet, 1 Refills, Maintenance, 11/11/21 11:38:00 EDT, [facility], 90, TAKE 1 TABLET BY MOUTH ONCE DAILY, 176, cm, 10/27/21 11:36:00 EDT, Height Start Date: 11/11/21 Status: Ordered Lantus Solostar Pen 100 units/mL subcutaneous solution = 40 units, Subcutaneous Infusion, Daily, Please dispense 6 pens, # 15 mL, 2 Refills, Maintenance, 08/27/21 13:36:00 EDT, [facility] [id number], Partial fill upon patient request if the prescription is for a schedule II opioid... Start Date: 08/27/21 Stop Date: 11/25/21 Status: Ordered metoprolol 25 mg oral tablet 25 mg, 1, tablet, By Mouth, 2 times a day, # 60 tablet, Refills 2, Tot. Refills 2, Maintenance, 10/07/21 8:55:00 EDT, Route to Pharmacy Electronically, [facility], [facility] [id number],Partial fill upon patient request if the prescripti... Start Date: 10/07/21 Stop Date: 01/05/22 Status: Ordered nalOXONE 4 mg/0.1 mL nasal spray = 4 mg, Nares, Both, Once, # 2 each, 0 Refills, Soft Stop, 11/17/21 12:37:00 EDT, [facility] [id number], Partial fill upon patient request if the prescription is for a schedule II opioid drug., 102.5, cm, 11/16/21 16:08:00 EDT... Start Date: 11/17/21 Status: Ordered Pen [place], 31 G x 5 mm BD Ultra [...] prophylaxis Confirmed Active Tobacco use Confirmed Active 79836 2type unknown 3X3, last in 2015 Social History Social History Type Response Smoking Status 10 or more cigarette s (1/2 pack or more)/day in last 30 days entered on: 09/28/21 Sex Patient Care team information Personnel Name: Harlan Person NP Address: Address: [address] [place] [address]
--- OUTSIDE RECORDS SUMMARY | 2022-10-15 00:51 | XMS_ITS | Continuity of Care Document ---
Author Name Unknown Organization [facility] Address [address] [place] [address]- Care Team Providers Care Legal Specialist Name Role Phone Raza BALDERAS, Harlan Primary Care Physician Encounter [facility] Date(s): 01/19/22 - 02/18/[address] [address]- Allergies, Adverse Reactions, Alerts Substance Reaction Severity Status penicillin Hives Active Immunizations Given and Recorded Vaccine Date Status Refusal Reason FluLaval (oldterm) 1 12/23/10 Given pneumococcal 23-valent vaccine 2 03/24/10 Given influenza virus vaccine, inactivated 3 01/27/10 Gi caroline tetanus-diphtheria toxoids (Td) 4 01/27/10 Given Not Given Vaccine Date Status Refusal Reason SARS-CoV-2 mRNA ([id number]-[id number]) vax 09/28/21 Not Given Patient Refuses tetanus/diphtheria/pertussis, acel(Tdap) 09/28/21 Not Given Patient Refuses 1Admin Note: vis given 2Admin Note: vis 05/23/2008 3Admin Note: vis 09/16/09 4Admin Note: vis Medications acetaminophen-oxyCODONE 325 mg-5 mg oral tablet 1, tablet, By Mouth, Every 6 hours, # 112 tablet, Refills 0, Tot. Refills 0, Maintenance, 02/02/22 13:15:00 EST, Route to Pharmacy Electronically, [facility] - [place], [place] - [id number], please fill on 01/02, 176, cm, 02/02/22 11:51:00 EST, He... Start Date: 02/02/22 Stop Date: 03/02/22 Status: Ordered Aspirin Low Dose 81 mg oral delayed release tablet 1 tablet, By Mouth, Daily, # 30 tablet, 3 Refills, Maintenance, 01/19/22 14:38:00 EST, [facility], 176, cm, 01/11/22 9:46:00 EST, Height Start Date: 01/19/22 Status: Ordered atorvastatin 80 mg oral tablet See Instructions, TAKE 1 TABLET BY MOUTH ONCE DAILY, # 30 tablet, 5 Refills, Maintenance, 11/11/21 11:38:00 EDT, [facility], 176, cm, 10/27/21 11:36:00 EDT, Height Start Date: 11/11/21 Status: Ordered Blood Pressure Monitor See Instructions, # 1 each, Refills 0, Tot. Refills 0, Maintenance, patient persistent elevated BP ICD: I10 please send to L&C thank you, Harlan Person DNP, [facility]-, 10/09/21 9:52:00 EDT, Supply Start Date: 10/09/21 Status: Ordered Cane See Instructions, # 1 each, Maintenance, patient with chronic left hip pain, and Left knee OA needscane please ICD10 M17. 9, M25. 552 Thank you, Harlan Person DNP, MANAGER ASSEMBLY-C, 01/11/22 10:01:00 EST, Supply Start Date: 01/11/22 Status: Ordered clonazePAM 1 mg oral tablet 1 tablet = 1 mg, By Mouth, 3 times a day, Please bubble pack and deliver, # 90 tablet, 0 Refills, Maintenance, 12/29/21 10:43:00 EST, Tablet, [facility] [id number], Partial fill upon patient request if the prescription is for... Start Date: 12/29/21 Stop Date: 01/28/22 Status: Ordered Eliquis 5 mg oral tablet 1 tablet = 5 mg, By Mouth, 2 times a day, Please bubble pack and deliver, # 60 tablet, 5 Refills, Maintenance, 02/02/22 12:28:00 EST, Tablet, [facility] [id number], Partial fill upon patient request if the [...] Maintenance, 10/27/21 12:11:00 EDT, Lotion, [facility] [id number], 1 application Topically 2 times a day,PRN:for dry skin,Instr:... Start Date: 10/27/21 Status: Ordered hydrochlorothiazide-losartan 12.5 mg-50 mg oral tablet See Instructions, TAKE 1 TABLET BY MOUTH ONCE DAILY, # 90 tablet, 1 Refills, Maintenance, 02/02/22 12:29:00 EST, [facility] [id number], 90, TAKE 1 TABLET BY MOUTH ONCE [...] mL, 2 Refills, Maintenance, 12/30/21 11:12:00 EST, [facility] [id number], Partial fill upon patient request if the prescription is for a schedule II opioid... Start Date: 12/30/21 Stop Date: 03/30/22 Status: Ordered Metoprolol Tartrate 25 mg oral tablet See Instructions, TAKE 1 TABLET BY MOUTH two (2) times a day, # 60 tablet, 2 Refills, Maintenance, 12/18/21 12:59:00 EST, [facility] [id number], 176, cm, 12/11/21 9:33:00 EDT, Height Start Date: 12/18/21 Status: Ordered nalOXONE 4 mg/0.1 mL nasal spray = 4 mg, Nares, Both, Once, # 2 each, 0 Refills, Soft Stop, 11/17/21 12:37:00 EDT, [facility] [id number], Partial fill upon patient request if the prescription is for a schedule II opioid drug., 102.5, cm, 11/16/21 16:08:00 EDT... Start Date: 11/17/21 Status: Ordered Nicotine 2 mg gum 1 each = 2 mg, Chew, Every 2 hours, PRN as needed for smoking cessation, for 8 week(s), # 100 each,1 Refills, Acute 05/25/22 12:28:00 EDT, 02/02/22 12:28:00 EST, Gum, [facility] - [place], [place] - [id number], Partial fill upon patient request i... Start Date: 02/02/22 Stop Date: 05/25/22 Status: Ordered Pen [place], 31 G x 5 mm BD Ultra [...] tablet, 2 Refills, Maintenance, 11/17/21 16:07:00 EDT, [facility], 102.5, cm, 11/16/21 16:08:00 EDT, [...] prophylaxis Confirmed Active Tobacco use Confirmed Active 60671 2type unknown 3X3, last in 2016 Social History Social History Type Response Tobacco Use: 4 or less cigar ettes(less than 1/4 pack)/day in last 30 days. Other: smoking for 40 yrs.. Sex Patient Care team information Care Team Personnel Name: Harlan Person NP Position: S Associate Professional Member Role: PCP Address: Address: [address] [place] [address]- [place] Care Team Related Persons Name: ELADIA CORRIGAN Address: home [address] [place] [id number]
--- OUTSIDE RECORDS SUMMARY | 2022-10-15 00:51 | XMS_ITS | Continuity of Care Document ---
Author Name Unknown Organization [facility] Address [address] [place] [address]- Care Team Providers Care Head Control Clerk Name Role Phone Raza BALDERAS, Harlan Primary Care Physician [phone] Encounter [facility] Date(s): 03/17/22 - 04/16/[address] [email or web address] Allergies, Adverse Reactions, Alerts Substance Reaction Severity Status penicillin Hives Active Immunizations Given and Recorded Vaccine Date Status Refusal Reason FluLaval (oldterm) 1 12/23/10 Given pneumococcal 23-valent vaccine 2 03/24/10 Given influenza virus vaccine, inactivated 3 01/27/10 Gi caroline tetanus-diphtheria toxoids (Td) 4 01/27/10 Given Not Given Vaccine Date Status Refusal Reason SARS-CoV-2 mRNA ([id number]-llth-gywyn) vax 09/28/21 Not Given Patient Refuses tetanus/diphtheria/pertussis, acel(Tdap) 09/28/21 Not Given Patient Refuses 1Admin Note: vis given 2Admin Note: vis 05/23/2008 3Admin Note: vis 09/16/09 4Admin Note: vis Medications acetaminophen-oxyCODONE 325 mg-5 mg oral tablet 1, tablet, By Mouth, Every 6 hours, # 112 tablet, Refills 0, Tot. Refills 0, Maintenance, 04/03/22 7:57:00 EST, Route to Pharmacy Electronically, [facility] - [place], [place] - [id number], please fill on 04/04; [facility] checked; on contract, 178,... Start Date: 04/03/22 Stop Date: 05/01/22 Status: Ordered amLODIPine 5 mg oral tablet 5 mg, 1, tablet, By Mouth, Daily, # 30 tablet, Refills 1, Tot. Refills 1, Maintenance, 04/16/22 11:16:00 EST, Route to Pharmacy Electronically, [place], [place] - [id number], Partialfill upon patient request if the prescription is fo... Start Date: 04/16/22 Stop Date: 06/15/22 Status: Ordered Aspirin Low Dose 81 mg oral delayed release tablet 1 tablet, By Mouth, Daily, # 30 tablet, 3 Refills, Maintenance, 01/19/22 14:38:00 EST, [facility], 176, cm, 01/11/22 9:46:00 EST, Height Start Date: 01/19/22 Status: Ordered atorvastatin 80 mg oral tablet See Instructions, TAKE 1 TABLET BY MOUTH ONCE DAILY, # 30 tablet, 5 Refills, Maintenance, 11/11/21 11:38:00 EDT, [facility], 176, cm, 10/27/21 11:36:00 EDT, Height [...] 0 Refills, Maintenance, 03/22/22 13:07:00 EST, Tablet, [place], [place] - [id number], Partial fill upon patient request if the [...] 2 Refills, Maintenance, 03/17/22 13:53:00 EST, Capsule, [facility] [id number], Partial fill upon patient request if the prescription is for a dejah... Start Date: 03/17/22 Stop Date: 06/15/22 Status: Ordered Eliquis 5 mg oral tablet 1 tablet = 5 mg, By Mouth, 2 times a day, Please bubble pack and deliver, # 60 tablet, 5 Refills, Maintenance, 02/02/22 12:28:00 EST, Tablet, [facility] [id number], Partial fill upon patient request if the [...] 03/31/22 13:13:00 EST, Route to Pharmacy Electronically, [place], [place] - [id number], 178, cm, 03/30/22 9:50:00 EST, Height, 104.6, k... Start Date: 03/31/22 Stop Date: 04/14/22 Status: Ordered Gold Bonilla Ultimate Softening topical lotion 1 application, Topically, 2 times a day, PRN for dry skin, to affected area, # 420 mL, 3 Refills, Maintenance, 10/27/21 12:11:00 EDT, Lotion, [place], [place] - [id number], 1 application Topically 2 times a day,PRN:for dry skin,Instr:... Start Date: 10/27/21 Status: Ordered hydrochlorothiazide-losartan 12.5 mg-50 mg oral tablet See Instructions, TAKE 1 TABLET BY MOUTH ONCE DAILY, # 90 tablet, 1 Refills, Maintenance, 02/02/22 12:29:00 EST, [facility] [id number], 90, TAKE 1 TABLET BY MOUTH ONCE DAILY,176, cm, 02/02/22 11:51:00 EST, Height Start Date: 02/02/22 Status: Ordered Insulin Lispro KwikPen 100 units/mL injectable solution See Instructions, INJECT 10 UNITS UNDER THE SKIN 3 (THREE) TIMES A DAY BEFORE MEALS, # 15 mL, 0 Refills, Maintenance, 04/13/22 9:28:00 EST, Injection, [facility] [id number], Partial fill upon patient request if the prescriptio... Start Date: 04/13/22 Status: Ordered Lantus Solostar Pen 100 units/mL subcutaneous solution See Instructions, INJECT 40 UNITS SUBCUTANEOUSLY ONCE DAILY, # 15 mL, 2 Refills, Maintenance, 03/17/22 13:54:00 EST, [facility], 178, cm, 03/15/22 15:13:00 EST, Height, 104.6, kg, 02/15/22 14:37:00 EST, Dry Weight Start Date: 03/17/22 Status: Ordered metFORMIN 1000 mg oral tablet, extended release 1 tablet = 1,000 mg, By Mouth, 2 times a day, # 60 tablet, 1 Refills, Maintenance, 04/16/22 11:08:00 EST, ER Tablet, [facility] [id number], Partial fill upon patient request if the prescription is for a schedule II opioid drug... Start Date: 04/16/22 Stop Date: 06/15/22 Status: Ordered Metoprolol Tartrate 25 mg oral tablet See Instructions, TAKE 1 TABLET BY MOUTH two (2) times a day, # 60 tablet, 2 Refills, Maintenance, 03/30/22 10:13:00 EST, [facility] [id number], 178, cm, 03/30/22 9:50:00 EST, Height, 104.6, kg, 02/15/22 14:37:00 EST, Dry Weight Start Date: 03/30/22 Status: Ordered nalOXONE 4 mg/0.1 mL nasal spray = 4 mg, Nares, Both, Once, # 2 each, 0 Refills, Soft Stop, 11/17/21 12:37:00 EDT, [facility] [id number], Partial fill upon patient request if the prescription is for a schedule II opioid drug., 102.5, cm, 11/16/21 16:08:00 EDT... Start Date: 11/17/21 Status: Ordered Nicotine 2 mg gum 1 each = 2 mg, Chew, Every 2 hours, PRN as needed for smoking cessation, for 8 week(s), # 100 each,1 Refills, Acute 05/25/22 12:28:00 EDT, 02/02/22 12:28:00 EST, Gum, [place], [place] - [id number], Partial fill upon patient request i... Start Date: 02/02/22 Stop Date: 05/25/22 Status: Ordered Pen [place], 31 G x 5 mm BD Ultra [...] tablet, 2 Refills, Maintenance, 02/25/22 21:52:00 EST, [facility], 178, cm, 02/15/22 14:37:00 EST, Height, [...] use Confirmed Active Vitreous hemorrhage Confirmed Active 96136 2type unknown 3X3, last in 2015 Social History Social History Type Response Tobacco Use: 4 or less cigar ettes(less than 1/4 pack)/day in last 30 days. Other: smoking for 40 yrs.. Sex Patient Care team information Care Team Personnel Name: Harlan Person NP Position: S Associate Professional Member Role: PCP Address: Address: [address] [place] [address]- Care Team Related Persons Name: ELADIA CORRIGAN Address: home [address] [place] [address]
--- OUTSIDE RECORDS SUMMARY | 2022-10-15 00:51 | XMS_ITS | Continuity of Care Document ---
Author Name Unknown Organization [facility] Address [address] [place] [address]- Care Team Providers Care Admin Prog Coord Name Role Phone Raza BALDERAS, Harlan Primary Care Physician [phone] Encounter [facility] Date(s): 03/15/22 - 04/14/[address] [address]- Allergies, Adverse Reactions, Alerts Substance Reaction Severity Status penicillin Hives Active Immunizations Given and Recorded Vaccine Date Status Refusal Reason FluLaval (oldterm) 1 12/23/10 Given pneumococcal 23-valent vaccine 2 03/24/10 Given influenza virus vaccine, inactivated 3 01/27/10 Gi caroline tetanus-diphtheria toxoids (Td) 4 01/27/10 Given Not Given Vaccine Date Status Refusal Reason SARS-CoV-2 mRNA (qkdbxbv-qiok-ukdww) vax 09/28/21 Not Given Patient Refuses tetanus/diphtheria/pertussis, acel(Tdap) 09/28/21 Not Given Patient Refuses 1Admin Note: vis given 2Admin Note: vis 05/23/2008 3Admin Note: vis 09/16/09 4Admin Note: vis Medications acetaminophen-oxyCODONE 325 mg-5 mg oral tablet 1, tablet, By Mouth, Every 6 hours, # 112 tablet, Refills 0, Tot. Refills 0, Maintenance, 04/03/22 7:57:00 EST, Route to Pharmacy Electronically, [facility] - [place], [place] - [id number], please fill on 04/04; [facility] checked; on contract, 178,... Start Date: 04/03/22 Stop Date: 05/01/22 Status: Ordered Aspirin Low Dose 81 mg oral delayed release tablet 1 tablet, By Mouth, Daily, # 30 tablet, 3 Refills, Maintenance, 01/19/22 14:38:00 EST, [facility], 176, cm, 01/11/22 9:46:00 EST, Height Start Date: 01/19/22 Status: Ordered atorvastatin 80 mg oral tablet See Instructions, TAKE 1 TABLET BY MOUTH ONCE DAILY, # 30 tablet, 5 Refills, Maintenance, 11/11/21 11:38:00 EDT, [facility], 176, cm, 10/27/21 11:36:00 EDT, Height Start Date: 11/11/21 Status: Ordered Blood Pressure Monitor See Instructions, # 1 each, Refills 0, Tot. Refills 0, Maintenance, patient persistent elevated BP ICD: I10 please send to L&C thank you, Harlan Person DNP, [facility]-, 10/09/21 9:52:00 EDT, Supply Start Date: 10/09/21 Status: Ordered Cane See Instructions, # 1 each, Maintenance, patient with chronic left hip pain, and Left knee OA needscane please ICD10 M17. 9, M25. 552 Thank you, Harlan Person DNP, [facility]-C, 01/11/22 10:01:00 EST, Supply Start Date: 01/11/22 Status: Ordered clonazePAM 1 mg oral tablet 1 tablet = 1 mg, By Mouth, 3 times a day, Please bubble pack and deliver, # 90 tablet, 0 Refills, Maintenance, 03/22/22 13:07:00 EST, Tablet, [place], [place] - [id number], Partial fill upon patient request if the prescription is for... Start Date: 03/22/22 Stop Date: 04/21/22 Status: Ordered Doculase 100 mg oral capsule 1 capsule = 100 mg, By Mouth, 2 times a day, PRN for constipation, # 30 capsule, 2 Refills, Maintenance, 03/17/22 13:53:00 EST, Capsule, [place], [place] - [id number], Partial fill upon patient request if the prescription is for a dejah... Start Date: 03/17/22 Stop Date: 06/15/22 Status: Ordered Eliquis 5 mg oral tablet 1 tablet = 5 mg, By Mouth, 2 times a day, Please bubble pack and deliver, # 60 tablet, 5 Refills, Maintenance, 02/02/22 12:28:00 EST, Tablet, [facility] - [place], [place] - [phone], Partial fill upon patient request if the [...] 03/31/22 13:13:00 EST, Route to Pharmacy Electronically, [facility] [id number], 178, cm, 03/30/22 9:50:00 EST, Height, 104.6, k... Start Date: 03/31/22 Stop Date: 04/14/22 Status: Ordered Gold Bonilla Ultimate Softening topical lotion 1 application, Topically, 2 times a day, PRN for dry skin, to affected area, # 420 mL, 3 Refills, Maintenance, 10/27/21 12:11:00 EDT, Lotion, [place], [place] - [id number], 1 application Topically 2 times a day,PRN:for dry skin,Instr:... Start Date: 10/27/21 Status: Ordered hydrochlorothiazide-losartan 12.5 mg-50 mg oral tablet See Instructions, TAKE 1 TABLET BY MOUTH ONCE DAILY, # 90 tablet, 1 Refills, Maintenance, 02/02/22 12:29:00 EST, [facility] [id number], 90, TAKE 1 TABLET BY MOUTH ONCE DAILY,176, cm, 02/02/22 11:51:00 EST, Height Start Date: 02/02/22 Status: Ordered Insulin Lispro KwikPen 100 units/mL injectable solution See Instructions, INJECT 10 UNITS UNDER THE SKIN 3 (THREE) TIMES A DAY BEFORE MEALS, # 15 mL, 0 Refills, Maintenance, 04/13/22 9:28:00 EST, Injection, [facility] [id number], Partial fill upon patient request if the prescriptio... Start Date: 04/13/22 Status: Ordered Lantus Solostar Pen 100 units/mL subcutaneous solution See Instructions, INJECT 40 UNITS SUBCUTANEOUSLY ONCE DAILY, # 15 mL, 2 Refills, Maintenance, 03/17/22 13:54:00 EST, [facility], 178, cm, 03/15/22 15:13:00 EST, Height, 104.6, kg, 02/15/22 14:37:00 EST, Dry Weight Start Date: 03/17/22 Status: Ordered Metoprolol Tartrate 25 mg oral tablet See Instructions, TAKE 1 TABLET BY MOUTH two (2) times a day, # 60 tablet, 2 Refills, Maintenance, 03/30/22 10:13:00 EST, [facility] [id number], 178, cm, 03/30/22 9:50:00 EST, Height, 104.6, kg, 02/15/22 14:37:00 EST, Dry Weight Start Date: 03/30/22 Status: Ordered nalOXONE 4 mg/0.1 mL nasal spray = 4 mg, Nares, Both, Once, # 2 each, 0 Refills, Soft Stop, 11/17/21 12:37:00 EDT, [facility] [id number], Partial fill upon patient request if the prescription is for a schedule II opioid drug., 102.5, cm, 11/16/21 16:08:00 EDT... Start Date: 11/17/21 Status: Ordered Nicotine 2 mg gum 1 each = 2 mg, Chew, Every 2 hours, PRN as needed for smoking cessation, for 8 week(s), # 100 each,1 Refills, Acute 05/25/22 12:28:00 EDT, 02/02/22 12:28:00 EST, Gum, [facility] [id number], Partial fill upon patient request i... Start Date: 02/02/22 Stop Date: 05/25/22 Status: Ordered Pen [place], 31 G x 5 mm BD Ultra [...] prophylaxis Confirmed Active Tobacco use Confirmed Active 17085 2type unknown 3X3, last in 2016 Social History Social History Type Response Tobacco Use: 4 or less cigar ettes(less than 1/4 pack)/day in last 30 days. Other: smoking for 40 yrs.. Sex Patient Care team information Care Team Personnel Name: Harlan Person NP Position: S Associate Professional Member Role: PCP Address: Address: [address] [place] [address]- Care Team Related Persons Name: ELADIA CORRIGAN Address: home [address] [place] [address]
--- OUTSIDE RECORDS SUMMARY | 2022-10-15 00:51 | XMS_ITS | Continuity of Care Document ---
Author Name Unknown Organization [facility] Address [address] [place] [address]- Care Team Providers Care Manager Report Name Role Phone Raza CIRCUIT COURT CLERK, Harlan Primary Care Physician [facility] Date[facility]s): 02/16/22 - 03/18/[address] [address] Allergies, Adverse Reactions, Alerts Substance Reaction Severity Status penicillin Hives Active Immunizations Given and Recorded Vaccine Date Status Refusal Reason FluLaval (oldterm) 1 12/23/10 Given pneumococcal 23-valent vaccine 2 03/24/10 Given influenza virus vaccine, inactivated 3 01/27/10 Gi caroline tetanus-diphtheria toxoids (Td) 4 01/27/10 Given Not Given Vaccine Date Status Refusal Reason SARS-CoV-2 mRNA ([id number]-pvox-hcadr) vax 09/28/21 Not Given Patient Refuses tetanus/diphtheria/pertussis, acel(Tdap) 09/28/21 Not Given Patient Refuses 1Admin Note: vis given 2Admin Note: vis 05/23/2008 3Admin Note: vis 09/16/09 4Admin Note: vis Medications acetaminophen-oxyCODONE 325 mg-5 mg oral tablet 1, tablet, By Mouth, Every 6 hours, # 112 tablet, Refills 0, Tot. Refills 0, Maintenance, 03/06/22 9:53:00 EST, Route to Pharmacy Electronically, [facility] - [place], [place] - [id number], please fill on 01/02, 178, cm, 02/15/22 14:37:00 EST, Hei... Start Date: 03/06/22 Stop Date: 04/03/22 Status: Ordered Aspirin Low Dose 81 mg oral delayed release tablet 1 tablet, By Mouth, Daily, # 30 tablet, 3 Refills, Maintenance, 01/19/22 14:38:00 EST, [facility], 176, cm, 01/11/22 9:46:00 EST, Height Start Date: 01/19/22 Status: Ordered atorvastatin 80 mg oral tablet See Instructions, TAKE 1 TABLET BY MOUTH ONCE DAILY, # 30 tablet, 5 Refills, Maintenance, 11/11/21 11:38:00 EDT, [facility], 176, cm, 10/27/21 11:36:00 EDT, Height Start Date: 11/11/21 Status: Ordered Blood Pressure Monitor See Instructions, # 1 each, Refills 0, Tot. Refills 0, Maintenance, patient persistent elevated BP ICD: I10 please send to L&C thank you, Harlan Person DNP [facility]-, 10/09/21 9:52:00 EDT, Supply Start Date: 10/09/21 Status: Ordered Cane See Instructions, # 1 each, Maintenance, patient with chronic left hip pain, and Left knee OA needscane please ICD10 M17. 9, M25. 552 Thank you, Harlan Person DNP, [employer]-C, 01/11/22 10:01:00 EST, Supply Start Date: 01/11/22 Status: Ordered clonazePAM 1 mg oral tablet 1 tablet = 1 mg, By Mouth, 3 times a day, Please bubble pack and deliver, # 90 tablet, 0 Refills, Maintenance, 12/29/21 10:43:00 EST, Tablet, [facility] [id number], Partial fill upon patient request if the prescription is for... Start Date: 12/29/21 Stop Date: 01/28/22 Status: Ordered Doculase 100 mg oral capsule 1 capsule = 100 mg, By Mouth, 2 times a day, PRN for constipation, # 30 capsule, 2 Refills, Maintenance, 03/17/22 13:53:00 EST, Capsule, [place], [place] - [id number], Partial fill upon patient request if the prescription is for a dejah... Start Date: 03/17/22 Stop Date: 06/15/22 Status: Ordered doxycycline hyclate 100 mg oral tablet 1 tablet = 100 mg, By Mouth, 2 times a day, for 7 days, # 14 tablet, 0 Refills, Acute 03/22/22 15:42:00 EST, 03/15/22 15:42:00 EST, Tablet, [place], [place] - [id number], Partial fill upon patient request if the prescription is for a... Start Date: 03/15/22 Stop Date: 03/22/22 Status: Ordered Eliquis 5 mg oral tablet 1 tablet = 5 mg, By Mouth, 2 times a day, Please bubble pack and deliver, # 60 tablet, 5 Refills, Maintenance, 02/02/22 12:28:00 EST, Tablet, [place], [place] - [id number], Partial fill upon patient request if the [...] 3 Refills, Maintenance, 10/27/21 12:11:00 EDT, Lotion, [place], [place] - [id number], 1 application Topically 2 times a day,PRN:for dry skin,Instr:... Start Date: 10/27/21 Status: Ordered hydrochlorothiazide-losartan 12.5 mg-50 mg oral tablet See Instructions, TAKE 1 TABLET BY MOUTH ONCE DAILY, # 90 tablet, 1 Refills, Maintenance, 02/02/22 12:29:00 EST, [place], [place] - [id number], 90, TAKE 1 TABLET BY MOUTH ONCE [...] mL, 2 Refills, Maintenance, 03/17/22 13:54:00 EST, [facility], 178, cm, 03/15/22 15:13:00 EST, Height, 104.6, kg, 02/15/22 14:37:00 EST, Dry Weight Start Date: 03/17/22 Status: Ordered Metoprolol Tartrate 25 mg oral tablet See Instructions, TAKE 1 TABLET BY MOUTH two (2) times a day, # 60 tablet, 2 Refills, Maintenance, 12/18/21 12:59:00 EST, [facility] [id number], 176, cm, 12/11/21 9:33:00 EDT, Height Start Date: 12/18/21 Status: Ordered nalOXONE 4 mg/0.1 mL nasal spray = 4 mg, Nares, Both, Once, # 2 each, 0 Refills, Soft Stop, 11/17/21 12:37:00 EDT, [facility] [id number], Partial fill upon patient request if the prescription is for a schedule II opioid drug., 102.5, cm, 11/16/21 16:08:00 EDT... Start Date: 11/17/21 Status: Ordered Nicotine 2 mg gum 1 each = 2 mg, Chew, Every 2 hours, PRN as needed for smoking cessation, for 8 week(s), # 100 each,1 Refills, Acute 05/25/22 12:28:00 EDT, 02/02/22 12:28:00 EST, Gum, [facility] [phone], Partial fill upon patient request i... Start Date: 02/02/22 Stop Date: 05/25/22 Status: Ordered Pen [place], 31 G x 5 mm BD Ultra [...] prophylaxis Confirmed Active Tobacco use Confirmed Active 29730 2type unknown 3X3, last in 2016 Social History Social History Type Response Tobacco Use: 4 or less cigar ettes(less than 1/4 pack)/day in last 30 days. Other: smoking for 40 yrs.. Sex Patient Care team information Care Team Personnel Name: Harlan Person NP Position: S Associate Professional Member Role: PCP Address: Address: [address] [place] [address]- Care Team Related Persons Name: ELADIA CORRIGAN Address: home [address] [place] [address]
--- OUTSIDE RECORDS SUMMARY | 2022-10-15 00:51 | XMS_ITS | Continuity of Care Document ---
Author Name Unknown Organization [facility] Address [address] [place] [address]- Care Team Providers Care Garment Sorter Name Role Phone Raza BALDERAS, Harlan Primary Care Physician [phone] [facility]counter [facility] Date[facility]s): 02/19/22 - 03/21/[address] [address]- Attending Physician: Navya Penaloza Admitting Physician: AdmtrNavya Referring Physician: AdmtrNavya Allergies, Adverse Reactions, Alerts Substance Reaction Severity Status penicillin Hives Active Immunizations Given and Recorded Vaccine Date Status Refusal Reason FluLaval (oldterm) 1 12/23/10 Given pneumococcal 23-valent vaccine 2 03/24/10 Given influenza virus vaccine, inactivated 3 01/27/10 Gi caroline tetanus-diphtheria toxoids (Td) 4 01/27/10 Given Not Given Vaccine Date Status Refusal Reason SARS-CoV-2 mRNA ([id number]-[id number]) vax 09/28/21 Not Given Patient Refuses tetanus/diphtheria/pertussis, acel(Tdap) 09/28/21 Not Given Patient Refuses 1Admin Note: vis given 2Admin Note: vis 05/23/2008 3Admin Note: vis 09/16/09 4Admin Note: vis Medications acetaminophen-oxyCODONE 325 mg-5 mg oral tablet 1, tablet, By Mouth, Every 6 hours, # 112 tablet, Refills 0, Tot. Refills 0, Maintenance, 03/06/22 9:53:00 EST, Route to Pharmacy Electronically, [facility] - [place], [place] - [id number], please fill on 01/02, 178, cm, 02/15/22 14:37:00 EST, Hei... Start Date: 03/06/22 Stop Date: 04/03/22 Status: Ordered Aspirin Low Dose 81 mg oral delayed release tablet 1 tablet, By Mouth, Daily, # 30 tablet, 3 Refills, Maintenance, 01/19/22 14:38:00 EST, [facility], 176, cm, 01/11/22 9:46:00 EST, Height Start Date: 01/19/22 Status: Ordered atorvastatin 80 mg oral tablet See Instructions, TAKE 1 TABLET BY MOUTH ONCE DAILY, # 30 tablet, 5 Refills, Maintenance, 11/11/21 11:38:00 EDT, [facility], 176, cm, 10/27/21 11:36:00 EDT, Height Start Date: 11/11/21 Status: Ordered Blood Pressure Monitor See Instructions, # 1 each, Refills 0, Tot. Refills 0, Maintenance, patient persistent elevated BP ICD: I10 please send to L&C thank you, Harlan Person DNP, [facility]-, 10/09/21 9:52:00 EDT, Supply Start Date: 10/09/21 Status: Ordered Cane See Instructions, # 1 each, Maintenance, patient with chronic left hip pain, and Left knee OA needscane please ICD10 M17. 9, M25. 552 Thank you, Harlan Person DNP, [facility], 01/11/22 10:01:00 EST, Supply Start Date: 01/11/22 Status: Ordered clonazePAM 1 mg oral tablet 1 tablet = 1 mg, By Mouth, 3 times a day, Please bubble pack and deliver, # 90 tablet, 0 Refills, Maintenance, 12/29/21 10:43:00 EST, Tablet, [place], [place] - [id number], Partial fill upon patient request if the prescription is for... Start Date: 12/29/21 Stop Date: 01/28/22 Status: Ordered Doculase 100 mg oral capsule 1 capsule = 100 mg, By Mouth, 2 times a day, PRN for constipation, # 30 capsule, 2 Refills, Maintenance, 03/17/22 13:53:00 EST, Capsule, [place], [place] - [id number], Partial fill upon patient request if the prescription is for a dejah... Start Date: 03/17/22 Stop Date: 06/15/22 Status: Ordered doxycycline hyclate 100 mg oral tablet 1 tablet = 100 mg, By Mouth, 2 times a day, for 7 days, # 14 tablet, 0 Refills, Acute 03/22/22 15:42:00 EST, 03/15/22 15:42:00 EST, Tablet, [place], [place] - [id number], Partial fill upon patient request if the prescription is for a... Start Date: 03/15/22 Stop Date: 03/22/22 Status: Ordered Eliquis 5 mg oral tablet 1 tablet = 5 mg, By Mouth, 2 times a day, Please bubble pack and deliver, # 60 tablet, 5 Refills, Maintenance, 02/02/22 12:28:00 EST, Tablet, [place], [place] - [phone], Partial fill upon patient request if the [...] 3 Refills, Maintenance, 10/27/21 12:11:00 EDT, Lotion, [facility] [id number], 1 application Topically 2 times a day,PRN:for dry skin,Instr:... Start Date: 10/27/21 Status: Ordered hydrochlorothiazide-losartan 12.5 mg-50 mg oral tablet See Instructions, TAKE 1 TABLET BY MOUTH ONCE DAILY, # 90 tablet, 1 Refills, Maintenance, 02/02/22 12:29:00 EST, [place], [place] - [id number], 90, TAKE 1 TABLET BY MOUTH ONCE [...] mL, 2 Refills, Maintenance, 03/17/22 13:54:00 EST, [facility], 178, cm, 03/15/22 15:13:00 EST, Height, 104.6, kg, 02/15/22 14:37:00 EST, Dry Weight Start Date: 03/17/22 Status: Ordered Metoprolol Tartrate 25 mg oral tablet See Instructions, TAKE 1 TABLET BY MOUTH two (2) times a day, # 60 tablet, 2 Refills, Maintenance, 12/18/21 12:59:00 EST, [facility] [id number], 176, cm, 12/11/21 9:33:00 EDT, Height Start Date: 12/18/21 Status: Ordered nalOXONE 4 mg/0.1 mL nasal spray = 4 mg, Nares, Both, Once, # 2 each, 0 Refills, Soft Stop, 11/17/21 12:37:00 EDT, [facility] [id number], Partial fill upon patient request if the prescription is for a schedule II opioid drug., 102.5, cm, 11/16/21 16:08:00 EDT... Start Date: 11/17/21 Status: Ordered Nicotine 2 mg gum 1 each = 2 mg, Chew, Every 2 hours, PRN as needed for smoking cessation, for 8 week(s), # 100 each,1 Refills, Acute 05/25/22 12:28:00 EDT, 02/02/22 12:28:00 EST, Gum, [facility] [id number], Partial fill upon patient request i... Start Date: 02/02/22 Stop Date: 05/25/22 Status: Ordered Pen [place], 31 G x 5 mm BD Ultra [...] prophylaxis Confirmed Active Tobacco use Confirmed Active 92684 2type unknown 3X3, last in 2015 Social History Social History Type Response Tobacco Use: 4 or less cigar ettes(less than 1/4 pack)/day in last 30 days. Other: smoking for 40 yrs.. Sex Patient Care team information Care Team Personnel Name: Harlan Person NP Position: [facility] Associate Professional Member Role: PCP Address: Address: [address] [place] [address]- Care Team Related Persons Name: SAMANMIAELADIA RODRIGUEZ Address: home [address] [place] [address]
--- OUTSIDE RECORDS SUMMARY | 2022-10-15 00:51 | XMS_ITS | Continuity of Care Document ---
Author Name Unknown Organization [facility] Address [address] [place] [address]- Care Team Providers Care Security Assurance Analyst Name Role Phone Raza BALDERAS, Harlan Primary Care Physician [facility] Date(s): 10/05/21 - 11/05/[address] [address]- Attending Physician: Virgilio Pruitt MD Admitting Physician: [...] Vaccine Date Status Refusal Reason SARS-CoV-2 mRNA ([id number]-[id number]-mwfse) vax 09/28/21 Not Given Patient Refuses tetanus/diphtheria/pertussis, acel(Tdap) 09/28/21 Not Given Patient Refuses 1Admin Note: vis given 2Admin Note: vis 05/23/2008 3Admin Note: vis 09/16/09 4Admin Note: vis Medications acetaminophen-oxyCODONE 325 mg-5 mg oral tablet 1, tablet, By Mouth, Every 6 hours, # 56 tablet, Refills 0, Tot. Refills 0, Maintenance, 11/05/21 12:32:00 EDT, Route to Pharmacy Electronically, [facility] - [place], [place] - [id number], Partial fill upon patient request if the prescription is... Start Date: 11/05/21 Stop Date: 11/19/21 Status: Ordered aspirin 81 mg oral delayed release tablet 81 mg, 1, tablet, By Mouth, Daily, # 30 tablet, Refills 3, Tot. Refills 3, Maintenance, 10/09/21 9:23:00 EDT, Route to Pharmacy Electronically, [facility] [id number], Partialfill upon patient request if the prescription is fo... Start Date: 10/09/21 Stop Date: 02/06/22 Status: Ordered atorvastatin 80 mg oral tablet 1 tablet = 80 mg, By Mouth, Daily, # 30 tablet, 1 Refills, Maintenance, 09/28/21 15:06:00 EDT, Tablet, [facility] [id number], Partial fill upon patient request if the prescription is for a schedule II opioid drug., 176, cm, 08... Start Date: 09/28/21 Status: Ordered Blood Pressure Monitor See Instructions, # 1 each, Refills 0, Tot. Refills 0, Maintenance, patient persistent elevated BP ICD: I10 please send to L&C thank you, Harlan Person [facility], LEAD PRODUCER-C, 10/09/21 9:52:00 EDT, Supply Start Date: 10/09/21 Status: Ordered clonazePAM 1 mg oral tablet 1 tablet = 1 mg, By Mouth, 3 times a day, Please bubble pack and deliver, # 90 tablet, 0 Refills, Maintenance, 09/29/21 17:54:00 EDT, Tablet, [facility] [id number], Partial fill upon patient request if the prescription is for... Start Date: 09/29/21 Status: Ordered Eliquis 5 mg oral tablet 1 tablet = 5 mg, By Mouth, 2 times a day, Please bubble pack and deliver, # 60 tablet, 5 Refills, Maintenance, 08/27/21 13:36:00 EDT, Tablet, [facility] [id number], Partial fill upon patient request if the [...] 3 Refills, Maintenance, 10/27/21 12:11:00 EDT, Lotion, [place], [place] - [id number], 1 application Topically 2 times a day,PRN:for dry skin,Instr:... Start Date: 10/27/21 Status: Ordered hydrochlorothiazide-losartan 12.5 mg-50 mg oral tablet 1 tablet, By Mouth, Daily, # 90 tablet, 0 Refills, Maintenance, 09/28/21 15:10:00 EDT, Tablet, [facility] [id number], Partial fill upon patient request if the prescription isfor a schedule II opioid drug., 1 tablet By Mouth D... Start Date: 09/28/21 Stop Date: 12/27/21 Status: Ordered Lantus Solostar Pen 100 units/mL subcutaneous solution = 40 units, Subcutaneous Infusion, Daily, Please dispense 6 pens, # 15 mL, 2 Refills, Maintenance, 08/27/21 13:36:00 EDT, [facility] [id number], Partial fill upon patient request if the prescription is for a schedule II opioid... Start Date: 08/27/21 Stop Date: 11/25/21 Status: Ordered metoprolol 25 mg oral tablet 25 mg, 1, tablet, By Mouth, 2 times a day, # 60 tablet, Refills 2, Tot. Refills 2, Maintenance, 10/07/21 8:55:00 EDT, Route to Pharmacy Electronically, [facility] [id number],Partial fill upon patient request if the prescripti... Start Date: 10/07/21 Stop Date: 01/05/22 Status: Ordered Nicorette 4 mg oral transmucosal gum 1 each = 4 mg, Chew, Every 2 hours, PRN as needed for smoking cessation, for 8 week(s), # 160 each,0 Refills, Acute 11/23/21 15:06:00 EDT, 09/28/21 15:06:00 EDT, Gum, [facility] [id number], Cinnamon flavor please, 176, cm, 08... Start Date: 09/28/21 Stop Date: 11/23/21 Status: Ordered Pen [place], 31 G x 5 mm BD Ultra [...] 2 Refills, Maintenance, 08/27/21 15:37:00 EDT, Tablet, [facility] - [place], [place] - [id number], Partial fill upon patient request if the [...] I Confirmed Active Tobacco use Confirmed Active 52220 2type unknown 3X3, last in 2016 Social History Social History Type Response Smoking Status 10 or more cigarette s (1/2 pack or more)/day in last 30 days entered on: 09/28/21 Sex Patient Care team information Personnel Name: Harlan Pesron NP Address: Address: [address] [place] [id number]
--- OUTSIDE RECORDS SUMMARY | 2022-10-15 00:51 | XMS_ITS | Continuity of Care Document ---
Author Name Unknown Organization [facility] Address [address] [place] [address]- Care Team Providers Care Side Seam Envelope Machine Operator Name Role Phone Raza BALDERAS, Harlan Primary Care Physician [phone] [facility] 11/23[facility] - 12/23/[address] [address]- Allergies, Adverse Reactions, Alerts Substance Reaction Severity Status penicillin Hives Active Immunizations Given and Recorded Vaccine Date Status Refusal Reason FluLaval (oldterm) 1 12/23/10 Given pneumococcal 23-valent vaccine 2 03/24/10 Given influenza virus vaccine, inactivated 3 01/27/10 Gi caroline tetanus-diphtheria toxoids (Td) 4 01/27/10 Given Not Given Vaccine Date Status Refusal Reason SARS-CoV-2 mRNA ([id number]) vax 09/28/21 Not Given Patient Refuses tetanus/diphtheria/pertussis, acel(Tdap) 09/28/21 Not Given Patient Refuses 1Admin Note: vis given 2Admin Note: vis 05/23/2008 3Admin Note: vis 09/16/09 4Admin Note: vis Medications acetaminophen-oxyCODONE 325 mg-5 mg oral tablet 1, tablet, By Mouth, Every 6 hours, # 112 tablet, Refills 0, Tot. Refills 0, Maintenance, 12/04/21 7:33:00 EDT, Route to Pharmacy Electronically, [facility] - [place], [place] - [id number], Partial fill upon patient request if the prescription is... Start Date: 12/04/21 Stop Date: 01/01/22 Status: Ordered aspirin 81 mg oral delayed release tablet 81 mg, 1, tablet, By Mouth, Daily, # 30 tablet, Refills 3, Tot. Refills 3, Maintenance, 10/09/21 9:23:00 EDT, Route to Pharmacy Electronically, [facility] [id number], Partialfill upon patient request if the prescription is fo... Start Date: 10/09/21 Stop Date: 02/06/22 Status: Ordered atorvastatin 80 mg oral tablet See Instructions, TAKE 1 TABLET BY MOUTH ONCE DAILY, # 30 tablet, 5 Refills, Maintenance, 11/11/21 11:38:00 EDT, [facility], 176, cm, 10/27/21 11:36:00 EDT, Height Start Date: 11/11/21 Status: Ordered Blood Pressure Monitor See Instructions, # 1 each, Refills 0, Tot. Refills 0, Maintenance, patient persistent elevated BP ICD: I10 please send to L&C thank you, Harlan Person DNP, BACKBREAKER-C, 10/09/21 9:52:00 EDT, Supply Start Date: 10/09/21 Status: Ordered clonazePAM 1 mg oral tablet 1 tablet = 1 mg, By Mouth, 3 times a day, Please bubble pack and deliver, # 90 tablet, 0 Refills, Maintenance, 11/16/21 15:46:00 EDT, Tablet, [facility] [id number], Partial fill upon patient request if the prescription is for... Start Date: 11/16/21 Stop Date: 12/16/21 Status: Ordered Eliquis 5 mg oral tablet 1 tablet = 5 mg, By Mouth, 2 times a day, Please bubble pack and deliver, # 60 tablet, 5 Refills, Maintenance, 08/27/21 13:36:00 EDT, Tablet, [facility] [id number], Partial fill upon patient request if the [...] 3 Refills, Maintenance, 10/27/21 12:11:00 EDT, Lotion, [place], [place] - [id number], 1 application Topically 2 times a day,PRN:for dry skin,Instr:... Start Date: 10/27/21 Status: Ordered hydrochlorothiazide-losartan 12.5 mg-50 mg oral tablet See Instructions, TAKE 1 TABLET BY MOUTH ONCE DAILY, # 90 tablet, 1 Refills, Maintenance, 11/11/21 11:38:00 EDT, [facility], 90, TAKE 1 TABLET BY MOUTH ONCE DAILY, 176, cm, 10/27/21 11:36:00 EDT, Height Start Date: 11/11/21 Status: Ordered Lantus Solostar Pen 100 units/mL subcutaneous solution = 40 units, Subcutaneous Infusion, Daily, Please dispense 6 pens, # 15 mL, 2 Refills, Maintenance, 08/27/21 13:36:00 EDT, [facility] [id number], Partial fill upon patient request if the prescription is for a schedule II opioid... Start Date: 08/27/21 Stop Date: 11/25/21 Status: Ordered Metoprolol Tartrate 25 mg oral tablet See Instructions, TAKE 1 TABLET BY MOUTH two (2) times a day, # 60 tablet, 2 Refills, Maintenance, 12/18/21 12:59:00 EST, [facility] [id number], 176, cm, 12/11/21 9:33:00 EDT, Height Start Date: 12/18/21 Status: Ordered nalOXONE 4 mg/0.1 mL nasal spray = 4 mg, Nares, Both, Once, # 2 each, 0 Refills, Soft Stop, 11/17/21 12:37:00 EDT, [facility] [id number], Partial fill upon patient request if the prescription is for a schedule II opioid drug., 102.5, cm, 11/16/21 16:08:00 EDT... Start Date: 11/17/21 Status: Ordered Pen [place], 31 G x 5 mm BD Ultra [...] prophylaxis Confirmed Active Tobacco use Confirmed Active 02778 2type unknown 3X3, last in 2016 Social History Social History Type Response Smoking Status 10 or more cigarette s (1/2 pack or more)/day in last 30 days entered on: 09/28/21 Sex Patient Care team information Care Team Personnel Name: Harlan Person NP Position: [facility] Associate Professional Member Role: PCP Address: Address: [address] [place] [address]- Care Team Related Persons Name: ELADIA CORRIGAN Address: home [address] [place] [address]
--- OUTSIDE RECORDS SUMMARY | 2022-10-15 00:51 | XMS_ITS | Continuity of Care Document ---
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 Name Role Phone Raza BALDERAS, Harlan Primary Care Physician [phone] Encounter [facility] Date(s): 09/29/21 - 10/29/[address] [address]- Allergies, Adverse Reactions, Alerts Substance Reaction Severity Status penicillin Hives Active Immunizations Given and Recorded Vaccine Date Status Refusal Reason FluLaval (oldterm) 1 12/23/10 Given pneumococcal 23-valent vaccine 2 03/24/10 Given influenza virus vaccine, inactivated 3 01/27/10 Gi caroline tetanus-diphtheria toxoids (Td) 4 01/27/10 Given Not Given Vaccine Date Status Refusal Reason SARS-CoV-2 mRNA ([id number]) vax 09/28/21 Not Given Patient Refuses tetanus/diphtheria/pertussis, acel(Tdap) 09/28/21 Not Given Patient Refuses 1Admin Note: vis given 2Admin Note: vis 05/23/2008 3Admin Note: vis 09/16/09 4Admin Note: vis Medications acetaminophen-oxyCODONE 325 mg-5 mg oral tablet 1, tablet, By Mouth, Every 6 hours, # 28 tablet, Refills 0, Tot. Refills 0, Maintenance, 10/22/21 19:47:00 EDT, Route to Pharmacy Electronically, [place], [place] - [id number], Partial fill upon patient request if the prescription is... Start Date: 10/22/21 Stop Date: 10/29/21 Status: Ordered aspirin 81 mg oral delayed release tablet 81 mg, 1, tablet, By Mouth, Daily, # 30 tablet, Refills 3, Tot. Refills 3, Maintenance, 10/09/21 9:23:00 EDT, Route to Pharmacy Electronically, [facility] [id number], Partialfill upon patient request if the prescription is fo... Start Date: 10/09/21 Stop Date: 02/06/22 Status: Ordered atorvastatin 80 mg oral tablet 1 tablet = 80 mg, By Mouth, Daily, # 30 tablet, 1 Refills, Maintenance, 09/28/21 15:06:00 EDT, Tablet, [facility] [id number], Partial fill upon patient request if the prescription is for a schedule II opioid drug., 176, cm, 08... Start Date: 09/28/21 Status: Ordered Blood Pressure Monitor See Instructions, # 1 each, Refills 0, Tot. Refills 0, Maintenance, patient persistent elevated BP ICD: I10 please send to [facility] thank you, Harlan Person [facility], SPOTLIGHT OPERATOR-C, 10/09/21 9:52:00 EDT, Supply Start Date: 10/09/21 Status: Ordered clonazePAM 1 mg oral tablet 1 tablet = 1 mg, By Mouth, 3 times a day, Please bubble pack and deliver, # 90 tablet, 0 Refills, Maintenance, 09/29/21 17:54:00 EDT, Tablet, [facility] [id number], Partial fill upon patient request if the prescription is for... Start Date: 09/29/21 Status: Ordered Eliquis 5 mg oral tablet 1 tablet = 5 mg, By Mouth, 2 times a day, Please bubble pack and deliver, # 60 tablet, 5 Refills, Maintenance, 08/27/21 13:36:00 EDT, Tablet, [facility] [id number], Partial fill upon patient request if the [...] 3 Refills, Maintenance, 10/27/21 12:11:00 EDT, Lotion, [place], [place] - [id number], 1 application Topically 2 times a day,PRN:for dry skin,Instr:... Start Date: 10/27/21 Status: Ordered Humalog Kwik Pen 100 units/mL subcutaneous injection = 10 units, Subcutaneous Infusion, 3 times a day before meals, Please dispense 3 pens, # 15 mL, 2 Refills, Maintenance, 08/27/21 13:37:00 EDT, [facility] [id number], Partial fill upon patient request if the prescription is for... Start Date: 08/27/21 Status: Ordered hydrochlorothiazide-losartan 12.5 mg-50 mg oral tablet 1 tablet, By Mouth, Daily, # 90 tablet, 0 Refills, Maintenance, 09/28/21 15:10:00 EDT, Tablet, [facility] [id number], Partial fill upon patient request if the prescription isfor a schedule II opioid drug., 1 tablet By Mouth D... Start Date: 09/28/21 Stop Date: 12/27/21 Status: Ordered Lantus Solostar Pen 100 units/mL subcutaneous solution = 40 units, Subcutaneous Infusion, Daily, Please dispense 6 pens, # 15 mL, 2 Refills, Maintenance, 08/27/21 13:36:00 EDT, [facility] [id number], Partial fill upon patient request if the prescription is for a schedule II opioid... Start Date: 08/27/21 Stop Date: 11/25/21 Status: Ordered metoprolol 25 mg oral tablet 25 mg, 1, tablet, By Mouth, 2 times a day, # 60 tablet, Refills 2, Tot. Refills 2, Maintenance, 10/07/21 8:55:00 EDT, Route to Pharmacy Electronically, [facility] [id number],Partial fill upon patient request if the prescripti... Start Date: 10/07/21 Stop Date: 01/05/22 Status: Ordered Nicorette 4 mg oral transmucosal gum 1 each = 4 mg, Chew, Every 2 hours, PRN as needed for smoking cessation, for 8 week(s), # 160 each,0 Refills, Acute 11/23/21 15:06:00 EDT, 09/28/21 15:06:00 EDT, Gum, [facility] [id number], Cinnamon flavor please, 176, cm, 08... Start Date: 09/28/21 Stop Date: 11/23/21 Status: Ordered Pen [place], 31 G x 5 mm BD Ultra [...] 2 Refills, Maintenance, 08/27/21 15:37:00 EDT, Tablet, [facility] [place], [place] - [id number], Partial fill upon patient request if the [...] Obese class I(Confirmed) Active Tobacco use(Confirmed) Active 45269 2type unknown 3X3, last in 2016 Social History Social History Type Response Smoking Status 10 or more cigarette s (1/2 pack or more)/day in last 30 days entered on: 09/28/21 Sex Care Team Personnel Name: Harlan Person NP Address: [address] [place] [address]
--- OUTSIDE RECORDS SUMMARY | 2022-10-15 00:51 | XMS_ITS | Continuity of Care Document ---
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 Role Phone Raza BALDERAS, Harlan Primary Care Physician [phone] Encounter [facility] Date(s): 07/16/22 - 09/19/[address] [address] Attending Physician: Not on Staff, Attending MD Allergies, Adverse Reactions, Alerts Substance Reaction Severity Status penicillin Hives Active Immunizations Given and Recorded Vaccine Date Status Refusal Reason FluLaval (oldterm) 1 12/23/10 Given pneumococcal 23-valent vaccine 2 03/24/10 Given influenza virus vaccine, inactivated 3 01/27/10 Gi caroline tetanus-diphtheria toxoids (Td) 4 01/27/10 Given Not Given Vaccine Date Status Refusal Reason SARS-CoV-2 mRNA ([id number]) vax 09/28/21 Not Given Patient Refuses tetanus/diphtheria/pertussis, acel(Tdap) 09/28/21 Not Given Patient Refuses 1Admin Note: vis given 2Admin Note: vis 05/23/2008 3Admin Note: vis 09/16/09 4Admin Note: vis Medications acetaminophen-oxyCODONE 325 mg-5 mg oral tablet 1, tablet, By Mouth, Every 6 hours, # 112 tablet, Refills 0, Tot. Refills 0, Maintenance, 09/01/22 11:16:00 EDT, Route to Pharmacy Electronically, [facility]/pharmacy #[id number], please fill on 06/01; [facility] checked; on contract, 178 , 07/15/22 13:22:00 EDT,... Start Date: 09/01/22 Stop Date: 09/29/22 Status: Ordered amLODIPine 5 mg oral tablet 2 tablet = 10 mg, By Mouth, Daily, # 180 tablet, 1 Refills, Maintenance, 05/31/22 10:01:00 EDT, [place], [place] - [id number], 178, cm, 05/04/22 11:41:00 EDT, Height, 104.6, kg, 02/15/22 14:37:00 EST, Dry Weight Start Date: 05/31/22 Stop Date: 11/27/22 Status: Ordered atorvastatin 80 mg oral tablet 1 tablet, By Mouth, Daily, # 30 tablet, 5 Refills, Maintenance, 05/21/22 14:00:00 EDT, [facility], 178, cm, 05/04/22 11:41:00 [...] ICD10 M17. 9, M25. 552 Thank you, HILDA Rousseau DNP-C, 01/11/22 10:01:00 EST, Supply Start Date: 01/11/22 Status: Ordered clonazePAM 1 mg oral tablet 1 tablet = 1 mg, By Mouth, 3 times a day, Please bubble pack and deliver, # 90 tablet, 0 Refills, Maintenance, 09/01/22 9:27:00 EDT, Tablet, [facility]/pharmacy #[id number], Partial fill upon patient request if the prescription is for a schedule II opioid drug., 1... Start Date: 09/01/22 Stop Date: 10/01/22 Status: Ordered clopidogrel 75 mg oral tablet 1, tablet, By Mouth, Daily, # 90 tablet, Refills 1, Tot. Refills 1, Maintenance, 09/03/22 12:49:00 EDT, Route to Pharmacy Electronically, [place], [place] - [id number], 178, cm, 09/03/22 10:25:00 EDT, Height, 104.6, kg, 02/15/22 14:37... Start Date: 09/03/22 Stop Date: 03/02/23 Status: Ordered docusate sodium 100 mg oral capsule 1 capsule, By Mouth, 2 times a day, PRN NEEDED FOR CONSTIPATION, # 30 each, 2 Refills, Maintenance, 07/29/22 11:46:00 EDT, [facility], 178, cm, 07/15/22 13:22:00 EDT, Height, 104.6, kg, 02/15/22 14:37:00 EST, Dry Weight Start Date: 07/29/22 Status: Ordered Eliquis 5 mg oral tablet 1 tablet = 5 mg, By Mouth, 2 times a day, Please bubble pack and deliver, # 60 tablet, 5 Refills, Maintenance, 09/03/22 12:46:00 EDT, Tablet, [place], [place] - [id number], Partial fill upon patient request if the [...] 09/01/22 10:44:00 EDT, Route to Pharmacy Electronically, [facility], 178, cm, 07/15/22 13:22:00 EDT, Height, 104.6, kg,02/15/22 14:37:00 EST, Dry Weight Start Date: 09/01/22 Status: Ordered Gold Bonilla Ultimate Softening topical lotion 1 application, Topically, 2 times a day, PRN for dry skin, to affected area, # 420 mL, 3 Refills, Maintenance, 10/27/21 12:11:00 EDT, Lotion, [place], [place] - [id number], 1 application Topically 2 times a day,PRN:for dry skin,Instr:... Start Date: 10/27/21 Status: Ordered hydrochlorothiazide-losartan 12.5 mg-50 mg oral tablet See Instructions, TAKE 1 TABLET BY MOUTH ONCE DAILY, # 90 tablet, 1 Refills, Maintenance, 07/16/22 10:37:00 EDT, [place], [place] - [id number], 90, TAKE 1 TABLET BY MOUTH ONCE [...] tablet, 1 Refills, Maintenance, 09/11/22 8:58:00 EDT, [facility], 178, cm, 09/03/22 10:25:00 EDT, Height, 104.6, kg, 02/15/22 14:37:00 EST, Dry Weight Start Date: 09/11/22 Status: Ordered Lantus Solostar Pen 100 units/mL subcutaneous solution See Instructions, INJECT 42 UNITS SUBCUTANEOUSLY ONCE DAILY, # 15 mL, 2 Refills, Maintenance, 05/14/22 13:20:00 EDT, [facility], 178, cm, 05/04/22 11:41:00 EDT, Height, 104.6, kg, 02/15/22 14:37:00 EST, Dry Weight Start Date: 05/14/22 Status: Ordered Metoprolol Tartrate 25 mg oral tablet See Instructions, TAKE 1 TABLET BY MOUTH two (2) times a day, # 60 tablet, 2 Refills, Maintenance, 06/19/22 14:55:00 EDT, [facility] [id number], 178, cm, 06/10/22 9:30:00 EDT, Height, 104.6, kg, 02/15/22 14:37:00 EST, Dry Weight Start Date: 06/19/22 Status: Ordered mirtazapine 7.5 mg oral tablet 1 tablet, By Mouth, Daily at bedtime, # 30 tablet, 2 Refills, Maintenance, 09/11/22 8:58:00 EDT, [facility], 178, cm, 09/03/22 10:25:00 EDT, Height, 104.6, kg, 02/15/22 14:37:00 EST, Dry Weight Start Date: 09/11/22 Status: Ordered nalOXONE 4 mg/0.1 mL nasal spray = 4 mg, Nares, Both, Once, # 2 each, 0 Refills, Soft Stop, 11/17/21 12:37:00 EDT, [facility] [id number], Partial fill upon patient request if the [...] mL, 0 Refills, Maintenance, 04/27/22 11:40:00 EDT, [facility] [id number], Partial fill upon patient reque... Start Date: 04/27/22 Status: Ordered omeprazole 20 mg oral enteric coated capsule 1 capsule = 20 mg, By Mouth, Daily, 30 min before a meal, # 30 capsule, 0 Refills, Maintenance, 09/01/22 8:49:00 EDT, [facility] [id number], Needs to be QD, 178, cm, 07/15/2312:22:00 EDT, Height, 104.6, kg, 02/15/22 14:37:00... Start Date: 09/01/22 Stop Date: 10/01/22 Status: Ordered Pen [place], 31 G x 5 mm BD [...] tablet, 2 Refills, Maintenance, 09/01/22 10:44:00 EDT, [facility], 178, cm, 07/15/22 13:22:00 EDT, Height, 104.6, [...] use Confirmed Active Vitreous hemorrhage Confirmed Active 79797 2type unknown 3X3, last in 2016 Social History Social History Type Response Tobacco Use: 4 or less cigar ettes(less than 1/4 pack)/day in last 30 days. Other: smoking for 40 yrs.. Sex Patient Care team information Care Team Personnel Name: Harlan Person NP Position: S Associate Professional Member Role: PCP Address: Address: [address] [place] [address]- Care Team Related Persons Name: ELADIA CORRIGAN Address: home [address] [place] [address]
--- OUTSIDE RECORDS SUMMARY | 2022-10-15 00:51 | XMS_ITS | Continuity of Care Document ---
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 Phone Raza BALDERAS, Harlan Primary Care Physician Encounter [facility] [place] Date(s): 05/14/22 - 06/13/[address] [address]- Allergies, Adverse Reactions, Alerts Substance Reaction Severity Status penicillin Hives Active Immunizations Given and Recorded Vaccine Date Status Refusal Reason FluLaval (oldterm) 1 12/23/10 Given pneumococcal 23-valent vaccine 2 03/24/10 Given influenza virus vaccine, inactivated 3 01/27/10 Gi caroline tetanus-diphtheria toxoids (Td) 4 01/27/10 Given Not Given Vaccine Date Status Refusal Reason SARS-CoV-2 mRNA ([id number]) vax 09/28/21 Not Given Patient Refuses tetanus/diphtheria/pertussis, acel(Tdap) 09/28/21 Not Given Patient Refuses 1Admin Note: vis given 2Admin Note: vis 05/23/2008 3Admin Note: vis 09/16/09 4Admin Note: vis Medications acetaminophen-oxyCODONE 325 mg-5 mg oral tablet 1, tablet, By Mouth, Every 6 hours, # 112 tablet, Refills 0, Tot. Refills 0, Maintenance, 05/31/22 9:58:00 EDT, Route to Pharmacy Electronically, [facility] - [place], [place] - [id number], please fill on 06/01; [facility] checked; on contract, 178,... Start Date: 05/31/22 Stop Date: 06/28/22 Status: Ordered amLODIPine 5 mg oral tablet 2 tablet = 10 mg, By Mouth, Daily, # 180 tablet, 1 Refills, Maintenance, 05/31/22 10:01:00 EDT, [place], [place] - [id number], 178, cm, 05/04/22 11:41:00 EDT, Height, 104.6, kg, 02/15/22 14:37:00 EST, Dry Weight Start Date: 05/31/22 Stop Date: 11/27/22 Status: Ordered Aspirin Low Dose 81 mg oral delayed release tablet 1 tablet, By Mouth, Daily, # 30 tablet, 3 Refills, Maintenance, 05/21/22 15:29:00 EDT, [facility], 178, cm, 05/04/22 11:41:00 EDT, Height, 104.6, kg, 02/15/22 14:37:00 EST, Dry Weight Start Date: 05/21/22 Status: Ordered atorvastatin 80 mg oral tablet 1 tablet, By Mouth, Daily, # 30 tablet, 5 Refills, Maintenance, 05/21/22 14:00:00 EDT, [facility], 178, cm, 05/04/22 11:41:00 [...] 0 Refills, Maintenance, 03/22/22 13:07:00 EST, Tablet, [place], [place] - [id number], Partial fill upon patient request if the prescription is for... Start Date: 03/22/22 Stop Date: 04/21/22 Status: Ordered clopidogrel 75 mg oral tablet TAKE 1 TABLET BY MOUTH ONCE DAILY Start Date: 04/16/22 Status: Ordered docusate sodium 100 mg oral capsule 1 capsule, By Mouth, 2 times a day, PRN NEEDED FOR CONSTIPATION, # 30 each, 2 Refills, Maintenance, 05/21/22 11:07:00 EDT, [facility], 178, cm, 05/04/22 11:41:00 EDT, Height, 104.6, kg, 02/15/22 14:37:00 EST, Dry Weight Start Date: 05/21/22 Status: Ordered Eliquis 5 mg oral tablet 1 tablet = 5 mg, By Mouth, 2 times a day, Please bubble pack and deliver, # 60 tablet, 5 Refills, Maintenance, 02/02/22 12:28:00 EST, Tablet, [place], [place] - [id number], Partial fill upon patient request if the [...] 06/10/22 10:53:00 EDT, Route to Pharmacy Electronically, [facility], 178, cm, 06/10/22 9:30:00 EDT, Height, 104.6, kg, 02/15/22 14:37:00 EST, Dry Weight Start Date: 06/10/22 Stop Date: 06/24/22 Status: Ordered Gold Bonilla Ultimate Softening topical lotion 1 application, Topically, 2 times a day, PRN for dry skin, to affected area, # 420 mL, 3 Refills, Maintenance, 10/27/21 12:11:00 EDT, Lotion, [facility] - [place], [place] - [id number], 1 application Topically 2 times a day,PRN:for dry skin,Instr:... Start Date: 10/27/21 Status: Ordered hydrochlorothiazide-losartan 12.5 mg-50 mg oral tablet See Instructions, TAKE 1 TABLET BY MOUTH ONCE DAILY, # 90 tablet, 1 Refills, Maintenance, 02/02/22 12:29:00 EST, [facility] [id number], 90, TAKE 1 TABLET BY MOUTH ONCE DAILY,176, cm, 02/02/22 11:51:00 EST, Height Start Date: 02/02/22 Status: Ordered Jardiance 10 mg oral tablet 1 tablet = 10 mg, By Mouth, Daily in AM, # 90 tablet, 0 Refills, Maintenance, 05/31/22 9:51:00 EDT,Tablet, [facility] [id number], Partial fill upon patient request if the [...] tablet, 1 Refills, Maintenance, 05/15/22 10:21:00 EDT, [facility], 178, cm, 05/04/22 11:41:00 EDT, Height, 104.6, kg, 02/15/22 14:37:00 EST, Dry Weight Start Date: 05/15/22 Status: Ordered Metoprolol Tartrate 25 mg oral tablet See Instructions, TAKE 1 TABLET BY MOUTH two (2) times a day, # 60 tablet, 2 Refills, Maintenance, 03/30/22 10:13:00 EST, [facility] [id number], 178, cm, 03/30/22 9:50:00 EST, Height, 104.6, kg, 02/15/22 14:37:00 EST, Dry Weight Start Date: 03/30/22 Status: Ordered nalOXONE 4 mg/0.1 mL nasal spray = 4 mg, Nares, Both, Once, # 2 each, 0 Refills, Soft Stop, 11/17/21 12:37:00 EDT, [facility] [id number], Partial fill upon patient request if the prescription is for a schedule II opioid drug., 102.5, cm, 11/16/21 16:08:00 EDT... Start Date: 11/17/21 Status: Ordered NuLYTELY with Flavor Packs oral powder for reconstitution See Instructions, Drink 240mL every 15-20 minutes until first half is gone. Repeat 6 hours prior toprocedure., # 4,000 mL, 0 Refills, Maintenance, 04/27/22 11:40:00 EDT, [facility] [id number], Partial fill upon patient reque... Start Date: 04/27/22 Status: Ordered Pen [place], 31 G x 5 mm BD Ultra [...] tablet, 2 Refills, Maintenance, 02/25/22 21:52:00 EST, [facility], 178, cm, 02/15/22 14:37:00 EST, Height, [...] use Confirmed Active Vitreous hemorrhage Confirmed Active 82919 2type unknown 3X3, last in 2016 Social History Social History Type Response Tobacco Use: 4 or less cigar ettes(less than 1/4 pack)/day in last 30 days. Other: smoking for 40 yrs.. Sex Patient Care team information Care Team Personnel Name: Harlan Person NP Position: [facility] Associate Professional Member Role: PCP Address: Address: [address] [place] [address]- Care Team Related Persons Name: ELADIA CORRIGAN Address: [address] [place] [address]
--- OUTSIDE RECORDS SUMMARY | 2022-10-15 00:51 | XMS_ITS | Continuity of Care Document ---
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 Start Date: 09/01/22 Stop Date: 09/29/22 Status: Ordered amLODIPine 5 mg oral tablet 2 tablet = 10 mg, By Mouth, Daily, # 180 tablet, 1 Refills, Maintenance, 05/31/22 10:01:00 EDT, [facility] [place], [place] - [id number], 178, cm, 05/04/22 11:41:00 EDT, Height, 104.6, kg, 02/15/22 14:37:00 EST, Dry Weight Start Date: 05/31/22 Stop Date: 11/27/22 Status: Ordered atorvastatin 80 mg oral tablet 1 tablet, By Mouth, Daily, # 30 tablet, 5 Refills, Maintenance, 05/21/22 14:00:00 EDT, [facility], 178, cm, 05/04/22 11:41:00 EDT, Height, 104.6, kg, 02/15/22 14:37:00 EST, Dry Weight Start Date: 05/21/22 Status: Ordered Blood Pressure Monitor See Instructions, # 1 each, Refills 0, Tot. Refills 0, Maintenance, patient persistent elevated BP ICD: I10 please send to L&C thank you, Harlan Person DNP, [employer]-C, 10/09/21 9:52:00 EDT, Supply Start Date: 10/09/21 Status: Ordered Cane See Instructions, # 1 each, Maintenance, patient with chronic left hip pain, and Left knee OA needscane please ICD10 M17. 9, M25. 552 Thank you, Harlan Person DNP, [employer]-C, 01/11/22 10:01:00 EST, Supply Start Date: 01/11/22 Status: Ordered clonazePAM 1 mg oral tablet 1 tablet = 1 mg, By Mouth, 3 times a day, Please bubble pack and deliver, # 90 tablet, 0 Refills, Maintenance, 09/01/22 9:27:00 EDT, Tablet, [facility]/pharmacy #[id number], Partial fill upon patient request if the prescription is for a schedule II opioid drug., 1... Start Date: 09/01/22 Stop Date: 10/01/22 Status: Ordered clonazePAM 1 mg oral tablet 1 tablet = 1 mg, By Mouth, Once, 30-60 minutes prior to stress, # 1 tablet, 0 Refills, Soft Stop, 09/21/22 16:10:00 EDT, Tablet, [place], [place] - [id number], Partial fill upon patient request if the prescription is for a schedule II... Start Date: 09/21/22 Status: Ordered clopidogrel 75 mg oral tablet 1, tablet, By Mouth, Daily, # 90 tablet, Refills 1, Tot. Refills 1, Maintenance, 09/03/22 12:49:00 EDT, Route to Pharmacy Electronically, [facility], [place] - [id number], 178, cm, 09/03/22 10:25:00 EDT, Height, 104.6, kg, 02/15/22 14:37... Start Date: 09/03/22 Stop Date: 03/02/23 Status: Ordered docusate sodium 100 mg oral capsule 1 capsule, By Mouth, 2 times a day, PRN NEEDED FOR CONSTIPATION, # 30 each, 2 Refills, Maintenance, 07/29/22 11:46:00 EDT, [facility], 178, cm, 07/15/22 13:22:00 EDT, Height, 104.6, kg, 02/15/22 14:37:00 EST, Dry Weight Start Date: 07/29/22 Status: Ordered doxycycline hyclate 100 mg oral capsule 1 capsule = 100 mg, By Mouth, 2 times a day, for 10 days, # 20 capsule, 0 Refills, Acute 10/10/22 9:39:00 EDT, 09/30/22 9:39:00 EDT, Capsule, [facility], [place] - [id number], Partial fill upon patient request if the prescription is for... Start Date: 09/30/22 Stop Date: 10/10/22 Status: Ordered Eliquis 5 mg oral tablet 1 tablet = 5 mg, By Mouth, 2 times a day, Please bubble pack and deliver, # 60 tablet, 5 Refills, Maintenance, 09/03/22 12:46:00 EDT, Tablet, [facility], [place] - [phone], Partial fill upon patient request if the [...] 09/01/22 10:44:00 EDT, Route to Pharmacy Electronically, [facility], 178, cm, 07/15/22 13:22:00 EDT, Height, 104.6, kg,02/15/22 14:37:00 EST, Dry Weight Start Date: 09/01/22 Status: Ordered Gold Bonilla Ultimate Softening topical lotion 1 application, Topically, 2 times a day, PRN for dry skin, to affected area, # 420 mL, 3 Refills, Maintenance, 10/27/21 12:11:00 EDT, Lotion, [place], [place] - [id number], 1 application Topically 2 times a day,PRN:for dry skin,Instr:... Start Date: 10/27/21 Status: Ordered hydrochlorothiazide-losartan 12.5 mg-50 mg oral tablet See Instructions, TAKE 1 TABLET BY MOUTH ONCE DAILY, # 90 tablet, 1 Refills, Maintenance, 07/16/22 10:37:00 EDT, [place], [place] - [id number], 90, TAKE 1 TABLET BY MOUTH ONCE [...] tablet, 1 Refills, Maintenance, 09/11/22 8:58:00 EDT, [facility], 178, cm, 09/03/22 10:25:00 EDT, Height, 104.6, kg, 02/15/22 14:37:00 EST, Dry Weight Start Date: 09/11/22 Status: Ordered Lantus Solostar Pen 100 units/mL subcutaneous solution See Instructions, INJECT 42 UNITS SUBCUTANEOUSLY ONCE DAILY, # 15 mL, 2 Refills, Maintenance, 05/14/22 13:20:00 EDT, [facility], 178, cm, 05/04/22 11:41:00 EDT, Height, 104.6, kg, 02/15/22 14:37:00 EST, Dry Weight Start Date: 05/14/22 Status: Ordered Metoprolol Tartrate 25 mg oral tablet See Instructions, TAKE 1 TABLET BY MOUTH two (2) times a day, # 60 tablet, 2 Refills, Maintenance, 06/19/22 14:55:00 EDT, [facility] [place], [place] - [id number], 178, cm, 06/10/22 9:30:00 EDT, Height, 104.6, kg, 02/15/22 14:37:00 EST, Dry Weight Start Date: 06/19/22 Status: Ordered mirtazapine 7.5 mg oral tablet 1 tablet, By Mouth, Daily at bedtime, # 30 tablet, 2 Refills, Maintenance, 09/11/22 8:58:00 EDT, [facility], 178, cm, 09/03/22 10:25:00 EDT, Height, 104.6, kg, 02/15/22 14:37:00 EST, Dry Weight Start Date: 09/11/22 Status: Ordered nalOXONE 4 mg/0.1 mL nasal spray = 4 mg, Nares, Both, Once, # 2 each, 0 Refills, Soft Stop, 11/17/21 12:37:00 EDT, [facility] [id number], Partial fill upon patient request if the [...] mL, 0 Refills, Maintenance, 04/27/22 11:40:00 EDT, [facility] [id number], Partial fill upon patient reque... Start Date: 04/27/22 Status: Ordered omeprazole 20 mg oral enteric coated capsule 1 capsule = 20 mg, By Mouth, Daily, 30 min before a meal, # 30 capsule, 0 Refills, Maintenance, 09/01/22 8:49:00 EDT, [facility] [id number], Needs to be QD, 178, cm, 07/15/2312:22:00 EDT, Height, 104.6, kg, 02/15/22 14:37:00... Start Date: 09/01/22 Stop Date: 10/01/22 Status: Ordered Pen [place], 31 G x 5 mm BD Ultra [...] hemorrhage Confirmed Active Weight loss Confirmed Active 65150 2type unknown 3X3, last in 2016 Social History Social History Type Response Tobacco Use: 4 or less cigar ettes(less than 1/4 pack)/day in last 30 days. Other: smoking for 40 yrs.. Sex Patient Care team information Care Team Personnel Name: Harlan Person NP Position: S Associate Professional Member Role: PCP Address: Address: [address] [place] [address]- Care Team Related Persons Name: ELADIA CORRIGAN Address: home [address] [place] [address]
--- OUTSIDE RECORDS SUMMARY | 2022-10-15 00:52 | XMS_ITS | Continuity of Care Document ---
Author Name Unknown Organization [facility] Address [address] [place] [address]- Care Team Providers Care Coil Taper Name Role Phone Raza BALDERAS, Harlan Primary Care Physician Encounter [facility] [place] Date(s): 02/17/22 - 03/19/[address] [id number] Attending Physician: Navya Penaloza Admitting Physician: Navya [...] Vaccine Date Status Refusal Reason SARS-CoV-2 mRNA ([id number]) vax 09/28/21 Not Given Patient Refuses tetanus/diphtheria/pertussis, acel(Tdap) 09/28/21 Not Given Patient Refuses 1Admin Note: vis given 2Admin Note: vis 05/23/2008 3Admin Note: vis 09/16/09 4Admin Note: vis Medications acetaminophen-oxyCODONE 325 mg-5 mg oral tablet 1, tablet, By Mouth, Every 6 hours, # 112 tablet, Refills 0, Tot. Refills 0, Maintenance, 03/06/22 9:53:00 EST, Route to Pharmacy Electronically, [facility] - [place], [place] - [id number], please fill on 01/02, 178, cm, 02/15/22 14:37:00 EST, Hei... Start Date: 03/06/22 Stop Date: 04/03/22 Status: Ordered Aspirin Low Dose 81 mg oral delayed release tablet 1 tablet, By Mouth, Daily, # 30 tablet, 3 Refills, Maintenance, 01/19/22 14:38:00 EST, [facility], 176, cm, 01/11/22 9:46:00 EST, Height Start Date: 01/19/22 Status: Ordered atorvastatin 80 mg oral tablet See Instructions, TAKE 1 TABLET BY MOUTH ONCE DAILY, # 30 tablet, 5 Refills, Maintenance, 11/11/21 11:38:00 EDT, [facility], 176, cm, 10/27/21 11:36:00 EDT, Height Start Date: 11/11/21 Status: Ordered Blood Pressure Monitor See Instructions, # 1 each, Refills 0, Tot. Refills 0, Maintenance, patient persistent elevated BP ICD: I10 please send to L&C thank you, Harlan Person DNP, [facility], 10/09/21 9:52:00 EDT, Supply Start Date: 10/09/21 Status: Ordered Cane See Instructions, # 1 each, Maintenance, patient with chronic left hip pain, and Left knee OA needscane please ICD10 M17. 9, M25. 552 Thank you, Harlan Person DNP, [facility], 01/11/22 10:01:00 EST, Supply Start Date: 01/11/22 Status: Ordered clonazePAM 1 mg oral tablet 1 tablet = 1 mg, By Mouth, 3 times a day, Please bubble pack and deliver, # 90 tablet, 0 Refills, Maintenance, 12/29/21 10:43:00 EST, Tablet, [facility], [place] - [id number], Partial fill upon patient request if the prescription is for... Start Date: 12/29/21 Stop Date: 01/28/22 Status: Ordered Doculase 100 mg oral capsule 1 capsule = 100 mg, By Mouth, 2 times a day, PRN for constipation, # 30 capsule, 2 Refills, Maintenance, 03/17/22 13:53:00 EST, Capsule, [place], [place] - [id number], Partial fill upon patient request if the prescription is for a dejah... Start Date: 03/17/22 Stop Date: 06/15/22 Status: Ordered doxycycline hyclate 100 mg oral tablet 1 tablet = 100 mg, By Mouth, 2 times a day, for 7 days, # 14 tablet, 0 Refills, Acute 03/22/22 15:42:00 EST, 03/15/22 15:42:00 EST, Tablet, [facility] [id number], Partial fill upon patient request if the prescription is for a... Start Date: 03/15/22 Stop Date: 03/22/22 Status: Ordered Eliquis 5 mg oral tablet 1 tablet = 5 mg, By Mouth, 2 times a day, Please bubble pack and deliver, # 60 tablet, 5 Refills, Maintenance, 02/02/22 12:28:00 EST, Tablet, [place], [place] - [id number], Partial fill upon patient request if the [...] 3 Refills, Maintenance, 10/27/21 12:11:00 EDT, Lotion, [place], [place] - [id number], 1 application Topically 2 times a day,PRN:for dry skin,Instr:... Start Date: 10/27/21 Status: Ordered hydrochlorothiazide-losartan 12.5 mg-50 mg oral tablet See Instructions, TAKE 1 TABLET BY MOUTH ONCE DAILY, # 90 tablet, 1 Refills, Maintenance, 02/02/22 12:29:00 EST, [place], [place] - [id number], 90, TAKE 1 TABLET BY MOUTH ONCE [...] mL, 2 Refills, Maintenance, 03/17/22 13:54:00 EST, [facility], 178, cm, 03/15/22 15:13:00 EST, Height, 104.6, kg, 02/15/22 14:37:00 EST, Dry Weight Start Date: 03/17/22 Status: Ordered Metoprolol Tartrate 25 mg oral tablet See Instructions, TAKE 1 TABLET BY MOUTH two (2) times a day, # 60 tablet, 2 Refills, Maintenance, 12/18/21 12:59:00 EST, [facility] [id number], 176, cm, 12/11/21 9:33:00 EDT, Height Start Date: 12/18/21 Status: Ordered nalOXONE 4 mg/0.1 mL nasal spray = 4 mg, Nares, Both, Once, # 2 each, 0 Refills, Soft Stop, 11/17/21 12:37:00 EDT, [facility] [id number], Partial fill upon patient request if the prescription is for a schedule II opioid drug., 102.5, cm, 11/16/21 16:08:00 EDT... Start Date: 11/17/21 Status: Ordered Nicotine 2 mg gum 1 each = 2 mg, Chew, Every 2 hours, PRN as needed for smoking cessation, for 8 week(s), # 100 each,1 Refills, Acute 05/25/22 12:28:00 EDT, 02/02/22 12:28:00 EST, Gum, [facility] [id number], Partial fill upon patient request i... Start Date: 02/02/22 Stop Date: 05/25/22 Status: Ordered Pen [place], 31 G x 5 mm BD [...] prophylaxis Confirmed Active Tobacco use Confirmed Active 75777 2type unknown 3X3, last in 2016 Social History Social History Type Response Tobacco Use: 4 or less cigar ettes(less than 1/4 pack)/day in last 30 days. Other: smoking for 40 yrs.. Sex Patient Care team information Care Team Personnel Name: Harlan Person NP Position: S Associate Professional Member Role: PCP Address: Address: [address] [place] [address]- Care Team Related Persons Name: ELADIA CORRIGAN Address: home [address] [place] [address]
--- OUTSIDE RECORDS SUMMARY | 2022-10-15 00:52 | XMS_ITS | Continuity of Care Document ---
Author Name Unknown Organization [facility] Address [address] [place] [address]- Care Team Providers Care Reverberatory Furnace Supervisor Name Role Phone Raza BALDERAS, Harlan Primary Care Physician Encounter [facility] Date(s): 04/28/22 - 05/28/[address] [id number] Allergies, Adverse Reactions, Alerts Substance Reaction Severity Status penicillin Hives Active Immunizations Given and Recorded Vaccine Date Status Refusal Reason FluLaval (oldterm) 1 12/23/10 Given pneumococcal 23-valent vaccine 2 03/24/10 Given influenza virus vaccine, inactivated 3 01/27/10 Gi caroline tetanus-diphtheria toxoids (Td) 4 01/27/10 Given Not Given Vaccine Date Status Refusal Reason SARS-CoV-2 mRNA ([id number]-[id number]) vax 09/28/21 Not Given Patient Refuses tetanus/diphtheria/pertussis, acel(Tdap) 09/28/21 Not Given Patient Refuses 1Admin Note: vis given 2Admin Note: vis 05/23/2008 3Admin Note: vis 09/16/09 4Admin Note: vis Medications acetaminophen-oxyCODONE 325 mg-5 mg oral tablet 1, tablet, By Mouth, Every 6 hours, # 112 tablet, Refills 0, Tot. Refills 0, Maintenance, 04/28/22 14:42:00 EDT, Route to Pharmacy Electronically, [facility] - [place], [place] - [id number], please fill on 05/03; MassPAT checked; on contract, 178,... Start Date: 04/28/22 Stop Date: 05/26/22 Status: Ordered amLODIPine 5 mg oral tablet 1 tablet, By Mouth, Daily, # 90 tablet, 1 Refills, Maintenance, 05/15/22 10:20:00 EDT, [place], [place] - [id number], 178, cm, 05/04/22 11:41:00 EDT, Height, 104.6, kg, 02/15/22 14:37:00 EST, Dry Weight Start Date: 05/15/22 Stop Date: 11/11/22 Status: Ordered Aspirin Low Dose 81 mg oral delayed release tablet 1 tablet, By Mouth, Daily, # 30 tablet, 3 Refills, Maintenance, 05/21/22 15:29:00 EDT, [facility], 178, cm, 05/04/22 11:41:00 EDT, Height, 104.6, kg, 02/15/22 14:37:00 EST, Dry Weight Start Date: 05/21/22 Status: Ordered atorvastatin 80 mg oral tablet 1 tablet, By Mouth, Daily, # 30 tablet, 5 Refills, Maintenance, 05/21/22 14:00:00 EDT, [facility] [...] 0 Refills, Maintenance, 03/22/22 13:07:00 EST, Tablet, [place], [place] - [id number], Partial fill upon patient request if the prescription is for... Start Date: 03/22/22 Stop Date: 04/21/22 Status: Ordered clopidogrel 75 mg oral tablet TAKE 1 TABLET BY MOUTH ONCE DAILY Start Date: 04/16/22 Status: Ordered docusate sodium 100 mg oral capsule 1 capsule, By Mouth, 2 times a day, PRN NEEDED FOR CONSTIPATION, # 30 each, 2 Refills, Maintenance, 05/21/22 11:07:00 EDT, [facility], 178, cm, 05/04/22 11:41:00 EDT, Height, 104.6, kg, 02/15/22 14:37:00 EST, Dry Weight Start Date: 05/21/22 Status: Ordered Eliquis 5 mg oral tablet 1 tablet = 5 mg, By Mouth, 2 times a day, Please bubble pack and deliver, # 60 tablet, 5 Refills, Maintenance, 02/02/22 12:28:00 EST, Tablet, [place], [place] - [id number], Partial fill upon patient request if the [...] 05/26/22 12:17:00 EDT, Route to Pharmacy Electronically, [facility], 178, cm, 05/04/22 11:41:00 EDT, Height, 104.6, kg,02/15/22 14:37:00 EST, Dry Weight Start Date: 05/26/22 Stop Date: 06/09/22 Status: Ordered Gold Bonilla Ultimate Softening topical lotion 1 application, Topically, 2 times a day, PRN for dry skin, to affected area, # 420 mL, 3 Refills, Maintenance, 10/27/21 12:11:00 EDT, Lotion, [facility] [id number], 1 application Topically 2 times a day,PRN:for dry skin,Instr:... Start Date: 10/27/21 Status: Ordered hydrochlorothiazide-losartan 12.5 mg-50 mg oral tablet See Instructions, TAKE 1 TABLET BY MOUTH ONCE DAILY, # 90 tablet, 1 Refills, Maintenance, 02/02/22 12:29:00 EST, [facility] [id number], 90, TAKE 1 TABLET BY MOUTH ONCE DAILY,176, cm, 02/02/22 11:51:00 EST, Height Start Date: 02/02/22 Status: Ordered Lantus Solostar Pen 100 units/mL subcutaneous solution See Instructions, INJECT 40 UNITS SUBCUTANEOUSLY ONCE DAILY, # 15 mL, 2 Refills, Maintenance, 05/14/22 13:20:00 EDT, [facility], 178, cm, 05/04/22 11:41:00 EDT, Height, 104.6, kg, 02/15/22 14:37:00 EST, Dry Weight Start Date: 05/14/22 Status: Ordered MetFORMIN (Eqv-Glucophage XR) 500 mg oral tablet, extended release 2 tablet, By Mouth, 2 times a day, # 120 tablet, 1 Refills, Maintenance, 05/15/22 10:21:00 EDT, [facility], 178, cm, 05/04/22 11:41:00 EDT, Height, 104.6, kg, 02/15/22 14:37:00 EST, Dry Weight Start Date: 05/15/22 Status: Ordered Metoprolol Tartrate 25 mg oral tablet See Instructions, TAKE 1 TABLET BY MOUTH two (2) times a day, # 60 tablet, 2 Refills, Maintenance, 03/30/22 10:13:00 EST, [facility] [id number], 178, cm, 03/30/22 9:50:00 EST, Height, 104.6, kg, 02/15/22 14:37:00 EST, Dry Weight Start Date: 03/30/22 Status: Ordered nalOXONE 4 mg/0.1 mL nasal spray = 4 mg, Nares, Both, Once, # 2 each, 0 Refills, Soft Stop, 11/17/21 12:37:00 EDT, [place], [place] - [id number], Partial fill upon patient request if the prescription is for a schedule II opioid drug., 102.5, cm, 11/16/21 16:08:00 EDT... Start Date: 11/17/21 Status: Ordered NuLYTELY with Flavor Packs oral powder for reconstitution See Instructions, Drink 240mL every 15-20 minutes until first half is gone. Repeat 6 hours prior toprocedure., # 4,000 mL, 0 Refills, Maintenance, 04/27/22 11:40:00 EDT, [place], [place] - [id number], Partial fill upon patient reque... Start Date: 04/27/22 Status: Ordered Pen [place], 31 G x 5 mm BD Ultra [...] tablet, 2 Refills, Maintenance, 02/25/22 21:52:00 EST, [facility], 178, cm, 02/15/22 14:37:00 EST, Height, [...] use Confirmed Active Vitreous hemorrhage Confirmed Active 52289 2type unknown 3X3, last in 2016 Social History Social History Type Response Tobacco Use: 4 or less cigar ettes(less than 1/4 pack)/day in last 30 days. Other: smoking for 40 yrs.. Sex Patient Care team information Care Team Personnel Name: Harlan Person NP Position: S Associate Professional Member Role: PCP Address: Address: [address] [place] [address]- Care Team Related Persons Name: SAMANMIARAVI RODRIGUEZSSICA Address: home [address] [place] [address]
--- OUTSIDE RECORDS SUMMARY | 2022-10-15 00:52 | XMS_ITS | Continuity of Care Document ---
Author Name Unknown Organization [facility] Address [address] [place] [address]- Care Team Providers Care Shift Mgr Name Role Phone Harlan Person NP Primary Care Physician Encounter [facility] Date(s): 11/25/21 - 01/02/[address] [address] Attending Physician: Harlan Person NP Admitting [...] Vaccine Date Status Refusal Reason SARS-CoV-2 mRNA ([id number]-[id number]) vax 09/28/21 Not Given Patient Refuses tetanus/diphtheria/pertussis, acel(Tdap) 09/28/21 Not Given Patient Refuses 1Admin Note: vis given 2Admin Note: vis 05/23/2008 3Admin Note: vis 09/16/09 4Admin Note: vis Medications acetaminophen-oxyCODONE 325 mg-5 mg oral tablet 1, tablet, By Mouth, Every 6 hours, # 112 tablet, Refills 0, Tot. Refills 0, Maintenance, 12/29/21 10:47:00 EST, Route to Pharmacy Electronically, [facility] - [place], [place] - [id number], please fill on 01/02, 176, cm, 12/11/21 9:33:00 EDT, Height Start Date: 12/29/21 Stop Date: 01/26/22 Status: Ordered aspirin 81 mg oral delayed release tablet 81 mg, 1, tablet, By Mouth, Daily, # 30 tablet, Refills 3, Tot. Refills 3, Maintenance, 10/09/21 9:23:00 EDT, Route to Pharmacy Electronically, [facility] [id number], Partialfill upon patient request if the prescription is fo... Start Date: 10/09/21 Stop Date: 02/06/22 Status: Ordered atorvastatin 80 mg oral tablet See Instructions, TAKE 1 TABLET BY MOUTH ONCE DAILY, # 30 tablet, 5 Refills, Maintenance, 11/11/21 11:38:00 EDT, [facility], 176, cm, 10/27/21 11:36:00 EDT, Height Start Date: 11/11/21 Status: Ordered Blood Pressure Monitor See Instructions, # 1 each, Refills 0, Tot. Refills 0, Maintenance, patient persistent elevated BP ICD: I10 please send to L&C thank you, Harlan Person DNP, [facility], 10/09/21 9:52:00 EDT, Supply Start Date: 10/09/21 Status: Ordered clonazePAM 1 mg oral tablet 1 tablet = 1 mg, By Mouth, 3 times a day, Please bubble pack and deliver, # 90 tablet, 0 Refills, Maintenance, 12/29/21 10:43:00 EST, Tablet, [facility] [id number], Partial fill upon patient request if the prescription is for... Start Date: 12/29/21 Stop Date: 01/28/22 Status: Ordered Eliquis 5 mg oral tablet 1 tablet = 5 mg, By Mouth, 2 times a day, Please bubble pack and deliver, # 60 tablet, 5 Refills, Maintenance, 08/27/21 13:36:00 EDT, Tablet, [facility] [id number], Partial fill upon patient request if the [...] 3 Refills, Maintenance, 10/27/21 12:11:00 EDT, Lotion, [facility] [id number], 1 application Topically 2 times a day,PRN:for dry skin,Instr:... Start Date: 10/27/21 Status: Ordered hydrochlorothiazide-losartan 12.5 mg-50 mg oral tablet See Instructions, TAKE 1 TABLET BY MOUTH ONCE DAILY, # 90 tablet, 1 Refills, Maintenance, 11/11/21 11:38:00 EDT, [facility], 90, TAKE 1 TABLET BY MOUTH ONCE DAILY, 176, cm, 10/27/21 11:36:00 EDT, Height Start Date: 11/11/21 Status: Ordered Lantus Solostar Pen 100 units/mL subcutaneous solution = 40 units, Subcutaneous Infusion, Daily, Please dispense 6 pens, # 15 mL, 2 Refills, Maintenance, 12/30/21 11:12:00 EST, [facility] [id number], Partial fill upon patient request if the prescription is for a schedule II opioid... Start Date: 12/30/21 Stop Date: 03/30/22 Status: Ordered Metoprolol Tartrate 25 mg oral tablet See Instructions, TAKE 1 TABLET BY MOUTH two (2) times a day, # 60 tablet, 2 Refills, Maintenance, 12/18/21 12:59:00 EST, [facility] [id number], 176, cm, 12/11/21 9:33:00 EDT, Height Start Date: 12/18/21 Status: Ordered nalOXONE 4 mg/0.1 mL nasal spray = 4 mg, Nares, Both, Once, # 2 each, 0 Refills, Soft Stop, 11/17/21 12:37:00 EDT, [facility] [id number], Partial fill upon patient request if the prescription is for a schedule II opioid drug., 102.5, cm, 11/16/21 16:08:00 EDT... Start Date: 11/17/21 Status: Ordered Pen [place], 31 G x 5 mm BD Ultra [...] prophylaxis Confirmed Active Tobacco use Confirmed Active 99809 2type unknown 3X3, last in 2016 Social History Social History Type Response Smoking Status 10 or more cigarette s (1/2 pack or more)/day in last 30 days entered on: 09/28/21 Sex Patient Care team information Care Team Personnel Name: Harlan Person NP Position: [facility] Associate Professional Member Role: PCP Address: Address: [address] [place] [address]- Care Team Related Persons Name: ELADIA CORRIGAN Address: home [address] [place] [address]
--- OUTSIDE RECORDS SUMMARY | 2022-10-15 00:52 | XMS_ITS | Continuity of Care Document ---
Author Name Unknown Organization [facility] Address [address] [place] [address]- Care Team Providers Care Orthophoto Tech/Draftsman Name Role Phone Raza BALDERAS, Harlan Primary Care Physician [phone] [place] [facility] 10/01[place]21 - 10/31/21 [facility] [address] [place] [id number] Allergies, Adverse Reactions, Alerts Substance Reaction Severity Status penicillin Hives Active Immunizations Given and Recorded Vaccine Date Status Refusal Reason FluLaval (oldterm) 1 12/23/10 Given pneumococcal 23-valent vaccine 2 03/24/10 Given influenza virus vaccine, inactivated 3 01/27/10 Gi caroline tetanus-diphtheria toxoids (Td) 4 01/27/10 Given Not Given Vaccine Date Status Refusal Reason SARS-CoV-2 mRNA ([id number]) vax 09/28/21 Not Given Patient Refuses tetanus/diphtheria/pertussis, acel(Tdap) 09/28/21 Not Given Patient Refuses 1Admin Note: vis given 2Admin Note: vis 05/23/2008 3Admin Note: vis 09/16/09 4Admin Note: vis Medications acetaminophen-oxyCODONE 325 mg-5 mg oral tablet 1, tablet, By Mouth, Every 6 hours, # 28 tablet, Refills 0, Tot. Refills 0, Maintenance, 10/22/21 19:47:00 EDT, Route to Pharmacy Electronically, [place], [place] - [id number], Partial fill upon patient request if the prescription is... Start Date: 10/22/21 Stop Date: 10/29/21 Status: Ordered aspirin 81 mg oral delayed release tablet 81 mg, 1, tablet, By Mouth, Daily, # 30 tablet, Refills 3, Tot. Refills 3, Maintenance, 10/09/21 9:23:00 EDT, Route to Pharmacy Electronically, [facility] [phone], Partialfill upon patient request if the prescription is fo... Start Date: 10/09/21 Stop Date: 02/06/22 Status: Ordered atorvastatin 80 mg oral tablet 1 tablet = 80 mg, By Mouth, Daily, # 30 tablet, 1 Refills, Maintenance, 09/28/21 15:06:00 EDT, Tablet, [facility] [id number], Partial fill upon patient request if the prescription is for a schedule II opioid drug., 176, cm, 08... Start Date: 09/28/21 Status: Ordered Blood Pressure Monitor See Instructions, # 1 each, Refills 0, Tot. Refills 0, Maintenance, patient persistent elevated BP ICD: I10 please send to L&C thank you, Harlan Person DNP, [employer], 10/09/21 9:52:00 EDT, Supply Start Date: 10/09/21 Status: Ordered clonazePAM 1 mg oral tablet 1 tablet = 1 mg, By Mouth, 3 times a day, Please bubble pack and deliver, # 90 tablet, 0 Refills, Maintenance, 09/29/21 17:54:00 EDT, Tablet, [facility] [phone], Partial fill upon patient request if the prescription is for... Start Date: 09/29/21 Status: Ordered Eliquis 5 mg oral tablet 1 tablet = 5 mg, By Mouth, 2 times a day, Please bubble pack and deliver, # 60 tablet, 5 Refills, Maintenance, 08/27/21 13:36:00 EDT, Tablet, [facility] [id number], Partial fill upon patient request if the [...] 3 Refills, Maintenance, 10/27/21 12:11:00 EDT, Lotion, [facility] - [place], [place] - [id number], 1 application Topically 2 times a day,PRN:for dry skin,Instr:... Start Date: 10/27/21 Status: Ordered hydrochlorothiazide-losartan 12.5 mg-50 mg oral tablet 1 tablet, By Mouth, Daily, # 90 tablet, 0 Refills, Maintenance, 09/28/21 15:10:00 EDT, Tablet, [facility] [phone], Partial fill upon patient request if the prescription isfor a schedule II opioid drug., 1 tablet By Mouth D... Start Date: 09/28/21 Stop Date: 12/27/21 Status: Ordered Lantus Solostar Pen 100 units/mL subcutaneous solution = 40 units, Subcutaneous Infusion, Daily, Please dispense 6 pens, # 15 mL, 2 Refills, Maintenance, 08/27/21 13:36:00 EDT, [facility] [phone], Partial fill upon patient request if the prescription is for a schedule II opioid... Start Date: 08/27/21 Stop Date: 11/25/21 Status: Ordered metoprolol 25 mg oral tablet 25 mg, 1, tablet, By Mouth, 2 times a day, # 60 tablet, Refills 2, Tot. Refills 2, Maintenance, 10/07/21 8:55:00 EDT, Route to Pharmacy Electronically, [facility] [phone],Partial fill upon patient request if the prescripti... Start Date: 10/07/21 Stop Date: 01/05/22 Status: Ordered Nicorette 4 mg oral transmucosal gum 1 each = 4 mg, Chew, Every 2 hours, PRN as needed for smoking cessation, for 8 week(s), # 160 each,0 Refills, Acute 11/23/21 15:06:00 EDT, 09/28/21 15:06:00 EDT, Gum, [facility] [phone], Cinnamon flavor please, 176, cm, 08... Start Date: 09/28/21 Stop Date: 11/23/21 Status: Ordered Pen [place], 31 G x 5 mm BD Ultra [...] 2 Refills, Maintenance, 08/27/21 15:37:00 EDT, Tablet, [facility] - [place], [place] - [id number], Partial fill upon patient request if the [...] Obese class I(Confirmed) Active Tobacco use(Confirmed) Active 28778 2type unknown 3X3, last in 2015 Social History Social History Type Response Smoking Status 10 or more cigarette s (1/2 pack or more)/day in last 30 days entered on: 09/28/21 Sex Care Team Personnel Name: Harlan Person NP Address: [address] [place] [address]
--- OUTSIDE RECORDS SUMMARY | 2022-10-15 00:52 | XMS_ITS | Continuity of Care Document ---
Author Name Unknown Organization [facility] Address [address] [place] [address]- Care Team Providers Care Consumer Recruiter Name Role Phone Raza DATA ARCHITECT, Harlan Primary Care Physician Encounter [facility] Date(s): 12/25/21 - 01/24/[address] [address] Allergies, Adverse Reactions, Alerts Substance Reaction Severity Status penicillin Hives Active Immunizations Given and Recorded Vaccine Date Status Refusal Reason FluLaval (oldterm) 1 12/23/10 Given pneumococcal 23-valent vaccine 2 03/24/10 Given influenza virus vaccine, inactivated 3 01/27/10 Gi caroline tetanus-diphtheria toxoids (Td) 4 01/27/10 Given Not Given Vaccine Date Status Refusal Reason SARS-CoV-2 mRNA ([id number]) vax 09/28/21 Not Given Patient Refuses tetanus/diphtheria/pertussis, [...] Electronically, [facility] - [place], [place] - [phone], please fill on 01/02, 176, cm, 12/11/21 [...] to L&C thank you, Harlan Person DNP, [facility]-, 10/09/21 9:52:00 EDT, Supply Start Date: 10/09/21 Status: Ordered Cane See Instructions, # 1 each, Maintenance, patient with chronic left hip pain, and Left knee OA needscane please ICD10 M17. 9, M25. 552 Thank you, Harlan Person DNP, [employer]-C, 01/11/22 10:01:00 EST, Supply Start Date: 01/11/22 Status: Ordered clonazePAM 1 mg oral tablet 1 tablet = 1 mg, By Mouth, 3 times a day, Please bubble pack and deliver, # 90 tablet, 0 Refills, Maintenance, 12/29/21 10:43:00 EST, Tablet, [facility] [id number], Partial fill upon patient request if the prescription is for... Start Date: 12/29/21 Stop Date: 01/28/22 Status: Ordered Eliquis 5 mg oral tablet 1 tablet = 5 mg, By Mouth, 2 times a day, Please bubble pack and deliver, # 60 tablet, 5 Refills, Maintenance, 08/27/21 13:36:00 EDT, Tablet, [facility] [id number], Partial fill upon patient request if the [...] 3 Refills, Maintenance, 10/27/21 12:11:00 EDT, Lotion, [facility] [id number], 1 application Topically 2 times a day,PRN:for dry skin,Instr:... Start Date: 10/27/21 Status: Ordered hydrochlorothiazide-losartan 12.5 mg-50 mg oral tablet See Instructions, TAKE 1 TABLET BY MOUTH ONCE DAILY, # 90 tablet, 1 Refills, Maintenance, 11/11/21 11:38:00 EDT, [facility], 90, TAKE 1 TABLET BY MOUTH ONCE DAILY, 176, cm, 10/27/21 11:36:00 EDT, Height Start Date: 11/11/21 Status: Ordered Lantus Solostar Pen 100 units/mL subcutaneous solution = 40 units, Subcutaneous Infusion, Daily, Please dispense 6 pens, # 15 mL, 2 Refills, Maintenance, 12/30/21 11:12:00 EST, [facility] [id number], Partial fill upon patient request if the prescription is for a schedule II opioid... Start Date: 12/30/21 Stop Date: 03/30/22 Status: Ordered Metoprolol Tartrate 25 mg oral tablet See Instructions, TAKE 1 TABLET BY MOUTH two (2) times a day, # 60 tablet, 2 Refills, Maintenance, 12/18/21 12:59:00 EST, [facility] [id number], 176, cm, 12/11/21 9:33:00 EDT, Height Start Date: 12/18/21 Status: Ordered nalOXONE 4 mg/0.1 mL nasal spray = 4 mg, Nares, Both, Once, # 2 each, 0 Refills, Soft Stop, 11/17/21 12:37:00 EDT, [facility] [id number], Partial fill upon patient request if the prescription is for a schedule II opioid drug., 102.5, cm, 11/16/21 16:08:00 EDT... Start Date: 11/17/21 Status: Ordered Pen [place], 31 G x 5 mm BD Ultra [...] prophylaxis Confirmed Active Tobacco use Confirmed Active 96872 2type unknown 3X3, last in 2016 Social History Social History Type Response Smoking Status 10 or more cigarette s (1/2 pack or more)/day in last 30 days entered on: 09/28/21 Sex Patient Care team information Care Team Personnel Name: Harlan Person NP Position: S Associate Professional Member Role: PCP Address: Address: [address] [place] [address]- Care Team Related Persons Name: ELADIA CORRIGAN Address: home [address] [place] [address]
--- OUTSIDE RECORDS SUMMARY | 2022-10-15 00:52 | XMS_ITS | Continuity of Care Document ---
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 Name Role Phone Raza BALDERAS, Harlan Primary Care Physician Encounter [facility] Date(s): 08/25/21 - 11/21/[address] [address]- Attending Physician: Not on Staff, Attending MD Allergies, Adverse Reactions, Alerts Substance Reaction Severity Status penicillin Hives Active Immunizations Given and Recorded Vaccine Date Status Refusal Reason FluLaval (oldterm) 1 12/23/10 Given pneumococcal 23-valent vaccine 2 03/24/10 Given influenza virus vaccine, inactivated 3 01/27/10 Gi caroline tetanus-diphtheria toxoids (Td) 4 01/27/10 Given Not Given Vaccine Date Status Refusal Reason SARS-CoV-2 mRNA ([id number]) vax 09/28/21 Not Given Patient Refuses tetanus/diphtheria/pertussis, acel(Tdap) 09/28/21 Not Given Patient Refuses 1Admin Note: vis given 2Admin Note: vis 05/23/2008 3Admin Note: vis 09/16/09 4Admin Note: vis Medications acetaminophen-oxyCODONE 325 mg-5 mg oral tablet 1, tablet, By Mouth, Every 6 hours, # 56 tablet, Refills 0, Tot. Refills 0, Maintenance, 11/18/21 17:30:00 EDT, Route to Pharmacy Electronically, [facility] - [place], [place] - [id number], Partial fill upon patient request if the prescription is... Start Date: 11/18/21 Stop Date: 12/02/21 Status: Ordered aspirin 81 mg oral delayed release tablet 81 mg, 1, tablet, By Mouth, Daily, # 30 tablet, Refills 3, Tot. Refills 3, Maintenance, 10/09/21 9:23:00 EDT, Route to Pharmacy Electronically, [facility] [id number], Partialfill upon patient request if the prescription is fo... Start Date: 10/09/21 Stop Date: 02/06/22 Status: Ordered atorvastatin 80 mg oral tablet See Instructions, TAKE 1 TABLET BY MOUTH ONCE DAILY, # 30 tablet, 5 Refills, Maintenance, 11/11/21 11:38:00 EDT, [facility], 176, cm, 10/27/21 11:36:00 EDT, Height Start Date: 11/11/21 Status: Ordered Blood Pressure Monitor See Instructions, # 1 each, Refills 0, Tot. Refills 0, Maintenance, patient persistent elevated BP ICD: I10 please send to L&C thank you, Harlan Person DNP, SCHEDULING MANAGER-C, 10/09/21 9:52:00 EDT, Supply Start Date: 10/09/21 Status: Ordered clonazePAM 1 mg oral tablet 1 tablet = 1 mg, By Mouth, 3 times a day, Please bubble pack and deliver, # 90 tablet, 0 Refills, Maintenance, 11/16/21 15:46:00 EDT, Tablet, [facility] [id number], Partial fill upon patient request if the prescription is for... Start Date: 11/16/21 Stop Date: 12/16/21 Status: Ordered Eliquis 5 mg oral tablet 1 tablet = 5 mg, By Mouth, 2 times a day, Please bubble pack and deliver, # 60 tablet, 5 Refills, Maintenance, 08/27/21 13:36:00 EDT, Tablet, [facility] [id number], Partial fill upon patient request if the [...] 3 Refills, Maintenance, 10/27/21 12:11:00 EDT, Lotion, [place], [place] - [id number], 1 application Topically 2 times a day,PRN:for dry skin,Instr:... Start Date: 10/27/21 Status: Ordered hydrochlorothiazide-losartan 12.5 mg-50 mg oral tablet See Instructions, TAKE 1 TABLET BY MOUTH ONCE DAILY, # 90 tablet, 1 Refills, Maintenance, 11/11/21 11:38:00 EDT, [facility], 90, TAKE 1 TABLET BY MOUTH ONCE DAILY, 176, cm, 10/27/21 11:36:00 EDT, Height Start Date: 11/11/21 Status: Ordered Lantus Solostar Pen 100 units/mL subcutaneous solution = 40 units, Subcutaneous Infusion, Daily, Please dispense 6 pens, # 15 mL, 2 Refills, Maintenance, 08/27/21 13:36:00 EDT, [facility] [id number], Partial fill upon patient request if the prescription is for a schedule II opioid... Start Date: 08/27/21 Stop Date: 11/25/21 Status: Ordered metoprolol 25 mg oral tablet 25 mg, 1, tablet, By Mouth, 2 times a day, # 60 tablet, Refills 2, Tot. Refills 2, Maintenance, 10/07/21 8:55:00 EDT, Route to Pharmacy Electronically, [facility] [phone],Partial fill upon patient request if the prescripti... Start Date: 10/07/21 Stop Date: 01/05/22 Status: Ordered nalOXONE 4 mg/0.1 mL nasal spray = 4 mg, Nares, Both, Once, # 2 each, 0 Refills, Soft Stop, 11/17/21 12:37:00 EDT, [facility] [id number], Partial fill upon patient request if the prescription is for a schedule II opioid drug., 102.5, cm, 11/16/21 16:08:00 EDT... Start Date: 11/17/21 Status: Ordered Nicorette 4 mg oral transmucosal gum 1 each = 4 mg, Chew, Every 2 hours, PRN as needed for smoking cessation, for 8 week(s), # 160 each,0 Refills, Acute 11/23/21 15:06:00 EDT, 09/28/21 15:06:00 EDT, Gum, [facility], [facility] [id number], Cinnamon flavor please, 176, cm, 08... Start Date: 09/28/21 Stop Date: 11/23/21 Status: Ordered Pen [place], 31 G x 5 mm BD Ultra [...] I Confirmed Active Tobacco use Confirmed Active 83410 2type unknown 3X3, last in 2016 Social History Social History Type Response Smoking Status 10 or more cigarette s (1/2 pack or more)/day in last 30 days entered on: 09/28/21 Sex Patient Care team information Personnel Name: Harlan Person NP Address: Address: [address] [place] [address]
--- OUTSIDE RECORDS SUMMARY | 2022-10-15 00:52 | XMS_ITS | Continuity of Care Document ---
Author Name Unknown Organization [facility] Address [address] [place] [address]- Care Team Providers Care [place] Name Role Phone Raza BALDERAS, Harlan Primary Care Physician [phone] [place] [facility] [place](s[place] 05/20/22 - 06/20/[address] [address]- Attending Physician: Not on Staff, Attending MD Allergies, Adverse Reactions, Alerts Substance Reaction Severity Status penicillin Hives Active Immunizations Given and Recorded Vaccine Date Status Refusal Reason FluLaval (oldterm) 1 12/23/10 Given pneumococcal 23-valent vaccine 2 03/24/10 Given influenza virus vaccine, inactivated 3 01/27/10 Gi caroline tetanus-diphtheria toxoids (Td) 4 01/27/10 Given Not Given Vaccine Date Status Refusal Reason SARS-CoV-2 mRNA ([id number]) vax 09/28/21 Not Given Patient Refuses tetanus/diphtheria/pertussis, acel(Tdap) 09/28/21 Not Given Patient Refuses 1Admin Note: vis given 2Admin Note: vis 05/23/2008 3Admin Note: vis 09/16/09 4Admin Note: vis Medications acetaminophen-oxyCODONE 325 mg-5 mg oral tablet 1, tablet, By Mouth, Every 6 hours, # 112 tablet, Refills 0, Tot. Refills 0, Maintenance, 05/31/22 9:58:00 EDT, Route to Pharmacy Electronically, [facility] - [place], [place] - [id number], please fill on 06/01; [facility] checked; on contract, 178,... Start Date: 05/31/22 Stop Date: 06/28/22 Status: Ordered amLODIPine 5 mg oral tablet 2 tablet = 10 mg, By Mouth, Daily, # 180 tablet, 1 Refills, Maintenance, 05/31/22 10:01:00 EDT, [facility] [id number], 178, cm, 05/04/22 11:41:00 EDT, Height, 104.6, kg, 02/15/22 14:37:00 EST, Dry Weight Start Date: 05/31/22 Stop Date: 11/27/22 Status: Ordered Aspirin Low Dose 81 mg oral delayed release tablet 1 tablet, By Mouth, Daily, # 30 tablet, 3 Refills, Maintenance, 05/21/22 15:29:00 EDT, [facility], 178, cm, 05/04/22 11:41:00 EDT, Height, 104.6, kg, 02/15/22 14:37:00 EST, Dry Weight Start Date: 05/21/22 Status: Ordered atorvastatin 80 mg oral tablet 1 tablet, By Mouth, Daily, # 30 tablet, 5 Refills, Maintenance, 05/21/22 14:00:00 EDT, [facility], 178, cm, 05/04/22 11:41:00 EDT, [...] 0 Refills, Maintenance, 06/16/22 9:33:00 EDT, Tablet, [place], [place] - [id number], Partial fill upon patient request if the prescription is for a... Start Date: 06/16/22 Stop Date: 07/16/22 Status: Ordered clopidogrel 75 mg oral tablet 1, tablet, By Mouth, Daily, # 30 tablet, Refills 0, Maintenance, 06/18/22 16:41:00 EDT, Route to Pharmacy Electronically, [facility], 178, cm, 06/10/22 9:30:00 EDT, Height, 104.6, kg, 02/15/22 14:37:00 EST, Dry Weight Start Date: 06/18/22 Status: Ordered docusate sodium 100 mg oral capsule 1 capsule, By Mouth, 2 times a day, PRN NEEDED FOR CONSTIPATION, # 30 each, 2 Refills, Maintenance, 05/21/22 11:07:00 EDT, [facility], 178, cm, 05/04/22 11:41:00 EDT, Height, 104.6, kg, 02/15/22 14:37:00 EST, Dry Weight Start Date: 05/21/22 Status: Ordered Eliquis 5 mg oral tablet 1 tablet = 5 mg, By Mouth, 2 times a day, Please bubble pack and deliver, # 60 tablet, 5 Refills, Maintenance, 02/02/22 12:28:00 EST, Tablet, [place], [place] - [id number], Partial fill upon patient request if the [...] 06/10/22 10:53:00 EDT, Route to Pharmacy Electronically, [facility], 178, cm, 06/10/22 9:30:00 EDT, Height, 104.6, kg, 02/15/22 14:37:00 EST, Dry Weight Start Date: 06/10/22 Stop Date: 06/24/22 Status: Ordered Gold Bonilla Ultimate Softening topical lotion 1 application, Topically, 2 times a day, PRN for dry skin, to affected area, # 420 mL, 3 Refills, Maintenance, 10/27/21 12:11:00 EDT, Lotion, [facility], [facility] [id number], 1 application Topically 2 times a day,PRN:for dry skin,Instr:... Start Date: 10/27/21 Status: Ordered hydrochlorothiazide-losartan 12.5 mg-50 mg oral tablet See Instructions, TAKE 1 TABLET BY MOUTH ONCE DAILY, # 90 tablet, 1 Refills, Maintenance, 02/02/22 12:29:00 EST, [facility], [facility] [id number], 90, TAKE 1 TABLET BY MOUTH ONCE DAILY,176, cm, 02/02/22 11:51:00 EST, Height Start Date: 02/02/22 Status: Ordered Jardiance 10 mg oral tablet 1 tablet = 10 mg, By Mouth, Daily in AM, # 90 tablet, 0 Refills, Maintenance, 05/31/22 9:51:00 EDT,Tablet, [facility] [id number], Partial fill upon patient request if the prescription is for a schedule II opioid drug., 178, c... Start Date: 05/31/22 Stop Date: 08/29/22 Status: Ordered Lantus Solostar Pen 100 units/mL subcutaneous solution See Instructions, INJECT 38 UNITS SUBCUTANEOUSLY ONCE DAILY, # 15 mL, 2 Refills, Maintenance, 05/14/22 13:20:00 EDT, [facility], 178, cm, 05/04/22 11:41:00 EDT, Height, 104.6, kg, 02/15/22 14:37:00 EST, Dry Weight Start Date: 05/14/22 Status: Ordered MetFORMIN (Eqv-Glucophage XR) 500 mg oral tablet, extended release 2 tablet, By Mouth, 2 times a day, # 120 tablet, 1 Refills, Maintenance, 05/15/22 10:21:00 EDT, [facility], 178, cm, 05/04/22 11:41:00 EDT, Height, 104.6, kg, 02/15/22 14:37:00 EST, Dry Weight Start Date: 05/15/22 Status: Ordered Metoprolol Tartrate 25 mg oral tablet See Instructions, TAKE 1 TABLET BY MOUTH two (2) times a day, # 60 tablet, 2 Refills, Maintenance, 06/19/22 14:55:00 EDT, [facility] [id number], 178, cm, 06/10/22 9:30:00 EDT, Height, 104.6, kg, 02/15/22 14:37:00 EST, Dry Weight Start Date: 06/19/22 Status: Ordered nalOXONE 4 mg/0.1 mL nasal spray = 4 mg, Nares, Both, Once, # 2 each, 0 Refills, Soft Stop, 11/17/21 12:37:00 EDT, [facility] [id number], Partial fill upon patient request if the prescription is for a schedule II opioid drug., 102.5, cm, 11/16/21 16:08:00 EDT... Start Date: 11/17/21 Status: Ordered NuLYTELY with Flavor Packs oral powder for reconstitution See Instructions, Drink 240mL every 15-20 minutes until first half is gone. Repeat 6 hours prior toprocedure., # 4,000 mL, 0 Refills, Maintenance, 04/27/22 11:40:00 EDT, [facility] [id number], Partial fill upon patient reque... Start Date: 04/27/22 Status: Ordered Pen [place], 31 G x 5 mm BD [...] tablet, 2 Refills, Maintenance, 02/25/22 21:52:00 EST, [facility], 178, cm, 02/15/22 14:37:00 EST, [...] use Confirmed Active Vitreous hemorrhage Confirmed Active 25115 2type unknown 3X3, last in 2016 Social History Social History Type Response Tobacco Use: 4 or less cigar ettes(less than 1/4 pack)/day in last 30 days. Other: smoking for 40 yrs.. Sex Patient Care team information Care Team Personnel Name: Harlan Person NP Position: S Associate Professional Member Role: PCP Address: Address: [address] [place] [address]- Care Team Related Persons Name: ELADIA CORRIGAN Address: home [address] [place] [address]
--- OUTSIDE RECORDS SUMMARY | 2022-10-15 00:52 | XMS_ITS | Continuity of Care Document ---
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 Role Phone Raza BALDERAS, Harlan Primary Care Physician [phone] Encounter [facility] [place] Date(s): 03/29/22 - 04/29/[address] [address]- Attending Physician: Not on Staff, Attending MD Allergies, Adverse Reactions, Alerts Substance Reaction Severity Status penicillin Hives Active Immunizations Given and Recorded Vaccine Date Status Refusal Reason FluLaval (oldterm) 1 12/23/10 Given pneumococcal 23-valent vaccine 2 03/24/10 Given influenza virus vaccine, inactivated 3 01/27/10 Gi caroline tetanus-diphtheria toxoids (Td) 4 01/27/10 Given Not Given Vaccine Date Status Refusal Reason SARS-CoV-2 mRNA ([id number]-xsjqx) vax 09/28/21 Not Given Patient Refuses tetanus/diphtheria/pertussis, acel(Tdap) 09/28/21 Not Given Patient Refuses 1Admin Note: vis given 2Admin Note: vis 05/23/2008 3Admin Note: vis 09/16/09 4Admin Note: vis Medications acetaminophen-oxyCODONE 325 mg-5 mg oral tablet 1, tablet, By Mouth, Every 6 hours, # 112 tablet, Refills 0, Tot. Refills 0, Maintenance, 04/28/22 14:42:00 EDT, Route to Pharmacy Electronically, [facility] [place], [place] - [id number], please fill on 05/03; [employer]PAT checked; on contract, 178,... Start Date: 04/28/22 Stop Date: 05/26/22 Status: Ordered amLODIPine 5 mg oral tablet 5 mg, 1, tablet, By Mouth, Daily, # 30 tablet, Refills 1, Tot. Refills 1, Maintenance, 04/16/22 11:16:00 EST, Route to Pharmacy Electronically, [place], [place] - [id number], Partialfill upon patient request if the prescription is fo... Start Date: 04/16/22 Stop Date: 06/15/22 Status: Ordered Aspirin Low Dose 81 mg oral delayed release tablet 1 tablet, By Mouth, Daily, # 30 tablet, 3 Refills, Maintenance, 01/19/22 14:38:00 EST, [facility], 176, cm, 01/11/22 9:46:00 EST, Height Start Date: 01/19/22 Status: Ordered atorvastatin 80 mg oral tablet See Instructions, TAKE 1 TABLET BY MOUTH ONCE DAILY, # 30 tablet, 5 Refills, Maintenance, 11/11/21 11:38:00 EDT, [facility], 176, cm, 10/27/21 11:36:00 EDT, Height Start [...] Refills, Maintenance, 03/22/22 13:07:00 EST, Tablet, [place], [place] - [id number], Partial fill upon patient request if the [...] Refills, Maintenance, 03/17/22 13:53:00 EST, Capsule, [place], [place] - [id number], Partial fill upon patient request if the prescription is for a dejah... Start Date: 03/17/22 Stop Date: 06/15/22 Status: Ordered Eliquis 5 mg oral tablet 1 tablet = 5 mg, By Mouth, 2 times a day, Please bubble pack and deliver, # 60 tablet, 5 Refills, Maintenance, 02/02/22 12:28:00 EST, Tablet, [place], [place] - [id number], Partial fill upon patient request if the [...] 03/31/22 13:13:00 EST, Route to Pharmacy Electronically, [place], [place] - [id number], 178, cm, 03/30/22 9:50:00 EST, Height, 104.6, k... Start Date: 03/31/22 Stop Date: 04/14/22 Status: Ordered Gold Bonilla Ultimate Softening topical lotion 1 application, Topically, 2 times a day, PRN for dry skin, to affected area, # 420 mL, 3 Refills, Maintenance, 10/27/21 12:11:00 EDT, Lotion, [place], [place] - [id number], 1 application Topically 2 times a day,PRN:for dry skin,Instr:... Start Date: 10/27/21 Status: Ordered hydrochlorothiazide-losartan 12.5 mg-50 mg oral tablet See Instructions, TAKE 1 TABLET BY MOUTH ONCE DAILY, # 90 tablet, 1 Refills, Maintenance, 02/02/22 12:29:00 EST, [facility], [facility] [id number], 90, TAKE 1 TABLET BY MOUTH ONCE [...] Refills, Maintenance, 04/16/22 11:08:00 EST, ER Tablet, [facility] [id number], Partial fill upon patient request if the prescription is for a schedule II opioid drug... Start Date: 04/16/22 Stop Date: 06/15/22 Status: Ordered Metoprolol Tartrate 25 mg oral tablet See Instructions, TAKE 1 TABLET BY MOUTH two (2) times a day, # 60 tablet, 2 Refills, Maintenance, 03/30/22 10:13:00 EST, [facility], [place] - [id number], 178, cm, 03/30/22 9:50:00 EST, Height, 104.6, kg, 02/15/22 14:37:00 EST, Dry Weight Start Date: 03/30/22 Status: Ordered nalOXONE 4 mg/0.1 mL nasal spray = 4 mg, Nares, Both, Once, # 2 each, 0 Refills, Soft Stop, 11/17/21 12:37:00 EDT, [facility] [id number], Partial fill upon patient request if the prescription is for a schedule II opioid drug., 102.5, cm, 11/16/21 16:08:00 EDT... Start Date: 11/17/21 Status: Ordered Nicotine 2 mg gum 1 each = 2 mg, Chew, Every 2 hours, PRN as needed for smoking cessation, for 8 week(s), # 100 each,1 Refills, Acute 05/25/22 12:28:00 EDT, 02/02/22 12:28:00 EST, Gum, [place], [place] - [id number], Partial fill upon patient request i... Start Date: 02/02/22 Stop Date: 05/25/22 Status: Ordered NuLYTELY with Flavor Packs oral powder for reconstitution See Instructions, Drink 240mL every 15-20 minutes until first half is gone. Repeat 6 hours prior toprocedure., # 4,000 mL, 0 Refills, Maintenance, 04/27/22 11:40:00 EDT, [place], [place] - [id number], Partial fill upon patient reque... Start Date: 04/27/22 Status: Ordered Pen [place], 31 G x 5 mm BD Ultra [...] tablet, 2 Refills, Maintenance, 02/25/22 21:52:00 EST, [facility], 178, cm, 02/15/22 14:37:00 EST, [...] use Confirmed Active Vitreous hemorrhage Confirmed Active 82513 2type unknown 3X3, last in 2016 Social History Social History Type Response Tobacco Use: 4 or less cigar ettes(less than 1/4 pack)/day in last 30 days. Other: smoking for 40 yrs.. Sex Patient Care team information Care Team Personnel Name: Harlan Person NP Position: S Associate Professional Member Role: PCP Address: Address: [address] [place] [address]- Care Team Related Persons Name: ELADIA CORRIGAN Address: home [address] [place] [address]
--- OUTSIDE RECORDS SUMMARY | 2022-10-15 00:52 | XMS_ITS | Continuity of Care Document ---
Author Name Unknown Organization [facility] Address [address] [place] [address]- Care Team Providers Care Paste Thinner Name Role Phone Raza BALDERAS, Harlan Primary Care Physician [phone] [place] [facility] [place]/15/22 - 05/15/[address] [address]- Allergies, Adverse Reactions, Alerts Substance Reaction Severity Status penicillin Hives Active Immunizations Given and Recorded Vaccine Date Status Refusal Reason FluLaval (oldterm) 1 12/23/10 Given pneumococcal 23-valent vaccine 2 03/24/10 Given influenza virus vaccine, inactivated 3 01/27/10 Gi caroline tetanus-diphtheria toxoids (Td) 4 01/27/10 Given Not Given Vaccine Date Status Refusal Reason SARS-CoV-2 mRNA (oqljsrp-yoai-xosnh) vax 09/28/21 Not Given Patient Refuses tetanus/diphtheria/pertussis, acel(Tdap) 09/28/21 Not Given Patient Refuses 1Admin Note: vis given 2Admin Note: vis 05/23/2008 3Admin Note: vis 09/16/09 4Admin Note: vis Medications acetaminophen-oxyCODONE 325 mg-5 mg oral tablet 1, tablet, By Mouth, Every 6 hours, # 112 tablet, Refills 0, Tot. Refills 0, Maintenance, 04/28/22 14:42:00 EDT, Route to Pharmacy Electronically, [facility] [place], [place] - [id number], please fill on 05/03; MassPAT checked; on contract, 178,... Start Date: 04/28/22 Stop Date: 05/26/22 Status: Ordered amLODIPine 5 mg oral tablet 1 tablet, By Mouth, Daily, # 90 tablet, 1 Refills, Maintenance, 05/15/22 10:20:00 EDT, [place], [place] - [id number], 178, cm, 05/04/22 11:41:00 EDT, Height, 104.6, kg, 02/15/22 14:37:00 EST, Dry Weight Start Date: 05/15/22 Stop Date: 11/11/22 Status: Ordered Aspirin Low Dose 81 mg oral delayed release tablet 1 tablet, By Mouth, Daily, # 30 tablet, 3 Refills, Maintenance, 01/19/22 14:38:00 EST, [facility], 176, cm, 01/11/22 9:46:00 EST, Height Start Date: 01/19/22 Status: Ordered atorvastatin 80 mg oral tablet See Instructions, TAKE 1 TABLET BY MOUTH ONCE DAILY, # 30 tablet, 5 Refills, Maintenance, 11/11/21 11:38:00 EDT, [facility], 176, cm, 10/27/21 11:36:00 EDT, Height Start [...] 0 Refills, Maintenance, 03/22/22 13:07:00 EST, Tablet, [facility], [place] - [id number], Partial fill upon patient request if the [...] 2 Refills, Maintenance, 03/17/22 13:53:00 EST, Capsule, [place], [place] - [id number], Partial fill upon patient request if the prescription is for a dejah... Start Date: 03/17/22 Stop Date: 06/15/22 Status: Ordered Eliquis 5 mg oral tablet 1 tablet = 5 mg, By Mouth, 2 times a day, Please bubble pack and deliver, # 60 tablet, 5 Refills, Maintenance, 02/02/22 12:28:00 EST, Tablet, [place], [place] - [id number], Partial fill upon patient request if the [...] 03/31/22 13:13:00 EST, Route to Pharmacy Electronically, [place], [place] - [id number], 178, cm, 03/30/22 9:50:00 EST, Height, 104.6, k... Start Date: 03/31/22 Stop Date: 04/14/22 Status: Ordered Gold Bonilla Ultimate Softening topical lotion 1 application, Topically, 2 times a day, PRN for dry skin, to affected area, # 420 mL, 3 Refills, Maintenance, 10/27/21 12:11:00 EDT, Lotion, [place], [place] - [id number], 1 application Topically 2 times a day,PRN:for dry skin,Instr:... Start Date: 10/27/21 Status: Ordered hydrochlorothiazide-losartan 12.5 mg-50 mg oral tablet See Instructions, TAKE 1 TABLET BY MOUTH ONCE DAILY, # 90 tablet, 1 Refills, Maintenance, 02/02/22 12:29:00 EST, [facility], [facility] [id number], 90, TAKE 1 TABLET BY MOUTH ONCE DAILY,176, cm, 02/02/22 11:51:00 EST, Height Start Date: 02/02/22 Status: Ordered Lantus Solostar Pen 100 units/mL subcutaneous solution See Instructions, INJECT 40 UNITS SUBCUTANEOUSLY ONCE DAILY, # 15 mL, 2 Refills, Maintenance, 05/14/22 13:20:00 EDT, [facility], 178, cm, 05/04/22 11:41:00 EDT, Height, 104.6, kg, 02/15/22 14:37:00 EST, Dry Weight Start Date: 05/14/22 Status: Ordered MetFORMIN (Eqv-Glucophage XR) 500 mg oral tablet, extended release 2 tablet, By Mouth, 2 times a day, # 120 tablet, 1 Refills, Maintenance, 05/15/22 10:21:00 EDT, [facility], 178, cm, 05/04/22 11:41:00 EDT, Height, 104.6, kg, 02/15/22 14:37:00 EST, Dry Weight Start Date: 05/15/22 Status: Ordered Metoprolol Tartrate 25 mg oral tablet See Instructions, TAKE 1 TABLET BY MOUTH two (2) times a day, # 60 tablet, 2 Refills, Maintenance, 03/30/22 10:13:00 EST, [facility], [facility] [id number], 178, cm, 03/30/22 9:50:00 EST, Height, 104.6, kg, 02/15/22 14:37:00 EST, Dry Weight Start Date: 03/30/22 Status: Ordered nalOXONE 4 mg/0.1 mL nasal spray = 4 mg, Nares, Both, Once, # 2 each, 0 Refills, Soft Stop, 11/17/21 12:37:00 EDT, [facility], [facility] [id number], Partial fill upon patient request if the prescription is for a schedule II opioid drug., 102.5, cm, 11/16/21 16:08:00 EDT... Start Date: 11/17/21 Status: Ordered Nicotine 2 mg gum 1 each = 2 mg, Chew, Every 2 hours, PRN as needed for smoking cessation, for 8 week(s), # 100 each,1 Refills, Acute 05/25/22 12:28:00 EDT, 02/02/22 12:28:00 EST, Gum, [place], [place] - [id number], Partial fill upon patient request i... Start Date: 02/02/22 Stop Date: 05/25/22 Status: Ordered NuLYTELY with Flavor Packs oral powder for reconstitution See Instructions, Drink 240mL every 15-20 minutes until first half is gone. Repeat 6 hours prior toprocedure., # 4,000 mL, 0 Refills, Maintenance, 04/27/22 11:40:00 EDT, [place], [place] - [id number], Partial fill upon patient reque... Start Date: 04/27/22 Status: Ordered Pen [place], 31 G x 5 mm BD Ultra [...] tablet, 2 Refills, Maintenance, 02/25/22 21:52:00 EST, [facility], 178, cm, 02/15/22 14:37:00 EST, Height, 104.6, [...] use Confirmed Active Vitreous hemorrhage Confirmed Active 53082 2type unknown 3X3, last in 2016 Social History Social History Type Response Tobacco Use: 4 or less cigar ettes(less than 1/4 pack)/day in last 30 days. Other: smoking for 40 yrs.. Sex Patient Care team information Care Team Personnel Name: Harlan Person NP Position: S Associate Professional Member Role: PCP Address: Address: [address] [place] [address]- Care Team Related Persons Name: ELADIA CORRIGAN Address: [address] [place] [address]
--- OUTSIDE RECORDS SUMMARY | 2022-10-15 00:52 | XMS_ITS | Continuity of Care Document ---
Author Name Unknown Organization [facility] Address [address] [place] [address]- Care Team Providers Care Cake Former Name Role Phone Raza BALDERAS, Harlan Primary Care Physician [phone] [place] [facility] [place]/14/22 [facility] [address] [address], [place] [address] Attending Physician: Navya Penaloza Admitting Physician: AdmNavya [...] Vaccine Date Status Refusal Reason SARS-CoV-2 mRNA (jajugrm-qvwl-nlgrz) vax 09/28/21 Not Given Patient Refuses tetanus/diphtheria/pertussis, acel(Tdap) 09/28/21 Not Given Patient Refuses 1Admin Note: vis given 2Admin Note: vis 05/23/2008 3Admin Note: vis 09/16/09 4Admin Note: vis Medications acetaminophen-oxyCODONE 325 mg-5 mg oral tablet 1, tablet, By Mouth, Every 6 hours, # 112 tablet, Refills 0, Tot. Refills 0, Maintenance, 04/03/22 7:57:00 EST, Route to Pharmacy Electronically, [facility] - [place], [place] - [id number], please fill on 04/04; MassPAT checked; on contract, 178,... Start Date: 04/03/22 Stop Date: 05/01/22 Status: Ordered Aspirin Low Dose 81 mg oral delayed release tablet 1 tablet, By Mouth, Daily, # 30 tablet, 3 Refills, Maintenance, 01/19/22 14:38:00 EST, [facility], 176, cm, 01/11/22 9:46:00 EST, Height Start Date: 01/19/22 Status: Ordered atorvastatin 80 mg oral tablet See Instructions, TAKE 1 TABLET BY MOUTH ONCE DAILY, # 30 tablet, 5 Refills, Maintenance, 11/11/21 11:38:00 EDT, [facility], 176, cm, 10/27/21 11:36:00 EDT, Height Start Date: 11/11/21 Status: Ordered Blood Pressure Monitor See Instructions, # 1 each, Refills 0, Tot. Refills 0, Maintenance, patient persistent elevated BP ICD: I10 please send to [facility] thank you, Harlan Person DNP, MICROBIOLOGY COORDINATOR-C, 10/09/21 9:52:00 EDT, Supply Start Date: 10/09/21 Status: Ordered Cane See Instructions, # 1 each, Maintenance, patient with chronic left hip pain, and Left knee OA needscane please ICD10 M17. 9, M25. 552 Thank you, Harlan Person DNP, MICROBIOLOGY COORDINATOR-C, 01/11/22 10:01:00 EST, Supply Start Date: 01/11/22 Status: Ordered clonazePAM 1 mg oral tablet 1 tablet = 1 mg, By Mouth, 3 times a day, Please bubble pack and deliver, # 90 tablet, 0 Refills, Maintenance, 03/22/22 13:07:00 EST, Tablet, [place], [place] - [id number], Partial fill upon patient request if the prescription is for... Start Date: 03/22/22 Stop Date: 04/21/22 Status: Ordered Doculase 100 mg oral capsule 1 capsule = 100 mg, By Mouth, 2 times a day, PRN for constipation, # 30 capsule, 2 Refills, Maintenance, 03/17/22 13:53:00 EST, Capsule, [place], [place] - [id number], Partial fill upon patient request if the prescription is for a dejah... Start Date: 03/17/22 Stop Date: 06/15/22 Status: Ordered Eliquis 5 mg oral tablet 1 tablet = 5 mg, By Mouth, 2 times a day, Please bubble pack and deliver, # 60 tablet, 5 Refills, Maintenance, 02/02/22 12:28:00 EST, Tablet, [place], [place] - [id number], Partial fill upon patient request if the [...] 03/31/22 13:13:00 EST, Route to Pharmacy Electronically, [place], [place] - [id number], 178, cm, 03/30/22 9:50:00 EST, Height, 104.6, k... Start Date: 03/31/22 Stop Date: 04/14/22 Status: Ordered Gold Bonilla Ultimate Softening topical lotion 1 application, Topically, 2 times a day, PRN for dry skin, to affected area, # 420 mL, 3 Refills, Maintenance, 10/27/21 12:11:00 EDT, Lotion, [place], [place] - [id number], 1 application Topically 2 times a day,PRN:for dry skin,Instr:... Start Date: 10/27/21 Status: Ordered hydrochlorothiazide-losartan 12.5 mg-50 mg oral tablet See Instructions, TAKE 1 TABLET BY MOUTH ONCE DAILY, # 90 tablet, 1 Refills, Maintenance, 02/02/22 12:29:00 EST, [facility], [place] - [id number], 90, TAKE 1 TABLET BY MOUTH ONCE DAILY,176, cm, 02/02/22 11:51:00 EST, Height Start Date: 02/02/22 Status: Ordered Insulin Lispro KwikPen 100 units/mL injectable solution See Instructions, INJECT 10 UNITS UNDER THE SKIN 3 (THREE) TIMES A DAY BEFORE MEALS, # 15 mL, 0 Refills, Maintenance, 04/13/22 9:28:00 EST, Injection, [facility] [id number], Partial fill upon patient request if the prescriptio... Start Date: 04/13/22 Status: Ordered Lantus Solostar Pen 100 units/mL subcutaneous solution See Instructions, INJECT 40 UNITS SUBCUTANEOUSLY ONCE DAILY, # 15 mL, 2 Refills, Maintenance, 03/17/22 13:54:00 EST, [facility], 178, cm, 03/15/22 15:13:00 EST, Height, 104.6, kg, 02/15/22 14:37:00 EST, Dry Weight Start Date: 03/17/22 Status: Ordered Metoprolol Tartrate 25 mg oral tablet See Instructions, TAKE 1 TABLET BY MOUTH two (2) times a day, # 60 tablet, 2 Refills, Maintenance, 03/30/22 10:13:00 EST, [facility] [id number], 178, cm, 03/30/22 9:50:00 EST, Height, 104.6, kg, 02/15/22 14:37:00 EST, Dry Weight Start Date: 03/30/22 Status: Ordered nalOXONE 4 mg/0.1 mL nasal spray = 4 mg, Nares, Both, Once, # 2 each, 0 Refills, Soft Stop, 11/17/21 12:37:00 EDT, [facility], [facility] [id number], Partial fill upon patient request if the prescription is for a schedule II opioid drug., 102.5, cm, 11/16/21 16:08:00 EDT... Start Date: 11/17/21 Status: Ordered Nicotine 2 mg gum 1 each = 2 mg, Chew, Every 2 hours, PRN as needed for smoking cessation, for 8 week(s), # 100 each,1 Refills, Acute 05/25/22 12:28:00 EDT, 02/02/22 12:28:00 EST, Gum, [facility] [id number], Partial fill upon patient request i... Start Date: 02/02/22 Stop Date: 05/25/22 Status: Ordered Pen [place], 31 G x 5 mm BD Ultra [...] prophylaxis Confirmed Active Tobacco use Confirmed Active 64261 2type unknown 3X3, last in 2016 Social History Social History Type Response Tobacco Use: 4 or less cigar ettes(less than 1/4 pack)/day in last 30 days. Other: smoking for 40 yrs.. Sex Patient Care team information Care Team Personnel Name: Harlan Person NP Position: S Associate Professional Member Role: PCP Address: Address: [address] [place] [address]- Care Team Related Persons Name: ELADIA CORRIGAN Address: [address] [place] [address]
--- OUTSIDE RECORDS SUMMARY | 2022-10-15 00:52 | XMS_ITS | Continuity of Care Document ---
Author Name Unknown Organization [facility] Address [address] [place] [address]- Care Team Providers Care Land Management Supervisor Name Role Phone Raza BALDERAS, Harlan Primary Care Physician Encounter [facility] Date(s): 07/14/22 - 08/13/[address] [address] Allergies, Adverse Reactions, Alerts Substance Reaction Severity Status penicillin Hives Active Immunizations Given and Recorded Vaccine Date Status Refusal Reason FluLaval (oldterm) 1 12/23/10 Given pneumococcal 23-valent vaccine 2 03/24/10 Given influenza virus vaccine, inactivated 3 01/27/10 Gi caroline tetanus-diphtheria toxoids (Td) 4 01/27/10 Given Not Given Vaccine Date Status Refusal Reason SARS-CoV-2 mRNA (ydfopjy-[id number]) vax 09/28/21 Not Given Patient Refuses tetanus/diphtheria/pertussis, acel(Tdap) 09/28/21 Not Given Patient Refuses 1Admin Note: vis given 2Admin Note: vis 05/23/2008 3Admin Note: vis 09/16/09 4Admin Note: vis Medications acetaminophen-oxyCODONE 325 mg-5 mg oral tablet 1, tablet, By Mouth, Every 6 hours, # 112 tablet, Refills 0, Tot. Refills 0, Maintenance, 08/02/22 16:43:00 EDT, Route to Pharmacy Electronically, [facility] - [place], [place] - [id number], please fill on 06/01; MassPAT checked; on contract, 178,... Start Date: 08/02/22 Stop Date: 08/30/22 Status: Ordered amLODIPine 5 mg oral tablet 2 tablet = 10 mg, By Mouth, Daily, # 180 tablet, 1 Refills, Maintenance, 05/31/22 10:01:00 EDT, [place], [place] - [id number], 178, cm, 05/04/22 11:41:00 EDT, Height, 104.6, kg, 02/15/22 14:37:00 EST, Dry Weight Start Date: 05/31/22 Stop Date: 11/27/22 Status: Ordered Aspirin Low Dose 81 mg oral delayed release tablet 1 tablet, By Mouth, Daily, # 30 tablet, 3 Refills, Maintenance, 05/21/22 15:29:00 EDT, [facility], 178, cm, 05/04/22 11:41:00 EDT, Height, 104.6, kg, 02/15/22 14:37:00 EST, Dry Weight Start Date: 05/21/22 Status: Ordered atorvastatin 80 mg oral tablet 1 tablet, By Mouth, Daily, # 30 tablet, 5 Refills, Maintenance, 05/21/22 14:00:00 EDT, [facility], 178, cm, 05/04/22 11:41:00 EDT, Height, [...] 0 Refills, Maintenance, 07/21/22 16:02:00 EDT, Tablet, [place], [place] - [id number], Partial fill upon patient request if the prescription is for... Start Date: 07/21/22 Stop Date: 08/20/22 Status: Ordered clopidogrel 75 mg oral tablet 1, tablet, By Mouth, Daily, # 30 tablet, Refills 0, Maintenance, 07/21/22 16:02:00 EDT, Route to Pharmacy Electronically, [facility], 178, cm, 07/15/22 13:22:00 EDT, Height, 104.6, kg, 02/15/22 14:37:00 EST, Dry Weight Start Date: 07/21/22 Status: Ordered docusate sodium 100 mg oral capsule 1 capsule, By Mouth, 2 times a day, PRN NEEDED FOR CONSTIPATION, # 30 each, 2 Refills, Maintenance, 07/29/22 11:46:00 EDT, [facility], 178, cm, 07/15/22 13:22:00 EDT, Height, 104.6, kg, 02/15/22 14:37:00 EST, Dry Weight Start Date: 07/29/22 Status: Ordered Eliquis 5 mg oral tablet 1 tablet = 5 mg, By Mouth, 2 times a day, Please bubble pack and deliver, # 60 tablet, 5 Refills, Maintenance, 02/02/22 12:28:00 EST, Tablet, [facility] - [place], [place] - [id number], Partial fill upon patient request if the [...] Maintenance, 07/22/2315:01:00 EDT, Route to Pharmacy Electronically, [facility] [id number], 178, cm, 07/15/22 13:22:00 EDT, Height, 104.6, kg, 01/0... Start Date: 07/21/22 Stop Date: 08/20/22 Status: Ordered Gold Bonilla Ultimate Softening topical lotion 1 application, Topically, 2 times a day, PRN for dry skin, to affected area, # 420 mL, 3 Refills, Maintenance, 10/27/21 12:11:00 EDT, Lotion, [place], [place] - [id number], 1 application Topically 2 times a day,PRN:for dry skin,Instr:... Start Date: 10/27/21 Status: Ordered hydrochlorothiazide-losartan 12.5 mg-50 mg oral tablet See Instructions, TAKE 1 TABLET BY MOUTH ONCE DAILY, # 90 tablet, 1 Refills, Maintenance, 07/16/22 10:37:00 EDT, [place], [place] - [id number], 90, TAKE 1 TABLET BY MOUTH ONCE DAILY,178, cm, 07/15/22 13:22:00 EDT, Height, 104.6, kg,... Start Date: 07/16/22 Status: Ordered Jardiance 10 mg oral tablet 1 tablet = 10 mg, By Mouth, Daily in AM, # 90 tablet, 0 Refills, Maintenance, 05/31/22 9:51:00 EDT,Tablet, [facility] [id number], Partial fill upon patient request if the prescription is for a schedule II opioid drug., 178, c... Start Date: 05/31/22 Stop Date: 08/29/22 Status: Ordered Lantus Solostar Pen 100 units/mL subcutaneous solution See Instructions, INJECT 42 UNITS SUBCUTANEOUSLY ONCE DAILY, # 15 mL, 2 Refills, Maintenance, 05/14/22 13:20:00 EDT, [facility], 178, cm, 05/04/22 11:41:00 EDT, Height, 104.6, kg, 02/15/22 14:37:00 EST, Dry Weight Start Date: 05/14/22 Status: Ordered Metoprolol Tartrate 25 mg oral tablet See Instructions, TAKE 1 TABLET BY MOUTH two (2) times a day, # 60 tablet, 2 Refills, Maintenance, 06/19/22 14:55:00 EDT, [facility] [id number], 178, cm, 06/10/22 9:30:00 EDT, Height, 104.6, kg, 02/15/22 14:37:00 EST, Dry Weight Start Date: 06/19/22 Status: Ordered mirtazapine 7.5 mg oral tablet 1 tablet = 7.5 mg, By Mouth, Daily at bedtime, # 30 tablet, 0 Refills, Maintenance, 08/03/22 11:55:00 EDT, [facility] [id number], Partial fill upon patient request if the prescription is for a schedule II opioid drug., 178, cm... Start Date: 08/03/22 Stop Date: 09/02/22 Status: Ordered nalOXONE 4 mg/0.1 mL nasal spray = 4 mg, Nares, Both, Once, # 2 each, 0 Refills, Soft Stop, 11/17/21 12:37:00 EDT, [facility] [id number], Partial fill upon patient request if the prescription is for a schedule II opioid drug., 102.5, cm, 11/16/21 16:08:00 EDT... Start Date: 11/17/21 Status: Ordered NuLYTELY with Flavor Packs oral powder for reconstitution See Instructions, Drink 240mL every 15-20 minutes until first half is gone. Repeat 6 hours prior toprocedure., # 4,000 mL, 0 Refills, Maintenance, 04/27/22 11:40:00 EDT, [facility] [id number], Partial fill upon patient reque... Start Date: 04/27/22 Status: Ordered Pen [place], 31 G x 5 mm BD [...] use Confirmed Active Vitreous hemorrhage Confirmed Active 95575 2type unknown 3X3, last in 2016 Social History Social History Type Response Tobacco Use: 4 or less cigar ettes(less than 1/4 pack)/day in last 30 days. Other: smoking for 40 yrs.. Sex Patient Care team information Care Team Personnel Name: Harlan Person NP Position: S Associate Professional Member Role: PCP Address: Address: [address] [place] [address]- Care Team Related Persons Name: ELADIA CORRIGAN Address: home [address] [place] [address]
--- OUTSIDE RECORDS SUMMARY | 2022-10-15 00:52 | XMS_ITS | Continuity of Care Document ---
Author Name Unknown Organization [facility] Address [address] [place] [address]- Care Team Providers Care Billiard Table Assembler Name Role Phone Raza BALDERAS, Harlan Primary Care Physician [phone] Encounter [facility] Date(s): 07/01/22 - 07/31/[address] [address] Allergies, Adverse Reactions, Alerts Substance Reaction Severity Status penicillin Hives Active Immunizations Given and Recorded Vaccine Date Status Refusal Reason FluLaval (oldterm) 1 12/23/10 Given pneumococcal 23-valent vaccine 2 03/24/10 Given influenza virus vaccine, inactivated 3 01/27/10 Gi caroline tetanus-diphtheria toxoids (Td) 4 01/27/10 Given Not Given Vaccine Date Status Refusal Reason SARS-CoV-2 mRNA ([id number]) vax 09/28/21 Not Given Patient Refuses tetanus/diphtheria/pertussis, acel(Tdap) 09/28/21 Not Given Patient Refuses 1Admin Note: vis given 2Admin Note: vis 05/23/2008 3Admin Note: vis 09/16/09 4Admin Note: vis Medications acetaminophen-oxyCODONE 325 mg-5 mg oral tablet 1, tablet, By Mouth, Every 6 hours, # 112 tablet, Refills 0, Tot. Refills 0, Maintenance, 06/30/22 9:33:00 EDT, Route to Pharmacy Electronically, [facility] - [place], [place] - [id number], please fill on 06/01; MassPAT checked; on contract, 178,... Start Date: 06/30/22 Stop Date: 07/28/22 Status: Ordered amLODIPine 5 mg oral tablet 2 tablet = 10 mg, By Mouth, Daily, # 180 tablet, 1 Refills, Maintenance, 05/31/22 10:01:00 EDT, [place], [place] - [id number], 178, cm, 05/04/22 11:41:00 EDT, Height, 104.6, [...] tablet, 5 Refills, Maintenance, 05/21/22 14:00:00 EDT, [facility], 178, cm, 05/04/22 [...] 0 Refills, Maintenance, 07/21/22 16:02:00 EDT, Tablet, [place], [place] - [id number], Partial fill upon patient request if the prescription is for... Start Date: 07/21/22 Stop Date: 08/20/22 Status: Ordered clopidogrel 75 mg oral tablet 1, tablet, By Mouth, Daily, # 30 tablet, Refills 0, Maintenance, 07/21/22 16:02:00 EDT, Route to Pharmacy Electronically, [facility], 178, cm, 07/15/22 13:22:00 EDT, Height, 104.6, kg, 02/15/22 14:37:00 EST, Dry Weight Start Date: 07/21/22 Status: Ordered docusate sodium 100 mg oral capsule 1 capsule, By Mouth, 2 times a day, PRN NEEDED FOR CONSTIPATION, # 30 each, 2 Refills, Maintenance, 07/29/22 11:46:00 EDT, [facility], 178, cm, 07/15/22 13:22:00 EDT, Height, 104.6, kg, 02/15/22 14:37:00 EST, Dry Weight Start Date: 07/29/22 Status: Ordered Eliquis 5 mg oral tablet 1 tablet = 5 mg, By Mouth, 2 times a day, Please bubble pack and deliver, # 60 tablet, 5 Refills, Maintenance, 02/02/22 12:28:00 EST, Tablet, [place], [place] - [id number], Partial fill upon patient request if the [...] Maintenance, 07/22/2315:01:00 EDT, Route to Pharmacy Electronically, [facility], [place] - [id number], 178, cm, 07/15/22 13:22:00 EDT, Height, 104.6, kg, 01/0... Start Date: 07/21/22 Stop Date: 08/20/22 Status: Ordered Gold Bonilla Ultimate Softening topical lotion 1 application, Topically, 2 times a day, PRN for dry skin, to affected area, # 420 mL, 3 Refills, Maintenance, 10/27/21 12:11:00 EDT, Lotion, [facility], [place] - [id number], 1 application Topically 2 times a day,PRN:for dry skin,Instr:... Start Date: 10/27/21 Status: Ordered hydrochlorothiazide-losartan 12.5 mg-50 mg oral tablet See Instructions, TAKE 1 TABLET BY MOUTH ONCE DAILY, # 90 tablet, 1 Refills, Maintenance, 07/16/22 10:37:00 EDT, [facility], [place] - [id number], 90, TAKE 1 TABLET BY MOUTH ONCE DAILY,178, cm, 07/15/22 13:22:00 EDT, Height, 104.6, kg,... Start Date: 07/16/22 Status: Ordered Jardiance 10 mg oral tablet 1 tablet = 10 mg, By Mouth, Daily in AM, # 90 tablet, 0 Refills, Maintenance, 05/31/22 9:51:00 EDT,Tablet, [facility], [place] - [id number], Partial fill upon patient request if the prescription is for a schedule II opioid drug., 178, c... Start Date: 05/31/22 Stop Date: 08/29/22 Status: Ordered Lantus Solostar Pen 100 units/mL subcutaneous solution See Instructions, INJECT 42 UNITS SUBCUTANEOUSLY ONCE DAILY, # 15 mL, 2 Refills, Maintenance, 05/14/22 13:20:00 EDT, [facility], 178, cm, 05/04/22 11:41:00 EDT, Height, 104.6, kg, 02/15/22 14:37:00 EST, Dry Weight Start Date: 05/14/22 Status: Ordered MetFORMIN (Eqv-Glucophage XR) 500 mg oral tablet, extended release 2 tablet, By Mouth, 2 times a day, # 120 tablet, 1 Refills, Maintenance, 07/26/22 17:29:00 EDT, [facility], 178, cm, 07/15/22 13:22:00 EDT, Height, 104.6, kg, 02/15/22 14:37:00 EST, Dry Weight Start Date: 07/26/22 Status: Ordered Metoprolol Tartrate 25 mg oral tablet See Instructions, TAKE 1 TABLET BY MOUTH two (2) times a day, # 60 tablet, 2 Refills, Maintenance, 06/19/22 14:55:00 EDT, [facility] [id number], 178, cm, 06/10/22 9:30:00 EDT, Height, 104.6, kg, 02/15/22 14:37:00 EST, Dry Weight Start Date: 06/19/22 Status: Ordered nalOXONE 4 mg/0.1 mL nasal spray = 4 mg, Nares, Both, Once, # 2 each, 0 Refills, Soft Stop, 11/17/21 12:37:00 EDT, [facility], [facility] [id number], Partial fill upon patient request if the prescription is for a schedule II opioid drug., 102.5, cm, 11/16/21 16:08:00 EDT... Start Date: 11/17/21 Status: Ordered NuLYTELY with Flavor Packs oral powder for reconstitution See Instructions, Drink 240mL every 15-20 minutes until first half is gone. Repeat 6 hours prior toprocedure., # 4,000 mL, 0 Refills, Maintenance, 04/27/22 11:40:00 EDT, [facility] [id number], Partial fill upon patient reque... Start Date: 04/27/22 Status: Ordered Pen [place], 31 G x 5 mm BD Ultra [...] use Confirmed Active Vitreous hemorrhage Confirmed Active 11959 2type unknown 3X3, last in 2015 Social History Social History Type Response Tobacco Use: 4 or less cigar ettes(less than 1/4 pack)/day in last 30 days. Other: smoking for 40 yrs.. Sex Patient Care team information Care Team Personnel Name: Harlan Person NP Position: S Associate Professional Member Role: PCP Address: Address: [address] [place] [address]- Care Team Related Persons Name: ELADIA CORRIGAN Address: home [address] [place] [address]
--- OUTSIDE RECORDS SUMMARY | 2022-10-15 00:52 | XMS_ITS | Continuity of Care Document ---
Author Name Unknown Organization [facility] Address [address] [place] [address]- Care Team Providers Care Medical Record Clerk Name Role Phone Raza BALDERAS, Harlan Primary Care Physician [place] [facility] 05/29/22 [facility] [address] [place] [id number]- [place] Allergies, Adverse Reactions, Alerts Substance Reaction Severity Status penicillin Hives Active Immunizations Given and Recorded Vaccine Date Status Refusal Reason FluLaval (oldterm) 1 12/23/10 Given pneumococcal 23-valent vaccine 2 03/24/10 Given influenza virus vaccine, inactivated 3 01/27/10 Gi caroline tetanus-diphtheria toxoids (Td) 4 01/27/10 Given Not Given Vaccine Date Status Refusal Reason SARS-CoV-2 mRNA ([id number]) vax 09/28/21 Not Given Patient Refuses tetanus/diphtheria/pertussis, acel(Tdap) 09/28/21 Not Given Patient Refuses 1Admin Note: vis given 2Admin Note: vis 05/23/2008 3Admin Note: vis 09/16/09 4Admin Note: vis Medications acetaminophen-oxyCODONE 325 mg-5 mg oral tablet 1, tablet, By Mouth, Every 6 hours, # 112 tablet, Refills 0, Tot. Refills 0, Maintenance, 04/28/22 14:42:00 EDT, Route to Pharmacy Electronically, [facility] - [place], [place] - [id number], please fill on 05/03; MassPAT checked; on contract, 178,... Start Date: 04/28/22 Stop Date: 05/26/22 Status: Ordered amLODIPine 5 mg oral tablet 1 tablet, By Mouth, Daily, # 90 tablet, 1 Refills, Maintenance, 05/15/22 10:20:00 EDT, [place], [place] - [id number], 178, cm, 05/04/22 11:41:00 EDT, Height, 104.6, kg, 02/15/22 14:37:00 EST, Dry Weight Start Date: 05/15/22 Stop Date: 11/11/22 Status: Ordered Aspirin Low Dose 81 mg oral delayed release tablet 1 tablet, By Mouth, Daily, # 30 tablet, 3 Refills, Maintenance, 05/21/22 15:29:00 EDT, [facility], 178, cm, 05/04/22 11:41:00 EDT, Height, 104.6, kg, 02/15/22 14:37:00 EST, Dry Weight Start Date: 05/21/22 Status: Ordered atorvastatin 80 mg oral tablet 1 tablet, By Mouth, Daily, # 30 tablet, 5 Refills, Maintenance, 05/21/22 14:00:00 EDT, [facility], 178, cm, 05/04/22 11:41:00 EDT, Height, 104.6, [...] 0 Refills, Maintenance, 03/22/22 13:07:00 EST, Tablet, [place], [place] - [id number], Partial fill upon patient request if the prescription is for... Start Date: 03/22/22 Stop Date: 04/21/22 Status: Ordered clopidogrel 75 mg oral tablet TAKE 1 TABLET BY MOUTH ONCE DAILY Start Date: 04/16/22 Status: Ordered docusate sodium 100 mg oral capsule 1 capsule, By Mouth, 2 times a day, PRN NEEDED FOR CONSTIPATION, # 30 each, 2 Refills, Maintenance, 05/21/22 11:07:00 EDT, [facility], 178, cm, 05/04/22 11:41:00 EDT, Height, 104.6, kg, 02/15/22 14:37:00 EST, Dry Weight Start Date: 05/21/22 Status: Ordered Eliquis 5 mg oral tablet 1 tablet = 5 mg, By Mouth, 2 times a day, Please bubble pack and deliver, # 60 tablet, 5 Refills, Maintenance, 02/02/22 12:28:00 EST, Tablet, [place], [place] - [id number], Partial fill upon patient request if the [...] 05/26/22 12:17:00 EDT, Route to Pharmacy Electronically, [facility], 178, cm, 05/04/22 11:41:00 EDT, Height, 104.6, kg,02/15/22 14:37:00 EST, Dry Weight Start Date: 05/26/22 Stop Date: 06/09/22 Status: Ordered Gold Bonilla Ultimate Softening topical lotion 1 application, Topically, 2 times a day, PRN for dry skin, to affected area, # 420 mL, 3 Refills, Maintenance, 10/27/21 12:11:00 EDT, Lotion, [facility] - [place], [place] - [id number], 1 application Topically 2 times a day,PRN:for dry skin,Instr:... Start Date: 10/27/21 Status: Ordered hydrochlorothiazide-losartan 12.5 mg-50 mg oral tablet See Instructions, TAKE 1 TABLET BY MOUTH ONCE DAILY, # 90 tablet, 1 Refills, Maintenance, 02/02/22 12:29:00 EST, [facility] [id number], 90, TAKE 1 TABLET BY MOUTH ONCE DAILY,176, cm, 02/02/22 11:51:00 EST, Height Start Date: 02/02/22 Status: Ordered Lantus Solostar Pen 100 units/mL subcutaneous solution See Instructions, INJECT 40 UNITS SUBCUTANEOUSLY ONCE DAILY, # 15 mL, 2 Refills, Maintenance, 05/14/22 13:20:00 EDT, [facility], 178, cm, 05/04/22 11:41:00 EDT, Height, 104.6, kg, 02/15/22 14:37:00 EST, Dry Weight Start Date: 05/14/22 Status: Ordered MetFORMIN (Eqv-Glucophage XR) 500 mg oral tablet, extended release 2 tablet, By Mouth, 2 times a day, # 120 tablet, 1 Refills, Maintenance, 05/15/22 10:21:00 EDT, [facility], 178, cm, 05/04/22 11:41:00 EDT, Height, 104.6, kg, 02/15/22 14:37:00 EST, Dry Weight Start Date: 05/15/22 Status: Ordered Metoprolol Tartrate 25 mg oral tablet See Instructions, TAKE 1 TABLET BY MOUTH two (2) times a day, # 60 tablet, 2 Refills, Maintenance, 03/30/22 10:13:00 EST, [facility] [id number], 178, cm, 03/30/22 9:50:00 EST, Height, 104.6, kg, 02/15/22 14:37:00 EST, Dry Weight Start Date: 03/30/22 Status: Ordered nalOXONE 4 mg/0.1 mL nasal spray = 4 mg, Nares, Both, Once, # 2 each, 0 Refills, Soft Stop, 11/17/21 12:37:00 EDT, [facility] [id number], Partial fill upon patient request if the prescription is for a schedule II opioid drug., 102.5, cm, 11/16/21 16:08:00 EDT... Start Date: 11/17/21 Status: Ordered NuLYTELY with Flavor Packs oral powder for reconstitution See Instructions, Drink 240mL every 15-20 minutes until first half is gone. Repeat 6 hours prior toprocedure., # 4,000 mL, 0 Refills, Maintenance, 04/27/22 11:40:00 EDT, [facility] [place], [place] - [id number], Partial fill upon patient reque... Start Date: 04/27/22 Status: Ordered Pen [place], 31 G x 5 mm BD Ultra [...] tablet, 2 Refills, Maintenance, 02/25/22 21:52:00 EST, [facility], 178, cm, 02/15/22 14:37:00 EST, [...] use Confirmed Active Vitreous hemorrhage Confirmed Active 37817 2type unknown 3X3, last in 2016 Social History Social History Type Response Tobacco Use: 4 or less cigar ettes(less than 1/4 pack)/day in last 30 days. Other: smoking for 40 yrs.. Sex Patient Care team information Care Team Personnel Name: Harlan Person NP Position: [facility] Associate Professional Member Role: PCP Address: Address: [address] [place] [address]- Care Team Related Persons Name: ELADIA CORRIGAN Address: home [address] [place] [address]
--- OUTSIDE RECORDS SUMMARY | 2022-10-15 00:52 | XMS_ITS | Continuity of Care Document ---
Author Name Unknown Organization [facility] Address [address] [place] [address]- Care Team Providers Care Assembler Garment Form Name Role Phone Raza BALDERAS, Harlan Primary Care Physician Encounter [facility] Date(s): 02/02/22 - 03/04/[address] [address]- Allergies, Adverse Reactions, Alerts Substance Reaction Severity Status penicillin Hives Active Immunizations Given and Recorded Vaccine Date Status Refusal Reason FluLaval (oldterm) 1 12/23/10 Given pneumococcal 23-valent vaccine 2 03/24/10 Given influenza virus vaccine, inactivated 3 01/27/10 Gi caroline tetanus-diphtheria toxoids (Td) 4 01/27/10 Given Not Given Vaccine Date Status Refusal Reason SARS-CoV-2 mRNA ([id number]) vax 09/28/21 Not Given Patient Refuses tetanus/diphtheria/pertussis, acel(Tdap) 09/28/21 Not Given Patient Refuses 1Admin Note: vis given 2Admin Note: vis 05/23/2008 3Admin Note: vis 09/16/09 4Admin Note: vis Medications acetaminophen-oxyCODONE 325 mg-5 mg oral tablet 1, tablet, By Mouth, Every 6 hours, # 112 tablet, Refills 0, Tot. Refills 0, Maintenance, 02/02/22 13:15:00 EST, Route to Pharmacy Electronically, [facility] - [place], [place] - [id number], please fill on 01/02, 176, cm, 02/02/22 11:51:00 EST, He... Start Date: 02/02/22 Stop Date: 1/24/23 Status: Ordered Aspirin Low Dose 81 mg [...] to L&C thank you, Harlan Person DNP, [facility]-, 10/09/21 9:52:00 EDT, Supply Start Date: 10/09/21 Status: Ordered Cane See Instructions, # 1 each, Maintenance, patient with chronic left hip pain, and Left knee OA needscane please ICD10 M17. 9, M25. 552 Thank you, Harlan Person DNP, [facility], 01/11/22 10:01:00 EST, Supply Start Date: 01/11/22 Status: Ordered clonazePAM 1 mg oral tablet 1 tablet = 1 mg, By Mouth, 3 times a day, Please bubble pack and deliver, # 90 tablet, 0 Refills, Maintenance, 12/29/21 10:43:00 EST, Tablet, [place], [place] - [id number], Partial fill upon patient request if the prescription is for... Start Date: 12/29/21 Stop Date: 01/28/22 Status: Ordered Eliquis 5 mg oral tablet 1 tablet = 5 mg, By Mouth, 2 times a day, Please bubble pack and deliver, # 60 tablet, 5 Refills, Maintenance, 02/02/22 12:28:00 EST, Tablet, [facility] [id number], Partial fill upon patient request if the [...] 3 Refills, Maintenance, 10/27/21 12:11:00 EDT, Lotion, [facility] [id number], 1 application Topically 2 times a day,PRN:for dry skin,Instr:... Start Date: 10/27/21 Status: Ordered hydrochlorothiazide-losartan 12.5 mg-50 mg oral tablet See Instructions, TAKE 1 TABLET BY MOUTH ONCE DAILY, # 90 tablet, 1 Refills, Maintenance, 02/02/22 12:29:00 EST, [facility] [id number], 90, TAKE 1 TABLET BY MOUTH ONCE [...] mL, 2 Refills, Maintenance, 12/30/21 11:12:00 EST, [facility] [id number], Partial fill upon patient request if the prescription is for a schedule II opioid... Start Date: 12/30/21 Stop Date: 03/30/22 Status: Ordered Metoprolol Tartrate 25 mg oral tablet See Instructions, TAKE 1 TABLET BY MOUTH two (2) times a day, # 60 tablet, 2 Refills, Maintenance, 12/18/21 12:59:00 EST, [facility] [id number], 176, cm, 12/11/21 9:33:00 EDT, Height Start Date: 12/18/21 Status: Ordered nalOXONE 4 mg/0.1 mL nasal spray = 4 mg, Nares, Both, Once, # 2 each, 0 Refills, Soft Stop, 11/17/21 12:37:00 EDT, [facility] [id number], Partial fill upon patient request if the prescription is for a schedule II opioid drug., 102.5, cm, 11/16/21 16:08:00 EDT... Start Date: 11/17/21 Status: Ordered Nicotine 2 mg gum 1 each = 2 mg, Chew, Every 2 hours, PRN as needed for smoking cessation, for 8 week(s), # 100 each,1 Refills, Acute 05/25/22 12:28:00 EDT, 02/02/22 12:28:00 EST, Gum, [place], [place] - [id number], Partial fill upon patient request i... Start Date: 02/02/22 Stop Date: 05/25/22 Status: Ordered Pen [place], 31 G x 5 mm BD Ultra [...] tablet, 2 Refills, Maintenance, 02/25/22 21:52:00 EST, [facility], 178, cm, 02/15/22 14:37:00 EST, [...] prophylaxis Confirmed Active Tobacco use Confirmed Active 18952 2type unknown 3X3, last in 2016 Social History Social History Type Response Tobacco Use: 4 or less cigar ettes(less than 1/4 pack)/day in last 30 days. Other: smoking for 40 yrs.. Sex Patient Care team information Care Team Personnel Name: Harlan Person NP Position: S Associate Professional Member Role: PCP Address: Address: [address] [place] [address]- Care Team Related Persons Name: ELADIA CORRIGAN Address: [address] [place] [address]
--- OUTSIDE RECORDS SUMMARY | 2022-10-15 00:52 | XMS_ITS | Continuity of Care Document ---
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 Name Role Phone Raza BALDERAS, Harlan Primary Care Physician Encounter [facility] R [id number] Date(s): 05/31/22 - 06/30/[address] [address]- Encounter Diagnosis Osteoarthritis of left knee(Discharge Diagnosis) [...] Vaccine Date Status Refusal Reason SARS-CoV-2 mRNA ([id number]) vax 09/28/21 Not Given Patient Refuses tetanus/diphtheria/pertussis, acel(Tdap) 09/28/21 Not Given Patient Refuses 1Admin Note: vis given 2Admin Note: vis 05/23/2008 3Admin Note: vis 09/16/09 4Admin Note: vis Medications acetaminophen-oxyCODONE 325 mg-5 mg oral tablet 1, tablet, By Mouth, Every 6 hours, # 112 tablet, Refills 0, Tot. Refills 0, Maintenance, 06/30/22 9:33:00 EDT, Route to Pharmacy Electronically, [facility] - [place], [place] - [id number], please fill on 06/01; [facility]PAT checked; on contract, 178,... Start Date: 06/30/22 Stop Date: 07/28/22 Status: Ordered amLODIPine 5 mg oral tablet 2 tablet = 10 mg, By Mouth, Daily, # 180 tablet, 1 Refills, Maintenance, 05/31/22 10:01:00 EDT, [place], [place] - [id number], 178, cm, 05/04/22 11:41:00 EDT, Height, 104.6, kg, 02/15/22 14:37:00 EST, Dry Weight Start Date: 05/31/22 Stop Date: 11/27/22 Status: Ordered Aspirin Low Dose 81 mg oral delayed release tablet 1 tablet, By Mouth, Daily, # 30 tablet, 3 Refills, Maintenance, 05/21/22 15:29:00 EDT, [facility], 178, cm, 05/04/22 11:41:00 EDT, Height, 104.6, kg, 02/15/22 14:37:00 EST, Dry Weight Start Date: 05/21/22 Status: Ordered atorvastatin 80 mg oral tablet 1 tablet, By Mouth, Daily, # 30 tablet, 5 Refills, Maintenance, 05/21/22 14:00:00 EDT, [facility], 178, cm, 05/04/22 11:41:00 EDT, Height, 104.6, kg, 02/15/22 14:37:00 EST, Dry Weight Start Date: 05/21/22 Status: Ordered Blood Pressure Monitor See Instructions, # 1 each, Refills 0, Tot. Refills 0, Maintenance, patient persistent elevated BP ICD: I10 please send to L&C thank you, HILDA Rousseau DNP-C, 10/09/21 9:52:00 EDT, Supply Start Date: 10/09/21 Status: Ordered Cane See Instructions, # 1 each, Maintenance, patient with chronic left hip pain, and Left knee OA needscane please ICD10 M17. 9, M25. 552 Thank you, HILDA Rousseau DNP-Latanya, 01/11/22 10:01:00 EST, Supply Start Date: 01/11/22 Status: Ordered clonazePAM 1 mg oral tablet 1 tablet = 1 mg, By Mouth, 3 times a day, Please bubble pack and deliver, # 90 tablet, 0 Refills, Maintenance, 06/16/22 9:33:00 EDT, Tablet, [place], [place] - [id number], Partial fill upon patient request if the prescription is for a... Start Date: 06/16/22 Stop Date: 07/16/22 Status: Ordered clopidogrel 75 mg oral tablet 1, tablet, By Mouth, Daily, # 30 tablet, Refills 0, Maintenance, 06/18/22 16:41:00 EDT, Route to Pharmacy Electronically, [facility], 178, cm, 06/10/22 9:30:00 EDT, Height, 104.6, kg, 02/15/22 14:37:00 EST, Dry Weight Start Date: 06/18/22 Status: Ordered docusate sodium 100 mg oral capsule 1 capsule, By Mouth, 2 times a day, PRN NEEDED FOR CONSTIPATION, # 30 each, 2 Refills, Maintenance, 05/21/22 11:07:00 EDT, [facility], 178, cm, 05/04/22 11:41:00 EDT, Height, 104.6, kg, 02/15/22 14:37:00 EST, Dry Weight Start Date: 05/21/22 Status: Ordered Eliquis 5 mg oral tablet 1 tablet = 5 mg, By Mouth, 2 times a day, Please bubble pack and deliver, # 60 tablet, 5 Refills, Maintenance, 02/02/22 12:28:00 EST, Tablet, [place], [place] - [id number], Partial fill upon patient request if the [...] 06/29/22 16:42:00 EDT, Route to Pharmacy Electronically, [facility], 178, cm, 06/10/22 9:30:00 EDT, Height, 104.6, kg, 02/15/22 14:37:00 EST, Dry Weight Start Date: 06/29/22 Stop Date: 07/13/22 Status: Ordered Gold Bonilla Ultimate Softening topical lotion 1 application, Topically, 2 times a day, PRN for dry skin, to affected area, # 420 mL, 3 Refills, Maintenance, 10/27/21 12:11:00 EDT, Lotion, [facility] [id number], 1 application Topically 2 times a day,PRN:for dry skin,Instr:... Start Date: 10/27/21 Status: Ordered hydrochlorothiazide-losartan 12.5 mg-50 mg oral tablet See Instructions, TAKE 1 TABLET BY MOUTH ONCE DAILY, # 90 tablet, 1 Refills, Maintenance, 02/02/22 12:29:00 EST, [place], [place] - [id number], 90, TAKE 1 TABLET BY MOUTH ONCE DAILY,176, cm, 02/02/22 11:51:00 EST, Height Start Date: 02/02/22 Status: Ordered Jardiance 10 mg oral tablet 1 tablet = 10 mg, By Mouth, Daily in AM, # 90 tablet, 0 Refills, Maintenance, 05/31/22 9:51:00 EDT,Tablet, [facility] [id number], Partial fill upon patient request if the prescription is for a schedule II opioid drug., 178, c... Start Date: 05/31/22 Stop Date: 08/29/22 Status: Ordered Lantus Solostar Pen 100 units/mL subcutaneous solution See Instructions, INJECT 38 UNITS SUBCUTANEOUSLY ONCE DAILY, # 15 mL, 2 Refills, Maintenance, 05/14/22 13:20:00 EDT, [facility], 178, cm, 05/04/22 11:41:00 EDT, Height, 104.6, kg, 02/15/22 14:37:00 EST, Dry Weight Start Date: 05/14/22 Status: Ordered MetFORMIN (Eqv-Glucophage XR) 500 mg oral tablet, extended release 2 tablet, By Mouth, 2 times a day, # 120 tablet, 1 Refills, Maintenance, 05/15/22 10:21:00 EDT, [facility], 178, cm, 05/04/22 11:41:00 EDT, Height, 104.6, kg, 02/15/22 14:37:00 EST, Dry Weight Start Date: 05/15/22 Status: Ordered Metoprolol Tartrate 25 mg oral tablet See Instructions, TAKE 1 TABLET BY MOUTH two (2) times a day, # 60 tablet, 2 Refills, Maintenance, 06/19/22 14:55:00 EDT, [facility], [facility] [id number], 178, cm, 06/10/22 9:30:00 EDT, Height, 104.6, kg, 02/15/22 14:37:00 EST, Dry Weight Start Date: 06/19/22 Status: Ordered nalOXONE 4 mg/0.1 mL nasal spray = 4 mg, Nares, Both, Once, # 2 each, 0 Refills, Soft Stop, 11/17/21 12:37:00 EDT, [facility], [facility] [id number], Partial fill upon patient request if the prescription is for a schedule II opioid drug., 102.5, cm, 11/16/21 16:08:00 EDT... Start Date: 11/17/21 Status: Ordered NuLYTELY with Flavor Packs oral powder for reconstitution See Instructions, Drink 240mL every 15-20 minutes until first half is gone. Repeat 6 hours prior toprocedure., # 4,000 mL, 0 Refills, Maintenance, 04/27/22 11:40:00 EDT, [facility], [facility] [id number], Partial fill upon patient reque... Start Date: 04/27/22 Status: Ordered Pen [place], 31 G x 5 mm BD Ultra [...] use Confirmed Active Vitreous hemorrhage Confirmed Active 84505 2type unknown 3X3, last in 2015 Diagnosis Diagnosis Type Effective Dates Health Status Clinical Service Informant Osteoarthritis of left knee 1 Discharge Diagnosis 12/30/21 01:27 pm - Harlan [facility] according to notes 12/2021 Social History Social History Type Response Tobacco Use: 4 or less cigar ettes(less than 1/4 pack)/day in last 30 days. Other: smoking for 40 yrs.. Sex Hospital Consult note * Event Display: Inpatient Consult Note, Non- Authored Date: * Event Display: Inpatient Consult Note, Non- Authored Date: Radiology * Dalia Leigh: PERFORM Event Display: Radiology Results Scanned Authored Date: [id number] * Dalia Leigh: PERFORM Event Display: Radiology Results Scanned Authored Date: [id number] Patient Care team information Care Team Personnel Name: Harlan Person NP Position: [facility] Associate Professional Member Role: PCP Address: Address: [address] [place] [address]- Care Team Related Persons Name: SAMANMIARAVI RODRIGUEZSSICA Address: [address] [place] [address]
--- OUTSIDE RECORDS SUMMARY | 2022-10-15 00:52 | XMS_ITS | Continuity of Care Document ---
Author Name Unknown Organization [facility] ter Address [address] [place] [id number]- Care Team Providers Care Wagon Washer Name Role Phone Raza BALDERAS, Harlan Primary Care Physician [phone] Encounter [facility] Date(s): 04/13/22 - 05/13/[address] [address] Allergies, Adverse Reactions, Alerts Substance Reaction Severity Status penicillin Hives Active Immunizations Given and Recorded Vaccine Date Status Refusal Reason FluLaval (oldterm) 1 12/23/10 Given pneumococcal 23-valent vaccine 2 03/24/10 Given influenza virus vaccine, inactivated 3 01/27/10 Gi caroline tetanus-diphtheria toxoids (Td) 4 01/27/10 Given Not Given Vaccine Date Status Refusal Reason SARS-CoV-2 mRNA ([id number]) vax 09/28/21 Not Given Patient Refuses tetanus/diphtheria/pertussis, acel(Tdap) 09/28/21 Not Given Patient Refuses 1Admin Note: vis given 2Admin Note: vis 05/23/2008 3Admin Note: vis 09/16/09 4Admin Note: vis Medications acetaminophen-oxyCODONE 325 mg-5 mg oral tablet 1, tablet, By Mouth, Every 6 hours, # 112 tablet, Refills 0, Tot. Refills 0, Maintenance, 04/28/22 14:42:00 EDT, Route to Pharmacy Electronically, [facility] - [place], [place] - [id number], please fill on 05/03; MassPAT checked; on contract, 178,... Start Date: 04/28/22 Stop Date: 05/26/22 Status: Ordered amLODIPine 5 mg oral tablet 5 mg, 1, tablet, By Mouth, Daily, # 30 tablet, Refills 1, Tot. Refills 1, Maintenance, 04/16/22 11:16:00 EST, Route to Pharmacy Electronically, [place], [place] - [id number], Partialfill upon patient request if the prescription is fo... Start Date: 04/16/22 Stop Date: 06/15/22 Status: Ordered Aspirin Low Dose 81 mg oral delayed release tablet 1 tablet, By Mouth, Daily, # 30 tablet, 3 Refills, Maintenance, 01/19/22 14:38:00 EST, [facility] [place], 176, cm, 01/11/22 9:46:00 EST, Height Start Date: 01/19/22 Status: Ordered atorvastatin 80 mg oral tablet See Instructions, TAKE 1 TABLET BY MOUTH ONCE DAILY, # 30 tablet, 5 Refills, Maintenance, 11/11/21 11:38:00 EDT, [facility] [place], 176, cm, 10/27/21 11:36:00 EDT, Height Start [...] 0 Refills, Maintenance, 03/22/22 13:07:00 EST, Tablet, [place], [place] - [id number], Partial fill upon patient request if the [...] 2 Refills, Maintenance, 03/17/22 13:53:00 EST, Capsule, [place], [place] - [id number], Partial fill upon patient request if the prescription is for a dejah... Start Date: 03/17/22 Stop Date: 06/15/22 Status: Ordered Eliquis 5 mg oral tablet 1 tablet = 5 mg, By Mouth, 2 times a day, Please bubble pack and deliver, # 60 tablet, 5 Refills, Maintenance, 02/02/22 12:28:00 EST, Tablet, [place], [place] - [id number], Partial fill upon patient request if the [...] 03/31/22 13:13:00 EST, Route to Pharmacy Electronically, [place], [place] - [id number], 178, cm, 03/30/22 9:50:00 EST, Height, 104.6, k... Start Date: 03/31/22 Stop Date: 04/14/22 Status: Ordered Gold Bonilla Ultimate Softening topical lotion 1 application, Topically, 2 times a day, PRN for dry skin, to affected area, # 420 mL, 3 Refills, Maintenance, 10/27/21 12:11:00 EDT, Lotion, [place], [place] - [id number], 1 application Topically 2 times a day,PRN:for dry skin,Instr:... Start Date: 10/27/21 Status: Ordered hydrochlorothiazide-losartan 12.5 mg-50 mg oral tablet See Instructions, TAKE 1 TABLET BY MOUTH ONCE DAILY, # 90 tablet, 1 Refills, Maintenance, 02/02/22 12:29:00 EST, [facility] [id number], 90, TAKE 1 TABLET BY MOUTH ONCE DAILY,176, cm, 02/02/22 11:51:00 EST, Height Start Date: 02/02/22 Status: Ordered Lantus Solostar Pen 100 units/mL subcutaneous solution See Instructions, INJECT 40 UNITS SUBCUTANEOUSLY ONCE DAILY, # 15 mL, 2 Refills, Maintenance, 03/17/22 13:54:00 EST, [facility] [place], 178, cm, 03/15/22 15:13:00 EST, Height, 104.6, kg, 02/15/22 14:37:00 EST, Dry Weight Start Date: 03/17/22 Status: Ordered metFORMIN 1000 mg oral tablet, extended release 1 tablet = 1,000 mg, By Mouth, 2 times a day, # 60 tablet, 1 Refills, Maintenance, 04/16/22 11:08:00 EST, ER Tablet, [facility] [id number], Partial fill upon patient request if the prescription is for a schedule II opioid drug... Start Date: 04/16/22 Stop Date: 06/15/22 Status: Ordered Metoprolol Tartrate 25 mg oral tablet See Instructions, TAKE 1 TABLET BY MOUTH two (2) times a day, # 60 tablet, 2 Refills, Maintenance, 03/30/22 10:13:00 EST, [facility], [facility] [id number], 178, cm, 03/30/22 9:50:00 EST, Height, 104.6, kg, 02/15/22 14:37:00 EST, Dry Weight Start Date: 03/30/22 Status: Ordered nalOXONE 4 mg/0.1 mL nasal spray = 4 mg, Nares, Both, Once, # 2 each, 0 Refills, Soft Stop, 11/17/21 12:37:00 EDT, [facility] [id number], Partial fill upon patient request if the prescription is for a schedule II opioid drug., 102.5, cm, 11/16/21 16:08:00 EDT... Start Date: 11/17/21 Status: Ordered Nicotine 2 mg gum 1 each = 2 mg, Chew, Every 2 hours, PRN as needed for smoking cessation, for 8 week(s), # 100 each,1 Refills, Acute 05/25/22 12:28:00 EDT, 02/02/22 12:28:00 EST, Gum, [place], [place] - [id number], Partial fill upon patient request i... Start Date: 02/02/22 Stop Date: 05/25/22 Status: Ordered NuLYTELY with Flavor Packs oral powder for reconstitution See Instructions, Drink 240mL every 15-20 minutes until first half is gone. Repeat 6 hours prior toprocedure., # 4,000 mL, 0 Refills, Maintenance, 04/27/22 11:40:00 EDT, [place], [place] - [id number], Partial fill upon patient reque... Start Date: 04/27/22 Status: Ordered Pen [place], 31 G x 5 mm BD Ultra [...] 2 Refills, Maintenance, 02/25/22 21:52:00 EST, [facility] [place], 178, cm, 02/15/22 14:37:00 EST, Height, 104.6, [...] use Confirmed Active Vitreous hemorrhage Confirmed Active 78011 2type unknown 3X3, last in 2016 Social History Social History Type Response Tobacco Use: 4 or less cigar ettes(less than 1/4 pack)/day in last 30 days. Other: smoking for 40 yrs.. Sex Patient Care team information Care Team Personnel Name: Harlan Person NP Position: [facility] Associate Professional Member Role: PCP Address: Address: [address] [place] [address]- Care Team Related Persons Name: SAMANMIASHARONBRADLEY ELADIA Address: home [address] [place] [address]
--- OUTSIDE RECORDS SUMMARY | 2022-10-15 00:52 | XMS_ITS | Continuity of Care Document ---
Author Name Unknown Organization [facility] Address [address] [place] [id number]- Care Team Providers Care Wholesale Buyer Name Role Phone Raza BALDERAS, Harlan Primary Care Physician [place] [facility] [place] 03/30/22 - 04/29/[address] [address]- Allergies, Adverse Reactions, Alerts Substance Reaction Severity Status penicillin Hives Active Immunizations Given and Recorded Vaccine Date Status Refusal Reason FluLaval (oldterm) 1 12/23/10 Given pneumococcal 23-valent vaccine 2 03/24/10 Given influenza virus vaccine, inactivated 3 01/27/10 Gi caroline tetanus-diphtheria toxoids (Td) 4 01/27/10 Given Not Given Vaccine Date Status Refusal Reason SARS-CoV-2 mRNA (kmdretc-cbrn-ettsn) vax 09/28/21 Not Given Patient Refuses tetanus/diphtheria/pertussis, acel(Tdap) 09/28/21 Not Given Patient Refuses 1Admin Note: vis given 2Admin Note: vis 05/23/2008 3Admin Note: vis 09/16/09 4Admin Note: vis Medications acetaminophen-oxyCODONE 325 mg-5 mg oral tablet 1, tablet, By Mouth, Every 6 hours, # 112 tablet, Refills 0, Tot. Refills 0, Maintenance, 04/28/22 14:42:00 EDT, Route to Pharmacy Electronically, [facility] - [place], [place] - [id number], please fill on 05/03; MassPAT checked; on contract, 178,... Start Date: 04/28/22 Stop Date: 05/26/22 Status: Ordered amLODIPine 5 mg oral tablet 5 mg, 1, tablet, By Mouth, Daily, # 30 tablet, Refills 1, Tot. Refills 1, Maintenance, 04/16/22 11:16:00 EST, Route to Pharmacy Electronically, [place], [place] - [id number], Partialfill upon patient request if the prescription is fo... Start Date: 04/16/22 Stop Date: 06/15/22 Status: Ordered Aspirin Low Dose 81 mg oral delayed release tablet 1 tablet, By Mouth, Daily, # 30 tablet, 3 Refills, Maintenance, 01/19/22 14:38:00 EST, [facility], 176, cm, 01/11/22 9:46:00 EST, Height Start Date: 01/19/22 Status: Ordered atorvastatin 80 mg oral tablet See Instructions, TAKE 1 TABLET BY MOUTH ONCE DAILY, # 30 tablet, 5 Refills, Maintenance, 11/11/21 11:38:00 EDT, [facility], 176, cm, 10/27/21 11:36:00 EDT, Height [...] 0 Refills, Maintenance, 03/22/22 13:07:00 EST, Tablet, [facility], [place] - [id number], Partial fill upon patient request if the [...] 2 Refills, Maintenance, 03/17/22 13:53:00 EST, Capsule, [place], [place] - [id number], Partial fill upon patient request if the prescription is for a dejah... Start Date: 03/17/22 Stop Date: 06/15/22 Status: Ordered Eliquis 5 mg oral tablet 1 tablet = 5 mg, By Mouth, 2 times a day, Please bubble pack and deliver, # 60 tablet, 5 Refills, Maintenance, 02/02/22 12:28:00 EST, Tablet, [place], [place] - [id number], Partial fill upon patient request if the [...] 03/31/22 13:13:00 EST, Route to Pharmacy Electronically, [place], [place] - [id number], 178, cm, 03/30/22 9:50:00 EST, Height, 104.6, k... Start Date: 03/31/22 Stop Date: 04/14/22 Status: Ordered Gold [place] Ultimate Softening topical lotion 1 application, Topically, 2 times a day, PRN for dry skin, to affected area, # 420 mL, 3 Refills, Maintenance, 10/27/21 12:11:00 EDT, Lotion, [place], [place] - [id number], 1 application Topically 2 times a day,PRN:for dry skin,Instr:... Start Date: 10/27/21 Status: Ordered hydrochlorothiazide-losartan 12.5 mg-50 mg oral tablet See Instructions, TAKE 1 TABLET BY MOUTH ONCE DAILY, # 90 tablet, 1 Refills, Maintenance, 02/02/22 12:29:00 EST, [facility] [id number], 90, TAKE 1 TABLET BY MOUTH ONCE DAILY,176, cm, 02/02/22 11:51:00 EST, Height Start Date: 02/02/22 Status: Ordered Lantus Solostar Pen 100 units/mL subcutaneous solution See Instructions, INJECT 40 UNITS SUBCUTANEOUSLY ONCE DAILY, # 15 mL, 2 Refills, Maintenance, 03/17/22 13:54:00 EST, [facility], 178, cm, 03/15/22 15:13:00 EST, Height, 104.6, kg, 02/15/22 14:37:00 EST, Dry Weight Start Date: 03/17/22 Status: Ordered metFORMIN 1000 mg oral tablet, extended release 1 tablet = 1,000 mg, By Mouth, 2 times a day, # 60 tablet, 1 Refills, Maintenance, 04/16/22 11:08:00 EST, ER Tablet, [facility] [id number], Partial fill upon patient request if the prescription is for a schedule II opioid drug... Start Date: 04/16/22 Stop Date: 06/15/22 Status: Ordered Metoprolol Tartrate 25 mg oral tablet See Instructions, TAKE 1 TABLET BY MOUTH two (2) times a day, # 60 tablet, 2 Refills, Maintenance, 03/30/22 10:13:00 EST, [facility], [place] - [id number], 178, cm, 03/30/22 9:50:00 EST, Height, 104.6, kg, 02/15/22 14:37:00 EST, Dry Weight Start Date: 03/30/22 Status: Ordered nalOXONE 4 mg/0.1 mL nasal spray = 4 mg, Nares, Both, Once, # 2 each, 0 Refills, Soft Stop, 11/17/21 12:37:00 EDT, [facility] [id number], Partial fill upon patient request if the prescription is for a schedule II opioid drug., 102.5, cm, 11/16/21 16:08:00 EDT... Start Date: 11/17/21 Status: Ordered Nicotine 2 mg gum 1 each = 2 mg, Chew, Every 2 hours, PRN as needed for smoking cessation, for 8 week(s), # 100 each,1 Refills, Acute 05/25/22 12:28:00 EDT, 02/02/22 12:28:00 EST, Gum, [place], [place] - [id number], Partial fill upon patient request i... Start Date: 02/02/22 Stop Date: 05/25/22 Status: Ordered NuLYTELY with Flavor Packs oral powder for reconstitution See Instructions, Drink 240mL every 15-20 minutes until first half is gone. Repeat 6 hours prior toprocedure., # 4,000 mL, 0 Refills, Maintenance, 04/27/22 11:40:00 EDT, [place], [place] - [id number], Partial fill upon patient reque... Start Date: 04/27/22 Status: Ordered Pen [place], 31 G x 5 mm BD Ultra [...] tablet, 2 Refills, Maintenance, 02/25/22 21:52:00 EST, [facility], 178, cm, 02/15/22 14:37:00 EST, [...] use Confirmed Active Vitreous hemorrhage Confirmed Active 07407 2type unknown 3X3, last in 2016 Social History Social History Type Response Tobacco Use: 4 or less cigar ettes(less than 1/4 pack)/day in last 30 days. Other: smoking for 40 yrs.. Sex Patient Care team information Care Team Personnel Name: Harlan Person NP Position: [facility] Associate Professional Member Role: PCP Address: Address: [address] [place] [address]- Care Team Related Persons Name: ELADIA CORRIGAN Address: [address] [place] [address]
--- OUTSIDE RECORDS SUMMARY | 2022-10-15 00:53 | XMS_ITS | Continuity of Care Document ---
Author Name Unknown Organization [facility] Address [address] [place] [address]- Care Team Providers Care Machine Shop Inspector Name Role Phone Raza BALDERAS, Harlan Primary Care Physician [phone] [place] [facility] [place] 02/23/22 - 03/25/[address] [address] [[email or web address] Allergies, Adverse Reactions, Alerts Substance Reaction Severity Status penicillin Hives Active Immunizations Given and Recorded Vaccine Date Status Refusal Reason FluLaval (oldterm) 1 12/23/10 Given pneumococcal 23-valent vaccine 2 03/24/10 Given influenza virus vaccine, inactivated 3 01/27/10 Gi caroline tetanus-diphtheria toxoids (Td) 4 01/27/10 Given Not Given Vaccine Date Status Refusal Reason SARS-CoV-2 mRNA (ydgicqx-utcs-xohhx) vax 09/28/21 Not Given Patient Refuses tetanus/diphtheria/pertussis, acel(Tdap) 09/28/21 Not Given Patient Refuses 1Admin Note: vis given 2Admin Note: vis 05/23/2008 3Admin Note: vis 09/16/09 4Admin Note: vis Medications acetaminophen-oxyCODONE 325 mg-5 mg oral tablet 1, tablet, By Mouth, Every 6 hours, # 112 tablet, Refills 0, Tot. Refills 0, Maintenance, 03/06/22 9:53:00 EST, Route to Pharmacy Electronically, [facility] - [place], [place] - [id number], please fill on 01/02, 178, cm, 02/15/22 14:37:00 EST, Hei... Start Date: 03/06/22 Stop Date: 04/03/22 Status: Ordered Aspirin Low Dose 81 mg oral delayed release tablet 1 tablet, By Mouth, Daily, # 30 tablet, 3 Refills, Maintenance, 01/19/22 14:38:00 EST, [facility], 176, cm, 01/11/22 9:46:00 EST, Height Start Date: 01/19/22 Status: Ordered atorvastatin 80 mg oral tablet See Instructions, TAKE 1 TABLET BY MOUTH ONCE DAILY, # 30 tablet, 5 Refills, Maintenance, 11/11/21 11:38:00 EDT, [facility], 176, cm, 10/27/21 11:36:00 EDT, Height Start Date: 11/11/21 Status: Ordered Blood Pressure Monitor See Instructions, # 1 each, Refills 0, Tot. Refills 0, Maintenance, patient persistent elevated BP ICD: I10 please send to [facility] thank you, Harlan Person DNP, [facility], 10/09/21 9:52:00 EDT, Supply Start Date: 10/09/21 Status: Ordered Cane See Instructions, # 1 each, Maintenance, patient with chronic left hip pain, and Left knee OA needscane please ICD10 M17. 9, M25. 552 Thank you, Harlan Person DNP, [facility], 01/11/22 10:01:00 EST, Supply Start Date: 01/11/22 Status: Ordered clonazePAM 1 mg oral tablet 1 tablet = 1 mg, By Mouth, 3 times a day, Please bubble pack and deliver, # 90 tablet, 0 Refills, Maintenance, 03/22/22 13:07:00 EST, Tablet, [place], [place] - [id number], Partial fill upon patient request if the prescription is for... Start Date: 03/22/22 Stop Date: 04/21/22 Status: Ordered Doculase 100 mg oral capsule 1 capsule = 100 mg, By Mouth, 2 times a day, PRN for constipation, # 30 capsule, 2 Refills, Maintenance, 03/17/22 13:53:00 EST, Capsule, [place], [place] - [id number], Partial fill upon patient request if the prescription is for a dejah... Start Date: 03/17/22 Stop Date: 06/15/22 Status: Ordered Eliquis 5 mg oral tablet 1 tablet = 5 mg, By Mouth, 2 times a day, Please bubble pack and deliver, # 60 tablet, 5 Refills, Maintenance, 02/02/22 12:28:00 EST, Tablet, [facility] - [place], [place] - [id number], Partial fill upon patient request if the [...] 3 Refills, Maintenance, 10/27/21 12:11:00 EDT, Lotion, [place], [place] - [id number], 1 application Topically 2 times a day,PRN:for dry skin,Instr:... Start Date: 10/27/21 Status: Ordered hydrochlorothiazide-losartan 12.5 mg-50 mg oral tablet See Instructions, TAKE 1 TABLET BY MOUTH ONCE DAILY, # 90 tablet, 1 Refills, Maintenance, 02/02/22 12:29:00 EST, [place], [place] - [id number], 90, TAKE 1 TABLET BY MOUTH ONCE [...] mL, 2 Refills, Maintenance, 03/17/22 13:54:00 EST, [facility], 178, cm, 03/15/22 15:13:00 EST, Height, 104.6, kg, 02/15/22 14:37:00 EST, Dry Weight Start Date: 03/17/22 Status: Ordered Metoprolol Tartrate 25 mg oral tablet See Instructions, TAKE 1 TABLET BY MOUTH two (2) times a day, # 60 tablet, 2 Refills, Maintenance, 12/18/21 12:59:00 EST, [facility], [facility] [id number], 176, cm, 12/11/21 9:33:00 EDT, Height Start Date: 12/18/21 Status: Ordered nalOXONE 4 mg/0.1 mL nasal spray = 4 mg, Nares, Both, Once, # 2 each, 0 Refills, Soft Stop, 11/17/21 12:37:00 EDT, [facility], [facility] [id number], Partial fill upon patient request if the prescription is for a schedule II opioid drug., 102.5, cm, 11/16/21 16:08:00 EDT... Start Date: 11/17/21 Status: Ordered Nicotine 2 mg gum 1 each = 2 mg, Chew, Every 2 hours, PRN as needed for smoking cessation, for 8 week(s), # 100 each,1 Refills, Acute 05/25/22 12:28:00 EDT, 02/02/22 12:28:00 EST, Gum, [facility], [facility] [id number], Partial fill upon patient request i... Start Date: 02/02/22 Stop Date: 05/25/22 Status: Ordered Pen [place], 31 G x 5 mm BD Ultra [...] tablet, 2 Refills, Maintenance, 02/25/22 21:52:00 EST, [facility], 178, cm, 02/15/22 14:37:00 EST, Height, [...] prophylaxis Confirmed Active Tobacco use Confirmed Active 34513 2type unknown 3X3, last in 2016 Social History Social History Type Response Tobacco Use: 4 or less cigar ettes(less than 1/4 pack)/day in last 30 days. Other: smoking for 40 yrs.. Sex Patient Care team information Care Team Personnel Name: Harlan Person NP Position: [facility] Associate Professional Member Role: PCP Address: Address: [address] [place] [address]- Care Team Related Persons Name: ELADIA CORRIGAN Address: home [address] [place] [address]
--- OUTSIDE RECORDS SUMMARY | 2022-10-15 00:53 | XMS_ITS | Continuity of Care Document ---
Author Name Unknown Organization [facility] Address [address] [place] [address]- Care Team Providers Care Project Facilitator Name Role Phone Raza BALDERAS, Harlan Primary Care Physician [phone] Encounter [facility] Date(s): 05/25/22 - 06/24/[address] [address]- Allergies, Adverse Reactions, Alerts Substance Reaction Severity Status penicillin Hives Active Immunizations Given and Recorded Vaccine Date Status Refusal Reason FluLaval (oldterm) 1 12/23/10 Given pneumococcal 23-valent vaccine 2 03/24/10 Given influenza virus vaccine, inactivated 3 01/27/10 Gi caroline tetanus-diphtheria toxoids (Td) 4 01/27/10 Given Not Given Vaccine Date Status Refusal Reason SARS-CoV-2 mRNA (bizxvsi-xaya-mpqvf) vax 09/28/21 Not Given Patient Refuses tetanus/diphtheria/pertussis, acel(Tdap) 09/28/21 Not Given Patient Refuses 1Admin Note: vis given 2Admin Note: vis 05/23/2008 3Admin Note: vis 09/16/09 4Admin Note: vis Medications acetaminophen-oxyCODONE 325 mg-5 mg oral tablet 1, tablet, By Mouth, Every 6 hours, # 112 tablet, Refills 0, Tot. Refills 0, Maintenance, 05/31/22 9:58:00 EDT, Route to Pharmacy Electronically, [facility] - [place], [place] - [id number], please fill on 06/01; MassPAT checked; on contract, 178,... Start Date: 05/31/22 Stop Date: 06/28/22 Status: Ordered amLODIPine 5 mg oral tablet 2 tablet = 10 mg, By Mouth, Daily, # 180 tablet, 1 Refills, Maintenance, 05/31/22 10:01:00 EDT, [place], [place] - [id number], 178, cm, 05/04/22 11:41:00 EDT, Height, 104.6, kg, 02/15/22 14:37:00 EST, Dry Weight Start Date: 05/31/22 Stop Date: 11/27/22 Status: Ordered Aspirin Low Dose 81 mg oral delayed release tablet 1 tablet, By Mouth, Daily, # 30 tablet, 3 Refills, Maintenance, 05/21/22 15:29:00 EDT, [facility], 178, cm, 05/04/22 11:41:00 EDT, Height, 104.6, kg, 02/15/22 14:37:00 EST, Dry Weight Start Date: 05/21/22 Status: Ordered atorvastatin 80 mg oral tablet 1 tablet, By Mouth, Daily, # 30 tablet, 5 Refills, Maintenance, 05/21/22 14:00:00 EDT, [facility], 178, cm, 05/04/22 11:41:00 EDT, Height, [...] 0 Refills, Maintenance, 06/16/22 9:33:00 EDT, Tablet, [place], [place] - [id number], Partial fill upon patient request if the prescription is for a... Start Date: 06/16/22 Stop Date: 07/16/22 Status: Ordered clopidogrel 75 mg oral tablet 1, tablet, By Mouth, Daily, # 30 tablet, Refills 0, Maintenance, 06/18/22 16:41:00 EDT, Route to Pharmacy Electronically, [facility], 178, cm, 06/10/22 9:30:00 EDT, Height, 104.6, kg, 02/15/22 14:37:00 EST, Dry Weight Start Date: 06/18/22 Status: Ordered docusate sodium 100 mg oral capsule 1 capsule, By Mouth, 2 times a day, PRN NEEDED FOR CONSTIPATION, # 30 each, 2 Refills, Maintenance, 05/21/22 11:07:00 EDT, [facility], 178, cm, 05/04/22 11:41:00 EDT, Height, 104.6, kg, 02/15/22 14:37:00 EST, Dry Weight Start Date: 05/21/22 Status: Ordered Eliquis 5 mg oral tablet 1 tablet = 5 mg, By Mouth, 2 times a day, Please bubble pack and deliver, # 60 tablet, 5 Refills, Maintenance, 02/02/22 12:28:00 EST, Tablet, [facility] - [place], [place] - [id number], Partial fill upon patient request if the [...] 06/10/22 10:53:00 EDT, Route to Pharmacy Electronically, [facility], 178, cm, 06/10/22 9:30:00 EDT, Height, 104.6, kg, 02/15/22 14:37:00 EST, Dry Weight Start Date: 06/10/22 Stop Date: 06/24/22 Status: Ordered Gold Bonilla Ultimate Softening topical lotion 1 application, Topically, 2 times a day, PRN for dry skin, to affected area, # 420 mL, 3 Refills, Maintenance, 10/27/21 12:11:00 EDT, Lotion, [facility] [id number], 1 application Topically 2 times a day,PRN:for dry skin,Instr:... Start Date: 10/27/21 Status: Ordered hydrochlorothiazide-losartan 12.5 mg-50 mg oral tablet See Instructions, TAKE 1 TABLET BY MOUTH ONCE DAILY, # 90 tablet, 1 Refills, Maintenance, 02/02/22 12:29:00 EST, [place], [place] - [id number], 90, TAKE 1 TABLET BY MOUTH ONCE DAILY,176, cm, 02/02/22 11:51:00 EST, Height Start Date: 02/02/22 Status: Ordered Jardiance 10 mg oral tablet 1 tablet = 10 mg, By Mouth, Daily in AM, # 90 tablet, 0 Refills, Maintenance, 05/31/22 9:51:00 EDT,Tablet, [facility] [id number], Partial fill upon patient request if the prescription is for a schedule II opioid drug., 178, c... Start Date: 05/31/22 Stop Date: 08/29/22 Status: Ordered Lantus Solostar Pen 100 units/mL subcutaneous solution See Instructions, INJECT 38 UNITS SUBCUTANEOUSLY ONCE DAILY, # 15 mL, 2 Refills, Maintenance, 05/14/22 13:20:00 EDT, [facility], 178, cm, 05/04/22 11:41:00 EDT, Height, 104.6, kg, 02/15/22 14:37:00 EST, Dry Weight Start Date: 05/14/22 Status: Ordered MetFORMIN (Eqv-Glucophage XR) 500 mg oral tablet, extended release 2 tablet, By Mouth, 2 times a day, # 120 tablet, 1 Refills, Maintenance, 05/15/22 10:21:00 EDT, [facility], 178, cm, 05/04/22 11:41:00 EDT, Height, 104.6, kg, 02/15/22 14:37:00 EST, Dry Weight Start Date: 05/15/22 Status: Ordered Metoprolol Tartrate 25 mg oral tablet See Instructions, TAKE 1 TABLET BY MOUTH two (2) times a day, # 60 tablet, 2 Refills, Maintenance, 06/19/22 14:55:00 EDT, [facility] [id number], 178, cm, 06/10/22 9:30:00 EDT, Height, 104.6, kg, 02/15/22 14:37:00 EST, Dry Weight Start Date: 06/19/22 Status: Ordered nalOXONE 4 mg/0.1 mL nasal spray = 4 mg, Nares, Both, Once, # 2 each, 0 Refills, Soft Stop, 11/17/21 12:37:00 EDT, [facility] [id number], Partial fill upon patient request if the prescription is for a schedule II opioid drug., 102.5, cm, 11/16/21 16:08:00 EDT... Start Date: 11/17/21 Status: Ordered NuLYTELY with Flavor Packs oral powder for reconstitution See Instructions, Drink 240mL every 15-20 minutes until first half is gone. Repeat 6 hours prior toprocedure., # 4,000 mL, 0 Refills, Maintenance, 04/27/22 11:40:00 EDT, [facility] [id number], Partial fill upon patient reque... Start Date: 04/27/22 Status: Ordered Pen [place], 31 G x 5 mm BD Ultra [...] use Confirmed Active Vitreous hemorrhage Confirmed Active 85362 2type unknown 3X3, last in 2016 Social History Social History Type Response Tobacco Use: 4 or less cigar ettes(less than 1/4 pack)/day in last 30 days. Other: smoking for 40 yrs.. Sex Patient Care team information Care Team Personnel Name: Harlan Person NP Position: S Associate Professional Member Role: PCP Address: Address: [address] [place] [address]- Care Team Related Persons Name: ELADIA CORRIGAN Address: home [address] [place] [address]
--- OUTSIDE RECORDS SUMMARY | 2022-10-15 00:53 | XMS_ITS | Continuity of Care Document ---
Author Name Unknown Organization [facility] Address [address] [place] [id number] Care Team Providers Care Wool Supplier Name Role Phone Raza BALDERAS, Harlan Primary Care Physician Encounter [facility] Date(s): 06/15/22 - 07/15/[address] [address]- Allergies, Adverse Reactions, Alerts Substance Reaction Severity Status penicillin Hives Active Immunizations Given and Recorded Vaccine Date Status Refusal Reason FluLaval (oldterm) 1 12/23/10 Given pneumococcal 23-valent vaccine 2 03/24/10 Given influenza virus vaccine, inactivated 3 01/27/10 Gi caroline tetanus-diphtheria toxoids (Td) 4 01/27/10 Given Not Given Vaccine Date Status Refusal Reason SARS-CoV-2 mRNA ([id number]) vax 09/28/21 Not Given Patient Refuses tetanus/diphtheria/pertussis, acel(Tdap) 09/28/21 Not Given Patient Refuses 1Admin Note: vis given 2Admin Note: vis 05/23/2008 3Admin Note: vis 09/16/09 4Admin Note: vis Medications acetaminophen-oxyCODONE 325 mg-5 mg oral tablet 1, tablet, By Mouth, Every 6 hours, # 112 tablet, Refills 0, Tot. Refills 0, Maintenance, 06/30/22 9:33:00 EDT, Route to Pharmacy Electronically, [facility] - [place], [place] - [id number], please fill on 06/01; [facility] checked; on contract, 178,... Start Date: 06/30/22 Stop Date: 07/28/22 Status: Ordered amLODIPine 5 mg oral tablet 2 tablet = 10 mg, By Mouth, Daily, # 180 tablet, 1 Refills, Maintenance, 05/31/22 10:01:00 EDT, [place], [place] - [id number], 178, cm, 05/04/22 11:41:00 EDT, Height, 104.6, kg, 02/15/22 14:37:00 EST, Dry Weight Start Date: 05/31/22 Stop Date: 11/27/22 Status: Ordered Aspirin Low Dose 81 mg oral delayed release tablet 1 tablet, By Mouth, Daily, # 30 tablet, 3 Refills, Maintenance, 05/21/22 15:29:00 EDT, [facility], 178, cm, 05/04/22 11:41:00 EDT, Height, 104.6, kg, 02/15/22 14:37:00 EST, Dry Weight Start Date: 05/21/22 Status: Ordered atorvastatin 80 mg oral tablet 1 tablet, By Mouth, Daily, # 30 tablet, 5 Refills, Maintenance, 05/21/22 14:00:00 EDT, [facility], 178, cm, 05/04/22 11:41:00 EDT, Height, [...] 0 Refills, Maintenance, 06/16/22 9:33:00 EDT, Tablet, [place], [place] - [id number], Partial fill upon patient request if the prescription is for a... Start Date: 06/16/22 Stop Date: 07/16/22 Status: Ordered clopidogrel 75 mg oral tablet 1, tablet, By Mouth, Daily, # 30 tablet, Refills 0, Maintenance, 06/18/22 16:41:00 EDT, Route to Pharmacy Electronically, [facility], 178, cm, 06/10/22 9:30:00 EDT, Height, 104.6, kg, 02/15/22 14:37:00 EST, Dry Weight Start Date: 06/18/22 Status: Ordered docusate sodium 100 mg oral capsule 1 capsule, By Mouth, 2 times a day, PRN NEEDED FOR CONSTIPATION, # 30 each, 2 Refills, Maintenance, 05/21/22 11:07:00 EDT, [facility], 178, cm, 05/04/22 11:41:00 EDT, Height, 104.6, kg, 02/15/22 14:37:00 EST, Dry Weight Start Date: 05/21/22 Status: Ordered Eliquis 5 mg oral tablet 1 tablet = 5 mg, By Mouth, 2 times a day, Please bubble pack and deliver, # 60 tablet, 5 Refills, Maintenance, 02/02/22 12:28:00 EST, Tablet, [facility] - [place], [place] - [id number], Partial fill upon patient request if the [...] 06/29/22 16:42:00 EDT, Route to Pharmacy Electronically, [facility], 178, cm, 06/10/22 9:30:00 EDT, Height, 104.6, kg, 02/15/22 14:37:00 EST, Dry Weight Start Date: 06/29/22 Stop Date: 07/13/22 Status: Ordered Gold Bonilla Ultimate Softening topical lotion 1 application, Topically, 2 times a day, PRN for dry skin, to affected area, # 420 mL, 3 Refills, Maintenance, 10/27/21 12:11:00 EDT, Lotion, [facility] [id number], 1 application Topically 2 times a day,PRN:for dry skin,Instr:... Start Date: 10/27/21 Status: Ordered hydrochlorothiazide-losartan 12.5 mg-50 mg oral tablet See Instructions, TAKE 1 TABLET BY MOUTH ONCE DAILY, # 90 tablet, 1 Refills, Maintenance, 02/02/22 12:29:00 EST, [facility] [id number], 90, TAKE 1 TABLET BY MOUTH ONCE DAILY,176, cm, 02/02/22 11:51:00 EST, Height Start Date: 02/02/22 Status: Ordered Jardiance 10 mg oral tablet 1 tablet = 10 mg, By Mouth, Daily in AM, # 90 tablet, 0 Refills, Maintenance, 05/31/22 9:51:00 EDT,Tablet, [facility] [id number], Partial fill upon patient request if the prescription is for a schedule II opioid drug., 178, c... Start Date: 05/31/22 Stop Date: 08/29/22 Status: Ordered Lantus Solostar Pen 100 units/mL subcutaneous solution See Instructions, INJECT 38 UNITS SUBCUTANEOUSLY ONCE DAILY, # 15 mL, 2 Refills, Maintenance, 05/14/22 13:20:00 EDT, [facility], 178, cm, 05/04/22 11:41:00 EDT, Height, 104.6, kg, 02/15/22 14:37:00 EST, Dry Weight Start Date: 05/14/22 Status: Ordered MetFORMIN (Eqv-Glucophage XR) 500 mg oral tablet, extended release 2 tablet, By Mouth, 2 times a day, # 120 tablet, 1 Refills, Maintenance, 05/15/22 10:21:00 EDT, [facility], 178, cm, 05/04/22 11:41:00 EDT, Height, 104.6, kg, 02/15/22 14:37:00 EST, Dry Weight Start Date: 05/15/22 Status: Ordered Metoprolol Tartrate 25 mg oral tablet See Instructions, TAKE 1 TABLET BY MOUTH two (2) times a day, # 60 tablet, 2 Refills, Maintenance, 06/19/22 14:55:00 EDT, [facility] [id number], 178, cm, 06/10/22 9:30:00 EDT, Height, 104.6, kg, 02/15/22 14:37:00 EST, Dry Weight Start Date: 06/19/22 Status: Ordered nalOXONE 4 mg/0.1 mL nasal spray = 4 mg, Nares, Both, Once, # 2 each, 0 Refills, Soft Stop, 11/17/21 12:37:00 EDT, [facility] [id number], Partial fill upon patient request if the prescription is for a schedule II opioid drug., 102.5, cm, 11/16/21 16:08:00 EDT... Start Date: 11/17/21 Status: Ordered NuLYTELY with Flavor Packs oral powder for reconstitution See Instructions, Drink 240mL every 15-20 minutes until first half is gone. Repeat 6 hours prior toprocedure., # 4,000 mL, 0 Refills, Maintenance, 04/27/22 11:40:00 EDT, [facility] [id number], Partial fill upon patient reque... Start Date: 04/27/22 Status: Ordered Pen [place], 31 G x 5 mm BD Ultra [...] use Confirmed Active Vitreous hemorrhage Confirmed Active 86373 2type unknown 3X3, last in 2016 Social History Social History Type Response Tobacco Use: 4 or less cigar ettes(less than 1/4 pack)/day in last 30 days. Other: smoking for 40 yrs.. Sex Patient Care team information Care Team Personnel Name: Harlan Person NP Position: S Associate Professional Member Role: PCP Address: Address: [address] [place] [address]- Care Team Related Persons Name: ELADIA CORRIGAN Address: home [address] [place] [address]
[2022-10-15 01:02] LABS: Troponin-I High Sensitivity < 2.7 ng/L (<3.5-35.0)
[2022-10-15 01:19] LABS: Anion Gap 14 (12-20); Carbon Dioxide 25 mmol/L (22-29); Chloride 104 mmol/L (96-108); Creatinine Clr Calc Pharmacy 103.1; Estimated Glomerular Filt Rate > 60; Potassium 3.6 mmol/L (3.3-5.1); Sodium 139 mmol/L (135-145)
[2022-10-15 01:56] VITALS: BP 123/72; PULSE 64; RESP 18; TEMP 36.6; O2SAT 96
--- NOTE | 2023-09-27 01:00 | ED_ITS ---
HPI - Arrhythmia/Palpitations General Chief Complaint: Arrhythmia/Palpitations Stated Complaint: Heart palpitations, headache Time Seen by Provider: 10/15/22 00:43 Source: patient Mode of arrival: ambulatory Limitations: no limitations History of Present Illness ED Provider: martín BOWERS narrative: Patient's history of diabetes hypertension AFib on Eliquis CAD CVA comes here for episode of palpitation normal sinus rhythm on arrival during stay in the ER no syncope no chest Related Data Allergies Allergy/AdvReac Type Severity Reaction Status Date / Time Penicillins Allergy Unknown Verified 10/15/22 00:01 Review of Systems 2 Review of Systems: Yes all other systems are reviewed and are negative [facility] Past Medical History Medical History HTN (hypertension) Diabetes Stroke CAD (coronary artery disease) Afib Social History Social History Alcohol intake: never Patient Tobacco Use Status: Tobacco use Unknown Smoked in Last 30 Days: No Use of substances other than those prescribed or required for medical reasons: No Advance Directives: No Advance Directives Information Provided: Yes Physical Exam 2 Vital Signs: Vital Signs: Last Vital Signs Temp 97.8 F 10/15/22 01:56 Pulse 64 10/15/22 01:56 Resp 18 10/15/22 01:56 BP 123/72 10/15/22 01:56 Pulse Ox 96 10/15/22 01:56 O2 Del Method Room Air 10/15/22 01:56 BMI result Body Mass Index 30.0 Appearance: Alert. Oriented X3. No acute distress. Eyes: PERRLA, No Nystagmus ENT: Pharynx normal. Oral Mucosa moist Neck: Normal inspection. Neck supple. CVS: Normal heart rate and rhythm. Pulses normal. Respiratory: No respiratory distress. Equal air entry bilateral, no wheezing/rales/rhonchi Abdomen: Soft and nontender. Bowel sounds are present, no mass palpable, no CVA tenderness Skin: Skin warm and dry. Normal skin color. Normal skin turgor. Extremities: No lower extremity edema. No calf tenderness Neuro: Oriented X 3. No motor deficit. 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 Differential Diagnosis Differential Diagnoses: The differential diagnosis associated with the presentation includes AFib/SVT/PVCs Admission/Observation Consideration of admission/observation: Escalation of care including admission/observation considered Lab Data 10/15/22 00:18 10/15/22 00:18 Labs: Lab Results 10/15/22 Range/Units 00:18 WBC 6.2 (4.8-10.8) X10*3/uL RBC 4.61 (4.60-5.80) X10*6/uL Hgb 13.5 L (14.0-18.0) g/dl Hct 39.8 L (42.0-52.0) % MCV 86.3 (80.0-98.0) fL MCH 29.3 (27.0-33.0) pg MCHC 33.9 (31.0-36.0) g/dl RDW 12.8 (11.0-16.0) % Plt Count 202 (160-400) X10*3/uL MPV 9.4 (9.4-12.4) fL Immature Gran % (Auto) 0.2 (0.0-0.4) % Neut % (Auto) 51.6 (45-73) % Lymph % (Auto) 36.6 (20-40) % Gove % (Auto) 7.4 (2-11) % Eos % (Auto) 3.4 (0-4) % Baso % (Auto) 0.8 (0-2) % Lymph # (Auto) 2.3 (1.2-4.9) X10*3/uL Gove # (Auto) 0.5 (0.1-1.2) X10*3/uL Eos # (Auto) 0.2 (0.0-0.4) X10*3/uL Baso # (Auto) 0.1 (0.0-0.2) X10*3/uL Abs Immat Gran (auto) 0.01 (0.00-0.03) X10*3/uL Absolute Neuts (auto) 3.2 (2.0-8.3) x10*3/uL Absolute Nucleated RBC 0.000 (0.0-0.012) X10*3/uL Nucleated RBC % (auto) 0.0 (0.0-0.2) /100WBC Sodium 139 (135-145) mmol/L Potassium 3.6 (3.3-5.1) mmol/L Chloride 104 (96-108) mmol/L Carbon Dioxide 25 (22-29) mmol/L Anion Gap 14 (12-20) BUN 10 (9-16) mg/dL Creatinine 0.99 (0.5-1.4) mg/dL Estim Creat Clear Calc 103.1 Estimated GFR > 60 Random Glucose 196 H (60-115) mg/dL Calcium 9.8 (8.4-10.2) mg/dL Total Bilirubin 0.3 (0.0-1.0) mg/dL AST 18 (5-37) U/L ALT 15 (0-40) U/L Alkaline Phosphatase 77 (39-117) U/L Troponin I High Sens < 2.7 (<3.5-35.0) ng/L Total Protein 7.1 (6.5-8.0) g/dL Albumin 4.0 (3.5-5.0) g/dL Independent Interpretation I performed an independent interpretation of an: EKG Interpretation: Normal sinus rhythm heart rate 90 beats per minute normal intervals normal axis nonspecific STT wave changes no acute ischemia Discharge Plan Discharge Clinical Impression: Palpitations Patient Disposition: Home, Self-Care Instructions: Heart Palpitations (ED) Additional Instructions: Continue medications and blood thinner and follow with Cardiology for further management including Holter monitoring Report to the ER if recurrence of the episodes of palpitations/passing out episode Discharge Date/Time: 10/15/22 02:01 Print Language: Belarusian
== END 2022-10-15 02:01 | disposition home or self-care (01) ==
PROVIDERS: Emergency Provider Internal Medicine; PCP Nurse Practitioner Family
DX: R00.2 Palpitations (principal); R51.9 Headache, unspecified; I48.91 Unspecified atrial fibrillation; E11.9 Type 2 diabetes mellitus without complications; I10 Essential (primary) hypertension; Z86.73 Personal history of transient ischemic attack (TIA), and cerebral infarction without residual deficits
CPT/HCPCS: 36415; 80053; 84484; 85025; 93005; 99283

== ENCOUNTER 2022-10-20 01:00 | Emergency (ER) | payer OTHER, SELFPAY ==
--- NOTE | ~2022-10-20 | XR_ITS ---
EXAMINATION: XR CHEST CLINICAL INFORMATION: Chest pain. COMPARISON: None available. TECHNIQUE: 2 views of the chest were obtained. FINDINGS: The cardiomediastinal silhouette is normal. There is no focal lung consolidation or pleural effusion. The bony structures and soft tissues are unremarkable. XR/XR chest 2V IMPRESSION: No active cardiopulmonary disease.
[2022-10-20 01:01] VITALS: BP 143/79; PULSE 89; RESP 16; TEMP 36.8; O2SAT 99; BMI 30.4
--- NOTE | 2022-10-20 01:06 | ECG_ITS ---
Test Reason : CHEST PAIN Blood Pressure : / mmHG Vent. Rate : 081 BPM Atrial Rate : 081 BPM P-R Int : 164 ms QRS Dur : 078 ms QT Int : 380 ms P-R-T Axes : 037 -08 062 degrees QTc Int : 441 ms Normal sinus rhythm Nonspecific T wave abnormality Inferior infarct (cited on or before 14-OCT-2022) Abnormal ECG When compared with ECG of 14-OCT-2022 23:43, No significant change was found Referred By: Generic ED Physician Electronically Signed By:SHANDRA PARKINSON
--- NOTE | 2022-10-20 01:15 | ED_ITS ---
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 He comes today as he has some abdominal cramps, L chest cramps all day after drinking the brown Delivered water. No fevers, vomiting, dyspnea, diarrhea. He states he had recent eye surgery and didn't notice the water was brown. He became nervous. He has had this L sided chest pain recently not related to exertion happens at rest and exertion and he is due for stress test he didn't want to come tonight but the brown water freaked him out. MD complaint: chest pain Pertinent past history: coronary artery disease Onset (ago): day(s) (all day but happened on and off for week) Timing of current episode: constant Prior episodes: Yes Onset: during rest Pain location: left chest Pain radiation: none Severity: mild Quality: other (cramps) Relieving factors: nothing Exacerbating factors: nothing Associated symptoms: other (feels gas in abdomen) Treatment prior to arrival: none Related Data Allergies Allergy/AdvReac Type Severity Reaction Status Date / Time Penicillins Allergy Unknown Verified 10/15/22 00:01 Review of Systems 2 Review of Systems: Constitutional : No Weight loss, No Fever, No Chills ENT/Mouth : No sore throat, No Rhinorrhea Eyes: No Eye Pain, No Swelling Cardiovascular : pos Chest Pain, no SOB, no Dyspnea on Exertion, No Orthopnea, No Edema, No Palpitations Respiratory : No Cough, No Sputum Gastrointestinal : no Nausea, No Vomiting, No Diarrhea, No abdominal Pain, No Hematochezia, No Melena Genitourinary : No Dysuria, No Urinary Frequency Musculoskeletal : No joint pain, No Myalgias, No Joint Swelling Skin : No Skin Lesions, No rash Neuro : No Weakness, No Numbness, No Dizziness, No Headache Psych : No Anxiety/Panic, No Depression Heme/Lymph: No Bruising, No Lymphadenopathy Endocrine : No Polyuria, No Polydipsia All other systems reviewed and are negative [facility] Past Medical History Attestation statement: The following information was validated with the patient. Medical History HTN (hypertension) Diabetes Stroke CAD (coronary artery disease) Afib Social History Social History (Updated 10/20/22 @ 01:33 by Silvia Hedrick DO) Alcohol intake: never Patient Tobacco Use Status: Tobacco use Unknown Smoked in Last 30 Days: No Use of substances other than those prescribed or required for medical reasons: No Advance Directives: No Advance Directives Information Provided: Yes Physical Exam 2 Vital Signs: Vital Signs: Last Vital Signs Temp 98.2 F 10/20/22 01:01 Pulse 89 10/20/22 01:01 Resp 16 10/20/22 01:01 BP 143/79 H 10/20/22 01:01 Pulse Ox 99 10/20/22 01:01 O2 Del Method Room Air 10/20/22 01:01 BMI result Body Mass Index 30.4 Appearance: Alert. Oriented X3. No acute distress. no distress playing a scratch ticket Eyes: Pupils equal, round and reactive to light. ENT: Pharynx normal. Neck: Normal inspection. Neck supple. CVS: Normal heart rate and rhythm. Pulses normal. Chest: ttp along left upper chest reproduces pain Respiratory: No respiratory distress. Breath sounds normal. Abdomen: Soft and non-tender. Skin: Skin warm and dry. Normal skin color. Normal skin turgor. Extremities: No lower extremity edema. No calf ttp Neuro: Oriented X 3. No motor deficit. No sensory deficit. 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 Blamed drinking brown water - at this time he could develop issues from water ingestion he is aware. I am going to obtain EKG, labs, CXR and troponin x 1. Doubt VTE, acs unlikely, no infectious symptoms to suggest pneumonia. Differential Diagnosis Differential Diagnoses: The differential diagnosis associated with the presentation includes atypical chest pain, GERD gastritis, anxiety doubt VTE given aspirin, plavix, eliquis use no diarrhea, abdominal pain, vomiting, fevers to suggest colitis enteritis from drinking water at this time though could present in 24 to 48 hours Admission/Observation Consideration of admission/observation: Escalation of care including admission/observation considered Lab Data MDM Lab Attestation statement: I reviewed the patient's lab results. 10/20/22 01:31 10/20/22 01:31 Labs: Lab Results 10/20/22 Range/Units 01:31 WBC 7.1 (4.8-10.8) X10*3/uL RBC 4.54 L (4.60-5.80) X10*6/uL Hgb 13.4 L (14.0-18.0) g/dl Hct 39.8 L (42.0-52.0) % MCV 87.7 (80.0-98.0) fL MCH 29.5 (27.0-33.0) pg MCHC 33.7 (31.0-36.0) g/dl RDW 12.9 (11.0-16.0) % Plt Count 194 (160-400) X10*3/uL MPV 9.3 L (9.4-12.4) fL Immature Gran % (Auto) 0.3 (0.0-0.4) % Neut % (Auto) 51.6 (45-73) % Lymph % (Auto) 34.4 (20-40) % Carlton % (Auto) 9.3 (2-11) % Eos % (Auto) 3.7 (0-4) % Baso % (Auto) 0.7 (0-2) % Lymph # (Auto) 2.5 (1.2-4.9) X10*3/uL Carlton # (Auto) 0.7 (0.1-1.2) X10*3/uL Eos # (Auto) 0.3 (0.0-0.4) X10*3/uL Baso # (Auto) 0.1 (0.0-0.2) X10*3/uL Abs Immat Gran (auto) 0.02 (0.00-0.03) X10*3/uL Absolute Neuts (auto) 3.7 (2.0-8.3) x10*3/uL Absolute Nucleated RBC 0.000 (0.0-0.012) X10*3/uL Nucleated RBC % (auto) 0.0 (0.0-0.2) /100WBC Sodium 138 (135-145) mmol/L Potassium 3.6 (3.3-5.1) mmol/L Chloride 105 (96-108) mmol/L Carbon Dioxide 25 (22-29) mmol/L Anion Gap 12 (12-20) BUN 12 (9-16) mg/dL Creatinine 1.00 (0.5-1.4) mg/dL Estim Creat Clear Calc 102.7 Estimated GFR > 60 Random Glucose 131 H (60-115) mg/dL Calcium 9.5 (8.4-10.2) mg/dL Total Bilirubin 0.3 (0.0-1.0) mg/dL Direct Bilirubin 0.1 (0.0-0.5) mg/dL AST 19 (5-37) U/L ALT 15 (0-40) U/L Alkaline Phosphatase 68 (39-117) U/L Troponin I High Sens < 2.7 (<3.5-35.0) ng/L Total Protein 7.1 (6.5-8.0) g/dL Albumin 3.9 (3.5-5.0) g/dL Lipase 6 L (8-78) U/L Independent Interpretation I performed an independent interpretation of an: EKG and Plain X-Ray (normal ) Interpretation: Rate: 81 Rhythm: NSR Beeson: left Normal P waves. Normal TRIP. Normal QRS complex. ST T wave : no DANIEL, inverted t wave aVL qTC: normal prior studies: unchanged has old inf infarct The study has been interpreted contemporaneously by me. . Radiology Impression Discussion of test interpretation with radiology: I have reviewed the radiologist's reading. External Record Review External record reviewed: Inpatient record Discharge Plan Discharge Clinical Impression: Atypical chest pain Patient Disposition: Home, Self-Care Instructions: Chest Pain (ED) Additional Instructions: your workup was negative at this time normal labs, heart tests, EKG and Chest xray was negative. there is a concern about you bleeding on aspirin, plavix and eliquis together - please talk to your home RN and primary care doctor about holding plavix if your climatology professor does not think you need to be on it. Please do this as soon as possible. return for worsening pain, fevers, vomiting, bloody stools, worsening abdominal pain - if you contracted an illness from the water it may take 24 to 48 hours.
--- NOTE | 2022-10-20 01:32 | MHC.EDTECH ---
Patient changed into hospital attire and placed on the monitor and storage bin tender, labs were drawn and sent to lab. EKG was obtained in triage area on arrival. call gonzales within reach
[2022-10-20 01:38] LABS: MANUAL DIFF FLAG NO
[2022-10-20 01:40] LABS: Basophils Absolute Auto 0.1 X10*3/uL (0.0-0.2); Basophils Percent Auto 0.7 % (0-2); Eosinophils Absolute Auto 0.3 X10*3/uL (0.0-0.4); Eosinophils Percent Auto 3.7 % (0-4); Hematocrit 39.8 % (42.0-52.0); Hemoglobin 13.4 g/dl (14.0-18.0); Imm Gran Abs Auto 0.02 X10*3/uL (0.00-0.03); Imm Gran Pct Auto 0.3 % (0.0-0.4); Lymphocytes Absolute Auto 2.5 X10*3/uL (1.2-4.9); Lymphocytes Percent Auto 34.4 % (20-40); Mean Corpuscular HGB Conc 33.7 g/dl (31.0-36.0); Mean Corpuscular Hemoglobin 29.5 pg (27.0-33.0); Mean Corpuscular Volume 87.7 fL (80.0-98.0); Mean Platelet Volume 9.3 fL (9.4-12.4); Monocytes Absolute Auto 0.7 X10*3/uL (0.1-1.2); Monocytes Percent Auto 9.3 % (2-11); Neutrophils Absolute Auto 3.7 x10*3/uL (2.0-8.3); Neutrophils Percent Auto 51.6 % (45-73); Platelet Count 194 X10*3/uL (160-400); Red Blood Count 4.54 X10*6/uL (4.60-5.80); Red Cell Distribution Width 12.9 % (11.0-16.0); White Blood Count 7.1 X10*3/uL (4.8-10.8)
[2022-10-20 01:58] LABS: Alanine Aminotransferase 15 U/L (0-40); Albumin Level 3.9 g/dL (3.5-5.0); Alkaline Phosphatase 68 U/L (39-117); Anion Gap 12 (12-20); Aspartate Amino Transferase 19 U/L (5-37); Bilirubin Direct 0.1 mg/dL (0.0-0.5); Bilirubin Total 0.3 mg/dL (0.0-1.0); Blood Urea Nitrogen 12 mg/dL (9-16); Calcium 9.5 mg/dL (8.4-10.2); Carbon Dioxide 25 mmol/L (22-29); Chloride 105 mmol/L (96-108); Creatinine Clr Calc Pharmacy 102.7; Estimated Glomerular Filt Rate > 60; Glucose Random 131 mg/dL (60-115); Lipase 6 U/L (8-78); Potassium 3.6 mmol/L (3.3-5.1); Sodium 138 mmol/L (135-145); Total Protein 7.1 g/dL (6.5-8.0)
[2022-10-20 02:05] LABS: Troponin-I High Sensitivity < 2.7 ng/L (<3.5-35.0)
[2022-10-20] MEDS: Lidocaine 4 % Patch ADH..PATCH 1 PATCH TRANSDERMA (02:18)
== END 2022-10-20 02:30 | disposition home or self-care (01) ==
PROVIDERS: Emergency Provider Emergency Medicine
DX: R07.89 Other chest pain (principal); I25.10 Atherosclerotic heart disease of native coronary artery without angina pectoris; Z79.01 Long term (current) use of anticoagulants; Z79.899 Other long term (current) drug therapy
CPT/HCPCS: 36415; 71046; 80048; 80076; 83690; 84484; 85025; 93005; 99283; 99284